=== PATIENT | male | born 1950 | race Caucasian/White ===

== ENCOUNTER 2020-11-09 07:31 | Day surgery (SDC) | payer OTHER ==
[2020-11-09] MEDS ORDERED: EPINEPHRINE/PF 1 MG/ML AMP ONE (07:57)
[2020-11-09] MEDS ORDERED: Ringers Lactate 1,000 ML IV ONE (08:05)
[2020-11-09] MEDS ORDERED: propofoL 200 MG/20 ML VIAL IV ONE (08:37)
[2020-11-09] MEDS ORDERED: LIDOCAINE 1% MPF 5 ML VIAL ONE (08:37)
--- NOTE | 2020-11-09 08:39 | ENDO RPT ---
[address], [address] EGD PROCEDURE REPORT EXAM DATE: 11/09/2020 PATIENT NAME: Brandon Chiang MR#: [id number] BIRTHDATE: 1950 ATTENDING: Saul Herman DR STATUS: outpatient ORACLE FOR[employer] DEVELOPER: Alida Bullard RN and Sascha Abarca [facility] INDICATIONS: The patient is a 70 yr old Male here for an EGD due to malignancy PROCEDURE PERFORMED: EGD with biopsy MEDICATIONS: Per Anesthesia. TOPICAL ANESTHETIC: none CONSENT: The patient understands the risks and benefits of the procedure and understands that these risks include, but are not limited to: sedation, allergic reaction, infection, perforation and/or bleeding. Alternative means of evaluation and treatment include, among others: physical exam, x-rays, and/or surgical intervention. The patient elects to proceed with this endoscopic procedure. DESCRIPTION OF PROCEDURE: During intra-op preparation period all mechanical medical equipment was checked for proper function. Hand hygiene and appropriate measures for infection prevention was taken. Procedure, possible complications, and alternatives including but not limited to the possibility of bleeding, perforation, tear, infection, sepsis, need for surgery, need for blood transfusion, and anesthesia related complications were explained to the patient. After the risks, benefits and alternatives of the procedure were thoroughly explained, Informed consent was verified, confirmed and timeout was successfully executed by the treatment team. The patient was placed in the left lateral position. The patient was anesthetized with topical anesthesia. Through the anesthetized oropharyngeal area, the scope was passed without any difficulty. The Pentax EG-[id number] ([id number]) endoscope was introduced through the mouth and advanced to the esophagus mid. Retroflexion was not performed. The gastroscope was then slowly withdrawn and removed. A circumferential mass was found in the mid esophagus. Located 32 cm from the point of entry. @ 32 cm from incisors With standard forceps, a biopsy was obtained and sent to pathology. ADVERSE EVENTS: There were no complications. IMPRESSIONS: A mass was found in the mid esophagus RECOMMENDATIONS: 1. await biopsy results 2. avoid NSAIDS 3. anti-reflux regimen 4. surgery 5. Boost or ensure diet in preparation for Jejunostomy feeding tube REPEAT EXAM: Saul Herman DR eSigned: Saul Herman DR 11/09/2020 8:39 AM cc: CPT CODES: ICD9 CODES: PATIENT NAME: Андрей Brandon G. MR#: [id number]
[2020-11-09 09:26] VITALS: TEMP 97.5
[2020-11-09 09:27] VITALS: BP 158/87; O2SAT 97
== END 2020-11-09 09:15 | disposition home or self-care (01) ==
LOC: OR 07:31
PROVIDERS: ATTEND Surgery
PROC: 0DB28ZX Excision of Middle Esophagus, Via Natural or Artificial Opening Endoscopic, Diagnostic (ICD-10-PCS; principal; 2020-11-09 08:30)
DX: C15.4 Malignant neoplasm of middle third of esophagus (principal); Z20.822 Contact with and (suspected) exposure to COVID-19
CPT/HCPCS: 43239; 88305; U0002; J2704; J7120; J0171

== ENCOUNTER 2020-11-12 07:35 | Day surgery (SDC) | payer OTHER ==
[2020-11-12] MEDS ORDERED: propofoL 200 MG/20 ML VIAL IV ONE ×2 (08:47→10:08)
[2020-11-12] MEDS: BUPIVACA 0.25%/EPI 0.0005% MDV 50 ML VIAL ONE ×2 (08:48→09:44)
[2020-11-12] MEDS ORDERED: FENTANYL CITR 100 MCG/2 ML ONE ×2 (08:48→10:07)
[2020-11-12] MEDS ORDERED: LIDOCAINE 1% MPF 5 ML VIAL ONE (08:48)
[2020-11-12] MEDS ORDERED: ROCURONIUM 50 MG/5 ML VIAL IV ONE (08:49)
[2020-11-12] MEDS ORDERED: CEFAZOLIN/SWI 2gm 2 GM/20 ML SYR ONE (09:21)
[2020-11-12] MEDS ORDERED: Ringers Lactate 1,000 ML IV ONE ×2 (09:21→11:31)
[2020-11-12] MEDS ORDERED: NEOSTIGMINE 1 MG/ML -5 ML ONE (11:12)
[2020-11-12] MEDS ORDERED: GLYCOPYRROLATE 0.2 MG/ML SYR ONE (11:12)
--- NOTE | 2020-11-12 11:16 | P.OP ---
Preoperative diagnosis: Malnutrition, Esophageal Cancer Postoperative diagnosis: Malnutrition, Esophageal Cancer Primary procedure: Laparoscopic Jejunostomy Feeding Tube Secondary procedure: Laparoscopic Adhesiolysis, Reduction of umbilical hernia Anesthesia: GETA + Local Estimated blood loss: <5cc Specimen: None Findings: Incarcerated umbilical hernia, intra-abdominal scar tissue Complications: None Implants: Jejunostomy Feeding tube - 14 Fr Transferred to: Recovery Room Condition: Good
[2020-11-12] MEDS: LABETALOL 20 MG/4ML SYRINGE IV ONE ×2 (11:42→11:52)
--- NOTE | 2020-11-12 12:28 | OP ---
Date of Procedure: 11/12/2020 Surgeon: Saul Herman MD, Preoperative Diagnosis: Malnutrition and esophageal cancer. Postoperative Diagnosis: Malnutrition and esophageal cancer. Procedures Performed: 1.A laparoscopic jejunostomy feeding tube. 2.Laparoscopic adhesiolysis. 3.Reduction of umbilical hernia. Anesthesia: General endotracheal plus local with 0.25% Marcaine without epinephrine. Estimated Blood Loss: Less than 5 mL. Specimen: None. Findings: 1.Incarcerated umbilical hernia. 2.Intraabdominal scar tissue. No peritoneal mets were noted or intraabdominal malignancy noted on b rief examination. Complications: None. Implants: A 14-Greenlandic jejunostomy feeding tube. Disposition: The patient was transferred to recovery room in good condition. Procedure In Detail: After informed consent was obtained, the patient was brought to the operating r oom, prepped and draped in the usual sterile fashion. After adequate anesthesia was achieved, three areas were demarcated in the midline, 2 supraumbilical, 1 infraumbilical. All these were anesthetize d. A 5 mm 0-degree optical trocar was introduced in the supraumbilical position. Insufflation was o btained at 15 mmHg at this time. There was no injury to vital structures upon entry into the abdomen . The 2 additional trocars were in place in the epigastrium and in the infraumbilical position. At this point, umbilical hernia was appreciated, which was obscuring the view. Therefore, a laparoscopi c adhesiolysis was performed using combination of blunt dissection and electrocautery. After this, u mbilical hernia was reduced. I then turned my attention to the bowel. The patient was positioned in a steep Trendelenburg position. The omentum was draped over the top of the liver and I grasped the small bowel, which was evident at this position and ran up back to the ligament of Treitz. At this p oint, I counted off approximately 30 cm from the ligament of Treitz and placed the abdomen and de-suf flation pressure down to 10 mmHg and brought the small bowel in the antimesenteric border to the ante rior abdominal wall to see if this was a good position in the left upper quadrant. There was no tens ion at this area. Therefore, I decided to place the tube at this point. Additional trocar was place d in the left upper quadrant. This was a 5 mm trocar placed under direct visualization. The ratCodenomicon ed grasper used to bring the jejunostomy 14-Greenlandic feeding tube with balloon inflations system in thr ough the left upper quadrant trocar and the trocar was removed just prior to placement. At this poin t, I made an electrocautery incision overlying this portion of the small bowel approximately 30 cm fr om the ligament of Treitz. I then used a [place] retractor to open and the lumen was appreciated at this point. I then, under direct visualization, passed the jejunostomy feeding tube down distally i ncluding the balloon through this enterotomy without incident. At this point, the balloon was inflat ed with approximately 7 cc of saline. Burst pressure was 10 on this balloon. At this point, I then placed a pursestring suture using a 0 Vicryl intracorporeally, sutured circumferentially in a pursest ring fashion with good apposition of the tissues at the entry site with the balloon just distal to th e insertion site. At this point, I then brought the V-Loc suture with Endo Stitch and performed a We tzel imbrication over the proximal aspect of the jejunostomy feeding tube and used the V-Loc suture t o secure this. At this point, I used an additional V-Loc suture to orient the bowel and prevent tors ion distally approximately 10 cm distal to the tube insertion site. This was pexed to the anterior a bdominal wall using the V-Loc suture. I then secured the insertion site to the anterior abdominal wa ll using a V-Loc suture in an interrupted fashion with good apposition. At this point, the balloon w as inspected and found to be good intact. I tested to ensure that water was injected through the jej unostomy feeding tube and noted to be flowing distally in the small bowel filling it properly. Enter ic contents were returned when suctioned and I then placed an additional small amount of water approx imately 5 cc distally at this point to flush out the tube. At this point, a suture was placed around the neck of the J-tube to secure its position and I then secured to the anterior abdominal wall. At this point, I then desufflated the abdomen under direct visualization and the tube continued to work well and fluid flowed easily into the tube and flowed distally at this point. I then closed the 12 mm supraumbilical trocar site using a Thanh-Mirna suture passer with a 0 Vicryl in an interrupted fashion with good approximation of tissues. The remaining trocars were then removed. The abdomen w as completely desufflated under direct visualization. I irrigated all skin incisions and closed them with 4-0 Monocryl in a running fashion. Dermabond was placed over top. I then secured the J-tube b utton to the skin using two 2-0 nylon sutures laterally and a sterile dressing placed over top. The patient tolerated the procedure well without evidence of complication and transferred to PACU in good condition. All counts were correct at the end of the case. ADOLPH/BESTL Voice ID: [id number] Report ID: [id number]
[2020-11-12 12:45] VITALS: TEMP 96.4
[2020-11-12 12:46] VITALS: BP 155/72; O2SAT 99
== END 2020-11-12 13:00 | disposition home or self-care (01) ==
LOC: OR 07:35
PROVIDERS: ATTEND Surgery
PROC: 0WQF4ZZ Repair Abdominal Wall, Percutaneous Endoscopic Approach (ICD-10-PCS; 2020-11-12)
PROC: 0DHA0UZ Insertion of Feeding Device into Jejunum, Open Approach (ICD-10-PCS; principal; 2020-11-12 08:30)
DX: E46 Unspecified protein-calorie malnutrition (principal); C15.9 Malignant neoplasm of esophagus, unspecified; R13.10 Dysphagia, unspecified; Z20.822 Contact with and (suspected) exposure to COVID-19
CPT/HCPCS: 49652; 44186; J2704 ×2; J3010 ×2; J2710; J0690; J7120 ×2

== ENCOUNTER 2020-11-23 14:08 | Inpatient (IN) | payer OTHER ==
[2020-11-23 14:38] LABS: Absolute Lymphocytes (CBC) 0.6 K/uL (0.7-4.9); Basophils % 0.2 % (0-1.3); Hematocrit 50.4 % (39.6-49.0); Lymphocytes % 3.6 % (15.3-44.8); MPV 11.7 fL (7.6-11.3); RBC Red Blood Cell Count 5.38 M/uL (4.33-5.43)
--- NOTE | 2020-11-23 14:51 | RAD REPORT ---
EXAM DESCRIPTION: RAD - Chest Single View - 11/23/2020 2:44 pm CLINICAL HISTORY: N/V Chest pain. COMPARISON: Thorax Wo Con dated 10/29/2020 FINDINGS: Portable technique limits examination quality. The lungs are grossly clear. The heart is normal in size. No displaced fractures.Tortuous thoracic ao rta. IMPRESSION: No acute intrathoracic process suspected.
--- NOTE | 2020-11-23 14:51 | RAD REPORT ---
EXAM DESCRIPTION: RAD - ENTEROSTOMY TUBE CHECK W/CONTR - 11/23/2020 2:44 pm CLINICAL HISTORY: unable to use peg tube Pain and swelling COMPARISON: Abdomen Pelvis Scan dated 01/28/2017 FINDINGS: Two plain radiographs were performed. No fluoroscopy obtained. Business Performance Analyst image shows enteric tube on the left abdomen. Contrast infused via the tube fills several small bowel loops in the lower abdomen. This indicates appropriate placement.
[2020-11-23] MEDS ORDERED: FAMOTIDINE 20 MG/2 ML VIAL IV ONE (14:52)
[2020-11-23] MEDS ORDERED: ONDANSETRON 4 MG/2 ML VIAL ONE (14:56)
[2020-11-23 15:01] LABS: Blood Morphology Comment NOT SEEN (NOT SEEN); Platelet Estimate ADEQ; White Blood Cell Scan OK (OK)
[2020-11-23 15:02] LABS: Albumin 4.2 g/dL (3.4-5.0); Bilirubin Direct 1.7 mg/dL (0-0.2); Bilirubin Total 2.6 mg/dL (0.2-1.0); Magnesium 3.4 mg/dL (1.8-2.4); Potassium 3.2 mmol/L (3.5-5.1); Protein, Total 8.9 g/dL (6.4-8.2)
[2020-11-23] MEDS ORDERED: Ringers Lactate 1,000 ML IV ONE (15:17)
[2020-11-23] MEDS ORDERED: PROMETHAZINE INJ 25 MG/ML AMP ONE (15:17)
--- NOTE | 2020-11-23 15:36 | EDPHYS ---
Physician Documentation [facility] Name: Brandon Chiang Age: 70 yrs Sex: Male : 1950 Arrival Date: 11/23/2020 Time: 14:16 Bed 16 Private MD: ED Physician Shimon Pulido HPI: 11/23 14:30 This 70 yrs old Male presents to ER via EMS with complaints of cp Nausea/Vomiting. 14:30 The patient presents to the emergency department with nausea, that is moderate, cp vomiting, that is continuous. 14:30 Onset: The symptoms/episode began/occurred September of 2020, became worse and cp persistent since having j-tube placed on 11-12-[address]. 14:30 Possible causes: Patient has history of esophageal cancer. Associated signs and cp symptoms: Pertinent positives: anorexia, Pertinent negatives: abdominal pain, constipation, diarrhea, dysuria, fever, GI bleeding. Severity of symptoms: in the emergency department the symptoms are unchanged despite home interventions. Historical: - Allergies: 14:19 No Known Allergies; vg1 - PSHx: 14:19 Jejunostomy; vg1 - Immunization history:: Adult Immunizations up to date. ROS: 14:35 Constitutional: Positive for poor PO intake, Negative for body aches, chills, fever. cp 14:35 Eyes: Negative for injury, pain, redness, and discharge. cp 14:35 ENT: Negative for ear pain, sore throat, difficulty swallowing, difficulty handling secretions. 14:35 Cardiovascular: Negative for chest pain, palpitations. 14:35 Respiratory: Negative for cough, shortness of breath, wheezing. 14:35 Abdomen/GI: Positive for nausea and vomiting, anorexia, Negative for abdominal pain, diarrhea, constipation, hematemesis, black/tarry stool, rectal bleeding. 14:35 Back: Negative for pain at rest, pain with movement. 14:35 : Negative for urinary symptoms. 14:35 Skin: Negative for cellulitis, rash. 14:35 Neuro: Negative for altered mental status, dizziness, syncope, weakness. 14:35 All other systems are negative. Exam: 14:40 Constitutional: The patient appears in no acute distress, alert, awake, cp non-diaphoretic, non-toxic, well developed, well nourished, uncomfortable. 14:40 Head/Face: Normocephalic, atraumatic. cp 14:40 Eyes: Periorbital structures: appear normal, Conjunctiva: normal, no exudate, no injection, Sclera: no appreciated abnormality, Lids and lashes: appear normal, bilaterally. 14:40 ENT: External ear(s): are unremarkable, Nose: is normal, Mouth: Lips: moist, Oral mucosa: pink and intact, moist, Posterior pharynx: Airway: no evidence of obstruction, patent. 14:40 Neck: ROM/movement: is normal, is supple, without pain, no range of motions limitations, no nuchal rigidity. 14:40 Chest/axilla: Inspection: normal, Palpation: is normal, no crepitus, no tenderness. 14:40 Cardiovascular: Rate: normal, Rhythm: regular, Edema: is not appreciated, JVD: is not appreciated. 14:40 Respiratory: the patient does not display signs of respiratory distress, Respirations: labored breathing, is not present, intercostal retractions, are absent. 14:40 Abdomen/GI: Inspection: distension, that is mild, Bowel sounds: active, all quadrants, Palpation: abdomen is soft and non-tender, in all quadrants, rebound tenderness, is not appreciated, voluntary guarding, is not appreciated, involuntary guarding, is not appreciated. 14:40 Back: pain, is absent, ROM is normal. 14:40 Skin: cellulitis, is not appreciated, no rash present. 14:40 Neuro: Orientation: to person, place \\T\\ time. Mentation: is normal, Motor: moves all fours, strength is normal. Vital Signs: 14:16 BP 144 / 93; Pulse 99; Resp 16; Pulse Ox 96% on R/A; Weight 88 kg; Height 6 ft. 1 in. vg1 (185.42 cm); Pain 0/10; 17:31 BP 150 / 93; Pulse 92; Resp 16; Pulse Ox 95% on R/A; ph 14:16 Body Mass Index 25.59 (88.00 kg, 185.42 cm) vg1 MDM: 14:19 Patient medically screened. cp 14:30 Differential diagnosis: gastritis, viral gastroenteritis, gastroenteritis, kidney cp failure, bowel obstruction, dehydration, electrolyte abnormality. 15:33 Data reviewed: vital signs, nurses notes, lab test result(s), radiologic studies, plain cp films, I have discussed the patient's presentation/case with the attending Emergency Department Physician; and as a result, I will admit patient. Physician consultation: Saul Herman MD was contacted at 15:00, regarding consult, patient's condition, would like admission per Dr. Jovanni Morales in the emergency department to see patient at 15:15. 11/23 14:19 Order name: Basic Metabolic Panel 11/23 14:19 Order name: CBC with Diff 11/23 14:57 Interpretation: Normal except: WBC 15.50; HCT 50.4; MPV 11.7; QUANG% 91.4; LYM% 3.6; NEUT cp A 14.1; LYMA 0.6. 11/23 14:19 Order name: Hepatic Function; Complete Time: 15:10 11/23 15:29 Interpretation: Normal except: AST 45; ALT 89; BILIT 2.6; BILID 1.7; TP 8.9; GLOB 4.7; cp A/G 0.9. 11/23 14:19 Order name: Lipase; Complete Time: 15:10 11/23 14:19 Order name: Magnesium; Complete Time: 15:10 11/23 14:19 Order name: Basic Metabolic Panel; Complete Time: 15:10 EDMS 11/23 14:19 Order name: XRAY Chest (1 view); Complete Time: 14:57 11/23 14:19 Order name: PEG Tube Check w/contrast; Complete Time: 14:57 11/23 15:01 Order name: CBC Smear Scan EDAL 11/23 15:21 Order name: CT Abd/Pelvis - Without Contrast 11/23 15:33 Order name: COVID-19 : Document "Date of Symptom Onset" if Symptomatic. 11/23 16:36 Order name: SARS-COV-2 RT PCR EDAL 11/23 14:19 Order name: IV Saline Lock; Complete Time: 14:33 11/23 14:19 Order name: Labs collected and sent; Complete Time: 14:33 11/23 15:54 Order name: NG Tube; Complete Time: 17:05 cp 11/23 16:21 Order name: CONS Physician Consult EDMS Administered Medications: 14:46 Drug: Pepcid 20 mg Route: IVP; Site: left antecubital; vg1 15:38 Follow up: Response: No adverse reaction vg1 14:46 Drug: Zofran (Ondansetron) 4 mg Route: IVP; Site: left antecubital; vg1 15:38 Follow up: Response: No adverse reaction; Nausea unchanged vg1 15:12 Drug: Phenergan 25 mg Route: IVP; Site: left antecubital; vg1 18:48 Follow up: Response: No adverse reaction ph 15:12 Drug: Lactated Ringers Solution 1000 ml Route: IV; Rate: 500 ml/hr; Site: left 1 antecubital; 17:30 Follow up: Response: No adverse reaction; IV Status: Completed infusion; IV Intake: ph 1000ml 17:30 Drug: metroNIDAZOLE 500 mg Volume: 100 ml; Route: IVPB; [facility]used Over: 30 mins; [facility]; 18:00 Follow up: Response: No adverse reaction; IV Status: Completed infusion; IV Intake: ph 100ml 17:30 Drug: Cipro 200 mg Volume: 100 ml; Route: IVPB; Infused Over: 60 mins; Site: [facility]; 18:30 Follow up: Response: No adverse reaction; IV Status: Completed infusion; IV Intake: ph 100ml Disposition: 11/23/20 15:35 Hospitalization ordered by Jovanni Moralse for Inpatient Admission. Preliminary diagnosis are Nausea and vomiting, Acute kidney failure, Dehydration, Other and unspecified intestinal obstruction. - Bed requested for Telemetry/MedSurg (Inpatient). - Status is Inpatient Admission. vg1 - Condition is Fair. - Problem is new. - Symptoms have improved. Addendum: 11/25/2020 14:34 Co-signature as Attending Physician, Shimon Pulido MD I agree with the assessment and k dr plan of care. Signatures: Dispatcher [employer] EDAL Shimon Pulido MD MD [facility] Helen Curiel RN RN jewel5 Nancy Skaggs, MARISSA RN ph Jeronimo Wilson PA PA cp Garcia, Victoria, RN RN vg1 Corrections: (The following items were deleted from the chart) 11/23 15:29 15:28 Normal except: AST 45; ALT 89; BILIT 2.6; BILID 1.7; TP 8.9; GLOB 4.7. cp cp 15:49 15:34 CORONAVIRUS ordered. EDMS EDMS 15:54 15:35 Hospitalization Ordered by Jovanni Morales for Inpatient Admission. Preliminary cp diagnosis is Nausea and vomiting; Acute kidney failure; Dehydration. Bed requested for Telemetry/MedSurg (Inpatient). Status is Inpatient Admission. Condition is Fair. Problem is new. Symptoms have improved. cp 18:50 15:54 11/23/2020 15:35 Hospitalization Ordered by Jovanni Morales for Inpatient aa5 Admission. Preliminary diagnosis is Nausea and vomiting; Acute kidney failure; Dehydration; Other and unspecified intestinal obstruction. Bed requested for Telemetry/MedSurg (Inpatient). Status is Inpatient Admission. Condition is Fair. Problem is new. Symptoms have improved. cp 20:00 18:50 11/23/2020 15:35 Hospitalization Ordered by Jovanni Morales for Inpatient vg1 Admission. Preliminary diagnosis is Nausea and vomiting; Acute kidney failure; Dehydration; Other and unspecified intestinal obstruction. Bed requested for Telemetry/MedSurg (Inpatient). Status is Inpatient Admission. Condition is Fair. Problem is new. Symptoms have improved. aa5
--- NOTE | 2020-11-23 15:36 | ER ---
Nurse's Notes [facility] Name: Barndon Chiang Age: 70 yrs Sex: Male : 1950 Arrival Date: 11/23/2020 Time: 14:16 Bed 16 Private MD: Diagnosis: Nausea and vomiting;Acute kidney failure;Dehydration;Other and unspecified intestinal obstruction Presentation: 11/23 14:16 Chief complaint: EMS states: Patient had a J tube placed about two weeks ago and has vg1 not been able to keep anything down since. Patient vomited upon arrival. EMS stated it was green in color. Coronavirus screen: Client denies travel out of the [place] in the last 14 days. Ebola Screen: Patient negative for fever greater than or equal to 101.5 degrees Fahrenheit, and additional compatible Ebola Virus Disease symptoms. Initial Sepsis Screen: Does the patient meet any 2 criteria? No. Patient's initial sepsis screen is negative. Does the patient have a suspected source of infection? No. Patient's initial sepsis screen is negative. Risk Assessment: Do you want to hurt yourself or someone else? Patient reports no desire to harm self or others. Onset of symptoms was November 09, 2020. 14:16 Method Of Arrival: EMS: [facility] vg1 14:16 Acuity: LEIDY 3 vg1 Historical: - Allergies: 14:19 No Known Allergies; vg1 - PSHx: 14:19 Jejunostomy; vg1 - Immunization history:: Adult Immunizations up to date. Screenin:38 Abuse screen: Denies threats or abuse. Nutritional screening: No deficits noted. vg1 Tuberculosis screening: No symptoms or risk factors identified. Fall Risk No fall in past 12 months (0 pts). No secondary diagnosis (0 pts). IV access (20 points). Ambulatory Aid- None/Bed Rest/Nurse Assist (0 pts). Gait- Normal/Bed Rest/Wheelchair (0 pts) Mental Status- Oriented to own ability (0 pts). Total Wheeler Fall Scale indicates No Risk (0-24 pts). Assessment: 14:00 General: Appears in no apparent distress. comfortable, Behavior is calm, cooperative. vg1 Pain: Denies pain. Neuro: Level of Consciousness is awake, alert, obeys commands, Oriented to person, place, time, situation. Cardiovascular: Patient's skin is warm and dry. Respiratory: Airway is patent Respiratory effort is even, unlabored, Respiratory pattern is regular, symmetrical. GI: Abdomen is round distended, PEG tube in place, Site clean. : No signs and/or symptoms were reported regarding the genitourinary system. EENT: No signs and/or symptoms were reported regarding the EENT system. Derm: Skin is intact, is healthy with good turgor. Musculoskeletal: Circulation, motion, and sensation intact. 14:36 Reassessment: xray at bedside. vg1 14:46 Reassessment: Received VO from Jeronimo Santiago administer Zofran 4 mg IVP x1. vg1 16:00 Reassessment: Patient appears in no apparent distress at this time. Patient and/or vg1 family updated on plan of care and expected duration. Pain level reassessed. Patient is alert, oriented x 3, equal unlabored respirations, skin warm/dry/pink. Patient denies pain at this time. Patient states feeling better. 18:00 Reassessment: No changes from previously documented assessment. Patient is alert, vg1 oriented x 3, equal unlabored respirations, skin warm/dry/pink. 19:39 Reassessment: Attempted to call report. vg1 Vital Signs: 14:16 BP 144 / 93; Pulse 99; Resp 16; Pulse Ox 96% on R/A; Weight 88 kg; Height 6 ft. 1 in. vg1 (185.42 cm); Pain 0/10; 17:31 BP 150 / 93; Pulse 92; Resp 16; Pulse Ox 95% on R/A; ph 14:16 Body Mass Index 25.59 (88.00 kg, 185.42 cm) vg1 ED Course: 14:16 Patient arrived in ED. vg1 14:17 Jeronimo Wilson PA is PHCP. cp 14:17 Shimon Pulido MD is Attending Physician. cp 14:18 Triage completed. vg1 14:30 Initial lab(s) drawn, by me, sent to lab. X-ray(s) taken. Inserted saline lock: 20 jp3 gauge in left antecubital area, using aseptic technique. Blood collected. Patient maintains SpO2 saturation greater than 95% on room air. 14:32 Natalie Mejia, RN is Primary Nurse. vg1 14:32 Placed in gown. Bed in low position. Call light in reach. Side rails up X2. Warm jp3 blanket given. Verbal reassurance given. Pulse ox on. NIBP on. 14:38 Arm band placed on. vg1 14:43 XRAY Chest (1 view) In Process Unspecified. EDMS 14:44 PEG Tube Check w/contrast In Process Unspecified. EDMS 15:35 Jovanni Morales is Hospitalizing Provider. cp 15:[address] via stretcher. vg1 15:50 CT Abd/Pelvis - Without Contrast In Process Unspecified. EDMS 19:37 NGT: inserted 10 Fr. via right nare. other Inserted by Dr Lynn. vg1 20:00 No provider procedures requiring assistance completed. Patient admitted, IV remains in vg1 place. Administered Medications: 14:46 Drug: Pepcid 20 mg Route: IVP; Site: left antecubital; vg1 15:38 Follow up: Response: No adverse reaction vg1 14:46 Drug: Zofran (Ondansetron) 4 mg Route: IVP; Site: left antecubital; vg1 15:38 Follow up: Response: No adverse reaction; Nausea unchanged vg1 15:12 Drug: Phenergan 25 mg Route: IVP; Site: left antecubital; vg1 18:48 Follow up: Response: No adverse reaction ph 15:12 Drug: Lactated Ringers Solution 1000 ml Route: IV; Rate: 500 ml/hr; Site: left [facility] antecubital; 17:30 Follow up: Response: No adverse reaction; IV Status: Completed infusion; IV Intake: ph 1000ml 17:30 Drug: metroNIDAZOLE 500 mg Volume: 100 ml; Route: IVPB; Infused Over: 30 mins; [facility]; 18[facility]00 Follow up: Response: No adverse reaction; IV Status: Completed infusion; IV Intake: ph 100ml 17:30 Drug: Cipro 200 mg Volume: 100 ml; Route: IVPB; Infused Over: 60 mins; Site: left antecubital; 18:30 Follow up: Response: No adverse reaction; IV Status: Completed infusion; IV Intake: ph 100ml Intake: 17:30 IV: 1000ml; Total: 1000ml. ph 18:00 IV: 100ml; Total: 1100ml. ph 18:30 IV: 100ml; Total: 1200ml. ph Outcome: 15:35 Decision to Hospitalize by Provider. cp 20:00 Admitted to Tele accompanied by tech, via stretcher, room 219, with chart, Report vg1 called to Yazmin ANN called report to receiving nurse. 20:00 Condition: stable 20:00 Instructed on the need for admit. 20:00 Patient left the ED. vg1 Signatures: Dispatcher [employer] Nancy Nava RN RN ph Jeronimo Wilson PA PA Zeferino Lucio 3 Natalie Mejia RN RN vg1 Corrections: (The following items were deleted from the chart) 14:46 14:45 Pepcid 20 mg IVP in right antecubital vg1 vg1
--- NOTE | 2020-11-23 16:06 | RAD REPORT ---
EXAM DESCRIPTION: CT - Abdomen Pelvis Wo Contrast - 11/23/2020 3:50 pm CLINICAL HISTORY: Abdominal pain. ABDOMINAL DISTENTION COMPARISON: No comparisons TECHNIQUE: CT imaging of the abdomen and pelvis was performed without contrast. Solid organ and vasc ular assessment is limited due to lack of IV contrast. All CT scans are performed using dose optimization technique as appropriate and may include automated exposure control or mA/KV adjustment according to patient size. FINDINGS: The inferior lung nichole are mildly emphysematous. There is marked fluid distention of the distal esophagus, stomach and duodenum to the level of left m id abdomen or a jejunostomy tube enters the abdomen. In this region the bowel wall appears thickened which may be etiology of the obstruction. Contrast is seen within the distal small bowel loops to thi s point which appear normal caliber. Tiny bubbles of air are seen throughout the abdominal fat. The liver, spleen, pancreas, adrenal glands and left kidney are within normal limits for a limited no n-contrast examination.Small calculi are present in the inferior right kidney without hydronephrosis. Small right renal cysts are present, benign in appearance. Moderate to large right inguinal hernia is present containing small bowel loops and air. Small fat co ntaining left inguinal hernia. Sigmoid diverticulosis coli is present without diverticulitis. Normal appendix. Moderate lumbar degenerative changes are present. IMPRESSION: A severe bowel obstruction is present involving the stomach and duodenum. Point of obstr uction appears to be related to left abdominal jejunostomy tube. Small amount of pneumoperitoneum is seen which is probably related to previous intervention and can b e monitored on subsequent CT studies. Right nephrolithiasis. Findings were discussed with Dr. Fernández on 11/23/20 at 4 pm by telephone. A limited non-contrast examination was performed as detailed.
[2020-11-23] MEDS ORDERED: CIPROFLOXACIN 400mg IV 400 MG/200 ML BAG IV ONE (17:34)
[2020-11-23] MEDS ORDERED: METRONIDAZOLE 500mg IVPB 500 MG/100 ML BAG IV ONE (17:35)
[2020-11-23] MEDS ORDERED: JEVITY 1.5 CAL LIQUID 1,000 ML BOT RTH SCH (18:00)
--- NOTE | 2020-11-23 18:40 | P.HP ---
Certification for Inpatient Patient admitted to: Inpatient With expected LOS: >2 Midnights Practitioner: I am a practitioner with admitting privileges, knowledge of patient current condition, hospital course, and medical plan of care. Services: Services provided to patient in accordance with Admission requirements found in Title 42 Section 412.3 of the Code of Federal Regulations Patient History Date of Service: 11/23/20 Reason for admission: Nausea and vomiting. History of Present Illness: 70-year-old gentleman with a history of esophageal cancer status post J-tube for feeding about 2 weeks ago presented to the emergency department with a complaint of nausea and vomiting. Patient vomited in the emergency department. There was a concern his J tube was not working. Patient was seen by general surgery Dr. Herman we examined his J tube, performed a contrast study and noted the J tube is still functional. Patient noted to have acute renal failure with creatinine up to 6.8 compared to a baseline of 2. NG-tube to suction was inserted by Dr. Herman. Patient is admitted for further management. Allergies No Known Allergies Allergy (Verified 11/09/20 08:01) Home Medications: Felodipine [Plendil] 10 mg PO DAILY 11/09/20 Omeprazole 20 mg PO BID 11/09/20 - Past Medical/Surgical History -: Esophageal cancer -: Chronic kidney disease -: Knee surgery -: Tonsillectomy and adenoidectomy. - Family History Father -: Other (see notes) (Pneumonia and from pulmonary embolism.) - Social History Alcohol use: No CD- Drugs: No Place of Residence: Home Review of Systems Other: Except as documented, all other systems reviewed and negative. Physical Examination - Physical Exam General: Alert, In no apparent distress, Oriented x3 HEENT: Normocephalic, PERRLA, Mucous membr. moist/pink, EOMI, Sclerae nonicteric Neck: Supple, JVD not distended Respiratory: Clear to auscultation bilaterally, Normal air movement Cardiovascular: No edema, Regular rate/rhythm, Normal S1 S2 Capillary refill: <2 Seconds Gastrointestinal: Normal bowel sounds, Soft and benign, Non-distended, Other (J tube in situ.) Musculoskeletal: No swelling, No tenderness Integumentary: No rashes, No erythema Neurological: Normal strength at 5/5 x4 extr, Cranial nerves 3-12 intact - Studies Laboratory Data (last 24 hrs) 11/23/20 14:29: WBC 15.50 H, Hgb 16.3, Hct 50.4 H, Plt Count 220 11/23/20 14:29: Sodium 132 L, Potassium 3.2 L, BUN 122 H, Creatinine 6.36 H*, Glucose 167 H, Magnesium 3.4 H, Total Bilirubin 2.6 H, AST 45 H, ALT 89 H, Alkaline Phosphatase 102, Lipase 555 H Assessment and Plan - Problems (Diagnosis) (1) Nausea and vomiting Current Visit: Yes Status: Acute (2) Acute renal failure superimposed on stage 3 chronic kidney disease Current Visit: Yes Status: Acute (3) Small bowel obstruction Current Visit: Yes Status: Acute (4) Hypokalemia Current Visit: Yes Status: Acute (5) Hyponatremia Current Visit: Yes Status: Acute - Plan Admit to the medical floor. Aggressively hydrate with IV NS. Consult to Dr. Batsheva reese. Consult to nephrology requested. Monitor renal function. Keep NPO NG tube to suction in place. Prophylactic IV antibiotics given leukocytosis. Monitor and replete electrolytes as needed. Liver enzymes and lipase are elevated. CT abdomen pelvis suggesting normal appearing liver and pancreas. Monitor LFT. - Advance Directives Does patient have a Living Will: No Does patient have a Durable POA for Healthcare: No
[2020-11-23] MEDS ORDERED: ONDANSETRON 4 MG/2 ML VIAL IV PRN (20:47)
[2020-11-23] MEDS ORDERED: SODIUM CHLORIDE 0.9% 10ML INJ IV PRN (20:47)
[2020-11-23] MEDS: NA CHLORIDE 0.9% 1,000 ML IV SCH (21:26)
[2020-11-23] MEDS: HEPARIN 5000 UNIT/ML 1 ML VIAL SQ SCH (21:26)
[2020-11-24] MEDS: METRONIDAZOLE 500mg IVPB 500 MG/100 ML BAG IV SCH ×3 (01:00→17:00)
[2020-11-24] MEDS: HEPARIN 5000 UNIT/ML 1 ML VIAL SQ SCH ×3 (01:00→17:00)
[2020-11-24] MEDS: NA CHLORIDE 0.9% 1,000 ML IV SCH ×3 (04:47→23:40)
[2020-11-24 05:00] LABS: Basophils % 0.3 % (0-1.3); Hematocrit 44.6 % (39.6-49.0); Lymphocytes % 8.1 % (15.3-44.8); MPV 11.5 fL (7.6-11.3); RBC Red Blood Cell Count 4.72 M/uL (4.33-5.43)
[2020-11-24 06:00] LABS: Albumin 3.5 g/dL (3.4-5.0); Bilirubin Total 2.4 mg/dL (0.2-1.0); Magnesium 3.1 mg/dL (1.8-2.4); Phosphorus 5.9 mg/dL (2.5-4.9); Protein, Total 7.7 g/dL (6.4-8.2); Thyroid Stimulating Hormone 0.491 uIU/mL (0.360-3.740)
[2020-11-24 06:23] LABS: Urine Appearance CLEAR; Urine Blood TRACE (NEG); Urine Color DK YELLOW; Urine Glucose NEGATIVE (NEG); Urine Protein 2+ (NEG); Urine Urobilinogen 0.2 mg/dL (0.2-1.0)
[2020-11-24 06:31] LABS: Urine Bilirubin 1+ (NEG); Urine Microscopic Reflex ORDER UMIC
[2020-11-24 07:01] LABS: Urine Bacteria <20 /HPF (NONE SEEN); Urine RBC <5 /HPF (NONE SEEN)
[2020-11-24] MEDS: CEFTRIAXONE/SWI 1gm 1 GM/10 ML SYR IV SCH (09:00)
[2020-11-24] MEDS ORDERED: CEFTRIAXONE 1 GM/NS 50 ML 1 GM/50 ML BAG IV SCH (09:00)
[2020-11-24] MEDS ORDERED: POTASSIUM 25 MEQ EFFERV TAB PO ONE (09:00)
[2020-11-24] MEDS: PANTOPRAZOLE 40 MG INJ IVP SCH (09:00)
[2020-11-24] MEDS: KCL 20 MEQ/100 mL IVPB 20 MEQ/100 ML BAG IV SCH ×2 (10:30→12:30)
[2020-11-24] MEDS ORDERED: GLUCAGON 1 MG/VIAL IM PRN (11:00)
[2020-11-24] MEDS ORDERED: D50W 25 GM/50 ML SYRINGE IV PRN (11:00)
--- NOTE | 2020-11-24 11:04 | P.PN ---
Subjective Date of Service: 11/24/20 Chief Complaint: Nausea and vomiting. Subjective: Improving (Patient has no nausea with NGT in place, no pain, no bloating, no complaints.) Physical Examination - Vital Signs Temperature: 96.8 F Blood Pressure: 156/93 Pulse: 88 Respirations: 18 Pulse Ox (%): 96 - Physical Exam General: Alert, In no apparent distress, Cooperative HEENT: Mucous membr. moist/pink Respiratory: Normal air movement Gastrointestinal: Soft and benign, Other (J- tube in place, no drainage, no infection) - Studies Laboratory Data (last 24 hrs) 11/23/20 14:29: WBC 15.50 H, Hgb 16.3, Hct 50.4 H, Plt Count 220 11/23/20 14:29: Sodium 132 L, Potassium 3.2 L, BUN 122 H, Creatinine 6.36 H*, Glucose 167 H, Magnesium 3.4 H, Total Bilirubin 2.6 H, AST 45 H, ALT 89 H, Alkaline Phosphatase 102, Lipase 555 H Assessment And Plan - Current Problems (Diagnosis) (1) Nausea and vomiting Current Visit: Yes Status: Acute Plan: 70 year old man who presents s/p laparoscopic jejunostomy tube placement with SBO @ j-tube site, - serial exams - Gen: no pain, normal mentation - CVS: RRR, continue telemetry - Pulm: incentive spirometry - GI : - will repeat CT scan on thursday evening to evaluate if obstruction was inflammatory or due to balloon of J-tube, J -tube balloon had 3 cc of saline and was completely deflated yesterday in ER which may have been causing obstruction, NG tube was on medium high intermittent suction, it was ordered for Low intermittent, I have corrected it. - FEN: continue IV hydration per Dr. Mckinney for dehydration and CLIVE which is likely pre-renal due to dehydration, and he had about 4-5 liters out of NG tube, so patient is likely quite dehydrated, nutrition: ok to start tube feeding from surgical standpoint today per dietary recommendations, however, please discuss with Neprologist to see if Nepro would be better formula given CLIVE, or can hold tube feeding @ this time, if so, will recommend consideration of TPN - Hold Tube feeding @ midnight tonight in preparation of CT scan tomorrow, and possible surgical intervention if obstruction not alleviated by tomorrow evening. Electrolyte correction per clinical orthoptist for hypokalemia, hyperphosphatemia, hypermagnesemia - NPO / nothing per J-tube @ midnight on Thursday - Prophylaxis: continue PPI for stress ulcer prophylaxis, will start accuchecks and low dose insulin sliding scale PRN - patient is ambulatory, but agree to give prophylactic anticoagulation given his cancer diagnosis, will hold on thursday night if surgery is indicated.
[2020-11-24] MEDS: INSULIN -REGULAR HUMAN 50 UNIT/0.5 ML ML SQ SCH ×3 (11:30→20:04)
--- NOTE | 2020-11-24 12:04 | P.PN ---
Subjective Date of Service: 11/24/20 Chief Complaint: Nausea and vomiting. Significant NG-tube output. Serum creatinine trending down slowly. Patient denies any abdominal pain. No BM. Physical Examination - Vital Signs Temperature: 96.8 F Blood Pressure: 156/93 Pulse: 88 Respirations: 18 Pulse Ox (%): 96 - Physical Exam General: Alert, In no apparent distress, Oriented x3 HEENT: Other (NG-tube to suction in place) Neck: JVD not distended Respiratory: Clear to auscultation bilaterally, Normal air movement Cardiovascular: No edema, Regular rate/rhythm, Normal S1 S2 Gastrointestinal: Hypoactive, Soft and benign, Non-distended, No tenderness Musculoskeletal: No swelling, No tenderness Integumentary: No rashes, No erythema Neurological: Normal strength at 5/5 x4 extr, Cranial nerves 3-12 intact - Studies Laboratory Data (last 24 hrs) 11/23/20 14:29: WBC 15.50 H, Hgb 16.3, Hct 50.4 H, Plt Count 220 11/23/20 14:29: Sodium 132 L, Potassium 3.2 L, BUN 122 H, Creatinine 6.36 H*, Glucose 167 H, Magnesium 3.4 H, Total Bilirubin 2.6 H, AST 45 H, ALT 89 H, Alkaline Phosphatase 102, Lipase 555 H Assessment And Plan - Current Problems (Diagnosis) (1) Nausea and vomiting Current Visit: Yes Status: Acute (2) Acute renal failure superimposed on stage 3 chronic kidney disease Current Visit: Yes Status: Acute (3) Small bowel obstruction Current Visit: Yes Status: Acute (4) Hypokalemia Current Visit: Yes Status: Acute (5) Hyponatremia Current Visit: Yes Status: Acute (6) Ileus Current Visit: Yes Status: Acute - Plan Continue IV normal saline. Dr. Herman input appreciated. Nephrology-Dr. Mckinney to see patient Continue to monitor renal function. Tube feeding per Dr. Herman. NG tube in place. Leukocytosis is trending down. Prophylactic IV antibiotics given leukocytosis. Monitor and replete electrolytes as needed. Liver enzymes and lipase are elevated. CT abdomen pelvis suggesting normal appearing liver and pancreas. Monitor LFT.
--- NOTE | 2020-11-24 12:52 | P.CNS ---
Date of Consult: 11/24/20 Reason for Consult: CLIVE Requesting Physician: yanci nguyen Chief Complaint: Nausea and vomiting. History of Present Illness: 70-year-old gentleman with a history of esophageal cancer status post J-tube for feeding about 2 weeks ago presented to the emergency department with a complaint of nausea and vomiting. Patient vomited in the emergency department. There was a concern his J tube was not working. Patient was seen by general surgery Dr. Herman we examined his J tube, performed a contrast study and noted the J tube is still functional. Patient noted to have acute renal failure with creatinine up to 6.8 compared to a baseline of 2. NG-tube to suction was inserted by Dr. Herman. Patient is admitted for further management. Allergies No Known Allergies Allergy (Verified 11/09/20 08:01) Home medications list reviewed: Yes Home Medications: Felodipine [Plendil] 10 mg PO DAILY 11/09/20 Omeprazole 20 mg PO BID 11/09/20 - Past Medical/Surgical History Diabetic: Yes -: Esophageal cancer -: Chronic kidney disease -: Knee surgery -: Tonsillectomy and adenoidectomy. - Family History Father Medical History: Other (see notes) (Pneumonia and from pulmonary embolism.) - Social History Alcohol use: No CD- Drugs: No Place of Residence: Home Review of Systems 10-point ROS is otherwise unremarkable General: Weakness, Malaise Neurological: Weakness Physical Examination Temp Pulse Resp BP Pulse Ox 96.8 F 88 18 156/93 H 96 11/24/20 12:04 11/24/20 12:04 11/24/20 12:04 11/24/20 12:04 11/24/20 12:04 General: In no apparent distress, Oriented x3, Cooperative HEENT: Atraumatic Neck: Supple Respiratory: Clear to auscultation bilaterally Cardiovascular: No edema, Regular rate/rhythm Gastrointestinal: Soft and benign, Non-distended Musculoskeletal: No clubbing, No contractures Integumentary: No rashes, No cyanosis Neurological: Normal speech Laboratory Data (last 24 hrs) 11/23/20 14:29: WBC 15.50 H, Hgb 16.3, Hct 50.4 H, Plt Count 220 11/23/20 14:29: Sodium 132 L, Potassium 3.2 L, BUN 122 H, Creatinine 6.36 H*, Glucose 167 H, Magnesium 3.4 H, Total Bilirubin 2.6 H, AST 45 H, ALT 89 H, Alkaline Phosphatase 102, Lipase 555 H Imagings Data: EXAM DESCRIPTION: CT - Abdomen Pelvis Wo Contrast - 11/23/2020 3:50 pm CLINICAL HISTORY: Abdominal pain. ABDOMINAL DISTENTION COMPARISON: No comparisons TECHNIQUE: CT imaging of the abdomen and pelvis was performed without contrast. Solid organ and vascular assessment is limited due to lack of IV contrast. All CT scans are performed using dose optimization technique as appropriate and may include automated exposure control or mA/KV adjustment according to patient size. FINDINGS: The inferior lung nichole are mildly emphysematous. There is marked fluid distention of the distal esophagus, stomach and duodenum to the level of left mid abdomen or a jejunostomy tube enters the abdomen. In this region the bowel wall appears thickened which may be etiology of the obstruction. Contrast is seen within the distal small bowel loops to this point which appear normal caliber. Tiny bubbles of air are seen throughout the abdominal fat. The liver, spleen, pancreas, adrenal glands and left kidney are within normal limits for a limited non-contrast examination.Small calculi are present in the inferior right kidney without hydronephrosis. Small right renal cysts are present, benign in appearance. Moderate to large right inguinal hernia is present containing small bowel loops and air. Small fat containing left inguinal hernia. Sigmoid diverticulosis coli is present without diverticulitis. Normal appendix. Moderate lumbar degenerative changes are present. IMPRESSION: A severe bowel obstruction is present involving the stomach and duodenum. Point of obstruction appears to be related to left abdominal jejunostomy tube. Small amount of pneumoperitoneum is seen which is probably related to previous intervention and can be monitored on subsequent CT studies. Right nephrolithiasis. EXAM DESCRIPTION: RAD - Chest Single View - 11/23/2020 2:44 pm CLINICAL HISTORY: N/V Chest pain. COMPARISON: Thorax Wo Con dated 10/29/2020 FINDINGS: Portable technique limits examination quality. The lungs are grossly clear. The heart is normal in size. No displaced fractures.Tortuous thoracic aorta. IMPRESSION: No acute intrathoracic process suspected. Conclusions/Impression: A/P: Continue the current POC and Medications other than the changes listed. AM Labs PRN. Recommend daily weight. Please see the orders for complete details. CLIVE likely due to hypovolemia -Continue aggressive NS -Give 1/2NS liter bolus Hypokalemia -Replete with IV and oral potassium Alkalosis -Replete potassium Hypocalcemia -Recheck in the AM HyperPO4 -Aggressive hydration Dysphagia sp J-tube -Start tube feeds -Follow up with surgery Thank you kindly for the consultation. Case reviewed with Dr. Herman
[2020-11-24] MEDS ORDERED: NACHLORIDE 0.45% 1,000 ML IV SCH (13:00)
--- NOTE | 2020-11-24 14:27 | RAD REPORT ---
EXAM DESCRIPTION: RAD - Chest Single View - 11/24/2020 2:07 pm CLINICAL HISTORY: confirm NGT placement Chest pain. COMPARISON: Chest Single View dated 11/23/2020 FINDINGS: Portable technique limits examination quality. Tip of the enteric tube is in the distal stomach region.
[2020-11-24] MEDS: AMLODIPINE 5 MG TAB PO SCH (18:09)
[2020-11-24] MEDS ORDERED: NEPRO 1,000 ML BOT FT SCH ×2 (19:00→20:14)
[2020-11-24 19:51] LABS: Albumin 3.5 g/dL (3.4-5.0); Prealbumin 21.5 mg/dL (20-40)
[2020-11-24] MEDS ORDERED: POTASSIUM 25 MEQ EFFERV TAB FT ONE (20:45)
[2020-11-24 22:57] LABS: Hematocrit 44.4 % (39.6-49.0)
[2020-11-25] MEDS: METRONIDAZOLE 500mg IVPB 500 MG/100 ML BAG IV SCH ×3 (00:23→17:00)
[2020-11-25] MEDS: HEPARIN 5000 UNIT/ML 1 ML VIAL SQ SCH ×3 (00:23→17:00)
[2020-11-25 06:31] LABS: Absolute Lymphocytes (CBC) 0.8 K/uL (0.7-4.9); Basophils % 0.1 % (0-1.3); Hematocrit 43.3 % (39.6-49.0); Lymphocytes % 8.2 % (15.3-44.8); MPV 11.2 fL (7.6-11.3); RBC Red Blood Cell Count 4.58 M/uL (4.33-5.43)
[2020-11-25 07:09] LABS: Albumin 3.3 g/dL (3.4-5.0); Bilirubin Total 2.5 mg/dL (0.2-1.0); Magnesium 2.9 mg/dL (1.8-2.4); Phosphorus 3.6 mg/dL (2.5-4.9); Prealbumin 16.8 mg/dL (20-40); Protein, Total 7.1 g/dL (6.4-8.2); Uric Acid 17.2 mg/dL (3.5-7.2)
[2020-11-25] MEDS: INSULIN -REGULAR HUMAN 50 UNIT/0.5 ML ML SQ SCH ×4 (07:30→21:00)
[2020-11-25] MEDS: NA CHLORIDE 0.9% 1,000 ML IV SCH (08:40)
[2020-11-25] MEDS: KCL 20 MEQ/100 mL IVPB 20 MEQ/100 ML BAG IV SCH ×2 (08:42→11:00)
[2020-11-25] MEDS: CEFTRIAXONE/SWI 1gm 1 GM/10 ML SYR IV SCH (08:43)
[2020-11-25] MEDS: PANTOPRAZOLE 40 MG INJ IVP SCH (08:43)
[2020-11-25] MEDS: AMLODIPINE 5 MG TAB PO SCH ×2 (09:00→21:23)
--- NOTE | 2020-11-25 11:39 | P.PN ---
Subjective Date of Service: 11/25/20 Chief Complaint: Nausea and vomiting. Patient reports 3 bowel movement last night. He denies any complain. He had significant NG tube output yesterday. No output this morning. Serum creatinine is trending down. Patient denies any abdominal pain. He is tolerating Nepro tube feeding. Physical Examination - Vital Signs Temperature: 96.7 F Blood Pressure: 167/85 Pulse: 78 Respirations: 18 Pulse Ox (%): 99 - Physical Exam General: Alert, In no apparent distress, Oriented x3 HEENT: Mucous membr. moist/pink Neck: JVD not distended Respiratory: Clear to auscultation bilaterally Cardiovascular: No edema, Regular rate/rhythm, Normal S1 S2 Gastrointestinal: Soft and benign, Non-distended, No tenderness Musculoskeletal: No swelling, No tenderness Integumentary: No rashes, No erythema Neurological: Other (No focal motor deficit) Assessment And Plan - Current Problems (Diagnosis) (1) Nausea and vomiting Current Visit: Yes Status: Acute (2) Acute renal failure superimposed on stage 3 chronic kidney disease Current Visit: Yes Status: Acute (3) Small bowel obstruction Current Visit: Yes Status: Acute (4) Hypokalemia Current Visit: Yes Status: Acute (5) Hyponatremia Current Visit: Yes Status: Acute (6) Ileus Current Visit: Yes Status: Acute - Plan Continue IV normal saline. Nephrology-Dr. Mckinney input appreciated. Continue to monitor renal function. Patient is tolerating tube feeding via the J-tube. NG tube also in place. Leukocytosis resolved. Contain IV antibiotics. Monitor and replete electrolytes as needed. Liver enzymes and lipase are elevated. CT abdomen pelvis suggesting normal alejandra earing liver and pancreas. Dr. Herman is following. Repeat CT abdomen ordered to be done tonight. Monitor LFT.
--- NOTE | 2020-11-25 11:54 | P.PN ---
Subjective Date of Service: 11/25/20 Chief Complaint: Nausea and vomiting. Subjective: Improving (Patient is pain free, had a large green BM last evening, has some muscle spasms, intermittently, and had an episode of SOB for a few seconds. was ambulatory, tolerated tube feeding in evening.) Review of Systems 10-point ROS is otherwise unremarkable Physical Examination - Vital Signs Temperature: 96.7 F Blood Pressure: 167/85 Pulse: 78 Respirations: 18 Pulse Ox (%): 99 - Physical Exam General: Alert, In no apparent distress, Cooperative HEENT: Mucous membr. moist/pink Respiratory: Normal air movement Gastrointestinal: Soft and benign, Non-distended, No ascites, No tenderness, No masses, No rebound, No guarding, Other (J- tube site is clean and dry, no pain, no tenderness, j-tube is functional.) Assessment And Plan - Current Problems (Diagnosis) (1) Nausea and vomiting Current Visit: Yes Status: Acute Plan: 70 year old man who presents s/p laparoscopic jejunostomy tube placement with SBO @ j-tube site, - serial exams - Gen: no pain, normal mentation - CVS: RRR, continue telemetry - Pulm: incentive spirometry - GI : - will repeat CT scan on Thursday evening to evaluate if obstruction was inflammatory or due to balloon of J-tube, J -tube balloon had 3 cc of saline and was completely deflated Thursday in ER which may have been causing obstruction, NG tube was now on low intermittent suction, I have noted the effluent is green consistent with NG positioned in duodenum. will get KUB, if tube is in duodenum this is acceptable for now. - FEN: continue IV hydration per Dr. Mckinney for dehydration and CLIVE which is likely pre-renal due to dehydration, and he had about 4-5 liters out of NG tube, so patient is likely quite dehydrated, nutrition: hold tube feeding now in anticipation of CT scan today - Hold Tube feeding @ midnight tonight in preparation of CT scan and possible surgical intervention if obstruction not alleviated. Electrolyte correction per insulator helper for electrolyte abnormalities - NPO / nothing per J-tube @ midnight on Thursday - Prophylaxis: continue PPI for stress ulcer prophylaxis, will start accuchecks and low dose insulin sliding scale PRN - patient is ambulatory, but agree to give prophylactic anticoagulation given his cancer diagnosis, will hold on Thursday night if surgery is indicated.
[2020-11-25] MEDS: POTASSIUM 25 MEQ EFFERV TAB FT SCH ×2 (12:00→16:00)
[2020-11-25] MEDS: NACHLORIDE 0.45% 1,000 ML IV SCH ×2 (12:00→22:11)
--- NOTE | 2020-11-25 14:13 | RAD REPORT ---
EXAM DESCRIPTION: RAD - Abdomen 1 View (KUB) - 11/25/2020 1:56 pm CLINICAL HISTORY: Abdomen pain. FINDINGS: Nasogastric tube is coiled within the stomach. The tip lies within the distal stomach. A percutaneous jejunostomy tube has its tip in the left abdomen. The stomach appears decompressed. Bowel gas pattern unremarkable. Contrast within the bowel is not noted. Right inguinal hernia contains bowel
--- NOTE | 2020-11-25 19:17 | RAD REPORT ---
EXAM DESCRIPTION: CT - Abdomen Pelvis Wo Contrast - 11/25/2020 6:52 pm CLINICAL HISTORY: Abdominal pain COMPARISON: November 23, 2020 TECHNIQUE: Computed axial tomography from the diaphragm to the iliac crest was obtained. Oral contra st was given through the NG tube. IV contrast was not requested. All CT scans are performed using dose optimization technique as appropriate and may include automated exposure control or mA/KV adjustment according to patient size. FINDINGS: The evaluation of solid organs and vessels is limited secondary to the lack of IV contrast administration. Tiny right middle lobe nodule. The liver, spleen, adrenals, pancreas and adrenals appear grossly normal. Small renal cysts. Several small right renal calculi without hydronephrosis. Small left inguinal hernia contains fat. A large right inguinal hernia contains nondilated ileum. Nasogastric tube has its tip in the first portion of the duodenum. The dilatation of the stomach and duodenum has resolved. Mild dilatation of the proximal jejunum. This probably is not significant. A p ercutaneous tube is present within the proximal jejunum. Remainder of the jejunum and ileum are kalin l caliber. No evidence of diverticulitis. Prostate gland is mildly enlarged. Wall of the distal esophagus appears thickened presumably the site of known mass. Appearance soft tis nick within the proximal stomach could represent a mass or incomplete distention. Spondylosis involves lumbar spine resulting in spinal stenosis IMPRESSION: Resolution of the jejunal obstruction
[2020-11-25] MEDS ORDERED: POTASSIUM 25 MEQ EFFERV TAB PO ONE (21:08)
[2020-11-25] MEDS: carvediloL 6.25 MG TAB PO SCH (21:23)
[2020-11-25] MEDS ORDERED: POTASSIUM 25 MEQ EFFERV TAB ONE (21:30)
[2020-11-25 22:30] VITALS: BMI 24.6
[2020-11-26] MEDS: NACHLORIDE 0.45% 1,000 ML IV SCH ×4 (00:28→14:40)
[2020-11-26] MEDS: METRONIDAZOLE 500mg IVPB 500 MG/100 ML BAG IV SCH ×2 (00:28→08:57)
[2020-11-26 04:36] LABS: Absolute Lymphocytes (CBC) 0.9 K/uL (0.7-4.9); Basophils % 0.4 % (0-1.3); Hematocrit 39.7 % (39.6-49.0); Lymphocytes % 10.9 % (15.3-44.8); RBC Red Blood Cell Count 4.23 M/uL (4.33-5.43)
[2020-11-26 04:56] LABS: Albumin 3.1 g/dL (3.4-5.0); Bilirubin Total 1.5 mg/dL (0.2-1.0); Potassium 3.3 mmol/L (3.5-5.1); Protein, Total 6.8 g/dL (6.4-8.2)
[2020-11-26] MEDS ORDERED: POTASSIUM 25 MEQ EFFERV TAB PO ONE (06:29)
[2020-11-26] MEDS: INSULIN -REGULAR HUMAN 50 UNIT/0.5 ML ML SQ SCH ×4 (07:30→21:00)
[2020-11-26] MEDS: CEFTRIAXONE/SWI 1gm 1 GM/10 ML SYR IV SCH (08:53)
[2020-11-26] MEDS: PANTOPRAZOLE 40 MG INJ IVP SCH (08:53)
[2020-11-26] MEDS: KCL 20 MEQ/100 mL IVPB 20 MEQ/100 ML BAG IV SCH ×2 (10:30→12:11)
[2020-11-26] MEDS: carvediloL 6.25 MG TAB PO SCH ×2 (10:36→21:39)
[2020-11-26] MEDS: AMLODIPINE 5 MG TAB PO SCH ×2 (10:37→21:39)
--- NOTE | 2020-11-26 13:51 | P.PN ---
Subjective Date of Service: 11/26/20 Chief Complaint: Nausea and vomiting. Patient is doing well today. Repeat CT abdomen and pelvis showed no obstruction He denies any complain. NG tube removed by general surgery. Serum creatinine continued to trend down. Patient denies any abdominal pain. Physical Examination - Vital Signs Temperature: 96.7 F Blood Pressure: 126/81 Pulse: 67 Respirations: 20 Pulse Ox (%): 97 - Physical Exam General: Alert, In no apparent distress, Oriented x3 HEENT: Mucous membr. moist/pink Neck: JVD not distended Respiratory: Clear to auscultation bilaterally Cardiovascular: No edema, Regular rate/rhythm, Normal S1 S2 Gastrointestinal: Normal bowel sounds, Soft and benign, Non-distended, No tenderness Musculoskeletal: No swelling Integumentary: No rashes Neurological: Normal strength at 5/5 x4 extr Assessment And Plan - Current Problems (Diagnosis) (1) Nausea and vomiting Current Visit: Yes Status: Acute (2) Acute renal failure superimposed on stage 3 chronic kidney disease Current Visit: Yes Status: Acute (3) Small bowel obstruction Current Visit: Yes Status: Acute (4) Hypokalemia Current Visit: Yes Status: Acute (5) Hyponatremia Current Visit: Yes Status: Acute (6) Ileus Current Visit: Yes Status: Acute - Plan Continue aggressive rehydration with IV normal saline. Nephrology-Dr. Mckinney is following. Continue to monitor renal function. Patient is tolerating Jevity feeding via the J-tube. NG tube removed Leukocytosis resolved. Discontinue antibiotics Monitor and replete electrolytes as needed. Liver enzymes and lipase are elevated. CT abdomen pelvis suggesting normal appearing liver and pancreas. General surgery-Dr. Herman signed off Continue IV hydration as inpatient until serum creatinine has significantly improved.
[2020-11-26] MEDS ORDERED: D50W 25 GM/50 ML VIAL IV PRN (15:00)
[2020-11-27] MEDS: NACHLORIDE 0.45% 1,000 ML IV SCH ×4 (04:00→17:53)
[2020-11-27 04:40] LABS: Absolute Lymphocytes (CBC) 1.1 K/uL (0.7-4.9); Basophils % 0.5 % (0-1.3); Hematocrit 38.4 % (39.6-49.0); Lymphocytes % 15.6 % (15.3-44.8); MPV 10.8 fL (7.6-11.3); RBC Red Blood Cell Count 4.04 M/uL (4.33-5.43)
[2020-11-27 05:00] LABS: Albumin 2.7 g/dL (3.4-5.0); Bilirubin Direct 0.6 mg/dL (0-0.2); Bilirubin Total 0.9 mg/dL (0.2-1.0); Potassium 4.3 mmol/L (3.5-5.1); Protein, Total 6.2 g/dL (6.4-8.2)
[2020-11-27] MEDS: JEVITY 1.5 CAL LIQUID 1,000 ML BOT RTH SCH (06:07)
[2020-11-27] MEDS: INSULIN -REGULAR HUMAN 50 UNIT/0.5 ML ML SQ SCH ×4 (07:30→21:00)
[2020-11-27] MEDS: PANTOPRAZOLE 40 MG INJ IVP SCH (09:00)
[2020-11-27] MEDS: carvediloL 6.25 MG TAB PO SCH ×2 (10:42→21:05)
[2020-11-27] MEDS: AMLODIPINE 5 MG TAB PO SCH ×2 (10:42→21:05)
--- NOTE | 2020-11-27 17:00 | P.PN ---
Subjective Date of Service: 11/27/20 Chief Complaint: Nausea and vomiting. Subjective: Improving (Feeling better, no nausea/vomiting since yesterday, tolerating Jevity, on IV fluids) Review of Systems 10-point ROS is otherwise unremarkable Physical Examination - Vital Signs Temperature: 96.9 F Blood Pressure: 142/79 Pulse: 74 Respirations: 18 Pulse Ox (%): 98 Assessment & Plan Physician Review Additional Text: Physical exam General: Alert, In no apparent distress, Oriented x3 HEENT: MMM, sclerae anicteric Pulm: Clear auscultation bilaterally CV: No edema, Regular rate/rhythm, Normal S1 S2 Abd: Soft, nontender, nondistended Ext: No swelling, no rashes, no tenderness Problem list Nausea and vomiting, SBO CLIVE on CKD 3 Hypokalemia Hypernatremia No longer with nausea/vomiting, CT yesterday showed resolution of obstruction General surgery consulted, stated patient to remain NPO, to receive everything via j-tube Renal function slowly improving, Cr remains > 3 Nephrology - Dr. Mckinney is following. Patient is tolerating Jevity feeding via the J-tube. Leukocytosis resolved. Discontinue antibiotics Continue IV hydration as inpatient until serum creatinine has significantly improved. Dispo: anticipate dc home in 24-48hrs, pending continued improvement Time Spent Managing Pts Care (In Minutes): 40
[2020-11-27] MEDS: HEPARIN 5000 UNIT/ML 1 ML VIAL SQ SCH (17:53)
[2020-11-28] MEDS: NACHLORIDE 0.45% 1,000 ML IV SCH ×3 (00:24→13:20)
[2020-11-28] MEDS: JEVITY 1.5 CAL LIQUID 1,000 ML BOT RTH SCH ×2 (00:25→19:50)
[2020-11-28] MEDS: HEPARIN 5000 UNIT/ML 1 ML VIAL SQ SCH ×3 (00:25→16:39)
[2020-11-28 04:39] LABS: Basophils % 0.3 % (0-1.3); MPV 10.7 fL (7.6-11.3); RBC Red Blood Cell Count 3.93 M/uL (4.33-5.43)
[2020-11-28 04:59] LABS: Magnesium 2.1 mg/dL (1.8-2.4); Potassium 3.7 mmol/L (3.5-5.1)
[2020-11-28] MEDS: INSULIN -REGULAR HUMAN 50 UNIT/0.5 ML ML SQ SCH ×4 (07:30→21:00)
[2020-11-28] MEDS: AMLODIPINE 5 MG TAB PO SCH ×2 (08:46→22:06)
[2020-11-28] MEDS: carvediloL 6.25 MG TAB PO SCH ×2 (08:46→22:06)
[2020-11-28] MEDS: PANTOPRAZOLE 40 MG INJ IVP SCH (08:48)
[2020-11-28] MEDS ORDERED: POTASSIUM 25 MEQ EFFERV TAB PO ONE (09:00)
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
[2020-11-28 21:29] VITALS: O2SAT 97
[2020-11-29] MEDS: HEPARIN 5000 UNIT/ML 1 ML VIAL SQ SCH ×3 (00:26→17:35)
[2020-11-29 04:54] LABS: Magnesium 2.1 mg/dL (1.8-2.4); Potassium 4.1 mmol/L (3.5-5.1)
[2020-11-29] MEDS: INSULIN -REGULAR HUMAN 50 UNIT/0.5 ML ML SQ SCH ×3 (07:30→15:53)
[2020-11-29] MEDS: PANTOPRAZOLE 40 MG INJ IVP SCH (09:00)
[2020-11-29] MEDS: carvediloL 6.25 MG TAB PO SCH (09:57)
[2020-11-29] MEDS: AMLODIPINE 5 MG TAB PO SCH (09:58)
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
--- NOTE | 2020-11-29 15:11 | RAD REPORT ---
EXAM DESCRIPTION: US - Extrem Venous W Compress Niko - 11/29/2020 2:55 pm CLINICAL HISTORY: eval for DVT Bilateral leg edema and swelling. COMPARISON: Extremity Nonvascular Complete dated 01/11/2016 TECHNIQUE: Real-time sonographic interrogation of the left and right lower extremity deep venous sys tems was performed. FINDINGS: Normal compressibility, flow augmentation, phasic flow and spontaneous flow is identified in both the left and right lower extremity deep venous systems. IMPRESSION: No sonographic evidence of left or right lower extremity deep venous thrombosis.
--- NOTE | 2020-11-29 17:13 | RAD REPORT ---
EXAM DESCRIPTION: NM - Vent Perfusion VQ Scan - 11/29/2020 4:51 pm CLINICAL HISTORY: SOB, elevated d-dimer Shortness of breath COMPARISON: Urinary Bladder dated 01/28/2017; Extrem Venous W Compress Niko dated 11/29/2020 TECHNIQUE: 17.1mCi Xe-133 gas inhaled and 6.4mCi Tc-MAA IV. Planar ventilation scan was performed in posterior projection after Xe-133 gas inhalation (wash-in, e quilibrium, and wash-out phases) followed by perfusion scan with Tc-MAA IV in multiple projections. Examination is correlated with recent chest radiograph. FINDINGS: Normal ventilation with appropriate wash-out and no significant air-trapping. Multiple small mismatch segmental defects are seen along the periphery both lungs. IMPRESSION: Intermediate to high probability of pulmonary embolism.
[2020-11-29] MEDS: JEVITY 1.5 CAL LIQUID 1,000 ML BOT RTH SCH (17:35)
[2020-11-29 17:57] VITALS: BP 165/92; TEMP 97.9
[2020-11-29] MEDS ORDERED: APIXABAN 5 MG TABLET PO SCH (18:00)
--- NOTE | 2020-11-29 20:13 | P.DS ---
Admission Date: 11/23/20 Discharge Date: 11/29/20 Disposition: DC HOME/HOME HEALTH CARE Discharge Condition: GOOD Reason for Admission: SBO, Acute renal failure Consultations: General Surgery - Dr. Herman Nephrology - Dr. Mckinney Procedures: CXR (11/23): No acute intrathoracic process suspected. Enterostomy tube check (11/23): shows enteric tube on the left abdomen. Contrast infused via the tube fills several small bowel loops in the lower abdomen. This indicates appropriate placement. CT Abd/Pelvis (11/23): A severe bowel obstruction is present involving the stomach and duodenum. Point of obstruction appears to be related to left abdominal jejunostomy tube. Small amount of pneumoperitoneum is seen which is probably related to previous intervention and can be monitored on subsequent CT studies. Right nephrolithiasis. CXR (11/24): Tip of the enteric tube is in the distal stomach region. KUB (11/25): Nasogastric tube is coiled within the stomach. The tip lies within the distal stomach. A percutaneous jejunostomy tube has its tip in the left abdomen. The stomach appears decompressed. Bowel gas pattern unremarkable. Contrast within the bowel is not noted. Right inguinal hernia contains bowel CT Abd/Pelvis (11/25): Resolution of the jejunal obstruction VQ scan (11/29): Normal ventilation with appropriate wash-out and no significant air-trapping. Multiple small mismatch segmental defects are seen along the periphery both lungs. IMPRESSION: Intermediate to high probability of pulmonary embolism. Venous U/S (11/29): No sonographic evidence of left or right lower extremity deep venous thrombosis. Problem list: Nausea and vomiting due to SBO (at site of J-tube)- resolved CLIVE on CKD 3 - resolved Multpiple small bilateral pulmonary emboli with intermittent dyspnea Hypokalemia Hypernatremia Brief History of Present Illness: 70yo M, PMH: Esophageal cancer s/p J-tube for feeding ~2weeks ago presented to ED due to nausea/vomiting, unable to hold anything down for a few days. There was a concern his J tube was not working. Patient was seen by general surgery Dr. Herman we examined his J tube, performed a contrast study and noted the J tube is still functional. Patient noted to have acute renal failure with creatinine up to 6.8 compared to a baseline of 2. NG-tube to suction was inserted by Dr. Herman. Patient is admitted for further management. Hospital Course: General Surgery and Nephrology were consulted for SBO and acute renal failure. Patient's renal function improved with IV hydration and SBO resolved with medical management. During his hospitalization patient reported feeling some occasional shortness of breath when ambulating, and at times even just talking for a prolonged time. D-dimer was elevated, bilateral lower extremity U/S was negative for DVT, however V/Q scan was highly concerning for multiple small bilateral PEs in the periphery. This was reviewed with the patient and he was started on Eliquis, to continue as outpatient. The coupon card was discussed. We were unable to get a hold of his pharmacy to confirm perales/copay, and patient was adamant on leaving today. He was discharged home and was told to call the nursing station the following day if there was any issue with the Eliquis. He will need to follow up with General Surgery - Dr. Herman in ~ 1 week, and to follow up with Neprhology in the next 1-2 weeks as well. Vital Signs/Physical Exam: Physical exam General: Alert, In no apparent distress, Oriented x3 HEENT: MMM, sclerae anicteric Pulm: Clear auscultation bilaterally, nonlabored on room air CV: No edema, Regular rate/rhythm, Normal S1 S2 Abd: Soft, nontender, nondistended, Jtube in place, no evidence of infection Ext: No swelling, no rashes, no tenderness Temp Pulse Resp BP Pulse Ox 97.9 F 80 17 165/92 H 97 11/29/20 16:00 11/29/20 16:00 11/29/20 16:00 11/29/20 16:00 11/29/20 16:00 Laboratory Data at Discharge: WBC 7.10 K/uL (4.3-10.9) 11/28/20 04:18 Hgb 12.2 g/dL (13.6-17.9) L 11/28/20 04:18 Hct 37.0 % (39.6-49.0) L 11/28/20 04:18 Plt Count 135 K/uL (152-406) L 11/28/20 04:18 Sodium 140 mmol/L (136-145) 11/29/20 04:16 Potassium 4.1 mmol/L (3.5-5.1) 11/29/20 04:16 BUN 38 mg/dL (7-18) H 11/29/20 04:16 Creatinine 2.39 mg/dL (0.55-1.3) H 11/29/20 04:16 Glucose 125 mg/dL (74-106) H 11/29/20 04:16 Uric Acid 17.2 mg/dL (3.5-7.2) H 11/25/20 06:10 Phosphorus 3.6 mg/dL (2.5-4.9) 11/25/20 06:10 Magnesium 2.1 mg/dL (1.8-2.4) 11/29/20 04:16 Total Bilirubin 0.9 mg/dL (0.2-1.0) 11/27/20 04:13 AST 27 U/L (15-37) 11/27/20 04:13 ALT 45 U/L (12-78) 11/27/20 04:13 Alkaline Phosphatase 81 U/L (45-117) 11/27/20 04:13 Triglycerides 99 mg/dL (<150) 11/24/20 04:34 Cholesterol 190 mg/dL (<200) 11/24/20 04:34 HDL Cholesterol 39 mg/dL (40-60) L 11/24/20 04:34 Cholesterol/HDL Ratio 4.87 11/24/20 04:34 Lipase 555 U/L (73-393) H 11/23/20 14:29 Diet: Jtube feed Activity: Ad hallie Followup: Som Mckinney DO [Family Provider] - Saul Herman MD [ACTIVE - CAN ADMIT] - Unknown,U [Primary Care Provider] - Time spent managing pt's care (in minutes): 45
== END 2020-11-29 19:09 | disposition home health service (06) | DRG 682 ==
LOC: ER 14:08 → ERHOLD 16:44 → 2ND 19:53
PROVIDERS: ADMIT Internal Medicine; ATTEND Hospitalist
DX: N17.9 Acute kidney failure, unspecified (principal); I26.99 Other pulmonary embolism without acute cor pulmonale; E87.1 Hypo-osmolality and hyponatremia; K56.699 Other intestinal obstruction unspecified as to partial versus complete obstruction; E87.3 Alkalosis; E87.0 Hyperosmolality and hypernatremia; E87.6 Hypokalemia; N18.30 Chronic kidney disease, stage 3 unspecified; E86.0 Dehydration; E83.39 Other disorders of phosphorus metabolism; M62.838 Other muscle spasm; E83.41 Hypermagnesemia; R13.10 Dysphagia, unspecified; Z79.01 Long term (current) use of anticoagulants; Z93.4 Other artificial openings of gastrointestinal tract status; Z79.899 Other long term (current) drug therapy; Z85.01 Personal history of malignant neoplasm of esophagus; Z20.822 Contact with and (suspected) exposure to COVID-19
CPT/HCPCS: 36415; 49465; 71045; 74018; 74176; 78582; 80048; 80053; 80061; 80076; 81003; 81015; 82040; 82947; 83690; 83735; 84100; 84132; 84134; 84443; 84550; 85014; 85018; 85025; 85379; 87086; 87088; 93970; 94010; 94760; 94762; 96361; 96365; 96368; 96375; 97161; 99285; A9540; A9558; C9113; J0696; J0744; J1644; J2405; J2550; J3480; J7030; J7120; U0003

== ENCOUNTER 2020-11-30 10:23 | Inpatient (IN) | payer OTHER ==
--- OUTSIDE RECORDS SUMMARY | 2020-11-30 10:27 | XMS REPORT | Continuity of Care Document ---
:1950 Author Organization [facility] t Address [address] [place] [address] Care Team Providers Name Role Phone Pepe Mckeon MD Primary Care Physician Amador PRATER, Y.H. Attending Clinician Provider Attending Clinician Payers Payer Name Policy Type Policy Effective Date Expiration Date Sour ce Number [facility]OT[id number] [facility] [id number] 1-PresentHMO Problems This patient has no known problems. Allergies, Adverse Reactions, Alerts This patient has no known allergies or adverse reactions. Social History Social Habit Start Date Stop Date Quantity Comments Source Sex Assigned At [facility] ethodist Exposure to Not sure [place] Metho dist SARS-CoV-2 (event) Tobacco use and 2020-11-22 2020-11-22 Never used [facility] FlyCastodi exposure 00:00:00 00:00:00 Cigarettes smoked 2020-11-22 2020-11-22 Dick Druze current (pack per 00:00:00 00:00:00 day) - Reported Cigarette 2020-11-22 2020-11-22 [place] Method ist pack-years 00:00:00 00:00:00 History of tobacco 2020-09-11 Current smoker Filemon khris Druze use 00:00:00 Smoking Status Start Date Stop Date Source Former smoker 2020-11-22 00:00:00 2020-11-22 00:00:00 Dick Flynnist Medications Ordered Filled Start Stop Current Ordering Indication Dosage Frequency Signature Comments Components Source Medication Medication Date Date Medication? Clinician (SIG) Name Name amLODIPine Yes 10mg QD Take 10 mg H oumoreno (NORVASC) 2-07 by mouth Method i 10 mg 00:00: daily. st tablet 00 metoclopram Yes 10mg QD Take 10 mg Jennings sai 2-05 by mouth Methodi (REGLAN) 10 00:00: daily. st MG tablet 00 famotidine Yes 20mg Q.5D Take 20 mg H oumoreno (PEPCID) 20 2-05 by mouth 2 Me thodi MG tablet 00:00: (two) st 00 times a day. ondansetron Yes TAKE ONE Ho kevin (ZOFRAN) 4 2-04 (1) Methodi MG tablet 00:00: TABLET(S) st 00 BY MOUTH EVERY SIX HOURS NEEDED FOR 7 DAYS. omeprazole Yes Dick (PriLOSEC) 1-22 Methodi 20 MG 00:00: st capsule 00 Vital Signs Vital Name Observation Time Observation Value Comments Source Systolic blood 2020-11-22 10:20:00 119 mm[Hg] Joseto n Druze pressure Diastolic blood 2020-11-22 10:20:00 80 mm[Hg] Hoda on Druze pressure Heart rate 2020-11-22 10:20:00 110 /min Dick Najera Body temperature 2020-11-22 10:20:00 36.61 Sherri Jose ton Druze Respiratory rate 2020-11-22 10:20:00 17 /min Jose ton Druze Body height 2020-11-22 10:20:00 182.9 cm Dick Najera Body weight 2020-11-22 10:20:00 87.998 kg iDck Najera BMI 2020-11-22 10:20:00 26.31 kg/m2 Dick Najera Oxygen saturation in 2020-11-22 10:20:00 98 /min Dick Najera Arterial blood by Pulse oximetry Procedures Procedure Date / Time Performed Performing Clinician [facility] e CT ABDOMEN PELVIS WO 2020-10-29 00:00:00 Provider, Historical Filemon Najera CONTRAST CT ABDOMEN WO CONTRAST 2020-10-29 00:00:00 Provider, Historical Dick Najera CT CHEST WO CONTRAST 2020-10-29 00:00:00 Provider, Historical Filemon Najera Plan of Care Planned Activity Planned Date Details Comments Source Future Scheduled 2020-05-12 INFLUENZA VACCINE [place] Druze Test 00:00:00 [code = INFLUENZA VACCINE] Future Scheduled 2014 65+ PNEUMOCOCCAL [place] Druze Test 00:00:00 VACCINE (1 of 1 - PPSV23) [code = 65+ PNEUMOCOCCAL VACCINE (1 of 1 - PPSV23)] Future Scheduled 1999 COLONOSCOPY SCREENING [facility] Druze Test 00:00:00 [code = COLONOSCOPY SCREENING] Future Scheduled 1999 SHINGLES VACCINES (#1) [facility] Druze Test 00:00:00 [code = SHINGLES VACCINES (#1)] Future Scheduled 1967 Hepatitis C screening [facility] Druze Test 00:00:00 (procedure) [code = 295461307] Future Scheduled 1965 COVID-19 VACCINE (1 of [facility] Druze Test 00:00:00 2) [code = COVID-19 VACCINE (1 of 2)] Encounters Start End Encounter Admission Attending Care Care Encounter Source Date/Time Date/Time Type Type Clinicians Facility Department ID 2020-11-22 2020-11-22 [facility] [id number] [address] [place] 00:00:00 00:00:00 [place] [address] Results This patient has no known results.
--- OUTSIDE RECORDS SUMMARY | 2020-11-30 10:27 | XMS REPORT | Clinical Summary ---
:1950 Author Organization [facility] Address [address] [place] [id number] Care Team Providers Name Role Phone Pepe Mckeon MD Primary Care Provider Allergies No Known Active Allergies Medications Medication Sig Dispensed Refills Start Date End Date Status amLODIPine (NORVASC) 10 Take 10 mg by 0 11/18/2020 Active mg tablet mouth daily. ondansetron (ZOFRAN) 4 TAKE ONE (1) 0 11/15/2020 Active MG tablet TABLET(S) BY MOUTH EVERY SIX HOURS NEEDED FOR 7 DAYS. metoclopramide (REGLAN) Take 10 mg by 0 11/16/2020 Active 10 MG tablet mouth daily. famotidine (PEPCID) 20 Take 20 mg by 0 11/16/2020 Active MG tablet mouth 2 (two) times a day. omeprazole (PriLOSEC) 20 0 11/02/2020 Active MG capsule Active Problems Not on file Encounters Date Type Specialty Care Team Description 11/22/2020 Office Visit Cardiothoracic Surgery Alistair English MD 11/22/2020 Travel 11/13/2020 Orders Only Cardiothoracic Surgery Provider, Mike wills MD after 11/30/2019 Surgical History Surgery Date Site/Laterality Comments KNEE SURGERY KIDNEY SURGERY KIDNEY STONE SURGERY Medical History Medical History Date Comments Cancer (HCC) Hypertension Kidney stone Stroke (HCC) Social History Tobacco Use Types Packs/Day Years Used Date Former Smoker Cigarettes 0.25 50 Quit: 09/11/20 20 Smokeless Tobacco: Never Used Tobacco Cessation: Counseling Given: Yes Sex Assigned at Date Recorded Not on file Job Start Date Occupation Industry Not on file Not on file Not on file COVID-19 Exposure Response Date Recorded In the last month, have you been in contact with No / Unsure 11/22/2020 9:46 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 Last Filed Vital Signs Vital Sign Reading Time Taken Comments Blood Pressure 119/80 11/22/2020 10:20 AM LEARNING TECHNOLOGIST Pulse 110 11/22/2020 10:20 AM LEARNING TECHNOLOGIST Temperature 36.6 C (97.9 F) 11/22/2020 10:20 AM LEARNING TECHNOLOGIST Respiratory Rate 17 11/22/2020 10:20 AM LEARNING TECHNOLOGIST Oxygen Saturation 98% 11/22/2020 10:20 AM LEARNING TECHNOLOGIST Inhaled Oxygen Concentration - - Weight 88 kg (194 lb) 11/22/2020 10:20 AM LEARNING TECHNOLOGIST Height 182.9 cm (6') 11/22/2020 10:20 AM LEARNING TECHNOLOGIST Body Mass Index 26.31 11/22/2020 10:20 AM LEARNING TECHNOLOGIST Plan of Treatment Health Maintenance Due Date Last Done Comments COVID-19 VACCINE (1 of 2) 1965 HEPATITIS C SCREENING 1967 COLONOSCOPY SCREENING 1999 SHINGLES VACCINES (#1) 1999 65+ PNEUMOCOCCAL VACCINE (1 of 1 - PPSV23) 2014 INFLUENZA VACCINE 05/12/2020 Procedures Procedure Name Priority Date/Time Associated Diagnosis Comme nts CT CHEST WO CONTRAST Routine 10/29/2020 CT ABDOMEN WO CONTRAST Routine 10/29/2020 CT ABDOMEN PELVIS WO CONTRAST Routine 10/29/2020 after 11/30/[address] Chest Wo Contrast (10/29/2020) Narrative Performed At This result has an attachment that is no t available. CT Abdomen Wo Contrast (10/29/2020) Narrative Performed At This result has an attachment that is no t available. CT Abdomen Pelvis Wo Contrast (10/29/2020)after 11/30/2019 Advance Directives For more information, please contact: [phone] Type Date Recorded Patient Client Service Executive Explanati on Advance Directives, Living Will and Medical Power of Clinical Support Nurse
[2020-11-30 11:05] LABS: Absolute Lymphocytes (CBC) 0.8 K/uL (0.7-4.9); Basophils % 0.6 % (0-1.3); Hematocrit 43.1 % (39.6-49.0); Lymphocytes % 9.9 % (15.3-44.8); MPV 10.9 fL (7.6-11.3); RBC Red Blood Cell Count 4.59 M/uL (4.33-5.43)
--- NOTE | 2020-11-30 11:15 | RAD REPORT ---
EXAM DESCRIPTION: RAD - Abdomen 1 View (KUB) - 11/30/2020 11:09 am CLINICAL HISTORY: ABD PAIN Pain COMPARISON: Abdomen 1 View (KUB) dated 11/25/2020 FINDINGS: The bowel gas pattern is non-obstructive. No evidence of free air or pneumatosis. Small ri ght renal calculus noted. No significant bony findings. Jejunostomy is present entering the left aspect of the abdomen. IMPRESSION: No acute abnormality is detected.
[2020-11-30 11:16] LABS: Albumin 3.3 g/dL (3.4-5.0); Bilirubin Direct 0.8 mg/dL (0-0.2); Bilirubin Total 1.2 mg/dL (0.2-1.0); Protein, Total 7.3 g/dL (6.4-8.2)
--- NOTE | 2020-11-30 12:24 | EDPHYS ---
Physician Documentation [facility] Name: Brandon Chiang Age: 70 yrs Sex: Male : 1950 Arrival Date: 11/30/2020 Time: 10:29 Bed 19 Private MD: ED Physician Shimon Pulido HPI: 11/30 13:33 This 70 yrs old Male presents to ER via EMS with complaints of Abdominal kdr Distention - G-tube problem. 13:33 The patient presents with abdominal pain in the epigastric area, in the upper abdomen. kdr Onset: The symptoms/episode began/occurred yesterday. The symptoms do not radiate. Associated signs and symptoms: Pertinent positives: nausea and vomiting, diarrhea, Pertinent negatives: vomiting blood. The symptoms are described as achy, crampy, waxing/waning. Modifying factors: The symptoms are alleviated by nothing, the symptoms are aggravated by movement, pressure, touching the area. Severity of pain: At its worst the pain was moderate in the emergency department the pain is unchanged. The patient has experienced similar episodes in the past, multiple times, today's symptoms are similar. The patient has been recently been admitted at [facility], was discharged yesterday. Historical: - Allergies: 10:54 No Known Allergies; iw - PMHx: 10:54 esophageal cancer; Hypertension; iw - Immunization history:: Adult Immunizations unknown. - Social history:: Smoking status: unknown. ROS: 13:33 Constitutional: Negative for fever, chills, and weight loss, Eyes: Negative for injury, kdr pain, redness, and discharge, ENT: Negative for injury, pain, and discharge, Neck: Negative for injury, pain, and swelling, Cardiovascular: Negative for chest pain, palpitations, and edema, Respiratory: Negative for shortness of breath, cough, wheezing, and pleuritic chest pain, Back: Negative for injury and pain, : Negative for injury, bleeding, discharge, and swelling, MS/Extremity: Negative for injury and deformity, Skin: Negative for injury, rash, and discoloration, Neuro: Negative for headache, weakness, numbness, tingling, and seizure activity. Psych: Negative for depression, anxiety, suicide ideation, homicidal ideation, and hallucinations, Allergy/Immunology: Negative for hives, rash, and allergies, Endocrine: Negative for neck swelling, polydipsia, polyuria, polyphagia, and marked weight changes, Hematologic/Lymphatic: Negative for swollen nodes, abnormal bleeding, and unusual bruising. 13:33 Abdomen/GI: Positive for abdominal pain, nausea, vomiting, and diarrhea, Negative for dysphagia, hematemesis, black/tarry stool, rectal pain, rectal bleeding, bowel incontinence. Exam: 13:33 Constitutional: This is a well developed, well nourished patient who is awake, alert, kdr and in no acute distress. Head/Face: Normocephalic, atraumatic. Eyes: Pupils equal round and reactive to light, extra-ocular motions intact. Lids and lashes normal. Conjunctiva and sclera are non-icteric and not injected. Cornea within normal limits. Periorbital areas with no swelling, redness, or edema. Neck: Trachea midline, no thyromegaly or masses palpated, and no cervical lymphadenopathy. Supple, full range of motion without nuchal rigidity, or vertebral point tenderness. No Meningismus. Chest/axilla: Normal chest wall appearance and motion. Nontender with no deformity. No lesions are appreciated. Cardiovascular: Regular rate and rhythm with a normal S1 and S2. No gallops, murmurs, or rubs. Normal PMI, no JVD. No pulse deficits. Respiratory: Lungs have equal breath sounds bilaterally, clear to auscultation and percussion. No rales, rhonchi or wheezes noted. No increased work of breathing, no retractions or nasal flaring. Back: No spinal tenderness. No costovertebral tenderness. Full range of motion. Skin: Warm, dry with normal turgor. Normal color with no rashes, no lesions, and no evidence of cellulitis. MS/ Extremity: Pulses equal, no cyanosis. Neurovascular intact. Full, normal range of motion. Neuro: Awake and alert, GCS 15, oriented to person, place, time, and situation. Cranial nerves II-XII grossly intact. Motor strength 5/5 in all extremities. Sensory grossly intact. Cerebellar exam normal. Normal gait. Psych: Awake, alert, with orientation to person, place and time. Behavior, mood, and affect are within normal limits. 13:33 Abdomen/GI: Inspection: obese Bowel sounds: diminished, in all quadrants, Palpation: soft, mild abdominal tenderness, in the right upper quadrant and left lower quadrant. Vital Signs: 10:50 BP 139 / 90; Pulse 101; Resp 16 S; Temp 98.2; Pulse Ox 97% on R/A; iw MDM: 12:24 Patient medically screened. [facility] 13:33 Data reviewed: vital signs, nurses notes, lab test result(s), radiologic studies. kdr Counseling: I had a detailed discussion with the patient and/or guardian regarding: the historical points, exam findings, and any diagnostic results supporting the discharge/admit diagnosis, lab results, radiology results, the need for further work-up and treatment in the hospital. Physician consultation: Saul Herman MD regarding admission, consult, patient's condition, need to come to ED to see patient, and will see patient in ED. 11/30 10:34 Order name: Basic Metabolic Panel [facility] 11/30 10:34 Order name: CBC with Diff [facility] 11/30 10:34 Order name: Hepatic Function [facility] 11/30 10:34 Order name: Lipase [facility] 11/30 15:45 Order name: CBC with Automated Diff [facility] 11/30 16:11 Order name: Protime (+INR) [facility] 11/30 10:34 Order name: IV Saline Lock; Complete Time: 11:41 [facility] 11/30 10:34 Order name: Labs collected and sent; Complete Time: 11:41 [facility] 11/30 10:36 Order name: Abdomen 1 View (KUB) XRAY [facility] 11/30 11:11 Order name: Abdomen [facility] 11/30 12:58 Order name: CONS Physician Consult [facility] 11/30 14:27 Order name: Echo w/ Doppler 11/30 16:11 Order name: PTT, Activated Partial Thromb [facility] Administered Medications: No medications were administered Disposition: 11/30/20 12:24 Hospitalization ordered by Pranay Kimble for Inpatient Admission. Preliminary diagnosis is Bowel obstruction. - Bed requested for Telemetry/MedSurg (Inpatient). - Status is Inpatient Admission. vg1 - Condition is Fair. - Problem is an acute exacerbation. - Symptoms have improved. Signatures: Dispatcher [employer] EDHI Shimon Pulido MD MD kdr Justa Briscoe RN RN iw Juanita Barakat Victoria RN RN vg1 Corrections: (The following items were deleted from the chart) 11:11 10:35 Abdomen Pelvis W Con+CT.RAD.BRZ ordered. EDMS EDMS 15:13 12:24 Hospitalization Ordered by Pranay Kimble MD for Inpatient Admission. Preliminary eb diagnosis is Bowel obstruction. Bed requested for Telemetry/MedSurg (Inpatient). Status is Inpatient Admission. Condition is Fair. Problem is an acute exacerbation. Symptoms have improved. kdr 16:17 15:13 11/30/2020 12:24 Hospitalization Ordered by Pranay Kimble MD for Inpatient vg1 Admission. Preliminary diagnosis is Bowel obstruction. Bed requested for Telemetry/MedSurg (Inpatient). Status is Inpatient Admission. Condition is Fair. Problem is an acute exacerbation. Symptoms have improved. eb
--- NOTE | 2020-11-30 12:24 | ER ---
Nurse's Notes [facility] Name: Brandon Chiang Age: 70 yrs Sex: Male : 1950 Arrival Date: 11/30/2020 Time: 10:29 Bed 19 Private MD: Diagnosis: Bowel obstruction Presentation: 11/30 10:50 Chief complaint: EMS states: had G-tube placed recently, in October, Dr. Herman, iw has hx of esophageal cancer, was d/c from hospital yesterday, this morning had abd distention and pain. Coronavirus screen: At this time, the client does not indicate any symptoms associated with coronavirus-19. Ebola Screen: Patient negative for fever greater than or equal to 101.5 degrees Fahrenheit, and additional compatible Ebola Virus Disease symptoms Patient denies exposure to infectious person. Patient denies travel to an Ebola-affected area in the 21 days before illness onset. No symptoms or risks identified at this time. Initial Sepsis Screen: Does the patient meet any 2 criteria? No. Patient's initial sepsis screen is negative. Does the patient have a suspected source of infection? No. Patient's initial sepsis screen is negative. Risk Assessment: Do you want to hurt yourself or someone else? Patient reports no desire to harm self or others. 10:50 Method Of Arrival: EMS: [facility] iw 10:50 Acuity: LEIDY 3 iw 10:52 Onset of symptoms was November 30, 2020. iw Historical: - Allergies: 10:54 No Known Allergies; iw - PMHx: 10:54 esophageal cancer; Hypertension; iw - Immunization history:: Adult Immunizations unknown. - Social history:: Smoking status: unknown. Screenin:40 Abuse screen: Denies threats or abuse. Denies injuries from another. Nutritional iw screening: No deficits noted. Nutritional screening: No deficits noted. On NPO diet, Difficulty chewing/swallowing? Yes. Tuberculosis screening: No symptoms or risk factors identified. 12:10 Fall Risk No fall in past 12 months (0 pts). No secondary diagnosis (0 pts). IV access vg1 (20 points). Ambulatory Aid- None/Bed Rest/Nurse Assist (0 pts). Gait- Normal/Bed Rest/Wheelchair (0 pts) Mental Status- Oriented to own ability (0 pts). Total Wheeler Fall Scale indicates No Risk (0-24 pts). Assessment: 10:50 General: Appears in no apparent distress. Behavior is calm, cooperative. Pain: iw Complains of pain in abdomen. Neuro: Level of Consciousness is awake, alert, obeys commands, Oriented to person, place, time, situation, Moves all extremities. GI: Abdomen is distended, Abdomen is tender to palpation in right upper quadrant and left upper quadrant. Derm: Skin is intact, is healthy with good turgor. Musculoskeletal: Range of motion: intact in all extremities. 11:24 Reassessment: Dr. Herman at bedside to place NG tube. iw 11:40 Reassessment: removed 4 Liter gastric contents. iw 11:58 Reassessment: contrast administered via NG tube, Ct notified, will wait 30 minutes. iw 13:02 Reassessment: Patient appears in no apparent distress at this time. No changes from vg1 previously documented assessment. Patient and/or family updated on plan of care and expected duration. Pain level reassessed. Patient is alert, oriented x 3, equal unlabored respirations, skin warm/dry/pink. 15:32 Reassessment: Attempted to call report. vg1 Vital Signs: 10:50 BP 139 / 90; Pulse 101; Resp 16 S; Temp 98.2; Pulse Ox 97% on R/A; iw ED Course: 10:29 Patient arrived in ED. iw 10:29 Shimon Pulido MD is Attending Physician. kdr 10:44 Justa Briscoe, RN is Primary Nurse. iw 10:52 Triage completed. iw 11:06 Abdomen 1 View (KUB) XRAY In Process Unspecified. EDMS 11:20 NGT: inserted 12 Fr. via right nare. verified placement of air over stomach, verified iw return of gastric contents, to continuous suction. Patient tolerated well. NG tube placed by Dr. Herman. 11:39 Arm band placed on. iw 11:39 Maintain EMS IV. Dressing intact. Good blood return noted. Site clean \T\ dry. Gauge \T\ iw site: 18 left wrist . 12:08 Primary Nurse role handed off by Justa Briscoe, RN vg1 12:08 Natalie Mejia, RN is Primary Nurse. vg1 12:10 Patient has correct armband on for positive identification. Bed in low position. Call vg1 light in reach. Side rails up X2. 12:23 Pranay Kimble MD is Hospitalizing Provider. kdr 12:29 Abdomen In Process Unspecified. EDMS 15:57 No provider procedures requiring assistance completed. Patient admitted, IV remains in vg1 place. Administered Medications: No medications were administered Outcome: 12:24 Decision to Hospitalize by Provider. kdr 16:06 Admitted to Tele accompanied by tech, room 213, with chart, Report called to josé manuel Traylor RN 16:06 Condition: stable 16:06 Instructed on the need for admit. 16:17 Patient left the ED. vg1 Signatures: Dispatcher [employer] EDMS Shimon Pulido MD MD kdr Justa Briscoe, RN RN iw Natalie Mejia, RN RN vg1
--- NOTE | 2020-11-30 12:46 | RAD REPORT ---
EXAM DESCRIPTION: CT - Abdomen Pelvis Wo Contrast - 11/30/2020 12:30 pm CLINICAL HISTORY: Abdominal pain COMPARISON: November 25, 2020 TECHNIQUE: Computed axial tomography of the abdomen and pelvis was obtained. IV was not requested. O ral contrast was given. Coronal reconstructions performed. All CT scans are performed using dose optimization technique as appropriate and may include automated exposure control or mA/KV adjustment according to patient size. FINDINGS: The evaluation of solid organs and vessels is limited secondary to the lack of contrast a dministration. Contrast is present within mildly dilated stomach. The duodenum is mildly to moderately dilated. Prox imal jejunum is dilated measuring 4.5 centimeters. The dilatation extends to the level of 8 J GB osto my tube. No contrast has entered this portion of the jejunum. The remainder of the jejunum and ileum are normal caliber. The liver, spleen, pancreas are grossly normal. Mild prominence of the adrenal glands unchanged. Small renal cysts. Nonobstructing right renal calculi. Prostate gland mildly enlarged. Large right inguinal hernia contains nondilated bowel. 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 Small umbilical hernia The appendix is normal. There is no evidence of diverticulitis. IMPRESSION: Dilatation of the stomach, duodenum and proximal jejunum likely secondary to an obstruct ion at the site of the jejunostomy tube within the jejunum.
--- NOTE | 2020-11-30 13:12 | P.HP ---
Certification for Inpatient Patient admitted to: Inpatient With expected LOS: >2 Midnights Practitioner: I am a practitioner with admitting privileges, knowledge of patient current condition, hospital course, and medical plan of care. Services: Services provided to patient in accordance with Admission requirements found in Title 42 Section 412.3 of the Code of Federal Regulations Patient History Date of Service: 11/30/20 Reason for admission: partial SBO, CLIVE History of Present Illness: 70yo male recently discharged from hospital yesterday for SBO/CLIVE (and found to have PE) returns today with nausea/vomiting, feeling ill since waking up this morning. He called his general surgeon's office and was instructed to present to ED. In the ED, patient was found to have partial SBO. >2.5L were removed after NGT was placed. Patient felt much relief after NGT was placed. He also reported SOB at home, which didn't allow him to sleep very comfortably. Otherwise denies fevers, chills, lower extremity swelling / pain, dysuria, diarrhea. General surgery was consulted in ED, evaluated patient, placed NGT, and recommended admission with surgical intervention planned in the next 1-2 days. Labwork otherwise notable for CLIVE on CKD. Allergies No Known Allergies Allergy (Verified 11/09/20 08:01) Home Medications: Omeprazole 20 mg PO BID 11/09/20 Amlodipine [Norvasc*] 5 mg PO BID 30 Days #60 tab 11/28/20 Ondansetron HCl [Zofran] 11/28/20 carvediloL [Coreg*] 6.25 mg PO BID 30 Days #60 tab 11/28/20 Apixaban [Eliquis] 5 mg PO BID 30 Days #1 tab.ds.pk 11/29/20 - Past Medical/Surgical History Diabetic: Yes -: Esophageal cancer -: Chronic kidney disease -: Knee surgery -: Tonsillectomy and adenoidectomy. - Family History Father -: Other (see notes) (Pneumonia and from pulmonary embolism.) - Social History Smoking Status: Unknown if ever smoked Alcohol use: No CD- Drugs: No Place of Residence: Home Review of Systems 10-point ROS is otherwise unremarkable Physical Examination - Studies Laboratory Data (last 24 hrs) 11/30/20 10:46: WBC 8.00, Hgb 14.2, Hct 43.1 D, Plt Count 147 L 02/19/21 10:46: Sodium 142, Potassium 4.0, BUN 37 H, Creatinine 2.74 H, Glucose 127 H, Total Bilirubin 1.2 H, AST 99 H, ALT 109 H, Alkaline Phosphatase 90, Lipase 566 H Assessment and Plan - Advance Directives Does patient have a Living Will: No Does patient have a Durable POA for Healthcare: No Physician Review Additional Text: Physical exam General: Alert, NAD, AAOx3, NG Tube placed, >3.5 L removed HEENT: MMM, sclerae anicteric Pulm: Clear auscultation bilaterally, nonlabored CV: No edema, Regular rate/rhythm, Normal S1 S2 Abd: Soft, nontender, nondistended Ext: No swelling, no rashes, no tenderness Problem list Nausea and vomiting, secondary to partial SBO CLIVE on CKD 3 HTN Esophageal Cancer Pulmonary Embolus General surgery consulted planning to take patient to OR this weekend Hold Eliquis, start Lovenox, will have to switch to heparin drip prior to surgery PE diagnosed via VQ scan on 11/29 Stat echocardiogram given recent PE. pulm consulted Nephrology - Dr. Mckinney consulted for CLIVE - likely due to dehydration surgery ok with continuing Jevity. continue IVF Dispo: will need surgery this week Time Spent Managing Pts Care (In Minutes): 60
[2020-11-30] MEDS ORDERED: JEVITY 1.2 CAL LIQUID 1,000 ML BOT FT SCH (13:33)
[2020-11-30] MEDS ORDERED: SODIUM CHLORIDE 0.9% 10ML INJ IV PRN (13:33)
[2020-11-30] MEDS ORDERED: HEPARIN/D5W 25,000 UNIT/500 ML BAG IV PRN (13:33)
[2020-11-30 14:13] VITALS: BMI 23.7
[2020-11-30] MEDS ORDERED: NACHLORIDE 0.45% 1,000 ML IV ONE (15:23)
[2020-11-30] MEDS: NACHLORIDE 0.45% 1,000 ML IV SCH ×2 (15:30→21:52)
[2020-11-30 15:42] LABS: Absolute Lymphocytes (CBC) 0.7 K/uL (0.7-4.9); Basophils % 0.7 % (0-1.3); Hematocrit 41.5 % (39.6-49.0); Lymphocytes % 9.5 % (15.3-44.8); RBC Red Blood Cell Count 4.37 M/uL (4.33-5.43)
[2020-11-30] MEDS ORDERED: HEPARIN/D5W 25,000 UNIT/500 ML BAG IV SCH (16:00)
[2020-11-30 16:05] LABS: Protime INR 1.19
[2020-11-30] MEDS: INSULIN -REGULAR HUMAN 50 UNIT/0.5 ML ML SQ SCH ×2 (16:30→21:00)
[2020-11-30] MEDS: ENOXAPARIN 80 MG/0.8 ML SQ SCH ×2 (17:28→21:00)
[2020-11-30] MEDS: carvediloL 6.25 MG TAB PO SCH (21:00)
[2020-11-30] MEDS: PANTOPRAZOLE 40 MG INJ IVP SCH (21:55)
[2020-12-01] MEDS ORDERED: D50W 25 GM/50 ML SYRINGE IV PRN (05:22)
[2020-12-01] MEDS: NACHLORIDE 0.45% 1,000 ML IV SCH ×3 (05:50→18:26)
[2020-12-01] MEDS: INSULIN -REGULAR HUMAN 50 UNIT/0.5 ML ML SQ SCH ×3 (06:00→18:00)
[2020-12-01 06:23] LABS: Absolute Lymphocytes (CBC) 1.1 K/uL (0.7-4.9); Hematocrit 40.1 % (39.6-49.0); Lymphocytes % 15.8 % (15.3-44.8); MPV 10.6 fL (7.6-11.3); RBC Red Blood Cell Count 4.24 M/uL (4.33-5.43)
[2020-12-01 06:52] LABS: Protime INR 1.15
[2020-12-01 07:04] LABS: Bilirubin Total 1.6 mg/dL (0.2-1.0); Magnesium 2.3 mg/dL (1.8-2.4); Phosphorus 3.4 mg/dL (2.5-4.9); Potassium 3.7 mmol/L (3.5-5.1); Protein, Total 6.7 g/dL (6.4-8.2)
[2020-12-01] MEDS ORDERED: KCL 20 MEQ/100 mL IVPB 20 MEQ/100 ML BAG IV SCH (08:00)
[2020-12-01] MEDS: PANTOPRAZOLE 40 MG INJ IVP SCH ×2 (09:26→20:28)
[2020-12-01] MEDS: AMLODIPINE 5 MG TAB PO SCH ×2 (09:26→20:28)
[2020-12-01] MEDS: ENOXAPARIN 80 MG/0.8 ML SQ SCH (09:26)
[2020-12-01] MEDS: carvediloL 6.25 MG TAB PO SCH ×2 (09:26→20:28)
--- NOTE | 2020-12-01 11:48 | P.PN ---
Subjective Date of Service: 12/01/20 Chief Complaint: partial SBO, CLIVE Subjective: Improving (Patient is once again asymptomatic, passing gas, no distention, no pain, no nausea, however NG in place. ambulatory.) Physical Examination - Vital Signs Temperature: 97.3 F Blood Pressure: 162/89 Pulse: 79 Respirations: 20 Pulse Ox (%): 99 - Physical Exam General: Alert, In no apparent distress, Cooperative HEENT: Mucous membr. moist/pink Respiratory: Clear to auscultation bilaterally, Normal air movement Cardiovascular: Regular rate/rhythm Gastrointestinal: Soft and benign, Non-distended, No ascites, No tenderness, No masses, No rebound, No guarding, Other (NG tube in place) Neurological: Normal gait, Normal speech Assessment And Plan - Current Problems (Diagnosis) (1) Small bowel obstruction Current Visit: No Status: Acute Plan: Patient is a 70 year old man with an small bowel obstruction @ the jejunostomy feeding tube insertion site - Gen / Neuro: no pain or psychiatric issues, no nausea - CVS: Echo pending, await delicatessen clerk interpretation for right heart eval due to Pulmonary emboli - Pulm: pulmonary emboli diagnosed via VQ scan, patient started on eliquis, however recommend hold until post op, started on therapeutic lovenox, recommend hold in anticipation of OR in AM, continue incentive spirometry - GI: ok to use jejunostomy tube for feeding @ goal of 65 cc/hr, hold tube feedings @ 9 PM in anticipation of surgery in AM, continue NG tube to LIWS - Renal: CLIVE remains stable @ this time, plan per Nephrology - FEN: continue IV hydration @ this time as patient likely is again in negative fluid balance due to obstruction, Strict I/O Q4, electrolyte replacement per Nephrology, Nutrition as above, ok to use Jevity 1.2 @ 65cc/hr, hold @ 9 pm - ID: no fever or infections noted - Prophylaxis: lovenox - therapeutic dose, hold pre-op, will likely start eliquis post op , continue Protonix, recommend low dose insulin sliding scale - ambulate with assist - I have reviewed surgical plan with patient and his Physician Review Additional Text: Physical exam General: Alert, NAD, AAOx3, NG Tube placed, >3.5 L removed HEENT: MMM, sclerae anicteric Pulm: Clear auscultation bilaterally, nonlabored CV: No edema, Regular rate/rhythm, Normal S1 S2 Abd: Soft, nontender, nondistended Ext: No swelling, no rashes, no tenderness Problem list Nausea and vomiting, secondary to partial SBO CLIVE on CKD 3 HTN Esophageal Cancer Pulmonary Embolus General surgery consulted planning to take patient to OR this weekend Hold Eliquis, start Lovenox, will have to switch to heparin drip prior to surgery PE diagnosed via VQ scan on 11/29 Stat echocardiogram given recent PE. pulm consulted Nephrology - Dr. Mckinney consulted for CLIVE - likely due to dehydration surgery ok with continuing Jevity. continue IVF Dispo: will need surgery this week
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
--- NOTE | 2020-12-01 13:24 | P.PN ---
Subjective Date of Service: 12/01/20 Chief Complaint: partial SBO, CLIVE Subjective: No new changes (Feeling well, NG tube still in place, no pain, no BM) Review of Systems 10-point ROS is otherwise unremarkable Physical Examination - Vital Signs Temperature: 97.3 F Blood Pressure: 162/89 Pulse: 79 Respirations: 20 Pulse Ox (%): 99 Assessment & Plan Physician Review Additional Text: Physical exam General: Alert, NAD, NGT in place HEENT: MMM, sclerae anicteric Pulm: Clear auscultation bilaterally, nonlabored CV: No edema, Regular rate/rhythm Abd: Soft, nontender, nondistended, J-tube in place, no erythema surrounding site Ext: No swelling, no rashes, no tenderness Problem list Nausea and vomiting, secondary to partial SBO CLIVE on CKD 3 HTN Esophageal Cancer Pulmonary Embolus General surgery consulted planning to take patient to OR tomorrow @ 9 am Eliquis held on admission. On lovenox - hold dose tonight PE diagnosed via VQ scan on 11/29 Stat echocardiogram done yesterday given recent PE. awaiting read. Pulm consulted Nephrology - Dr. Mckinney consulted for CLIVE - likely due to dehydration. increase IVF Surgery ok with continuing Jevity - hold @ 9pm tonight Dispo: anticipate dc home. scheduled for surgery tomorrow Time Spent Managing Pts Care (In Minutes): 35
--- NOTE | 2020-12-01 18:15 | RAD REPORT ---
EXAM DESCRIPTION: US - Abdomen Exam Complete - 12/01/2020 6:02 pm CLINICAL HISTORY: Abdominal pain COMPARISON: CT scan November 30, 2020 FINDINGS: The liver has a normal echotexture. A gallstone is not seen. The gallbladder wall is not thickened. The biliary tree is normal caliber. G allbladder is upper limits normal caliber. It contains a small to moderate amount of sludge The pancreas is normal in size and echotexture The right kidney measures 10 centimeters with a normal echotexture. Small right renal calculi. The left kidney measures 10 centimeters with a normal echotexture. Small bilateral renal cysts The spleen measures 9 centimeters. The abdominal aorta and inferior vena cava appear unremarkable IMPRESSION: Small to moderate amount of gallbladder sludge. Nonobstructing right renal calculi
--- NOTE | 2020-12-01 19:31 | CON ---
Date of Consultation: 12/01/2020 History Of Present Illness: The patient is a pleasant male, age [age] years old who has recently been d iagnosed with esophageal cancer, is awaiting followup with Oncology, has had a PEG tube placed. The patient was in the hospital, was discharged, and returns back with difficulty with abdominal discomfo rt, had some nausea. His LFTs were slightly elevated on last admission and have gone up slightly fur ther. His lipase is up to 588 as well. The patient currently looks well. He is not taking any p.o. intake. Has an NG tube and had significant amount of gastric liquids from this NG tube, revert back . He has had about 250 cc or so that were in the suction currently. The patient feels comfortable a t this point. He is able to talk in full sentences. Unable to answer questions. He is not complain ing of any significant pain at this point. He has been evaluated by Pulmonary Critical Care. He has been evaluated by Surgery and is awaiting a possibility of surgery tomorrow to evaluate for the PEG tube and question for SBO evaluation. The patient has had a CT scan done of abdomen and pelvis that was limited in its assessment due to no contrast. He has an ultrasound ordered to evaluate the liver and gallbladder. The patient is getting Jevity tube feeds right now at 20 cc an hour. He is also g etting half normal saline at 125 cc now which has just been up to 150 cc an hour. I have also increa sed his free water flushes to 20 cc every 6 hours. The patient will be n.p.o. after 9 p.m. tonight f or possibility of surgery tomorrow morning for evaluation of his SBO and a PEG tube location etc. We have been consulted for evaluation of his renal function. The patient sees Dr. Mckinney outpatient, has had a history of chronic kidney disease. Currently his kidney function seems to be slightly wors e likely secondary to his volume depletion. Allergies: NKDA. Medications: Home medications are on the chart and reviewed. The patient is currently on carvedilol . He is also on history of Eliquis. He is also getting amlodipine, also history of diabetes, esopha geal cancer recently diagnosed, chronic kidney disease. Family History: Noncontributory at this point. Social History: The patient has smoked in the past but does not currently smoke. Physical Examination: Vital Signs: On evaluation of his vitals and physical examination, the patient has an NG-tube in. H e is alert, awake, comfortable. His blood pressures fluctuated between 130 systolic to about 160 sys tolic, last blood pressure was 162/89, his respirations around 14-18, his pulses around 80, afebrile, O2 sats are 99% on room air. Lungs: Clear to auscultation. Abdomen: Soft. Extremities: Do not have any edema. Skin: His mouth and legs skin seems dry. Assessment And Plan: 1.Acute kidney injury/chronic kidney disease. The patient is currently on IV fluids. We will add f ree flushes of water per 20 cc every 6 hours. His sodium is adequate at 142, specially with increase half-normal saline to 150 cc an hour. That should stabilize further. At this point, continue 150 c c an hour of half normal saline. Continue with 20 cc of q.6 hours flushes. Continue with Jevity as tolerated. He is on 20 cc/hour right now, they will be increasing it slightly for a final goal of 60 cc an hour. But at this point, the patient will be n.p.o. at 9 p.m. for possibility of surgery hernan rrow. 2.Slight wheezing, history of smoking. The patient was seen by Dr. Boyer recently at this hospit alization. Nurse will check with Dr. Boyer if it is okay to start Combivent nebulizer treatments. The patient can possibly get 1 treatment now and another one in the evening to help him further wit h his breathing status. The patient does not seem to be in any distress currently with his breathing . 3.Question of pulmonary embolism, on Eliquis. 4.Hypertension, currently on Coreg, may use hydralazine IV carefully if blood pressures continue to stay above 160. 5.Escalated liver enzyme, lipase. A CT scan was limited in evaluation. Dr. Kimble is considering fu rther evaluation with ultrasound. Do not hesitate to call us for any further questions. Appreciate the consultation. /NA Voice ID: [id number] Report ID: [id number]
[2020-12-01] MEDS: ALBUTEROL 2.5 MG/3 ML NEB SOL NEB SCH (20:40)
[2020-12-02] MEDS: NACHLORIDE 0.45% 1,000 ML IV SCH ×4 (00:18→20:40)
[2020-12-02] MEDS ORDERED: NACHLORIDE 0.45% 500 ML IV ONE ×3 (00:31→01:16)
[2020-12-02] MEDS: ALBUTEROL 2.5 MG/3 ML NEB SOL NEB SCH ×4 (02:25→19:45)
[2020-12-02] MEDS: INSULIN -REGULAR HUMAN 50 UNIT/0.5 ML ML SQ SCH ×4 (06:00→18:00)
[2020-12-02 06:16] LABS: Absolute Lymphocytes (CBC) 1.1 K/uL (0.7-4.9); Basophils % 1.1 % (0-1.3); Hematocrit 37.4 % (39.6-49.0); Lymphocytes % 16.7 % (15.3-44.8); MPV 9.9 fL (7.6-11.3); RBC Red Blood Cell Count 3.98 M/uL (4.33-5.43)
[2020-12-02 06:38] LABS: Albumin 2.8 g/dL (3.4-5.0); Bilirubin Total 1.4 mg/dL (0.2-1.0); Magnesium 2.1 mg/dL (1.8-2.4); Potassium 3.6 mmol/L (3.5-5.1); Protein, Total 6.1 g/dL (6.4-8.2)
[2020-12-02] MEDS ORDERED: NA CHLORIDE 0.9% 1,000 ML ONE (08:36)
[2020-12-02] MEDS ORDERED: D50W 25 GM/50 ML VIAL IV PRN (08:44)
[2020-12-02] MEDS: AMLODIPINE 5 MG TAB PO SCH ×2 (09:00→20:08)
[2020-12-02] MEDS: PANTOPRAZOLE 40 MG INJ IVP SCH ×2 (09:00→20:34)
[2020-12-02] MEDS ORDERED: POTASSIUM CL SA 10 MEQ TAB PO ONE (09:00)
[2020-12-02] MEDS ORDERED: POTASSIUM 25 MEQ EFFERV TAB PO ONE (09:00)
[2020-12-02] MEDS: carvediloL 6.25 MG TAB PO SCH ×2 (09:00→20:07)
[2020-12-02] MEDS ORDERED: CEFAZOLIN SODIUM 1 GM/VIAL ONE (09:02)
[2020-12-02] MEDS ORDERED: propofoL 200 MG/20 ML VIAL IV ONE (09:16)
[2020-12-02] MEDS ORDERED: BUPIVACA 0.25%/EPI 0.0005% MDV 50 ML VIAL ONE (09:17)
[2020-12-02] MEDS ORDERED: SUCCINYLCHOLINE 20 MG/ML (10 ML) IV ONE (09:21)
--- NOTE | 2020-12-02 09:21 | P.CNS ---
Date of Consult: 11/30/20 Reason for Consult: Pulmonary emboli is a Chief Complaint: Shortness of breath bowel obstruction History of Present Illness: Patient is 70 years of age had a bowel obstruction patient had a jejunostomy placed he underwent revision was diagnosed with possible PE due to high probability V/Q scan was discharged came back again to the emergency room complaining of abdominal distension and nausea vomiting the NG tube was inserted copious amount of fluid was drained Allergies No Known Allergies Allergy (Verified 11/09/20 08:01) Home Medications: Omeprazole 20 mg PO BID 11/09/20 Amlodipine [Norvasc*] 5 mg PO BID 30 Days #60 tab 11/28/20 Ondansetron HCl [Zofran] 11/28/20 carvediloL [Coreg*] 6.25 mg PO BID 30 Days #60 tab 11/28/20 Apixaban [Eliquis] 5 mg PO BID 30 Days #1 tab.ds.pk 11/29/20 - Past Medical/Surgical History Diabetic: Yes -: Esophageal cancer -: Chronic kidney disease -: Knee surgery -: Tonsillectomy and adenoidectomy. -: Jtube insertion - Family History Father Medical History: Other (see notes) (Pneumonia and from pulmonary embolism.) - Social History Smoking Status: Unknown if ever smoked Alcohol use: No CD- Drugs: No Place of Residence: Home Review of Systems General: Weakness Respiratory: Shortness of Breath Gastrointestinal: Nausea, Vomiting Physical Examination Temp Pulse Resp BP Pulse Ox 98.6 F 72 16 167/81 H 97 12/02/20 04:00 12/02/20 04:00 12/02/20 04:00 12/02/20 04:00 12/02/20 04:00 General: Alert, Oriented x3 Respiratory: Clear to auscultation bilaterally Cardiovascular: No edema, Normal S1 S2 Gastrointestinal: Normal bowel sounds, Soft and benign - Problems (1) Pulmonary embolism Current Visit: Yes Status: Acute Plan: Patient had a high probability V/Q scan he return back to the emergency room with bowel obstruction he is to schedule for another revision of his jejunostomy over patient is hemodynamically stable not hypoxic blood pressure is also stable he does have chronic renal failure blood pressure is mildly elevated unable to do a CT pulmonary angiogram Yudi he will be stable to have revision done of for his surgery on December 02 start patient on Lovenox be held prior to surgery Qualifiers: Acute cor pulmonale presence: unspecified
[2020-12-02] MEDS ORDERED: FENTANYL CITR 100 MCG/2 ML IV ONE ×2 (09:34→10:08)
[2020-12-02] MEDS ORDERED: INFLUENZA VACCINE (for 3y+) 0.5 ML DOSE IMVAC ONE (10:00)
--- NOTE | 2020-12-02 10:31 | P.PN ---
Subjective Date of Service: 12/02/20 Chief Complaint: Shortness of breath bowel obstruction Subjective: Improving (feeling well, NGT in place, no nausea/vomiting. Denies abdominal pain) Review of Systems 10-point ROS is otherwise unremarkable Physical Examination - Vital Signs Temperature: 98.6 F Blood Pressure: 141/84 Pulse: 76 Respirations: 16 Pulse Ox (%): 97 Assessment & Plan Physician Review Additional Text: Physical exam General: Alert, NAD, NGT in place HEENT: MMM, sclerae anicteric Pulm: Clear auscultation bilaterally, nonlabored, no wheeze, dry cough CV: No edema, Regular rate/rhythm Abd: Soft, nontender, nondistended, J-tube in place, no erythema surrounding site Ext: No swelling, no rashes, no tenderness Problem list Nausea and vomiting, secondary to partial SBO CLIVE on CKD 3 HTN Esophageal Cancer Pulmonary Embolus General surgery consulted -planned for OR today Eliquis held on admission. On lovenox - held dose last night, will discuss with surgery when to restart PE diagnosed via VQ scan on 11/29, anticoagulation as noted above Echocardiogram done, awaiting read. Pulmonary consulted Nephrology consulted for CLIVE on CKD, appears to be due to prerenal/dehydration, increased IV fluids yesterday with mild improvement today Jevity held last night for surgery RUQ U/S ordered yesterday to r/o any gallbladder pathology prior to surgery, notable for only sludge Dispo: anticipate dc home in 2-3 days Time Spent Managing Pts Care (In Minutes): 40
--- NOTE | 2020-12-02 11:11 | P.OP ---
Preoperative diagnosis: Jejunostomy Tube Dysfunction / Small Bowel Obstruction Postoperative diagnosis: Jejunostomy Tube Dysfunction / Small Bowel Obstruction Primary procedure: Open Revision / Replacement of Jejunostomy Tube Secondary procedure: Small Bowel Resectoin Other procedure(s): Repair of incarcerated umbilical hernia - omentum Anesthesia: GETA Estimated blood loss: <20cc Specimen: Small Bowel Findings: ~1cm umbilica hernia, kink @ j-tube insertion site Complications: None Drain(s): Nasogastric Implants: 16 Croat[place] Jejunostomy Feeding tube Transferred to: Recovery Room Condition: Good
[2020-12-02] MEDS: HYDROMORPHONE HCL 1 MG/ML INJ ONE ×2 (11:52→11:57)
[2020-12-02] MEDS ORDERED: FENTANYL CITR 100 MCG/2 ML ONE (12:21)
[2020-12-02] MEDS: PIPER/TAZO/NS 2.25gm 2.25 GM/50 ML BAG IVPB SCH ×2 (12:35→17:54)
--- NOTE | 2020-12-02 13:26 | OP ---
Date of Procedure: 12/02/2020 Surgeon: Saul Herman MD, Brief History Of Present Illness: The patient is a 70-year-old male who had a jejunostomy tube placed laparoscopically approximately more than 2 weeks ago. Tube feeds were working well. However, the patient developed persistent nausea and vomiting and had evidence for a complete bowel obstruction at the level of the jejunostomy tube insertion site. It was originally suspected that the jejunostomy balloon, which was partially inflated was the cause of this obstruction as after it was taken down. The contrast study showed no obstruction and the patient had no nausea and no vomiting for 5 days and was having normal bowel function, tolerating tube feeds for 5 days. He returned after 1 day of being discharged to the hospital with recurrent symptoms of nausea, vomiting and NG tube was placed and evidence for obstruction was evident once again. Another repeat CT scan showed evidence of obstruction of the jejunostomy tube insertion site now with balloon definitively down. As such, I suspect there was an intermittent kink at this level requiring revision. Therefore, I explained the risks, benefits, and alternatives of open jejunostomy tube revision, possible repair of small bowel and small bowel resection and indicated procedures. Preoperative Diagnosis: Jejunostomy tube dysfunction/small bowel obstruction. Postoperative Diagnosis: Jejunostomy tube dysfunction/small bowel obstruction. Procedure Performed: 1. Open revision/replacement of jejunostomy tube. 2. Small bowel resection procedure. 3. Repair of incarcerated umbilical hernia containing omentum only, no bowel. Anesthesia: General endotracheal. Estimated Blood Loss: 20 cc. Specimen: Small bowel. Findings: There was somewhat of a kink at the level of the jejunostomy tube insertion site. However, manipulation was able to resolve this and contents were passing beyond the jejunostomy tube. However I suspect this is an intermittent obstruction due to position, I opted to revise this. Complications: None. Drains: Nasogastric tube was placed preoperatively. Implant: 16-Georgian jejunostomy feeding tube. Disposition: The patient was transferred to recovery room in good condition. Procedure In Detail: After informed consent was obtained as above, the patient brought to the operating room, prepped and draped in the usual sterile fashion after adequate anesthesia was achieved. An upper midline incision was incised with a 15 blade down to subcutaneous tissues. Meticulous hemostasis was achieved as the patient was previously anticoagulated and will require anticoagulation postoperatively. Meticulous hemostasis was used dissecting down the level of the fascia. The fascia was opened in the linea alba. I then grasped and elevated the peritoneum, entered sharply with Metzenbaum scissors and the upper midline incision was opened in entirety using electrocautery under direct visualization without evidence of complication. At this point, Karen clamps were placed on the patient's fascia and I visualized the jejunostomy site, which had a positional kink depending on how the abdominal wall was manipulated. I was easily able to manipulate the proximal small bowel to allow for drainage of enteric contents distally through this with simple manipulation and did not require anything other than gentle manipulation of the intestines. However, I suspect that because this is an intermittent jejunostomy kink, I opted to revise at this time rather than leave this intact at this point. All the securing sutures were in place. The jejunostomy tube was in place. There was no intraabdominal contamination at this point. I opted to resect to the small bowel off the anterior abdominal wall. This was done using Metzenbaum scissors circumferentially around and I removed the jejunostomy tube externally at this point and brought the small bowel out through the midline incision. At this point, I opted to resect this small section of bowel. This is approximately 35 cm beyond the ligament of Treitz. I created a small bowel resection window by first beginning with creating a proximal and distal mesenteric window. This was approximately 5 cm segment of small bowel. At this point, I opted to place a CHAN 55 blue load stapler across the proximal and distal aspect of the small bowel, fired them and then use the LigaSure device to take the mesentery down. At this point, there was minimal bleeding from the edge of the cut small bowel on the distal aspect. This was easily controlled with a simple [id number] 3-0 Vicryl suture. At this point, the small bowel was sent off for pathologic examination. I realigned the proximal and distal limbs of the small bowel in a pyvb-on-swon manner and secured the proximal distal ends of this using a 3-0 silk suture. At this point, a sterile field was created. I made an enterotomy in the proximal and distal antimesenteric border of the small bowel, placed a CHAN 55 blue load across the common channel on the antimesenteric border and fired the stapler. A good patent common channel was appreciated without any bleeding. At this point, I opted to close this common channel using a 3-0 PDS suture in a [place] type running suture. At this point, there was good apposition of the small bowel and the common opening was closed and the common channel remained patent. At this point, I closed a second layer using a single interrupted Lembert 3-0 silk sutures with good apposition of the bowel. I once again palpated the common channel after this was completed and it was found to be widely patent. At this point, I closed the mesenteric window using a 3-0 Vicryl suture in an interrupted fashion. At this point, the small bowel was palpated and enteric contents were easily manipulated through the common channel. I then sized a 16-Georgian jejunostomy tube, brought onto the field, and hydrated. At this point, a separate stab incision was created through the abdominal wall and I passed a tonsillar clamp from the intraperitoneal to the external and passed the tube into the abdominal compartment at this point. At this point, I palpated the small bowel and noted a good location approximately 5 cm distal to the anastomosis and made a small enterotomy in the antimesenteric border of the small bowel at approximately 45 cm from the ligament of Treitz, from the previous now approximately due to the resection approximately 35 cm from the ligament of Treitz. At this point, I placed a 3-0 Vicryl pursestring suture circumferentially around and passed the jejunostomy tube and fit it into the distal small bowel. It was passed quite easily and hydrated appropriately. It was visually placed into the common channel. At this point, the pursestring suture was secured after the J-tube was positioned in the appropriate position. At this point, I opted to bring the J- tube to the exit site. At this point, I parachuted in 4 interrupted 2-0 nylon sutures to the anterior abdominal wall in the left upper quadrant and secured it to the small bowel and tied these to have good apposition of the abdominal wall. I then tested the J-tube by flushing it once again. I palpated the bowel to ensure there was no kinks, no obstructions, and the omentum was then palpated and attempted to be brought around to wrap the small bowel resection and small bowel enterotomy site for the J-tube insertion. However, I could not remove the omentum as I discovered the patient's omentum was entrapped in a hernia at the umbilical position. I therefore circumferentially dissected this free and reduced the omentum back to the normal preperitoneal position and I closed the hernia defect with a 0 Ethibond suture in a [id number] type stitch with good apposition and closure of the hernia. At this point, the omentum was used to wrapped the anastomosis and the J-tube insertion site and the bowel was palpated and found to be in good anatomic position. At this point, the abdomen was inspected. There was no additional hemostatic measures required and I closed the abdomen upper midline incision using a running #1 looped PDS suture with good apposition of the abdominal wall. All skin incisions were then copiously irrigated. The previous J-tube site was closed in a single interrupted natalia and the abdominal skin was then closed using interrupted natalia and a sterile dressing placed over top. The patient tolerated the procedure well without evidence of complication and transferred to PACU in good condition. All counts were correct at the end of the case. ADOLPH/NA Voice ID: [id number] Report ID: [id number] ИВАН
[2020-12-02 13:41] LABS: Absolute Lymphocytes (CBC) 0.5 K/uL (0.7-4.9); Basophils % 0.2 % (0-1.3); Hematocrit 43.6 % (39.6-49.0); Lymphocytes % 3.8 % (15.3-44.8); MPV 10.5 fL (7.6-11.3); RBC Red Blood Cell Count 4.54 M/uL (4.33-5.43)
[2020-12-02] MEDS ORDERED: HYDRALAZINE HCL 20 MG/ML VIAL IV PRN ×2 (14:06→14:11)
[2020-12-02 14:26] LABS: Blood Morphology Comment NOT SEEN (NOT SEEN); Platelet Estimate DECR; White Blood Cell Scan OK (OK)
[2020-12-02] MEDS: MORPHINE 2 MG/ML SYR IV PRN ×2 (14:50→20:40)
--- NOTE | 2020-12-02 18:50 | PN ---
Subjective: The patient is overall looking well today. He has had surgery this morning for adjustme nt of his jejunostomy tube, seems to have tolerated well. He is coming out of his anesthesia. He is able to answer questions. He knows what is happening and what is going on. Explained to him that nish cook would not be able to use jejunostomy tube right away until it is cleared by the surgeon. At this p oint, we will monitor his blood pressure and treat it with IV medications as needed. He is on morphi ne ordered for pain control, that is being carefully and judiciously being used. The patient is tole rating all that well. He is on IV fluids as he is not taking any p.o. intake and we are not able to use a jejunostomy tube yet. He is getting D5 half-normal saline at 150 cc/hour. Objective: Vital Signs: Stable. Blood pressure has been slightly on the higher side at 170/85 last checked, currently 161/94, pulse is at about 90 and regular, temperature 97, O2 sats 96%, getting 2 L of nasal cannula. His pain level has been between 0-5, and that is being monitored and treated wit h close assessments. Lungs: Clear to auscultation. Abdomen: Post surgery, appropriate level of tenderness. Extremities: No edema. Heart: Sounds are regular. Skin: Seems to be dry. Mouth: Slightly dry as well. Medications: In the chart and reviewed. The patient has not been able to get his amlodipine or Core g currently. He is on hydralazine at q.6 hours p.r.n. for 5 mg. If blood pressure does go up, he ca n get also some dose of beta-piotr IV. Hopefully, he will be able to use jejunostomy tube tomorrow . Laboratory Data: Reviewed. Labs show creatinine of 2.62, reasonably stable compared to yesterday, p erhaps with slight improvement; BUN 45; sodium 138; potassium 3.6; chloride 101; bicarb is 32; calciu m 8.2; phosphorus 3; magnesium 2.1. AST and ALT at 140 and 190. Hematology shows WBC count 12.6, he moglobin 14, hematocrit 43.6, platelet count of 134. Assessment And Plan: The patient with acute on chronic kidney disease, currently seems to be stable. 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 Blood pressure slightly on the higher side, but the patient also recovering from surgery currently and anesthesia and having some pain. 1.Continue IV fluids D5 half-normal saline at 150 cc/hour. 2.Continue to monitor blood pressure. Hydralazine 5 mg IV q.6 hours for systolic blood pressure gre ater than 170. If blood pressure stays high and/or the patient needs other medications, can consider starting a beta piotr also IV, but at this point hopefully the patient can get his jejunostomy tub e to be in usable condition and we can start his Coreg and amlodipine by later tomorrow if cleared by Surgery. 3.Esophageal cancer. The patient to follow up with Oncology once acute issues resolve to come up wi th a treatment plan. 4.Chronic kidney disease. Once acute issues are resolved, we will need chronic follow up with Dr. Fidel mas, his primary scoop machine operator, to keep an eye on that. 5.Pain control. The patient is currently getting morphine at 2 mg for severe pain at levels 5-7, th at is being monitored closely by the nursing staff. I have discussed with the nursing staff to try t he morphine first when the patient is having pain and the blood pressure is elevated. If the blood p ressure still is elevated after the pain is reasonably controlled, then the hydralazine p.r.n. can be given. /NA Voice ID: [id number] Report ID: [id number]
[2020-12-03] MEDS: PIPER/TAZO/NS 2.25gm 2.25 GM/50 ML BAG IVPB SCH ×4 (00:23→17:06)
[2020-12-03] MEDS: ALBUTEROL 2.5 MG/3 ML NEB SOL NEB SCH ×4 (02:30→19:45)
[2020-12-03] MEDS: MORPHINE 2 MG/ML SYR IV PRN ×5 (02:53→21:37)
[2020-12-03 04:41] LABS: Absolute Lymphocytes (CBC) 0.6 K/uL (0.7-4.9); Basophils % 0.2 % (0-1.3); Hematocrit 36.9 % (39.6-49.0); Lymphocytes % 7.2 % (15.3-44.8); RBC Red Blood Cell Count 3.89 M/uL (4.33-5.43)
[2020-12-03 05:11] LABS: Albumin 2.5 g/dL (3.4-5.0); Bilirubin Total 1.7 mg/dL (0.2-1.0); Magnesium 2.1 mg/dL (1.8-2.4); Phosphorus 4.7 mg/dL (2.5-4.9); Potassium 4.2 mmol/L (3.5-5.1); Protein, Total 5.8 g/dL (6.4-8.2)
[2020-12-03] MEDS: NACHLORIDE 0.45% 1,000 ML IV SCH ×3 (05:45→16:19)
[2020-12-03] MEDS: INSULIN -REGULAR HUMAN 50 UNIT/0.5 ML ML SQ SCH ×4 (06:00→18:00)
[2020-12-03] MEDS: carvediloL 6.25 MG TAB PO SCH ×2 (08:58→21:38)
[2020-12-03] MEDS: AMLODIPINE 5 MG TAB PO SCH ×2 (08:59→21:39)
[2020-12-03] MEDS: PANTOPRAZOLE 40 MG INJ IVP SCH ×2 (09:03→21:38)
--- NOTE | 2020-12-03 09:06 | ECHO ---
HEIGHT: 6 ft 1 in WEIGHT: 180 lb 0 oz DATE OF STUDY: 11/30/[address]: Pranay Kimble MD 2-DIMENSIONAL: YES M.MODE: YES DOPPLER: YES COLOR FLOW: YES TDS: NO PORTABLE: NO DEFINITY: NO BUBBLE STUDY: NO DIAGNOSIS: PE, EVALUATE RIGHT HEART FUNCTION. CARDIAC HISTORY: CATHERIZATION: NO SURGERY: NO PROSTHETIC VALVE: NO PACEMAKER: NO MEASUREMENTS (cm) DIASTOLIC (NORMALS) SYSTOLIC (NORMALS) IVSd 1.1 (0.6-1.2) LA Diam 2.7 (1.9-4.0) LVEF 35-40% LVIDd 5.4 (3.5-5.7) LVIDs 4.6 (2.0-3.5) %FS 16% LVPWd 1.2 (0.6-1.2) Ao Diam 3.4 (2.0-3.7) 2 DIMENSIONAL ASSESSMENT: RIGHT ATRIUM: NORMAL LEFT ATRIUM: NORMAL RIGHT VENTRICLE: NORMAL LEFT VENTRICLE: DEPRESSED TRICUSPID VALVE: NORMAL MITRAL VALVE: NORMAL PULMONIC VALVE: NORMAL AORTIC VALVE: NORMAL PERICARDIAL EFFUSION: NONE AORTIC ROOT: NORMAL LEFT VENTRICULAR WALL MOTION: MODERATLEY DEPRESSED LEFT VENTRICULAR FUNCTION. DOPPLER/COLOR FLOW: NORMAL COMMENTS: MODERATELY DEPRESSED LEFT VENTRICULAR FUNCTION. LEFT VENTRICULAR EJECTION FRACTION 35-40%. MODERATE GLOBAL HYPOKINESIS. DIASTOLIC DYSFUNCTION. TECHNOLOGIST: Carlos FERNANDES
--- NOTE | 2020-12-03 10:03 | P.PN ---
Subjective Date of Service: 12/03/20 Chief Complaint: Shortness of breath bowel obstruction Subjective: Improving (Patient has some midline abdominal soreness only, no pain with resting, no SOB, or GI complaints.) Physical Examination - Vital Signs Temperature: 98.0 F Blood Pressure: 163/80 Pulse: 83 Respirations: 18 Pulse Ox (%): 96 - Physical Exam General: Alert, In no apparent distress, Cooperative Respiratory: Clear to auscultation bilaterally, Normal air movement Gastrointestinal: Other (soft, mild appropriate TTP, ND, J -tube in place, no leakage, binder in place.) Assessment And Plan - Current Problems (Diagnosis) (1) Small bowel obstruction Current Visit: No Status: Acute Plan: Patient is a 70 year old man with an small bowel obstruction @ the jejunostomy feeding tube insertion site - Gen / Neuro: no pain or psychiatric issues, no nausea - CVS: Echo pending, await rouge sifter and miller interpretation for right heart eval due to Pulmonary emboli - Pulm: pulmonary emboli diagnosed via VQ scan, patient started on eliquis, recommend hold for now, likely start on Thursday continue incentive spirometry - GI: DO NOT use jejunostomy tube @ this time, will likely restart feeding tomorrow, continue NG tube to LIWS - Renal: CLIVE remains stable @ this time, plan per Nephrology - FEN: continue IV hydration @ this time as patient likely is again in negative fluid balance due to obstruction, Strict I/O Q4, electrolyte replacement per Nephrology, Nutrition as above, when J tube feeding restarts plan to use Jevity 1.2 @ 65cc/hr, hold for now - ID: no fever or infections noted - Prophylaxis: will likely start eliquis tomorrow , continue Protonix, recommend low dose insulin sliding scale, SCDs - ambulate with assist - I have reviewed plan with patient and his Physician Review Additional Text: Physical exam General: Alert, NAD, NGT in place HEENT: MMM, sclerae anicteric Pulm: Clear auscultation bilaterally, nonlabored, no wheeze, dry cough CV: No edema, Regular rate/rhythm Abd: Soft, nontender, nondistended, J-tube in place, no erythema surrounding site Ext: No swelling, no rashes, no tenderness Problem list Nausea and vomiting, secondary to partial SBO CLIVE on CKD 3 HTN Esophageal Cancer Pulmonary Embolus General surgery consulted -planned for OR today Eliquis held on admission. On lovenox - held dose last night, will discuss with surgery when to restart PE diagnosed via VQ scan on 11/29, anticoagulation as noted above Echocardiogram done, awaiting read. Pulmonary consulted Nephrology consulted for CLIVE on CKD, appears to be due to prerenal/dehydration, increased IV fluids yesterday with mild improvement today Jevity held last night for surgery RUQ U/S ordered yesterday to r/o any gallbladder pathology prior to surgery, notable for only sludge Dispo: anticipate dc home in 2-3 days
--- NOTE | 2020-12-03 16:44 | P.PN ---
Subjective Date of Service: 12/03/20 Chief Complaint: Shortness of breath bowel obstruction Subjective: Improving (Feeling well today, no nausea/vomiting, no flatus/BM since procedure, mild abdominal soreness, urinating without issue) Review of Systems 10-point ROS is otherwise unremarkable Physical Examination - Vital Signs Temperature: 97.3 F Blood Pressure: 181/85 Pulse: 76 Respirations: 16 Pulse Ox (%): 96 Assessment & Plan Physician Review Additional Text: Physical exam General: Alert, NAD HEENT: MMM, sclerae anicteric Pulm: Clear to auscultation bilaterally, nonlabored CV: No edema, Regular rate/rhythm Abd: Soft, nondistended, J-tube in place, surgical dressing c/d/i, decreased bowel sounds Ext: No swelling, no rashes, no tenderness Problem list Nausea and vomiting, secondary to partial SBO CLIVE on CKD 3 HTN Esophageal Cancer Pulmonary Embolus General surgery consulted -s/p OR on 12/02 restart eliquis thursday, 12/04; give lovenox prophylactic dose today - discussed with general surgery Okay to use J-tube for medications; likely restart tube feeds tomorrow PE diagnosed via VQ scan on 11/29, anticoagulation as noted above Echocardiogram done, awaiting read. Pulmonary consulted Nephrology consulted for CLIVE on CKD, appears to be due to prerenal/dehydration, continue IV fluids 150ml/hr RUQ U/S ordered to r/o any gallbladder pathology prior to surgery, notable for only sludge Dispo: anticipate dc home in ~2 days Time Spent Managing Pts Care (In Minutes): 35
[2020-12-03] MEDS ORDERED: ENOXAPARIN 40 MG/0.4 ML SQ ONE (17:00)
--- NOTE | 2020-12-03 21:28 | P.PN ---
Date of Service: 12/03/20 Vital Signs Temp Pulse Resp BP Pulse Ox 97.3 F 76 16 181/85 H 96 12/03/20 16:44 12/03/20 16:44 12/03/20 16:44 12/03/20 16:44 12/03/20 16:44 Medications Albuterol Sulfate (Albuterol 2.5 Mg/3 Ml Neb Theresa) 2.5 mg NEB [id number] [facility] Last Admin: 12/03/20 13:44 Dose: 2.5 mg Documented by: Amlodipine Besylate (Amlodipine 5 Mg Tab) 5 mg PO BID [facility] Last Admin: 12/03/20 08:59 Dose: Not Given Documented by: Apixaban (Apixaban 5 Mg Tablet) 5 mg PO BID [facility] Carvedilol (Carvedilol 6.25 Mg Tab) 6.25 mg PO BID [facility] Last Admin: 12/03/20 08:58 Dose: Not Given Documented by: Dextrose (D50w 25 Gm/50 Ml Vial) 12.5 gm IV PRN PRN; Protocol PRN Reason: HYPOGLYCEMIA Hydralazine HCl (Hydralazine Hcl 20 Mg/Ml Vial) 5 mg IV Q6HP PRN PRN Reason: SBP>170mmhg Last Admin: 12/03/20 09:03 Dose: 5 mg Documented by: Sodium Chloride (Sodium Chloride 0.45%) 1,000 mls @ 150 mls/hr IV .Q6H40M [facility] Last Admin: 12/03/20 16:19 Dose: 1,000 mls Documented by: Piperacillin/Tazobactam/Sod Chloride (Zosyn 2.25 Gm/50 Ml Ivpb) 2.25 gm in 50 mls @ 100 mls/hr IVPB Q6HR [facility]; Protocol Last Admin: 12/03/20 17:06 Dose: 50 mls Documented by: Insulin Human Regular (Insulin -Regular Human 50 Unit/0.5 Ml Ml) 0 unit SQ Q6HR [facility]; Protocol Last Admin: 12/03/20 18:00 Dose: Not Given Documented by: Morphine Sulfate (Morphine 2 Mg/Ml Syr) 2 mg IV Q4H PRN PRN Reason: Pain scale 5-7 (Moderate) Last Admin: 12/03/20 16:22 Dose: 2 mg Documented by: Pantoprazole Sodium (Pantoprazole 40 Mg Inj) 40 mg IVP Q12HR [facility]; Protocol Last Admin: 12/03/20 09:03 Dose: 40 mg Documented by: Sodium Chloride (Flush Normal Saline 10 Ml) 10 ml IV BID [facility] Last Admin: 12/03/20 09:00 Dose: 10 ml Documented by: Sodium Chloride (Sodium Chloride 0.9% 10ml Inj) 10 ml IV UD PRN PRN Reason: Diluant Last Admin: 12/02/20 20:34 Dose: 10 ml Documented by: Assessment/ Plan: Nephrology No acute cardiac or pulmonary complaints. No CP or SOB. No acute events overnight. Vitals, medications, blood work and imaging reviewed in the chart. NAD. MMM. Neck supple. CTA. RRR. Soft Abd. No C/C/E. No rash. AAO. Normal Speech. A/P: Continue the current POC and Medications other than the changes listed. AM Labs PRN. Recommend daily weight. Please see the orders for complete details. CKD III -Continue NS Hypokalemia -Replete potassium prn Hypocalcemia -Recommend Vitamin D HTN with CKD Continue Coreg and Amlodipine Moderate malnutrition -Restart feeding as tolerated Anemia in chronic illness -Monitor H&H
[2020-12-03] MEDS: APIXABAN 5 MG TABLET PO SCH (21:38)
[2020-12-04] MEDS: PIPER/TAZO/NS 2.25gm 2.25 GM/50 ML BAG IVPB SCH ×4 (01:52→18:10)
[2020-12-04] MEDS: NACHLORIDE 0.45% 1,000 ML IV SCH ×3 (01:55→13:10)
[2020-12-04] MEDS: ALBUTEROL 2.5 MG/3 ML NEB SOL NEB SCH ×4 (02:10→19:50)
[2020-12-04] MEDS: MORPHINE 2 MG/ML SYR IV PRN ×2 (04:31→21:21)
[2020-12-04 05:48] LABS: Absolute Lymphocytes (CBC) 0.6 K/uL (0.7-4.9); Basophils % 0.5 % (0-1.3); Hematocrit 34.2 % (39.6-49.0); Lymphocytes % 9.7 % (15.3-44.8); MPV 10.5 fL (7.6-11.3); RBC Red Blood Cell Count 3.64 M/uL (4.33-5.43)
[2020-12-04 06:07] LABS: Albumin 2.3 g/dL (3.4-5.0); Bilirubin Total 1.8 mg/dL (0.2-1.0); Magnesium 1.9 mg/dL (1.8-2.4); Phosphorus 2.5 mg/dL (2.5-4.9); Potassium 3.8 mmol/L (3.5-5.1); Protein, Total 5.6 g/dL (6.4-8.2)
[2020-12-04] MEDS: carvediloL 6.25 MG TAB PO SCH ×2 (08:48→21:23)
[2020-12-04] MEDS: APIXABAN 5 MG TABLET PO SCH ×2 (08:49→21:23)
[2020-12-04] MEDS: AMLODIPINE 5 MG TAB PO SCH ×2 (08:50→21:22)
[2020-12-04] MEDS: PANTOPRAZOLE 40 MG INJ IVP SCH ×2 (08:51→21:23)
[2020-12-04] MEDS ORDERED: HOME MED 1 EA UNK (Apixaban [Eliquis] 5 MG Tab.Ds.Pk) PO SCH (09:00)
[2020-12-04] MEDS ORDERED: POTASSIUM PHOS IN 0.9 % NACL 15 MMOL/250 ML BAG IV ONE (09:00)
[2020-12-04] MEDS ORDERED: KCL 20 MEQ/100 mL IVPB 20 MEQ/100 ML BAG IV SCH (09:00)
[2020-12-04] MEDS: INSULIN -REGULAR HUMAN 50 UNIT/0.5 ML ML SQ SCH ×2 (12:00→18:00)
--- NOTE | 2020-12-04 13:11 | P.PN ---
Subjective Date of Service: 12/04/20 Chief Complaint: Shortness of breath bowel obstruction Subjective: Improving (Patient only has some soreness to upper midline incision. No other issues) Physical Examination - Vital Signs Temperature: 97.6 F Blood Pressure: 153/73 Pulse: 92 Respirations: 18 Pulse Ox (%): 94 - Physical Exam General: Alert, In no apparent distress, Cooperative Respiratory: Clear to auscultation bilaterally Gastrointestinal: Hypoactive, Other (soft, mild appropriate TTP, ND, incision clean, natalia in place, j-tube in place, NGT in place) Assessment And Plan - Current Problems (Diagnosis) (1) Small bowel obstruction Current Visit: No Status: Acute Plan: Patient is a 70 year old man with an small bowel obstruction @ the jejunostomy feeding tube insertion site - Gen / Neuro: no pain or psychiatric issues, no nausea - CVS: RRR - Pulm: pulmonary emboli diagnosed via VQ scan, patient started on eliquis, re- start on Today, continue incentive spirometry - GI: ok use jejunostomy tube @ this time, will likely restart feeding today, clamp NGT for today - Renal: CLIVE improving @ this time, plan per Nephrology - FEN: continue IV hydration @ this time as patient likely is again in negative fluid balance due to obstruction, Strict I/O Q4, electrolyte replacement per Nephrology, Nutrition as above, when J tube feeding restarts plan to use Jevity 1.2 @ 65cc/hr, - ID: no fever or infections noted - Prophylaxis: will start eliquis today , continue Protonix, recommend low dose insulin sliding scale, SCDs - ambulate with assist - I have reviewed plan with patient Physician Review Additional Text: Physical exam General: Alert, NAD HEENT: MMM, sclerae anicteric Pulm: Clear to auscultation bilaterally, nonlabored CV: No edema, Regular rate/rhythm Abd: Soft, nondistended, J-tube in place, surgical dressing c/d/i, decreased bowel sounds Ext: No swelling, no rashes, no tenderness Problem list Nausea and vomiting, secondary to partial SBO CLIVE on CKD 3 HTN Esophageal Cancer Pulmonary Embolus General surgery consulted -s/p OR on 12/02 restart eliquis thursday, 12/04; give lovenox prophylactic dose today - discussed with general surgery Okay to use J-tube for medications; likely restart tube feeds tomorrow PE diagnosed via VQ scan on 11/29, anticoagulation as noted above Echocardiogram done, awaiting read. Pulmonary consulted Nephrology consulted for CLIVE on CKD, appears to be due to prerenal/dehydration, continue IV fluids 150ml/hr RUQ U/S ordered to r/o any gallbladder pathology prior to surgery, notable for only sludge Dispo: anticipate dc home in ~2 days
--- NOTE | 2020-12-04 14:46 | P.PN ---
Subjective Date of Service: 12/04/20 Chief Complaint: Shortness of breath bowel obstruction No new complain. No issues overnight. Patient has significant NG tube output. Physical Examination - Vital Signs Temperature: 97.6 F Blood Pressure: 153/73 Pulse: 92 Respirations: 18 Pulse Ox (%): 94 - Physical Exam General: Alert, In no apparent distress, Oriented x3 Neck: Supple, JVD not distended Respiratory: Clear to auscultation bilaterally, Normal air movement Cardiovascular: No edema, Regular rate/rhythm, Normal S1 S2 Gastrointestinal: Soft and benign, Non-distended Musculoskeletal: No swelling Integumentary: No rashes Neurological: Other (No focal motor deficits) Assessment And Plan Physician Review Additional Text: Problem list Nausea and vomiting, secondary to partial SBO CLIVE on CKD 3 HTN Esophageal Cancer Pulmonary Embolus Chronic systolic heart failure. General surgery consulted -s/p OR on 12/02 Continue Eliquis. Okay to use J-tube for medications and restart tube feeds tomorrow per Dr. Herman. NG-tube to be clamped today. PE diagnosed via VQ scan on 11/29, anticoagulation as noted above Echocardiogram EF 35-40%. Chronic systolic heart failure Nephrology consulted for CLIVE on CKD, appears to be due to prerenal/dehydration. Renal function is improving slowly.
--- NOTE | 2020-12-04 20:32 | P.PN ---
Date of Service: 12/04/20 Vital Signs Temp Pulse Resp BP Pulse Ox 97.6 F 91 H 20 127/70 94 12/04/20 16:00 12/04/20 16:00 12/04/20 16:00 12/04/20 16:00 12/04/20 16:00 Medications Albuterol Sulfate (Albuterol 2.5 Mg/3 Ml Neb Theresa) 2.5 mg NEB [id number] [facility] Last Admin: 12/04/20 14:20 Dose: 2.5 mg Documented by: Amlodipine Besylate (Amlodipine 5 Mg Tab) 5 mg PO BID [facility] Last Admin: 12/04/20 08:50 Dose: 5 mg Documented by: Apixaban (Apixaban 5 Mg Tablet) 5 mg PO BID [facility] Last Admin: 12/04/20 08:49 Dose: 5 mg Documented by: Carvedilol (Carvedilol 6.25 Mg Tab) 6.25 mg PO BID [facility] Last Admin: 12/04/20 08:48 Dose: 6.25 mg Documented by: Dextrose (D50w 25 Gm/50 Ml Vial) 12.5 gm IV PRN PRN; Protocol PRN Reason: HYPOGLYCEMIA Last Admin: 12/04/20 11:46 Dose: 12.5 gm Documented by: Hydralazine HCl (Hydralazine Hcl 20 Mg/Ml Vial) 5 mg IV Q6HP PRN PRN Reason: SBP>170mmhg Last Admin: 12/03/20 09:03 Dose: 5 mg Documented by: Sodium Chloride (Sodium Chloride 0.45%) 1,000 mls @ 150 mls/hr IV .Q6H40M [facility] Last Admin: 12/04/20 13:10 Dose: 1,000 mls Documented by: Piperacillin/Tazobactam/Sod Chloride (Zosyn 2.25 Gm/50 Ml Ivpb) 2.25 gm in 50 mls @ 100 mls/hr IVPB Q6HR [facility]; Protocol Last Admin: 12/04/20 18:10 Dose: 50 mls Documented by: Insulin Human Regular (Insulin -Regular Human 50 Unit/0.5 Ml Ml) 0 unit SQ Q6HR [facility]; Protocol Last Admin: 12/04/20 18:00 Dose: Not Given Documented by: Morphine Sulfate (Morphine 2 Mg/Ml Syr) 2 mg IV Q4H PRN PRN Reason: Pain scale 5-7 (Moderate) Last Admin: 12/04/20 04:31 Dose: 2 mg Documented by: Pantoprazole Sodium (Pantoprazole 40 Mg Inj) 40 mg IVP Q12HR [facility]; Protocol Last Admin: 12/04/20 08:51 Dose: 40 mg Documented by: Sodium Chloride (Flush Normal Saline 10 Ml) 10 ml IV BID [facility] Last Admin: 12/04/20 08:49 Dose: 10 ml Documented by: Sodium Chloride (Sodium Chloride 0.9% 10ml Inj) 10 ml IV UD PRN PRN Reason: Diluant Last Admin: 12/02/20 20:34 Dose: 10 ml Documented by: Assessment/ Plan: Nephrology No acute cardiac or pulmonary complaints. No CP or SOB. No acute events overnight. Vitals, medications, blood work and imaging reviewed in the chart. NAD. MMM. Neck supple. CTA. RRR. Soft Abd. No C/C/E. No rash. AAO. Normal Speech. A/P: Continue the current POC and Medications other than the changes listed. AM Labs PRN. Recommend daily weight. Please see the orders for complete details. CKD III -Continue NS Hypokalemia -Replete potassium prn Hypocalcemia -Recommend Vitamin D HTN with CKD Continue Coreg and Amlodipine Moderate malnutrition -Advance tube feeding as tolerated Anemia in chronic illness -Monitor H&H
[2020-12-05] MEDS: NACHLORIDE 0.45% 1,000 ML IV SCH ×3 (00:38→12:50)
[2020-12-05] MEDS: ALBUTEROL 2.5 MG/3 ML NEB SOL NEB SCH ×4 (02:05→20:00)
[2020-12-05] MEDS: MORPHINE 2 MG/ML SYR IV PRN ×2 (05:35→21:05)
[2020-12-05] MEDS ORDERED: JEVITY 1.5 CAL LIQUID 1,000 ML BOT FT SCH (06:00)
[2020-12-05 06:01] LABS: Absolute Lymphocytes (CBC) 0.5 K/uL (0.7-4.9); Basophils % 0.6 % (0-1.3); Hematocrit 33.5 % (39.6-49.0); Lymphocytes % 9.7 % (15.3-44.8); MPV 9.9 fL (7.6-11.3); RBC Red Blood Cell Count 3.53 M/uL (4.33-5.43)
[2020-12-05 06:19] LABS: Albumin 2.2 g/dL (3.4-5.0); Bilirubin Total 1.1 mg/dL (0.2-1.0); Phosphorus 2.1 mg/dL (2.5-4.9); Potassium 3.8 mmol/L (3.5-5.1); Protein, Total 5.7 g/dL (6.4-8.2)
[2020-12-05] MEDS ORDERED: POTASSIUM PHOS IN 0.9 % NACL 15 MMOL/250 ML BAG IV ONE (07:08)
[2020-12-05] MEDS ORDERED: KCL 20 MEQ/100 mL IVPB 20 MEQ/100 ML BAG IV SCH (09:00)
[2020-12-05] MEDS ORDERED: POTASS/SODIUM PHOSPHATE 1 PKT POWD.PACK PO ONE (09:00)
--- NOTE | 2020-12-05 09:01 | P.PN ---
Subjective Date of Service: 12/05/20 Chief Complaint: Shortness of breath bowel obstruction Subjective: Improving (Patient has minimal epigastric soreness with coughing, no bowel function yet. J-tube in place, NGT clamped since yesterday afternoon. ambulatory, no shortness of breath by report.) Physical Examination - Vital Signs Temperature: 97.5 F Blood Pressure: 137/63 Pulse: 84 Respirations: 19 Pulse Ox (%): 94 - Physical Exam General: Alert, In no apparent distress, Cooperative Respiratory: Clear to auscultation bilaterally, Normal air movement Cardiovascular: No edema Gastrointestinal: Other (soft, minimal tenderness to lower abdomen, epigastrium, upper abdomen remains scaphoid, J-tube in place. NGT residual check was ~100cc. incisions are clean and dry, natalia in place) Assessment And Plan - Current Problems (Diagnosis) (1) Small bowel obstruction Current Visit: No Status: Acute Plan: Patient is a 70 year old man with an small bowel obstruction @ the jejunostomy feeding tube insertion site - Gen / Neuro: no pain or psychiatric issues, no nausea, will call in Rx for pain meds upon discharge - CVS: RRR - Pulm: pulmonary emboli diagnosed via VQ scan, patient started on eliquis,continue incentive spirometry - GI: tolerating j-tube feeds @ 30cc/hr will continue top advance, await bowel function, hold tube feeding for any intolerance, suspect ileus due to recent surgery, NGT residual was only 100cc, keep clamped for now - Renal: CLIVE improving @ this time, plan per Nephrology, will need free water recommendations for discharge - FEN: continue IV hydration @ this time, Strict I/O Q4, electrolyte replacement per Nephrology, Nutrition as above, when J tube feeding plan to use Jevity 1.2 @ 65cc/hr, - ID: no fever or infections noted - Prophylaxis: continue start eliquis today , continue Protonix, recommend low dose insulin sliding scale, SCDs - ambulate with assist - I have reviewed plan with patient - possible discharge within the next 48 hours - await bowel function. Physician Review Additional Text: Problem list Nausea and vomiting, secondary to partial SBO CLIVE on CKD 3 HTN Esophageal Cancer Pulmonary Embolus Chronic systolic heart failure. General surgery consulted -s/p OR on 12/02 Continue Eliquis. Okay to use J-tube for medications and restart tube feeds tomorrow per Dr. Herman. NG-tube to be clamped today. PE diagnosed via VQ scan on 11/29, anticoagulation as noted above Echocardiogram EF 35-40%. Chronic systolic heart failure Nephrology consulted for CLIVE on CKD, appears to be due to prerenal/dehydration. Renal function is improving slowly.
[2020-12-05] MEDS: APIXABAN 5 MG TABLET PO SCH ×2 (09:15→20:36)
[2020-12-05] MEDS: AMLODIPINE 5 MG TAB PO SCH ×2 (09:15→20:36)
[2020-12-05] MEDS: PANTOPRAZOLE 40 MG INJ IVP SCH ×2 (09:16→20:37)
[2020-12-05] MEDS: carvediloL 6.25 MG TAB PO SCH ×2 (09:16→20:37)
[2020-12-05] MEDS: INSULIN -REGULAR HUMAN 50 UNIT/0.5 ML ML SQ SCH ×2 (12:00→18:00)
[2020-12-05] MEDS: PIPER/TAZO/NS 2.25gm 2.25 GM/50 ML BAG IVPB SCH ×4 (12:00→18:47)
--- NOTE | 2020-12-05 13:04 | PN ---
Date of Progress Note: 12/05/2020 Subjective: The patient was seen and examined. He is feeling better. Physical Examination: Vital Signs: Have been reviewed and are stable. General: He appears in no acute distress and J-tube in place. Extremities: Showed no evidence of edema. Laboratory Data: Showing creatinine improving to 2.42, calcium of 7, phosphorus was 2.1. CBC showin g stable hemoglobin, hematocrit, and platelet count of 134. Current Medications: Have been reviewed in detail. Impression: 1.Acute renal failure secondary to dehydration from ongoing bowel obstruction. The patient's renal function is continuing to improve and he is tolerating tube feeds well. He remains on half NS at 150 mL an hour. We will go ahead and decrease that down to 75 cc an hour since he is tolerating the tub e feeds okay and we will follow up closely. 2.Free water recommendation. He is getting 100 mL of free water every 4 hours, which we will contin ue. Sodium is stable. 3.Hypophosphatemia has been replaced. 4.Nausea and vomiting secondary to partial small bowel obstruction. Tolerating J-tube okay. Plan: Overall, the patient is doing okay at this time. Continue all medications and plan of care. We will decrease the half NS to 75 cc an hour. Continue current free water and monitor renal function closely. VV/MODL Voice ID: [id number] Report ID: [id number]
--- NOTE | 2020-12-05 13:32 | P.PN ---
Subjective Date of Service: 12/05/20 Chief Complaint: Shortness of breath bowel obstruction Subjective: No new changes, Improving (Denies any abdominal pain No nausea vomiting or diarrhea Still has not had a bowel movement) Review of Systems 10-point ROS is otherwise unremarkable Physical Examination - Vital Signs Temperature: 97.5 F Blood Pressure: 149/72 Pulse: 70 Respirations: 18 Pulse Ox (%): 95 - Physical Exam General: Alert, In no apparent distress, Oriented x3 HEENT: Atraumatic, Normocephalic Neck: Supple, 2+ carotid pulse no bruit Respiratory: Clear to auscultation bilaterally, Normal air movement Cardiovascular: Normal pulses, Regular rate/rhythm, Normal S1 S2 Capillary refill: <2 Seconds Gastrointestinal: Hypoactive, Soft and benign, W/out hepatosplenomegaly Musculoskeletal: No clubbing, No swelling Integumentary: No rashes, No breakdown Neurological: Normal speech, Normal strength at 5/5 x4 extr Lymphatics: No axilla or inguinal lymphadenopathy Assessment & Plan - Problems (Diagnosis) (1) Small bowel obstruction Current Visit: No Status: Acute Physician Review Additional Text: Assessment and Plan Partial small bowel obstruction Nausea and vomiting, secondary to partial SBO CLIVE on CKD 3 HTN Esophageal Cancer Pulmonary Embolus Chronic systolic heart failure. Plan Monitor closely under tele Started on tube feeding Restarted Auraquis Appreciate help from surgery status post OR Clamping NG tube Awaiting return of bowel functions PE diagnosed via VQ scan on 11/29, anticoagulation as noted above Echocardiogram EF 35-40%. Chronic systolic heart failure Nephrology consulted for CLIVE on CKD, appears to be due to prerenal/dehydration. Renal function is improving slowly. Disposition : Discussed with surgery possible Dc once bowel functions return Time Spent Managing Pts Care (In Minutes): 40
[2020-12-05 15:47] LABS: Phosphorus 2.4 mg/dL (2.5-4.9)
[2020-12-06] MEDS: ALBUTEROL 2.5 MG/3 ML NEB SOL NEB SCH ×2 (01:25→08:00)
[2020-12-06] MEDS: MORPHINE 2 MG/ML SYR IV PRN (02:04)
[2020-12-06] MEDS: NACHLORIDE 0.45% 1,000 ML IV SCH (05:36)
[2020-12-06] MEDS: PIPER/TAZO/NS 2.25gm 2.25 GM/50 ML BAG IVPB SCH ×2 (05:36)
[2020-12-06] MEDS: INSULIN -REGULAR HUMAN 50 UNIT/0.5 ML ML SQ SCH ×3 (06:00→12:00)
[2020-12-06 10:09] VITALS: O2SAT 95
[2020-12-06] MEDS: PANTOPRAZOLE 40 MG INJ IVP SCH (10:41)
[2020-12-06] MEDS: carvediloL 6.25 MG TAB PO SCH (10:42)
[2020-12-06] MEDS: AMLODIPINE 5 MG TAB PO SCH (10:42)
[2020-12-06] MEDS: APIXABAN 5 MG TABLET PO SCH (10:42)
[2020-12-06] MEDS ORDERED: JEVITY 1.5 CAL LIQUID 1,000 ML BOT FT SCH (12:22)
--- NOTE | 2020-12-06 13:27 | P.DS ---
Admission Date: 11/30/20 Discharge Date: 12/06/20 Disposition: ROUTINE DISCHARGE Discharge Condition: FAIR Reason for Admission: Shortness of breath bowel obstruction Consultations: General Surgery: Dr. Herman. Procedures: jejunostomy reversal Brief History of Present Illness: 70-year-old woman with a history of esophageal cancer, recently hospitalized for small-bowel obstruction and acute renal failure and return to the emergency department with nausea and vomiting. He called Dr. Herman we instructed him to come to the ED. Imaging done in the emergency department showed partial small bowel obstruction. NG tube was inserted and about 2.5 L drained. His blood work suggested acute renal failure. Patient was admitted for further management. Hospital Course: Patient admitted to the medical floor and treated with supportive measures including NG-tube to suction, IV antibiotics and made NPO. He was seen and evaluated by Dr. Herman who took him to OR and performed jejunostomy tube revision. Patient was monitored postop. His clinical condition improved. NG tube output decreased and was clamped. Jejunostomy tube feeding was started wh ich he tolerated. He later had a bowel movement. NG-tube was removed. Patient was asymptomatic. He is deemed clinically stable for discharge per Dr. Herman. Vital Signs/Physical Exam: Temp Pulse Resp BP Pulse Ox 98.3 F 65 18 139/75 95 12/06/20 08:00 12/06/20 10:42 12/06/20 08:00 12/06/20 10:42 12/06/20 08:00 General: Alert, In no apparent distress, Oriented x3 Neck: Supple, JVD not distended Respiratory: Clear to auscultation bilaterally, Normal air movement Cardiovascular: No edema, Regular rate/rhythm, Normal S1 S2 Gastrointestinal: Normal bowel sounds, Soft and benign, Non-distended, Other (Jejunostomy tube) Musculoskeletal: No swelling, No tenderness Integumentary: No rashes, No erythema Neurological: Other (No focal motor deficit.) Laboratory Data at Discharge: WBC 5.60 K/uL (4.3-10.9) 12/05/20 05:43 Hgb 11.0 g/dL (13.6-17.9) L 12/05/20 05:43 Hct 33.5 % (39.6-49.0) L 12/05/20 05:43 Plt Count 134 K/uL (152-406) L 12/05/20 05:43 PT 13.2 SECONDS (9.5-12.5) H 12/01/20 05:29 INR 1.15 12/01/20 05:29 APTT 32.3 SECONDS (24.3-36.9) 12/01/20 05:29 Sodium 140 mmol/L (136-145) 12/05/20 05:43 Potassium 4.0 mmol/L (3.5-5.1) 12/05/20 15:05 BUN 31 mg/dL (7-18) H 12/05/20 05:43 Creatinine 2.42 mg/dL (0.55-1.3) H 12/05/20 05:43 Glucose 117 mg/dL (74-106) H 12/05/20 05:43 Phosphorus 2.4 mg/dL (2.5-4.9) L 12/05/20 15:05 Magnesium 2.0 mg/dL (1.8-2.4) 12/05/20 05:43 Total Bilirubin 1.1 mg/dL (0.2-1.0) H 12/05/20 05:43 AST 32 U/L (15-37) 12/05/20 05:43 ALT 73 U/L (12-78) 12/05/20 05:43 Alkaline Phosphatase 63 U/L (45-117) 12/05/20 05:43 Lipase 566 U/L (73-393) H 11/30/20 10:46 Home Medications: Amlodipine [Norvasc*] 5 mg PO BID #30 tab 12/06/20 Apixaban [Eliquis] 5 mg PO BID #60 tablet 12/06/20 Hydrocodone/Acetaminophen [Lortab 10 mg-300 mg/15 ml Elxr] 10 ml OSTOMY Q6H PRN #473 ml 12/06/20 Pantoprazole Granules [Protonix Packet (for suspension)] 40 mg GT DAILY #30 packet 12/06/20 carvediloL [Coreg*] 6.25 mg PO BID #60 tab 12/06/20 New Medications: carvediloL [Coreg*] 6.25 mg PO BID #60 tab Apixaban [Eliquis] 5 mg PO BID #60 tablet Hydrocodone/Acetaminophen [Lortab 10 mg-300 mg/15 ml Elxr] 10 ml OSTOMY Q6H PRN #473 ml PRN Reason: Pain Amlodipine [Norvasc*] 5 mg PO BID #30 tab Pantoprazole Granules [Protonix Packet (for suspension)] 40 mg GT DAILY #30 packet Physician Discharge Instructions: Jevity Tube feeding. Diet: Tube feed Activity: Ad hallie Followup: Unknown,U [Primary Care Provider] - Saul Herman MD [ACTIVE - CAN ADMIT] - 1 Week Time spent managing pt's care (in minutes): 36
[2020-12-06 13:40] VITALS: BP 128/76; TEMP 98.1
--- NOTE | 2020-12-06 18:34 | P.PN ---
Date of Service: 12/06/20 Vital Signs Temp Pulse Resp BP Pulse Ox 98.1 F 74 18 128/76 96 12/06/20 12:00 12/06/20 12:00 12/06/20 12:00 12/06/20 12:00 12/06/20 12:00 Assessment/ Plan: Nephrology No acute cardiac or pulmonary complaints. No CP or SOB. +BM No acute events overnight. Vitals, medications, blood work and imaging reviewed in the chart. NAD. MMM. Neck supple. CTA. RRR. Soft Abd. No C/C/E. No rash. AAO. Normal Speech. A/P: Continue the current POC and Medications other than the changes listed. AM Labs PRN. Recommend daily weight. Please see the orders for complete details. CKD III -Continue NS Hypokalemia -Replete potassium prn Hypocalcemia -Recommend Vitamin D HTN with CKD Continue Coreg and Amlodipine Moderate malnutrition -Advance tube feeding as tolerated Anemia in chronic illness -Monitor H&H
== END 2020-12-06 14:31 | disposition home or self-care (01) | DRG 344 ==
LOC: ER 10:23 → ERHOLD 12:57 → 2ND 16:07
PROVIDERS: ADMIT Hospitalist; ATTEND Internal Medicine
PROC: 0WQF0ZZ Repair Abdominal Wall, Open Approach (ICD-10-PCS; 2020-12-02)
PROC: 0DB83ZZ Excision of Small Intestine, Percutaneous Approach (ICD-10-PCS; 2020-12-02)
PROC: 0DWD0UZ Revision of Feeding Device in Lower Intestinal Tract, Open Approach (ICD-10-PCS; principal; 2020-12-02 09:00)
DX: K56.600 Partial intestinal obstruction, unspecified as to cause (principal); I26.99 Other pulmonary embolism without acute cor pulmonale; K94.13 Enterostomy malfunction; N17.9 Acute kidney failure, unspecified; E44.0 Moderate protein-calorie malnutrition; I50.22 Chronic systolic (congestive) heart failure; I13.0 Hypertensive heart and chronic kidney disease with heart failure and stage 1 through stage 4 chronic kidney disease, or unspecified chronic kidney disease; N18.30 Chronic kidney disease, stage 3 unspecified; E11.22 Type 2 diabetes mellitus with diabetic chronic kidney disease; E87.6 Hypokalemia; E83.51 Hypocalcemia; D63.8 Anemia in other chronic diseases classified elsewhere; E86.0 Dehydration; Z79.01 Long term (current) use of anticoagulants; Z79.899 Other long term (current) drug therapy; Z85.01 Personal history of malignant neoplasm of esophagus; Z68.23 Body mass index [BMI] 23.0-23.9, adult
CPT/HCPCS: 36415; 74018; 74176; 76700; 80048; 80053; 80076; 82947; 83690; 83735; 84100; 84132; 85025; 85610; 85730; 88305; 88307; 93306; 94010; 94640; 94760; 97161; 99285; C9113; J0330; J0360; J0690; J1100; J1170; J1650; J2270; J2405; J2704; J3010; J3480; J7030

== ENCOUNTER 2020-12-14 15:25 | Emergency (ER) | payer OTHER ==
--- OUTSIDE RECORDS SUMMARY | 2020-12-14 15:27 | XMS REPORT | Continuity of Care Document ---
:1950 Author Organization [facility] t Address [address] [place] [address] Care Team Providers Name Role Phone Pepe Mckeon MD Primary Care Physician Amador PRATER, Y.H. Attending Clinician Provider Attending Clinician Payers Payer Name Policy Type Policy Effective Date Expiration Date Sour ce Number [id number] [employer] [id number] 1-PresentHMO Problems This patient has no known problems. Allergies, Adverse Reactions, Alerts This patient has no known allergies or adverse reactions. Social History Social Habit Start Date Stop Date Quantity Comments Source Sex Assigned At [facility] ethodist Exposure to Not sure [place] [facility] SARS-CoV-2 (event) Tobacco use and 2020-11-22 2020-11-22 Never used [facility] [employer] exposure 00:00:00 00:00:00 Cigarettes smoked 2020-11-22 2020-11-22 Dick Gnosticist current (pack per 00:00:00 00:00:00 day) - Reported Cigarette 2020-11-22 2020-11-22 [place] [facility] ist pack-years 00:00:00 00:00:00 History of tobacco 2020-09-11 Current smoker Filemon khris [employer] use 00:00:00 Smoking Status Start Date Stop [...] blood 2020-11-22 10:20:00 119 mm[Hg] Joseto n [employer] pressure Diastolic blood 2020-11-22 10:20:00 80 mm[Hg] Hoda on Gn[employer]ist pressure Heart rate 2020-11-22 10:20:00 110 /min Dick Najera Body temperature 2020-11-22 10:20:00 36.61 Sherri Jose ton [employer] Respiratory rate 2020-11-22 10:20:00 17 /min Jose ton [employer] Body height 2020-11-22 10:20:00 182.9 cm Dick Najera Body weight 2020-11-22 10:20:00 87.998 kg Dick Najera BMI 2020-11-22 10:20:00 26.31 kg/m2 Dick Najera Oxygen saturation in 2020-11-22 10:20:00 98 /min Dick Najera Arterial blood by Pulse oximetry Procedures Procedure Date / Time Performed Performing Clinician [facility]ly [facility] e CT ABDOMEN PELVIS WO 2020-10-29 00:00:00 Provider, Historical Filemon Najera CONTRAST CT ABDOMEN WO CONTRAST 2020-10-29 00:00:00 Provider, Historical Dick Najera CT CHEST WO CONTRAST 2020-10-29 00:00:00 Provider, Historical Filemon Najera Plan of Care Planned Activity Planned Date Details Comments Source Future Scheduled 2020-05-12 INFLUENZA VACCINE [place] [facility] Test 00:00:00 [code = INFLUENZA VACCINE] Future Scheduled 2014 65+ PNEUMOCOCCAL [place] [employer] Test 00:00:00 VACCINE (1 of 1 - PPSV23) [code = 65+ PNEUMOCOCCAL VACCINE (1 of 1 - PPSV23)] Future Scheduled 1999 COLONOSCOPY SCREENING [facility] [employer] Test 00:00:00 [code = COLONOSCOPY SCREENING] Future Scheduled 1999 SHINGLES VACCINES (#1) [facility] Gn[employer]ist Test 00:00:00 [code = SHINGLES VACCINES (#1)] Future Scheduled 1967 Hepatitis C screening [facility] Test 00:00:00 (procedure) [code = 695881640] Future Scheduled 1965 COVID-19 VACCINE (1 of H [facility] Test 00:00:00 2) [code = COVID-19 VACCINE (1 of 2)] Encounters Start End Encounter Admission Attending Care Care Encounter Source Date/Time Date/Time Type Type Clinicians Facility Department ID 2020-11-22 2020-11-22 [id number] [place] 00:00:00 00:00:[address] [place] [address] Results This patient has no known results.
[2020-12-14] MEDS ORDERED: LIDOCAINE 1% MPF 5 ML VIAL ONE (17:44)
--- NOTE | 2020-12-14 17:52 | ER ---
Nurse's Notes [facility] Name: Brandon Chiang Age: 70 yrs Sex: Male : 1950 Arrival Date: 12/14/2020 Time: 15:26 Bed 13 Private MD: Diagnosis: Kinked J-tub: Resolved Presentation: 12/14 15:49 Chief complaint: Patient states: "last night I put my machine on and the machine had jd3 shut off early in the morning. when I got up to flush it later this morning it would not flush at all.". Coronavirus screen: At this time, the client does not indicate any symptoms associated with coronavirus-19. Ebola Screen: Patient negative for fever greater than or equal to 101.5 degrees Fahrenheit, and additional compatible Ebola Virus Disease symptoms. Initial Sepsis Screen: Does the patient meet any 2 criteria? No. Patient's initial sepsis screen is negative. Does the patient have a suspected source of infection? No. Patient's initial sepsis screen is negative. Risk Assessment: Do you want to hurt yourself or someone else? Patient reports no desire to harm self or others. Note J tube placed about a week ago. Onset of symptoms was December 14, 2020. 15:49 Method Of Arrival: Ambulatory jd3 15:49 Acuity: LEIDY 4 jd3 Historical: - Allergies: 15:52 No Known Allergies; jd3 - PMHx: 15:52 esophageal cancer; Hypertension; jd3 - PSHx: 15:52 left knee; Vasectomy; J tube; jd3 - Immunization history:: Adult Immunizations up to date. - Social history:: Smoking status: Patient/guardian denies using tobacco, Stopped _ months ago 3. Screenin:30 Abuse screen: Denies threats or abuse. Denies injuries from another. Nutritional jl7 screening: No deficits noted. Tuberculosis screening: No symptoms or risk factors identified. Fall Risk None identified. Assessment: 17:30 General: Appears in no apparent distress. uncomfortable, Behavior is calm, cooperative, jl7 appropriate for age. Pain: Denies pain. Neuro: Level of Consciousness is awake, alert, obeys commands, Oriented to person, place, time, situation. Cardiovascular: Patient's skin is warm and dry. Respiratory: Airway is patent Respiratory effort is even, unlabored, Respiratory pattern is regular, symmetrical. Derm: Skin is pink, warm \\T\\ dry. Vital Signs: 15:52 BP 119 / 88; Pulse 69; Resp 17 S; Temp 97.7(TE); Pulse Ox 98% on R/A; Weight 82.1 kg jd3 (R); Height 6 ft. 1 in. (185.42 cm) (R); Pain 0/10; 15:52 Body Mass Index 23.88 (82.10 kg, 185.42 cm) jd3 ED Course: 15:26 Patient arrived in ED. as 15:51 Triage completed. jd3 15:52 Arm band placed on. jd3 16:43 Shimon Pulido MD is Attending Physician. kdr 17:30 Patient has correct armband on for positive identification. Placed in gown. Bed in low jl7 position. Call light in reach. Side rails up X 1. 17:53 Saul Herman MD is Referral Physician. kdr 18:17 Yuri Uribe RN is Primary Nurse. jl7 18:18 No provider procedures requiring assistance completed. Patient did not have IV access jl7 during this emergency room visit. Administered Medications: No medications were administered Outcome: 17:51 Discharge ordered by . kdr 18:18 Discharged to home ambulatory. jl7 18:18 Condition: stable 18:18 Discharge instructions given to patient, Instructed on discharge instructions, follow up and referral plans. Demonstrated understanding of instructions, follow-up care. 18:19 Patient left the ED. jl7 Signatures: Shimon Pulido MD MD kdr Lacey Winn as Yuri Uribe RN RN jl7 Rajat Celeste RN RN jd3
--- NOTE | 2020-12-14 17:52 | EDPHYS ---
Physician Documentation [facility] Name: Brandon Chiang Age: 70 yrs Sex: Male : 1950 Arrival Date: 12/14/2020 Time: 15:26 Bed 13 Private MD: ED Physician Shimon Pulido HPI: 12/14 18:24 This 70 yrs old Male presents to ER via Ambulatory with complaints of j tube kdr clogged. 18:24 J tube is clogged. Onset: The symptoms/episode began/occurred this morning. Severity of kdr symptoms: At their worst the symptoms were mild in the emergency department the symptoms are unchanged. The patient has experienced similar episodes in the past, a few times. The patient has been recently seen by a physician: the patient's primary care provider. Has been unable to infuse through the tube today. Historical: - Allergies: 15:52 No Known Allergies; jd3 - PMHx: 15:52 esophageal cancer; Hypertension; jd3 - PSHx: 15:52 left knee; Vasectomy; J tube; jd3 - Immunization history:: Adult Immunizations up to date. - Social history:: Smoking status: Patient/guardian denies using tobacco, Stopped _ months ago 3. ROS: 18:24 Constitutional: Negative for fever, chills, and weight loss, Eyes: Negative for injury, kdr pain, redness, and discharge, ENT: Negative for injury, pain, and discharge, Neck: Negative for injury, pain, and swelling, Cardiovascular: Negative for chest pain, palpitations, and edema, Respiratory: Negative for shortness of breath, cough, wheezing, and pleuritic chest pain, Back: Negative for injury and pain, : Negative for injury, bleeding, discharge, and swelling, MS/Extremity: Negative for injury and deformity, Skin: Negative for injury, rash, and discoloration, Neuro: Negative for headache, weakness, numbness, tingling, and seizure activity. Psych: Negative for depression, anxiety, suicide ideation, homicidal ideation, and hallucinations, Allergy/Immunology: Negative for hives, rash, and allergies, Endocrine: Negative for neck swelling, polydipsia, polyuria, polyphagia, and marked weight changes, Hematologic/Lymphatic: Negative for swollen nodes, abnormal bleeding, and unusual bruising. 18:24 Abdomen/GI: Exam: 18:24 Constitutional: This is a well developed, well nourished patient who is awake, alert, kdr and in no acute distress. Head/Face: Normocephalic, atraumatic. Eyes: Pupils equal round and reactive to light, extra-ocular motions intact. Lids and lashes normal. Conjunctiva and sclera are non-icteric and not injected. Cornea within normal limits. Periorbital areas with no swelling, redness, or edema. Neck: Trachea midline, no thyromegaly or masses palpated, and no cervical lymphadenopathy. Supple, full range of motion without nuchal rigidity, or vertebral point tenderness. No Meningismus. Chest/axilla: Normal chest wall appearance and motion. Nontender with no deformity. No lesions are appreciated. Cardiovascular: Regular rate and rhythm with a normal S1 and S2. No gallops, murmurs, or rubs. Normal PMI, no JVD. No pulse deficits. Respiratory: Lungs have equal breath sounds bilaterally, clear to auscultation and percussion. No rales, rhonchi or wheezes noted. No increased work of breathing, no retractions or nasal flaring. Back: No spinal tenderness. No costovertebral tenderness. Full range of motion. Skin: Warm, dry with normal turgor. Normal color with no rashes, no lesions, and no evidence of cellulitis. MS/ Extremity: Pulses equal, no cyanosis. Neurovascular intact. Full, normal range of motion. Neuro: Awake and alert, GCS 15, oriented to person, place, time, and situation. Cranial nerves II-XII grossly intact. Motor strength 5/5 in all extremities. Sensory grossly intact. Cerebellar exam normal. Normal gait. Psych: Awake, alert, with orientation to person, place and time. Behavior, mood, and affect are within normal limits. 18:24 Abdomen/GI: Inspection: LLQ J tube in good condition anchored by one suture. No evidence of infection or outward malfunction, Bowel sounds: normal, Palpation: abdomen is soft and non-tender, soft. Vital Signs: 15:52 BP 119 / 88; Pulse 69; Resp 17 S; Temp 97.7(TE); Pulse Ox 98% on R/A; Weight 82.1 kg jd3 (R); Height 6 ft. 1 in. (185.42 cm) (R); Pain 0/10; 15:52 Body Mass Index 23.88 (82.10 kg, 185.42 cm) jd3 Procedures: 18:24 Performed J-tube manipulation. Initially unable to infuse any fluid through tube. Nor kdr was there any fluid return. The tube was freed from the anchor suture and withdrawn about 2 cm. Attempt to infuse saline with success. Re-secured tube with one suture after 2 cc lidocaine to the skin around the tube insertion site. Tube secured well. Infused an additional 250 cc NS post securing the tube without difficulty. The patient tolerated well and discharged in good condition. MDM: 17:51 Patient medically screened. kdr 18:24 Data reviewed: vital signs, nurses notes. Counseling: I had a detailed discussion with kdr the patient and/or guardian regarding: the historical points, exam findings, and any diagnostic results supporting the discharge/admit diagnosis, the need for outpatient follow up. Physician consultation: Saul Herman MD regarding consult, patient's condition, outpatient follow-up, and will see patient in office, next week. Administered Medications: No medications were administered Disposition: 12/14/20 17:51 Discharged to Home. Impression: Kinked J-tub: Resolved. - Condition is Stable. - Discharge Instructions: PEG Tube Home Guide, [id number]. - Medication Reconciliation Form, Thank You Letter form. - Follow up: Private Physician; When: 2 - 3 days; Reason: If symptoms return, Further diagnostic work-up, Recheck today's complaints, Continuance of care, Re-evaluation by your physician. Follow up: Saul Herman MD; When: 2 - 3 days; Reason: If symptoms return, Further diagnostic work-up, Recheck today's complaints, Continuance of care, Re-evaluation by your physician. - Problem is new. - Symptoms are resolved. Signatures: Shimon Pulido MD MD kdr Yuri Uribe RN RN jl7 Rajat Celeste RN RN jd3 Corrections: (The following items were deleted from the chart) 17:53 17:51 12/14/2020 17:51 Discharged to Home. Impression: Kinked J-tub: Resolved. kdr Condition is Stable. Forms are Medication Reconciliation Form, Thank You Letter, Antibiotic Education, Prescription Opioid Use. Follow up: Private Physician; When: 2 - 3 days; Reason: If symptoms return, Further diagnostic work-up, Recheck today's complaints, Continuance of care, Re-evaluation by your physician. Problem is new. Symptoms are resolved. kdr 18:19 17:53 12/14/2020 17:51 Discharged to Home. Impression: Kinked J-tub: Resolved. jl7 Condition is Stable. Discharge Instructions: PEG Tube Home Guide, [id number]. Forms are Medication Reconciliation Form, Thank You Letter. Follow up: Private Physician; When: 2 - 3 days; Reason: If symptoms return, Further diagnostic work-up, Recheck today's complaints, Continuance of care, Re-evaluation by your physician. Follow up: Saul Herman; When: 2 - 3 days; Reason: If symptoms return, Further diagnostic work-up, Recheck today's complaints, Continuance of care, Re-evaluation by your physician. Problem is new. Symptoms are resolved. kdr
[2020-12-14 23:09] VITALS: BP 119/88; TEMP 97.7; O2SAT 98
== END 2020-12-14 18:19 | disposition home or self-care (01) ==
LOC: ER 15:25
DX: K94.23 Gastrostomy malfunction (principal); I10 Essential (primary) hypertension; Z85.01 Personal history of malignant neoplasm of esophagus; Z87.891 Personal history of nicotine dependence
CPT/HCPCS: 99281

== ENCOUNTER 2020-12-16 13:25 | Emergency (ER) | payer OTHER ==
--- OUTSIDE RECORDS SUMMARY | 2020-12-16 13:29 | XMS REPORT | Continuity of Care Document ---
:1950 [address] [facility] t Address [address] [place] [address] Care Team Providers Name Role Phone SIXTO Attending Clinician Unavailable Problems This patient has no known problems. Allergies, Adverse Reactions, Alerts This patient has no known allergies or adverse reactions. Medications This patient has no known medications. Procedures This patient has no known procedures. Encounters Start End Encounter Admission Attending Care Care Encounter Source Date/Time Date/Time Type Type Clinicians Facility Department ID 2020-11-22 2020-11-22 Outpatient [facility] [id number] 00:00:00 00:00:00 [place] [address] Results This patient has no known results.
[2020-12-16] MEDS ORDERED: LIDOCAINE 1% MPF 5 ML VIAL ONE (17:43)
--- NOTE | 2020-12-16 17:52 | EDPHYS ---
Physician Documentation [facility] Name: Brandon Chiang Age: 70 yrs Sex: Male : 1950 Arrival Date: 12/16/2020 Time: 13:27 Bed 13 Private MD: ED Physician Jeronimo Kong HPI: 12/16 17:43 This 70 yrs old Male presents to ER via Ambulatory with complaints of Problem cristian With Feeding Tube. 17:43 The patient presents with abdominal pain in the upper abdomen. Onset: The cristian symptoms/episode began/occurred just prior to arrival. The symptoms do not radiate. Associated signs and symptoms: none. The symptoms are described as achy. Severity of pain: At its worst the pain was very mild in the emergency department the pain is unchanged. Historical: - Allergies: 13:46 No Known Allergies; ca1 - PMHx: 13:46 esophageal cancer; Hypertension; ca1 - PSHx: 13:46 left knee; Vasectomy; J tube; ca1 - Immunization history:: Pneumococcal vaccine is not up to date, Flu vaccine is not up to date. - Social history:: Smoking status: Patient/guardian denies using tobacco, Stopped _ months ago 3. - Family history:: not pertinent. ROS: 17:43 Constitutional: Negative for fever, chills, and weight loss, Eyes: Negative for injury, cristian pain, redness, and discharge, ENT: Negative for injury, pain, and discharge, Neck: Negative for injury, pain, and swelling, Cardiovascular: Negative for chest pain, palpitations, and edema, Respiratory: Negative for shortness of breath, cough, wheezing, and pleuritic chest pain, Back: Negative for injury and pain, : Negative for injury, bleeding, discharge, and swelling, MS/Extremity: Negative for injury and deformity, Skin: Negative for injury, rash, and discoloration, Neuro: Negative for headache, weakness, numbness, tingling, and seizure, Psych: Negative for depression, anxiety, suicide ideation, homicidal ideation, and hallucinations, Allergy/Immunology: Negative for hives, rash, and allergies, Endocrine: Negative for neck swelling, polydipsia, polyuria, polyphagia, and marked weight changes, Hematologic/Lymphatic: Negative for swollen nodes, abnormal bleeding, and unusual bruising. 17:43 Abdomen/GI: Positive for abdominal pain, prg/j tube replacement. Exam: 17:43 Constitutional: This is a well developed, well nourished patient who is awake, alert, cristian and in no acute distress. Head/Face: Normocephalic, atraumatic. Eyes: Pupils equal round and reactive to light, extra-ocular motions intact. Lids and lashes normal. Conjunctiva and sclera are non-icteric and not injected. Cornea within normal limits. Periorbital areas with no swelling, redness, or edema. ENT: Nares patent. No nasal discharge, no septal abnormalities noted. Tympanic membranes are normal and external auditory canals are clear. Oropharynx with no redness, swelling, or masses, exudates, or evidence of obstruction, uvula midline. Mucous membranes moist. Neck: Trachea midline, no thyromegaly or masses palpated, and no cervical lymphadenopathy. Supple, full range of motion without nuchal rigidity, or vertebral point tenderness. No Meningismus. Chest/axilla: Normal chest wall appearance and motion. Nontender with no deformity. No lesions are appreciated. Cardiovascular: Regular rate and rhythm with a normal S1 and S2. No gallops, murmurs, or rubs. Normal PMI, no JVD. No pulse deficits. Respiratory: Lungs have equal breath sounds bilaterally, clear to auscultation and percussion. No rales, rhonchi or wheezes noted. No increased work of breathing, no retractions or nasal flaring. Back: No spinal tenderness. No costovertebral tenderness. Full range of motion. Male : Normal genitalia with no discharge or lesions. Skin: Warm, dry with normal turgor. Normal color with no rashes, no lesions, and no evidence of cellulitis. MS/ Extremity: Pulses equal, no cyanosis. Neurovascular intact. Full, normal range of motion. Neuro: Awake and alert, GCS 15, oriented to person, place, time, and situation. Cranial nerves II-XII grossly intact. Motor strength 5/5 in all extremities. Sensory grossly intact. Cerebellar exam normal. Normal gait. Psych: Awake, alert, with orientation to person, place and time. Behavior, mood, and affect are within normal limits. 17:43 Abdomen/GI: Inspection: abdomen appears normal, Bowel sounds: normal, Palpation: abdomen is soft and non-tender, in all quadrants, Liver: no appreciated palpable abnormalities, Hernia: not appreciated. Vital Signs: 13:43 BP 128 / 89; Pulse 94; Resp 16 S; Temp 97.3(TE); Pulse Ox 97% on R/A; Weight 82.1 kg ca1 (R); Height 6 ft. 1 in. (185.42 cm) (R); Pain 0/10; 18:23 BP 121 / 74; Pulse 61; Resp 17 S; Pulse Ox 96% on R/A; jd3 13:43 Body Mass Index 23.88 (82.10 kg, 185.42 cm) ca1 MDM: 15:11 Patient medically screened. cristian 17:52 Differential diagnosis: non-specific abd pain, Peptic Ulcer Disease, Peritonitis. Data cristian reviewed: vital signs, nurses notes, radiologic studies. Data interpreted: clinical research monitor: rate is 94 beats/min, rhythm is regular, Pulse oximetry: on room air is 97 %. Test interpretation: by ED physician or midlevel provider: plain radiologic studies. Counseling: I had a detailed discussion with the patient and/or guardian regarding: the historical points, exam findings, and any diagnostic results supporting the discharge/admit diagnosis, radiology results, the need for outpatient follow up, for definitive care, a general surgeon. 03 17:43 Order name: Abdomen 1 View (KUB) XRAY: 30 cc gastrograffin to j tube [facility] Administered Medications: 17:27 Drug: Lidocaine (1 %) 5 mg Route: Infiltration; jd3 Disposition: 12/16/20 17:51 Discharged to Home. Impression: Gastrostomy status. - Condition is Stable. - Discharge Instructions: Gastrostomy Tube Home Guide, Adult, PEG Tube Home Guide, [id number], PEG Tube Home Guide. - Medication Reconciliation Form, Thank You Letter, Antibiotic Education, Prescription Opioid Use form. - Follow up: Saul Herman MD; When: 2 - 3 days; Reason: Recheck today's complaints, Continuance of care, Re-evaluation by your physician. - Problem is new. - Symptoms have improved. Signatures: Dispatcher [employer] EDME Jeronimo Kong MD MD cha Davies, Jonathon, RN RN jd3 Sandrine Clay RN RN ca1 Corrections: (The following items were deleted from the chart) 18:24 17:51 12/16/2020 17:51 Discharged to Home. Impression: Gastrostomy status. Condition is jd3 Stable. Forms are Medication Reconciliation Form, Thank You Letter, Antibiotic Education, Prescription Opioid Use. Follow up: Saul Herman; When: 2 - 3 days; Reason: Recheck today's complaints, Continuance of care, Re-evaluation by your physician. Problem is new. Symptoms have improved. cristian
--- NOTE | 2020-12-16 17:52 | ER ---
Nurse's Notes [facility] Name: Brandon Chiang Age: 70 yrs Sex: Male : 1950 Arrival Date: 12/16/2020 Time: 13:27 Bed 13 Private MD: Diagnosis: Gastrostomy status Presentation: 12/16 13:43 Chief complaint: Patient states: Clogged feeding tube. Was here Thursday for the same ca1 thing, and was fixed. I woke up this morning, it;s clogged again. Coronavirus screen: Client denies travel out of the [place] in the last 14 days. At this time, the client does not indicate any symptoms associated with coronavirus-19. Ebola Screen: Patient negative for fever greater than or equal to 101.5 degrees Fahrenheit, and additional compatible Ebola Virus Disease symptoms Patient denies exposure to infectious person. Patient denies travel to an Ebola-affected area in the 21 days before illness onset. No symptoms or risks identified at this time. Initial Sepsis Screen: Does the patient meet any 2 criteria? No. Patient's initial sepsis screen is negative. Does the patient have a suspected source of infection? No. Patient's initial sepsis screen is negative. Risk Assessment: Do you want to hurt yourself or someone else? Patient reports no desire to harm self or others. Onset of symptoms was December 16, 2020. 13:43 Method Of Arrival: Ambulatory ca1 13:43 Acuity: LEIDY 4 ca1 Historical: - Allergies: 13:46 No Known Allergies; ca1 - PMHx: 13:46 esophageal cancer; Hypertension; ca1 - PSHx: 13:46 left knee; Vasectomy; J tube; ca1 - Immunization history:: Pneumococcal vaccine is not up to date, Flu vaccine is not up to date. - Social history:: Smoking status: Patient/guardian denies using tobacco, Stopped _ months ago 3. - Family history:: not pertinent. Screenin:17 Abuse screen: Denies threats or abuse. Nutritional screening: No deficits noted. jd3 Tuberculosis screening: No symptoms or risk factors identified. Fall Risk Ambulatory Aid- None/Bed Rest/Nurse Assist (0 pts). Gait- Normal/Bed Rest/Wheelchair (0 pts) Mental Status- Oriented to own ability (0 pts). Total Wheeler Fall Scale indicates No Risk (0-24 pts). Assessment: 16:15 General: Appears in no apparent distress. uncomfortable, Behavior is calm, cooperative, jd3 appropriate for age. Pain: Denies pain. Neuro: Level of Consciousness is awake, alert, obeys commands, Oriented to person, place, time, situation. Cardiovascular: Denies chest pain, Capillary refill < 3 seconds Patient's skin is warm and dry. Respiratory: Airway is patent Respiratory effort is even, unlabored, Respiratory pattern is regular, symmetrical, Denies cough, shortness of breath. GI: Abdomen is flat, non-distended, displaced J tube noted. provider notified. site dressed with damp saline gauze per provider's order. pt reported standing up from waiting room for ER room placement and J tube falling out, provider notified. : No signs and/or symptoms were reported regarding the genitourinary system. EENT: No signs and/or symptoms were reported regarding the EENT system. Derm: Skin is intact, Skin is dry, Skin is normal, Skin temperature is warm. Musculoskeletal: Circulation, motion, and sensation intact. Range of motion: intact in all extremities. 17:15 Reassessment: Patient appears in no apparent distress at this time. No changes from jd3 previously documented assessment. Patient and/or family updated on plan of care and expected duration. Pain level reassessed. Patient is alert, oriented x 3, equal unlabored respirations, skin warm/dry/pink. Patient denies pain at this time. 17:27 Reassessment: provider at bedside replacing J tube. jd3 18:22 Reassessment: Patient appears in no apparent distress at this time. Patient and/or jd3 family updated on plan of care and expected duration. Pain level reassessed. Patient is alert, oriented x 3, equal unlabored respirations, skin warm/dry/pink. Patient denies pain at this time. Vital Signs: 13:43 BP 128 / 89; Pulse 94; Resp 16 S; Temp 97.3(TE); Pulse Ox 97% on R/A; Weight 82.1 kg ca1 (R); Height 6 ft. 1 in. (185.42 cm) (R); Pain 0/10; 18:23 BP 121 / 74; Pulse 61; Resp 17 S; Pulse Ox 96% on R/A; jd3 13:43 Body Mass Index 23.88 (82.10 kg, 185.42 cm) ca1 ED Course: 13:27 Patient arrived in ED. bg2 13:45 Triage completed. ca1 13:46 Arm band placed on right wrist. ca1 15:11 Jeronimo Kong MD is Attending Physician. [place] 16:02 Rajat Celeste, RN is Primary Nurse. jd3 16:17 Patient has correct armband on for positive identification. Bed in low position. Call jd3 light in reach. Side rails up X 1. Adult w/ patient. Pulse ox on. NIBP on. 17:46 Saul Herman MD is Referral Physician. cristian 18:24 No provider procedures requiring assistance completed. Patient did not have IV access jd3 during this emergency room visit. Administered Medications: 17:27 Drug: Lidocaine (1 %) 5 mg Route: Infiltration; jd3 Outcome: 17:51 Discharge ordered by . cristian 18:24 Patient left the ED. jd3 19:29 Discharged to home ambulatory, with family. jd3 19:29 Condition: stable 19:29 Discharge instructions given to patient, Instructed on discharge instructions, follow up and referral plans. Demonstrated understanding of instructions, follow-up care. Signatures: Jeronimo Kong MD MD cha Glass, Brittany 2 Rajat Celeste, MARISSA RN jSandrine Lara RN RN ca1
--- NOTE | 2020-12-16 18:29 | RAD REPORT ---
EXAM DESCRIPTION: RAD - Abdomen 1 View (KUB) - 12/16/2020 6:17 pm CLINICAL HISTORY: j tube placement;Abd pain Pain COMPARISON: Abdomen 1 View (KUB) dated 11/30/2020; Abdomen 1 View (KUB) dated 11/25/2020 FINDINGS: Two plain radiographs were obtained of the abdomen. J-tube was injected with contrast and is seen filling normal-sized small bowel loops. This indicates appropriate placement. No evidence of a bowel obstruction. Small right renal calculus.
[2020-12-16 20:03] VITALS: TEMP 97.3
[2020-12-16 20:05] VITALS: BP 121/74; O2SAT 96
== END 2020-12-16 18:24 | disposition home or self-care (01) ==
LOC: ER 13:25
PROC: 0DH60UZ Insertion of Feeding Device into Stomach, Open Approach (ICD-10-PCS; principal; 2020-12-16)
DX: Z93.1 Gastrostomy status (principal); I10 Essential (primary) hypertension; Z85.01 Personal history of malignant neoplasm of esophagus
CPT/HCPCS: 74018; 99283

== ENCOUNTER 2021-01-02 07:57 | Day surgery (SDC) | payer OTHER ==
[2021-01-02] MEDS ORDERED: CEFAZOLIN/SWI 1gm 1 GM/10 ML SYR ONE (08:29)
[2021-01-02] MEDS ORDERED: Ringers Lactate 1,000 ML IV ONE (08:29)
[2021-01-02] MEDS ORDERED: FENTANYL CITR 100 MCG/2 ML ONE (10:29)
[2021-01-02] MEDS ORDERED: MIDAZOLAM HCL 2 MG/2 ML INJ ONE (10:31)
[2021-01-02] MEDS ORDERED: propofoL 200 MG/20 ML VIAL IV ONE (10:35)
[2021-01-02] MEDS ORDERED: LIDOCAINE 1% MPF 5 ML VIAL ONE (10:36)
--- NOTE | 2021-01-02 11:07 | P.OP ---
Preoperative diagnosis: Need for Chemotherapy Access Postoperative diagnosis: Need for Chemotherapy Access Primary procedure: Placement of RIGHT internal Jugular Port a cath Secondary procedure: ultrasound, flouroscopy used with interpretation Other procedure(s): micro introducer used Anesthesia: MAC + local Estimated blood loss: <2cc Specimen: none Findings: non-pulsatile blood returned Complications: None Implants: Port a cath Transferred to: Recovery Room
--- NOTE | 2021-01-02 11:15 | RAD REPORT ---
EXAM DESCRIPTION: RAD - Fluoroscopy <1 Hour - 01/02/2021 11:10 am CLINICAL HISTORY: Device placement central venous catheter placement FINDINGS: A central venous catheter was placed into the superior vena cava. 9 fluoroscopic spot imag es are submitted. The examination was performed by Dr. Herman Fluoroscopy time 0.4 minutes
--- NOTE | 2021-01-02 11:41 | RAD REPORT ---
[facility] CLINICAL HISTORY: Device placement/central venous catheter placement IMPRESSION: Central venous catheter has been placed into the superior vena cava. No pneumothorax
[2021-01-02 12:00] VITALS: BP 134/76; TEMP 97.2; O2SAT 98
--- NOTE | 2021-01-02 12:15 | OP ---
Date of Procedure: 01/02/2021 Surgeon: Saul Herman MD, Preoperative Diagnosis: Need for chemotherapy access. Postoperative Diagnosis: Need for chemotherapy access. Procedures Performed: 1.Placement of right internal jugular Port-A-Cath. 2.Ultrasound with interpretation of fluoroscopy with interpretation used. Microintroducer set also u tilized. Anesthesia: MAC plus local. Estimated Blood Loss: Less than 2 mL. Specimen: None. Findings: Nonpulsatile dark red blood returned. Complications: None. Implants: Port-A-Cath. Disposition: The patient was transferred to recovery room in good condition. Procedure In Detail: After informed consent was obtained, the patient was brought to the operating r oom, prepped and draped in the usual sterile fashion after adequate anesthesia achieved. The patient was placed in steep Trendelenburg position. Using ultrasound guidance, the internal jugular vein on the right side was found to be an appropriate vessel. I anesthetized the skin between the sternal a nd clavicular head of the sternocleidomastoid. I then used a microintroducer needle to cannulate the right internal jugular vein on the first attempt. Microwire was advanced. Fluoroscopy was then bro ught in and used to verify position in the SVC confluence. At this point, a small isa incision was made. The microintroducer sheath was placed and the microwire was removed. At this point, the stand augie wire from the Port-A-Cath set was placed in and verified once again with fluoroscopy to be in the proper anatomic position of confluence of the superior vena cava. At this point, I then anesthetize d the tract inferior to the clavicle and the entire tract between the incision and the insertion site . I then used a tunneling device to bring the catheter through the insertion site and placed a lock collar on this aspect and clamped the port tubing at this point. I then used the introducer sheath o sima Seldinger technique to introduce the catheter, which was verified in the proper position at the S VC confluence using fluoroscopy. Once this was verified, the introducer sheath was completely remove d and the catheter was attached to the port after being sized appropriately and secured with the lock collar. At this point, I flushed it with heparinized saline quite easily and the x-ray verified the position of the confluence of the SVC. It was functioning well at this point. I then irrigated all skin incisions and secured the port to the chest wall using a 2-0 Prolene suture circumferentially a round the port. I then closed the neck incision at the insertion site with an interrupted 3-0 nylon suture and placed sterile dressing on this. I then irrigated the port site once again and closed the deep dermal layer using interrupted 3-0 Vicryl suture and the skin with a 4-0 Monocryl in a running fashion. Dermabond placed over top. I then through the skin packed the port with heparinized super flush and it flushed quite easily at this point. I then placed Dermabond over the top and a sterile dressing after this polymerized. The patient was then taken out of Trendelenburg position. The gloria ent tolerated the procedure well without evidence of complication and transferred to PACU in good con dition. All counts were correct at the end of the case. A stat chest x-ray will be performed. ADOLPH/NA Voice ID: [id number] Report ID: [id number]
[2021-01-02] MEDS ORDERED: NS 0.9% VIAL 40 ML ONE (12:30)
[2021-01-02] MEDS ORDERED: HEPARIN 5000 UNIT/ML 1 ML VIAL ONE (12:31)
== END 2021-01-02 12:35 | disposition home or self-care (01) ==
LOC: OR 07:57
PROVIDERS: ATTEND Surgery
PROC: B513ZZA Fluoroscopy of Right Jugular Veins, Guidance (ICD-10-PCS; 2021-01-02)
PROC: 05HM33Z Insertion of Infusion Device into Right Internal Jugular Vein, Percutaneous Approach (ICD-10-PCS; principal; 2021-01-02 08:45)
DX: K22.9 Disease of esophagus, unspecified (principal); F17.210 Nicotine dependence, cigarettes, uncomplicated; Z20.822 Contact with and (suspected) exposure to COVID-19
CPT/HCPCS: 71045; 36561; U0003; J2704; J1644 ×2; J2250; J3010; J0690; J7120; C1788; 76000

== ENCOUNTER 2021-03-02 10:58 | Inpatient (IN) | payer OTHER ==
--- OUTSIDE RECORDS SUMMARY | 2021-03-02 11:01 | XMS REPORT | Continuity of Care Document ---
:1950 Author Organization [facility] t Address [address] [place] [address] Care Team Providers Name Role Phone Pepe Mckeon MD Primary Care Physician Courtney GLASGOW Attending Clinician Unavailable Amador PRATER, Y.H. Attending Clinician Provider Attending Clinician Lindsey Banegas NP Attending Clinician Payers Payer Name Policy Type Policy Effective Date Expiration Date Sour ce Number DEVOTED [id number] 2020 [id number]PresentHMO Problems This patient has no known problems. Allergies, Adverse Reactions, Alerts This patient has no known allergies or adverse reactions. Social History Social Habit Start Date Stop Date Quantity Comments Source Exposure to Not sure [place] [facility] SARS-CoV-2 (event) Cigarettes smoked 2021-02-21 2021-02-21 Dick Najera current (pack per 00:00:00 00:00:00 day) - Reported Cigarette 2021-02-21 2021-02-21 Dick Flynn ist pack-years 00:00:00 00:00:00 Tobacco use and 2021-02-21 2021-02-21 Never used Dick Atwood ethodist exposure 00:00:00 00:00:00 History of tobacco 2020-09-11 Current smoker Filemon brown Anglican use 00:00:00 Sex [birth year] At [birth year] Dick Angelic ethodist 00:00:00 00:00:00 Smoking Status Start Date Stop Date Source Former smoker 2021-02-21 00:00:00 2021-02-21 00:00:00 Dick Najera Medications Ordered Filled Start Stop Current Ordering [...] times a day. ondansetron Yes TAKE ONE Filemon brown (ZOFRAN) 4 2-04 (1) [facility] MG tablet 00:00: TABLET(S) st 00 BY MOUTH EVERY SIX HOURS NEEDED FOR 7 DAYS. omeprazole Yes Dick (PriLOSEC) 1-22 [facility] 20 MG 00:00: st capsule 00 Vital Signs Vital Name Observation Time Observation Value Comments Source Systolic blood 2021-02-21 09:28:00 96 mm[Hg] Joseto n [facility] pressure Diastolic blood 2021-02-21 09:28:00 64 mm[Hg] Hoda on Anglican pressure Heart rate 2021-02-21 09:28:00 60 /min Dick Najera Body temperature 2021-02-21 09:28:00 36.61 Sherri Jose Najera Respiratory rate 2021-02-21 09:28:00 17 /min Jose ton [facility] Body height 2021-02-21 09:28:00 182.9 cm Dick Najera Body weight 2021-02-21 09:28:00 70.308 kg Dick Najera BMI 2021-02-21 09:28:00 21.02 kg/m2 Dick Najera Oxygen saturation in 2021-02-21 09:28:00 98 /min Dick Najera Arterial blood by Pulse oximetry Procedures Procedure Date / Time Performed Performing Clinician Sour e COMPREHENSIVE METABOLIC 2021-02-21 11:02:00 Alistair English PANEL PREALBUMIN LEVEL 2021-02-21 11:02:00 Alistair English M ethodist ESTIMATED GFR 2021-02-21 11:02:00 Alistair English Me thodist PET CT SKULL BASE TO MID 2020-12-20 00:00:[address] ABDOMEN PELVIS WO 2020-11-25 00:00:00 Provider, Historical Filemon brown [facility] CONTRAST CT ABDOMEN PELVIS WO 2020-10-29 00:00:00 Provider, Historical Filemon brown [facility] CONTRAST CT ABDOMEN WO CONTRAST 2020-10-29 00:00:00 Provider, Historical Dick Flynnist CT CHEST WO CONTRAST 2020-10-29 00:00:00 Provider, Historical Filemon brown [facility] Plan of Care Planned Activity Planned Date Details Comments Source Future Scheduled 2021-05-12 INFLUENZA VACCINE [place] [facility] Test 00:00:00 [code = INFLUENZA VACCINE] Future Scheduled 1999 COLONOSCOPY SCREENING [place] [facility] 00:00:00 [code = COLONOSCOPY SCREENING] Future Scheduled 1999 SHINGLES VACCINES (#1) [place] [facility] 00:00:00 [code = SHINGLES VACCINES (#1)] Future Scheduled 1967 Hepatitis C screening [place] [facility] 00:00:00 (procedure) [code = 986363862] Future Scheduled 1961 COVID-19 VACCINE (1) [place] [facility] Test 00:00:00 [code = COVID-19 VACCINE (1)] Future Scheduled 1955 65+ PNEUMOCOCCAL [place] [facility] Test 00:00:00 VACCINE (1 of 4 - PCV13) [code = 65+ PNEUMOCOCCAL VACCINE (1 of 4 - PCV13)] Encounters Start End Encounter Admission Attending Care Care Encounter Source Date/Time Date/Time Type Type Clinicians Facility Department ID 2021-02-21 2021-02-21 Outpatient [facility] [id number] [address] [place] 00:00:00 00:00:00 [facility] [address] 2021-02-21 2021-02-21 Outpatient [facility] [id number] [address] [place] 00:00:00 00:00:00 AL[facility]AIR [address] 2021-02-21 2021-02-21 Outpatient [facility] [id number] [address] [place] 00:00:00 00:00:[address] EDDALI [address] 2020-11-22 2020-11-22 Outpatient [facility] [id number] [address] [place] 00:00:00 00:00:00 AL[facility] [address] Results This patient has no known results.
[2021-03-02 11:26] LABS: Absolute Lymphocytes (CBC) 0.3 K/uL (0.7-4.9); Basophils % 0.7 % (0-1.3); Hematocrit 22.6 % (39.6-49.0); Lymphocytes % 5.6 % (15.3-44.8); MPV 8.9 fL (7.6-11.3); RBC Red Blood Cell Count 2.36 M/uL (4.33-5.43)
[2021-03-02 11:31] LABS: Protime INR 1.19
--- NOTE | 2021-03-02 11:38 | RAD REPORT ---
EXAM DESCRIPTION: CT - Head Brain Wo Cont - 03/02/2021 11:27 am CLINICAL HISTORY: TRAUMA Fall, trauma, head injury COMPARISON: No comparisons TECHNIQUE: All CT scans are performed using dose optimization technique as appropriate and may inclu de automated exposure control or mA/KV adjustment according to patient size. FINDINGS: No intracranial hemorrhage, hydrocephalus or extra-axial fluid collection.Mild generalized brain atrophy is present with mild periventricular and deep white matter chronic microvascular ische deep changes.No areas of brain edema or evidence of midline shift. Small mucous retention cyst left maxillary antrum. The paranasal sinuses and mastoids are otherwise c lear. The calvarium is intact. IMPRESSION: No acute intracranial abnormality.
[2021-03-02 11:44] LABS: Albumin 1.9 g/dL (3.4-5.0); Bilirubin Direct 0.1 mg/dL (0-0.2); Bilirubin Total 0.4 mg/dL (0.2-1.0); Magnesium 2.4 mg/dL (1.8-2.4); Potassium 4.2 mmol/L (3.5-5.1); Protein, Total 6.1 g/dL (6.4-8.2)
--- NOTE | 2021-03-02 12:08 | RAD REPORT ---
EXAM DESCRIPTION: RAD - Hip Left 2 View - 03/02/2021 12:02 pm CLINICAL HISTORY: PAIN COMPARISON: No comparisons FINDINGS: Intratrochanteric fracture is present proximal left femur. No dislocation seen.
--- NOTE | 2021-03-02 12:12 | RAD REPORT ---
EXAM DESCRIPTION: RAD - Chest Single View - 03/02/2021 12:02 pm CLINICAL HISTORY: DYSPNEA Chest pain. COMPARISON: Chest Single View dated 01/02/2021; Abdomen 1 View (KUB) dated 12/16/2020; Abdomen 1 View ( KUB) dated 11/30/2020; Abdomen 1 View (KUB) dated 11/25/2020 FINDINGS: Portable technique limits examination quality. The lungs are grossly clear. The heart is normal in size. No displaced fractures.Right-sided port cat heter tip in SVC. IMPRESSION: No acute intrathoracic process suspected.
--- NOTE | 2021-03-02 12:34 | ER ---
[facility] Name: Brandon Chiang Age: 70 yrs Sex: Male : 1950 Arrival Date: 03/02/2021 Time: 10:58 Bed 7 Private MD: Diagnosis: Intertrochanteric fracture of femur;Anemia in chronic diseases classified elsewhere Presentation: 03/02 10:48 Chief complaint: EMS states: s/p fall last night, c/o left inner hip pain. Pt reports sv that he got up from bed to go to the bathroom and was holding his kangaroo bag, he bent down to unplug it and then fell forward. Reports hitting his head and left elbow. Care prior to arrival: None. Mechanism of Injury: Fall from standing position. Trauma event details: Injury occurred in the [facility], Injury occurred: at home. Injury occurred: March 01, 2021. 10:48 Acuity: LEIDY 2 sv 10:48 Method Of Arrival: EMS: [facility] sv 11:02 Coronavirus screen: Client denies travel out of the [place] in the last 14 days. At this sv time, the client does not indicate any symptoms associated with coronavirus-19. Ebola Screen: No symptoms or risks identified at this time. Initial Sepsis Screen: Does the patient meet any 2 criteria? No. Patient's initial sepsis screen is negative. Does the patient have a suspected source of infection? No. Patient's initial sepsis screen is negative. Risk Assessment: Do you want to hurt yourself or someone else? Patient reports no desire to harm self or others. Onset of symptoms was March 01, 2021. Trauma Activation: Alert Physician: ED Physician; Name: Dr Pulido; Notified At: 11:01; Arrived At: 11:01 Physician: General Surgeon; Name: ; Notified At: 11:01; Arrived At: Physician: Radiology; Name: Liz; Notified At: 11:01; Arrived At: Physician: Respiratory; Name: ; Notified At: 11:01; Arrived At: Physician: Lab; Name: ; Notified At: 11:01; Arrived At: Historical: - Allergies: 11:03 No Known Allergies; sv - Home Meds: 11:03 Eliquis oral oral [Active]; sv - PMHx: 11:03 esophageal cancer; Hypertension; sv - PSHx: 11:03 left knee; Vasectomy; J tube; sv - Immunization history:: Client reports having NOT received the Covid vaccine. - Social history:: Smoking status: Patient/guardian denies using tobacco, but has a distant history of tobacco abuse. Screenin:03 Abuse screen: Denies threats or abuse. Denies injuries from another. Nutritional sv screening: No deficits noted. Tuberculosis screening: No symptoms or risk factors identified. Fall Risk No fall in past 12 months (0 pts). Secondary diagnosis (15 points) impaired mobility, IV access (20 points). Ambulatory Aid- None/Bed Rest/Nurse Assist (0 pts). Gait- Normal/Bed Rest/Wheelchair (0 pts) Mental Status- Oriented to own ability (0 pts). Total Wheeler Fall Scale indicates Low Risk Score (25-44 pts). Fall prevention measures have been instituted. Side Rails Up X 2 Placed close to Nursing Station Frequent Obs/Assesments occuring As available Patient and Family Educated on Fall Prevention Program and strategies. Primary Survey: 11:05 NO uncontrolled hemorrhage observed. A: The patient is alert. Airway: patent, No sv supplemental oxygen in use on arrival. Oral cavity: clear, Trachea midline. Breathing/Chest: Respiratory pattern: regular, Respiratory effort: spontaneous, unlabored, Chest inspection: symmetrical rise and fall of the chest. Circulation: Heart tones present. Pulses: palpable right radial artery, right dorsalis pedis artery, left radial artery and left dorsalis pedis artery. Skin color: pink, Skin temperature: warm, dry. Disability Alert. Exposure/Environment: All clothing and personal items were removed. Forensic evidence collection is not deemed to be indicated at this time. Items placed in patient belonging bag. There is no evidence of uncontrolled external bleeding. No obvious injuries are noted at this time. A warming method has been applied: A warm blanket has been provided to the patient. 12:39 Reassessment Breathing/Chest Respiratory pattern Regular Respiratory effort Spontaneous tr6 Unlabored. Secondary Survey: 11:05 HEENT: No deficits noted. Gastrointestinal: No deficits noted. : No signs and/or sv symptoms were reported regarding the genitourinary system. Musculoskeletal: No signs and/or symptoms reported regarding the musculoskeletal system. Assessment: 12:32 General: Appears slender, Behavior is calm, cooperative, appropriate for age, Reports tr6 fatigue for 1-2 days. Pain: Complains of pain in left hip and left leg. Neuro: No deficits noted. Cardiovascular: Rhythm is sinus rhythm. Respiratory: Respiratory effort is even, unlabored, relaxed, Respiratory pattern is regular, pt desats to 86% on RA. Denies cough, shortness of breath labored breathing, pain with respiration, pain with cough, pain with movement. GI: Abdomen is flat, non-distended, PEG tube to LUQ. : No deficits noted. EENT: No deficits noted. Derm: No deficits noted. Musculoskeletal: Capillary refill < 3 seconds, in left left hip. Vital Signs: 11:02 BP 133 / 76; Pulse 102; Resp 16; Temp 98.7; Pulse Ox 95% ; Weight 74.84 kg; Height 6 sv ft. 1 in. (185.42 cm); Pain 0/10; 12:00 BP 130 / 80; Pulse 100; Resp 18; Pulse Ox 95% on R/A; sv 14:16 BP 130 / 75; Pulse 107; Resp 18; Pulse Ox 100% on 1 lpm NC; tr6 11:02 Body Mass Index 21.77 (74.84 kg, 185.42 cm) sv Jacey Coma Score: 11:02 Eye Response: spontaneous(4). Verbal Response: oriented(5). Motor Response: obeys sv commands(6). Total: 15. Trauma Score (Adult): 11:02 Eye Response: spontaneous(1); Verbal Response: oriented(1); Motor Response: obeys sv commands(2); Systolic BP: > 89 mm Hg(4); Respiratory Rate: 10 to 29 per min(4); [place] Score: 15; Trauma Score: 12 12:00 Eye Response: spontaneous(1); Verbal Response: oriented(1); Motor Response: obeys sv commands(2); Systolic BP: > 89 mm Hg(4); Respiratory Rate: 10 to 29 per min(4); [place] Score: 15; Trauma Score: 12 ED Course: 10:58 Patient arrived in ED. sv 10:58 Humera Sutton, RN is Primary Nurse. sv 10:58 Kristopher Altamirano [facility]. jr8 10:58 Shimon Pulido MD is Attending Physician. jr8 11:01 Triage completed. sv 11:03 Arm band placed on. sv 11:03 Patient has correct armband on for positive identification. Bed in low position. Call sv light in reach. Side rails up X2. night monitor on. Pulse ox on. NIBP on. Door closed. Head of bed elevated. 11:04 Patient maintains SpO2 saturation greater than 95% on room air. sv 11:04 Thermoregulation: warm blanket given to patient. sv 11:27 CT Head Brain wo Cont In Process Unspecified. EDMS 12:00 EKG done, by ED staff, reviewed by Kristopher OG. dh3 12:02 XRAY Chest (1 view) In Process Unspecified. EDMS 12:02 XRAY Hip LEFT 2 view In Process Unspecified. EDMS 12:05 Report given to Jaelyn ANN. 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 guiac negative. tr6 12:31 Jovanni Morales is Hospitalizing Provider. jr8 14:10 Jaelyn Rider, MARISSA is Primary Nurse. tr6 15:50 Patient admitted, IV remains in place. tr6 Administered Medications: 12:30 Drug: NS 0.9% 1000 ml Route: IV; Rate: 1000 ml; Site: right wrist; tr6 12:31 Drug: fentaNYL (PF) 50 mcg Route: IVP; Site: right wrist; tr6 15:23 Follow up: Response: Pain is decreased tr6 12:31 Drug: Zofran (Ondansetron) 4 mg Route: IVP; Site: right wrist; tr6 15:23 Follow up: Response: No adverse reaction tr6 15:14 Drug: fentaNYL (PF) 50 mcg Route: IVP; Site: right wrist; em 15:23 Follow up: Response: No adverse reaction; Pain is decreased tr6 15:46 Drug: ProTONIX (pantoprazole) 40 mg Route: IVP; Site: right wrist; tr6 Intake: 11:02 PO: 0ml; Total: 0ml. sv 12:00 PO: 0ml; Total: 0ml. sv Output: 11:02 Urine: 0ml; Total: 0ml. sv 12:00 Urine: 0ml; Total: 0ml. sv Outcome: 12:34 Decision to Hospitalize by Provider. jrCristobal 15:49 Admitted to Med/surg accompanied by tech, via stretcher, room 202, with oxygen, with tr6 chart, Report called to gabriela 15:49 Condition: stable 15:49 Discharge instructions given to patient, Instructed on the need for admit, Demonstrated understanding of instructions, follow-up care. 15:50 Patient left the ED. tr6 Signatures: Dispatcher [employer] Humera Vaughn, RN Atilio Sandoval RN RN Kristopher Ortiz PA PA jr8 Kal, Kacy [facility] Jaelyn Rider RN RN tr6 Corrections: (The following items were deleted from the chart) 11:11 10:48 Chief complaint: EMS states: s/p fall last night, c/o left inner hip pain. Pt sv reports that he got up from bed to go to the bathroom and was holding his kangaroo bag. Next thing he knows he fell straight to the ground. Reports hitting his head and left elbow. sv
--- NOTE | 2021-03-02 12:34 | EDPHYS ---
Physician Documentation [facility] Name: Brandon Chiang Age: 70 yrs Sex: Male : 1950 Arrival Date: 03/02/2021 Time: 10:58 Bed 7 Private MD: ED Physician Shimon Pulido HPI: 03/02 11:16 This 70 yrs old Male presents to ER via EMS with complaints of Fall Injury. jr8 11:16 Details of fall: The patient fell from an upright position, while standing. Onset: The jr8 symptoms/episode began/occurred acutely, yesterday. Associated injuries: The patient sustained injury to the head, left leg. Severity of symptoms: At their worst the symptoms were moderate, in the emergency department the symptoms are unchanged. The patient has not experienced similar symptoms in the past. The patient has not recently seen a physician. Patient stated that he recently finished chemo and radiation for esophageal cancer. Stated that he has been very fatigued/weak since then. Yesterday while walking became unbalanced and fell hitting back of head and left hip. Has had pain to left hip since then. Denies any pain at rest. EMS stated that he was tachycardic on scene. Currently doing tube feeds due to the esophageal mass . Historical: - Allergies: 11:03 No Known Allergies; sv - Home Meds: 11:03 Eliquis oral oral [Active]; sv - PMHx: 11:03 esophageal cancer; Hypertension; sv - PSHx: 11:03 left knee; Vasectomy; J tube; sv - Immunization history:: Client reports having NOT received the Covid vaccine. - Social history:: Smoking status: Patient/guardian denies using tobacco, but has a distant history of tobacco abuse. ROS: 11:16 Eyes: Negative for injury, pain, redness, and discharge, ENT: Negative for injury, jr8 pain, and discharge, Neck: Negative for injury, pain, and swelling, Cardiovascular: Negative for chest pain, palpitations, and edema, Respiratory: Negative for shortness of breath, cough, wheezing, and pleuritic chest pain, Abdomen/GI: Negative for abdominal pain, nausea, vomiting, diarrhea, and constipation, Back: Negative for injury and pain, Skin: Negative for injury, rash, and discoloration, Neuro: Negative for headache, weakness, numbness, tingling, and seizure. 11:16 MS/extremity: Positive for decreased range of motion, pain, tenderness, of the left hip. Exam: 11:16 Constitutional: This is a well developed, well nourished patient who is awake, alert, jr8 and in no acute distress. Head/Face: Normocephalic, atraumatic. Eyes: Pupils equal round and reactive to light, extra-ocular motions intact. Lids and lashes normal. Conjunctiva and sclera are non-icteric and not injected. Cornea within normal limits. Periorbital areas with no swelling, redness, or edema. ENT: Nares patent. No nasal discharge, no septal abnormalities noted. Tympanic membranes are normal and external auditory canals are clear. Oropharynx with no redness, swelling, or masses, exudates, or evidence of obstruction, uvula midline. Mucous membranes moist. Neck: Trachea midline, no thyromegaly or masses palpated, and no cervical lymphadenopathy. Supple, full range of motion without nuchal rigidity, or vertebral point tenderness. No Meningismus. Chest/axilla: Normal chest wall appearance and motion. Nontender with no deformity. No lesions are appreciated. Cardiovascular: Regular rate and rhythm with a normal S1 and S2. No gallops, murmurs, or rubs. Normal PMI, no JVD. No pulse deficits. Respiratory: Lungs have equal breath sounds bilaterally, clear to auscultation and percussion. No rales, rhonchi or wheezes noted. No increased work of breathing, no retractions or nasal flaring. Abdomen/GI: Soft, non-tender, with normal bowel sounds. No distension or tympany. No guarding or rebound. No evidence of tenderness throughout. Back: No spinal tenderness. No costovertebral tenderness. Full range of motion. Skin: Warm, dry with normal turgor. Normal color with no rashes, no lesions, and no evidence of cellulitis. Neuro: Awake and alert, GCS 15, oriented to person, place, time, and situation Sensory grossly intact. 11:16 Musculoskeletal/extremity: Extremities: grossly normal except: noted in the left leg: decreased ROM, pain, tenderness, left inguinal region of hip without external trauma noted. No rotation or shortening noted , Circulation is intact in all extremities. Sensation intact. Vital Signs: 11:02 BP 133 / 76; Pulse 102; Resp 16; Temp 98.7; Pulse Ox 95% ; Weight 74.84 kg; Height 6 sv ft. 1 in. (185.42 cm); Pain 0/10; 12:00 BP 130 / 80; Pulse 100; Resp 18; Pulse Ox 95% on R/A; sv 14:16 BP 130 / 75; Pulse 107; Resp 18; Pulse Ox 100% on 1 lpm NC; tr6 11:02 Body Mass Index 21.77 (74.84 kg, 185.42 cm) sv Jacey Coma Score: 11:02 Eye Response: spontaneous(4). Verbal Response: oriented(5). Motor Response: obeys sv commands(6). Total: 15. Trauma Score (Adult): 11:02 Eye Response: spontaneous(1); Verbal Response: oriented(1); Motor Response: obeys sv commands(2); Systolic BP: > 89 mm Hg(4); Respiratory Rate: 10 to 29 per min(4); Jacey Score: 15; Trauma Score: 12 12:00 Eye Response: spontaneous(1); Verbal Response: oriented(1); Motor Response: obeys sv commands(2); Systolic BP: > 89 mm Hg(4); Respiratory Rate: 10 to 29 per min(4); Willis Score: 15; Trauma Score: 12 MDM: 10:59 Patient medically screened. [facility] 12:30 Data reviewed: vital signs, nurses notes, lab test result(s), EKG, radiologic studies, [facility] CT scan, plain films. Data interpreted: Pulse oximetry: on room air is 95 %. Interpretation: normal. Counseling: I had a detailed discussion with the patient and/or guardian regarding: the historical points, exam findings, and any diagnostic results supporting the discharge/admit diagnosis, lab results, radiology results, the need for further work-up and treatment in the hospital. 12:40 ED course: Dr. Stack consulted and will bring patient to surgery tomorrow. Dr. arnie Morales called and will admit patient . 03/02 10:59 Order name: Basic Metabolic Panel; Complete Time: 11:55 [facility] 03/02 10:59 Order name: CBC with Diff; Complete Time: 11:35 [facility] 03/02 10:59 Order name: LFT's; Complete Time: 11:55 03/02 10:59 Order name: Magnesium; Complete Time: 11:55 03/02 10:59 Order name: NT PRO-BNP; Complete Time: 11:03/02 10:59 Order name: PT-INR; Complete Time: 11:35 03/02 10:59 Order name: XRAY Chest (1 view); Complete Time: 12:26 03/02 10:59 Order name: CK; Complete Time: 11:55 03/02 10:59 Order name: CT Head Brain wo Cont; Complete Time: 11:55 03/02 10:59 Order name: XRAY Hip LEFT 2 view; Complete Time: 12:26 03/02 12:34 Order name: TS 03/02 13:41 Order name: ABO/RH no charge; Complete Time: 13:45 EDMS 03/02 14:14 Order name: SARS-COV-2 RT PCR; Complete Time: 14:20 EDMS 03/02 10:59 Order name: EKG; Complete Time: 11:00 03/02 10:59 Order name: Cardiac monitoring; Complete Time: 11:03/02 10:59 Order name: EKG - Nurse/Tech; Complete Time: 12:09 03/02 10:59 Order name: IV Saline Lock; Complete Time: 11:03/02 10:59 Order name: Labs collected and sent; Complete Time: 11:03/02 10:59 Order name: O2 Per Protocol; Complete Time: 11:03/02 10:59 Order name: O2 Sat Monitoring; Complete Time: 11:03/02 15:05 Order name: XRAY Hip LEFT 1 view Administered Medications: 12:30 Drug: NS 0.9% 1000 ml Route: IV; Rate: 1000 ml; Site: right wrist; tr6 12:31 Drug: fentaNYL (PF) 50 mcg Route: IVP; Site: right wrist; tr6 15:23 Follow up: Response: Pain is decreased tr6 12:31 Drug: Zofran (Ondansetron) 4 mg Route: IVP; Site: right wrist; tr6 15:23 Follow up: Response: No adverse reaction tr6 15:14 Drug: fentaNYL (PF) 50 mcg Route: IVP; Site: right wrist; em 15:23 Follow up: Response: No adverse reaction; Pain is decreased tr6 15:46 Drug: ProTONIX (pantoprazole) 40 mg Route: IVP; Site: right wrist; tr6 Disposition: 16:01 Co-signature as Attending Physician, Shimon Pulido MD I agree with the assessment and kdr plan of care. Disposition: 03/02/21 12:34 Hospitalization ordered by Jovanni Morales for Inpatient Admission. Preliminary diagnosis are Intertrochanteric fracture of femur, Anemia in chronic diseases classified elsewhere. - Bed requested for Telemetry/MedSurg (Inpatient). - Status is Inpatient Admission. tr6 - Condition is Stable. - Problem is new. - Symptoms are unchanged. Signatures: Dispatcher [employer] EDMS Humera Sutton, RN Shimon Dey MD MD kdr Munoz, Edgar, RN RN em Dajuan Winn em1 Kristopher Altamirano PA PA jr8 Ramnanan, Tiffany, RN RN tr6 Corrections: (The following items were deleted from the chart) 13:28 12:48 CORONAVIRUS+MR.LAB.BRZ ordered. EDMA EDMA 15:14 12:34 Hospitalization Ordered by Jovanni Morales for Inpatient Admission. Preliminary em1 diagnosis is Intertrochanteric fracture of femur; Anemia in chronic diseases classified elsewhere. Bed requested for Telemetry/MedSurg (Inpatient). Status is Inpatient Admission. Condition is Stable. Problem is new. Symptoms are unchanged. jr8 15:50 15:14 03/02/2021 12:34 Hospitalization Ordered by Jovanni Morales for Inpatient tr6 Admission. Preliminary diagnosis is Intertrochanteric fracture of femur; Anemia in chronic diseases classified elsewhere. Bed requested for Telemetry/MedSurg (Inpatient). Status is Inpatient Admission. Condition is Stable. Problem is new. Symptoms are unchanged. em1
[2021-03-02] MEDS ORDERED: FENTANYL CITR 100 MCG/2 ML ONE ×2 (12:42→15:31)
[2021-03-02] MEDS ORDERED: NA CHLORIDE 0.9% 1,000 ML ONE (12:43)
[2021-03-02] MEDS ORDERED: ONDANSETRON 4 MG/2 ML VIAL ONE (12:43)
--- NOTE | 2021-03-02 13:40 | P.HP ---
Certification for Inpatient Patient admitted to: Inpatient With expected LOS: >2 Midnights Practitioner: I am a practitioner with admitting privileges, knowledge of patient current condition, hospital course, and medical plan of care. Services: Services provided to patient in accordance with Admission requirements found in Title 42 Section 412.3 of the Code of Federal Regulations Patient History Date of Service: 03/02/21 Reason for admission: Fall with left hip fracture History of Present Illness: 70-year-old gentleman with a history of esophageal cancer, receiving radiation and chemotherapy was brought to the emergency department due to a fall at home. Patient stated he got up in the middle of the night to use the bathroom. He sat on his bed for a while for his blood pressure is stable. Regardless, patient fell from standing position. He stated he became dizzy prior to the fall. He denied any chest pain or shortness of breath or diaphoresis prior to the fall. No witnessed seizures. Imaging done in the emergency department demonstrates left femoral intertrochanteric fracture. He is on Eliquis but has not taken take any doses since last night. Orthopedic surgeon Dr. Stout was contacted who plans ORIF tomorrow. Patient was admitted to the hospitalist service for further management. Allergies No Known Allergies Allergy (Verified 12/31/20 14:12) Home Medications: Amlodipine [Norvasc*] 5 mg PO BID #30 tab 12/06/20 Apixaban [Eliquis] 5 mg PO BID #60 tablet 12/06/20 carvediloL [Coreg*] 6.25 mg PO BID #60 tab 12/06/20 Metoclopramide [Reglan*] 10 mg PO DAILY 12/31/20 - Past Medical/Surgical History Diabetic: Yes -: Esophageal cancer -: Chronic kidney disease -: Knee surgery -: Tonsillectomy and adenoidectomy. -: Jtube insertion - Family History Father -: Other (see notes) (Pneumonia and from pulmonary embolism.) - Social History Alcohol use: No CD- Drugs: No Review of Systems Other: Except as documented, all other systems reviewed and negative. Physical Examination - Physical Exam General: Alert, In no apparent distress, Oriented x3 HEENT: PERRLA, Mucous membr. moist/pink, Sclerae nonicteric Neck: Supple, JVD not distended, No Thyromegaly Respiratory: Clear to auscultation bilaterally, Normal air movement Cardiovascular: No edema, Regular rate/rhythm, Normal S1 S2 Gastrointestinal: Normal bowel sounds, Soft and benign, Non-distended, No tenderness, Other (PEG tube in place) Musculoskeletal: No clubbing, No swelling Integumentary: No rashes, No erythema Neurological: Normal speech, Normal strength at 5/5 x4 extr, Cranial nerves 3-12 intact Lymphatics: No axilla or inguinal lymphadenopathy - Studies Laboratory Data (last 24 hrs) 03/02/21 11:08: PT 13.7 H, INR 1.19 03/02/21 11:08: WBC 5.80, Hgb 7.5 L*, Hct 22.6 L, Plt Count 203 03/02/21 11:08: Sodium 139, Potassium 4.2, BUN 56 H, Creatinine 2.45 H, Glucose 105, Magnesium 2.4, Total Bilirubin 0.4, AST 18, ALT 20, Alkaline Phosphatase 73 Assessment and Plan - Problems (Diagnosis) (1) Fracture, intertrochanteric, left femur Current Visit: Yes Status: Acute (2) History of esophageal cancer Current Visit: Yes Status: Acute (3) Chronic kidney disease, stage 3 Current Visit: Yes Status: Acute (4) Orthostasis Current Visit: Yes Status: Acute (5) Chronic systolic heart failure Current Visit: Yes Status: Acute - Plan Admit patient to the medical floor. Hold Eliquis. Orthopedics consulted. Pain management-[place] and IV morphine. Check orthostatics vitals. Hydrate with normal saline. Keep NPO overnight for possible surgery tomorrow. Check troponin. Patient appeared compensated for systolic heart failure failure. - Advance Directives Does patient have a Living Will: No Does patient have a Durable POA for Healthcare: No
[2021-03-02] MEDS ORDERED: ACETAMINOPHEN 500 MG TAB PO PRN (15:42)
[2021-03-02] MEDS ORDERED: PANTOPRAZOLE 40 MG INJ ONE (15:51)
--- NOTE | 2021-03-02 15:56 | RAD REPORT ---
EXAM DESCRIPTION: RAD - Hip Left 1 View - 03/02/2021 3:32 pm CLINICAL HISTORY: DEFORMITY COMPARISON: Hip Left 2 View dated 03/02/2021 FINDINGS: Subcapital fracture is present of the proximal left femur with fracture extending into the intertrochanteric region. No dislocation.
[2021-03-02] MEDS: NA CHLORIDE 0.9% 1,000 ML IV SCH (16:42)
[2021-03-02] MEDS: MORPHINE 2 MG/ML SYR IV PRN (18:32)
[2021-03-02 19:01] LABS: Urine Appearance CLEAR (Clear); Urine Bilirubin NEGATIVE (Negative); Urine Blood NEGATIVE (Negative); Urine Color YELLOW (Yellow); Urine Glucose NEGATIVE (Negative); Urine Protein 1+ (Negative); Urine Specific Gravity 1.015 (1.005-1.030); Urine Urobilinogen 0.2 mg/dL (0.2-1.0); Urine pH 5.5 (5.0-7.0)
[2021-03-02 19:20] LABS: Urine Microscopic Reflex ORDER UMIC
[2021-03-02 19:23] LABS: Urine Bacteria <20 /HPF (NONE SEEN); Urine RBC NONE SEEN /HPF (NONE SEEN)
[2021-03-02] MEDS ORDERED: ACETAMINOPHEN 325 MG TABLET PO ONE (19:30)
[2021-03-02] MEDS ORDERED: DIPHENHYDRAMINE 50 MG/ML VIAL IV ONE (19:30)
[2021-03-02 19:31] VITALS: BMI 21.7
[2021-03-02] MEDS ORDERED: NA CHLORIDE 0.9% 100 ML ONE ×2 (20:29→23:08)
[2021-03-02] MEDS ORDERED: JEVITY 1.2 CAL LIQUID 1,000 ML BOT FT SCH (21:00)
[2021-03-02] MEDS ORDERED: TWOCAL HN 1,000 ML BOT FT SCH (21:00)
[2021-03-02] MEDS: JEVITY 1.2 CAL LIQUID 1,000 ML BOT FT SCH (21:00)
[2021-03-03] MEDS: MORPHINE 2 MG/ML SYR IV PRN ×5 (00:12→21:21)
--- NOTE | 2021-03-03 02:18 | CON ---
Date of Consultation: 03/02/2021 History Of Present Illness: This is my first time seeing this patient to my knowledge. He is a 70-y ear-old male, who unfortunately has esophageal cancer, has recently undergone radiation and chemother apy, but unfortunately also fell injuring his left lower extremity. He was seen and examined in the Emergency Department where he was ruled out for other injuries. However, x-rays were taken, which de monstrated what appeared to be an intertrochanteric fracture to Radiology. On my visualization of no te, I am not quite sure. Physical Examination: All his long bones and joints were palpated without pain or crepitation with the exception of a small abrasion of his left elbow as well as a very small abrasion of his driver as well as pain with any mov ement or manipulation of his left lower extremity. This pain being prominent in the region of the gr oin and the hip. At this point, we attempted more standard x-rays with the hip more in neutral position. This appears to reveal a femoral neck fracture, which is nondisplaced, perhaps very slightly valgus impacted. Assessment: This is a 70-year-old male with valgus impacted femoral neck fracture. We will plan for operative fixation tomorrow. However, if he has displacement overnight, we will proceed with bipola r hemiarthroplasty. All of his questions have been answered. MALISSA Voice ID: [id number] Report ID: [id number]
[2021-03-03 04:20] LABS: Protime INR 1.11
[2021-03-03 04:26] LABS: Absolute Lymphocytes (CBC) 0.3 K/uL (0.7-4.9); Basophils % 0.4 % (0-1.3); Hematocrit 30.8 % (39.6-49.0); Lymphocytes % 3.9 % (15.3-44.8); RBC Red Blood Cell Count 3.29 M/uL (4.33-5.43)
[2021-03-03 04:36] LABS: Magnesium 2.4 mg/dL (1.8-2.4); Phosphorus 4.4 mg/dL (2.5-4.9); Potassium 4.8 mmol/L (3.5-5.1)
[2021-03-03] MEDS: NA CHLORIDE 0.9% 1,000 ML IV SCH ×3 (05:02→18:22)
[2021-03-03] MEDS: Ringers Lactate 1,000 ML IV ONE (07:25)
[2021-03-03] MEDS ORDERED: TRANEXAMIC ACID 1,000 MG in NA CHLORIDE 0.9% 50 ML IV ONE (08:00)
[2021-03-03] MEDS ORDERED: SUCCINYLCHOLINE 20 MG/ML (10 ML) IV ONE (08:20)
[2021-03-03] MEDS ORDERED: BUPIVACAINE 0.75% (PF) 2 ML SP ONE (08:27)
[2021-03-03] MEDS: CEFAZOLIN/SWI 1gm 1 GM/10 ML SYR ONE ×2 (08:30→08:42)
[2021-03-03] MEDS ORDERED: propofoL 200 MG/20 ML VIAL IV ONE (08:37)
[2021-03-03] MEDS ORDERED: MIDAZOLAM HCL 2 MG/2 ML INJ ONE ×2 (08:37→09:17)
[2021-03-03] MEDS: JEVITY 1.2 CAL LIQUID 1,000 ML BOT FT SCH ×3 (09:00→21:22)
[2021-03-03] MEDS ORDERED: Phenylephrine HCl 10 MG/ML 1 ML VIAL ONE (09:12)
--- NOTE | 2021-03-03 09:40 | P.BOP ---
Preoperative diagnosis: left hip fracture Postoperative diagnosis: same Primary procedure: left hiup IM regina Estimated blood loss: 100ccs Anesthesia: General Complications: None Transferred to: Recovery Room Condition: Good
--- NOTE | 2021-03-03 10:40 | OP ---
Date of Procedure: 03/03/2021 Surgeon: Giancarlo Stack MD Preoperative Diagnosis: Left complex proximal femur fracture. Postoperative Diagnosis: Left complex proximal femur fracture. Procedure: Left hip closed reduction with intramedullary regina fixation. Estimated Blood Loss: 100 mL. Complications: There were no complications. Pathology Specimens: No pathology specimens sent. Indications For Operation: Mr. Chiang is a 70-year-old male, who unfortunately fell injuring his left lower extremity. He was seen and examined in the emergency department, was ruled out for other inju vinh. Initial x-rays were taken, which were read out as intertrochanteric; however, on my visualizat ion that it did not appear to be clear. Therefore, we repeated x-rays which demonstrated he does hav e a subcapital component as well as 2 other fracture lines which may or may not enter the intertrocha nteric area, but definitely near the base of the neck. The subcapital fracture does not appear to be significantly displaced, so decision was made to move forward with intramedullary regina fixation rathe r than total hip or hemiarthroplasty. Risks, benefits, and alternatives of this have been discussed with the patient. He states he understands things as presented and wished to proceed. Description Of Procedure: The patient was taken to the operating room and placed in supine position. Spinal anesthesia was obtained by Anesthesia staff. Following this, he was then placed on the [facility] ture table. He was then appropriately positioned on the fracture table and C-arm was brought in to e nsure that he had not had any displacement of the subcapital portion of the fracture, which he had no t. After this, the left hip was then prepped and draped in usual sterile fashion for rodding. An in cision was made above the greater trochanter. A starting awl was then used. The guide pin was then placed without difficulty and size 9 regina was placed after hand reaming. Decision was made to keep th e lag screw a little bit high because of the slight valgus impaction, and it was placed at appropriat e depth and locked. The anti-rotation screw was not used because of the placement of the screw in th e neck. This appeared to be the position that is the most perpendicular to the fracture of the neck. The inferior anti-rotation screw was then placed without difficulty. The repair was checked using biplanar C-arm radiography. The wounds were then irrigated and the fascia was closed in a watertight fashion using heavy Vicryl sutures, followed by closure of the skin with 2-0 Vicryl sutures followed by natalia. The patient was then placed in Aquacel dressing, awakened, and taken to recovery room i n good condition. There were no complications. /NA Voice ID: [id number] Report ID: [id number]
--- NOTE | 2021-03-03 12:24 | P.PN ---
Subjective Date of Service: 03/03/21 Chief Complaint: Fall with left hip fracture Status post ORIF today. Noted patient had a fever episode early this morning. Physical Examination - Vital Signs Temperature: 98.5 F Blood Pressure: 130/70 Pulse: 106 Respirations: 18 Pulse Ox (%): 95 - Physical Exam General: Alert, In no apparent distress HEENT: Mucous membr. moist/pink Neck: JVD not distended Respiratory: Clear to auscultation bilaterally, Normal air movement Cardiovascular: No edema, Regular rate/rhythm, Normal S1 S2 Gastrointestinal: Normal bowel sounds, Soft and benign, Non-distended Musculoskeletal: No swelling Integumentary: No rashes Neurological: Normal strength at 5/5 x4 extr Assessment And Plan - Current Problems (Diagnosis) (1) Fracture, intertrochanteric, left femur Current Visit: Yes Status: Acute (2) History of esophageal cancer Current Visit: Yes Status: Acute (3) Chronic kidney disease, stage 3 Current Visit: Yes Status: Acute (4) Orthostasis Current Visit: Yes Status: Acute (5) Chronic systolic heart failure Current Visit: Yes Status: Acute - Plan Resume Eliquis tomorrow. S/p ORIF Pain management-[place] and IV morphine. PT to evaluate Hydrate with normal saline. Resume PEG tube feeding. Patient appeared compensated for systolic heart failure failure. Elevated troponin likely secondary to demand ischemia. Unexplained fever. UA is negative, chest x-ray shows no infiltrate. No leukocytosis. Status post 2 units PRBC. Obtain blood culture. Monitor
--- NOTE | 2021-03-03 12:58 | RAD REPORT ---
EXAM DESCRIPTION: RAD - Hip In Or - 03/03/2021 12:39 pm CLINICAL HISTORY: Femoral fracture FINDINGS: Fluoroscopy time 1.2 minutes. Forty-nine fluoroscopic spot images obtained Surgery performed by Dr. Stack Compression screw and intramedullary regina affix a femoral fracture
[2021-03-03] MEDS: HYDROCODONE/APAP 5/325 MG TAB PO PRN ×3 (14:08→23:03)
[2021-03-04] MEDS: MORPHINE 2 MG/ML SYR IV PRN ×4 (01:30→17:23)
[2021-03-04] MEDS: HYDROCODONE/APAP 5/325 MG TAB PO PRN ×4 (04:57→21:02)
[2021-03-04] MEDS: NA CHLORIDE 0.9% 1,000 ML IV SCH (04:58)
[2021-03-04 05:59] LABS: Absolute Lymphocytes (CBC) 0.2 K/uL (0.7-4.9); Basophils % 0.5 % (0-1.3); Hematocrit 29.1 % (39.6-49.0); Lymphocytes % 2.4 % (15.3-44.8); MPV 8.9 fL (7.6-11.3); RBC Red Blood Cell Count 3.11 M/uL (4.33-5.43)
[2021-03-04 06:06] LABS: Potassium 4.5 mmol/L (3.5-5.1)
[2021-03-04] MEDS: JEVITY 1.2 CAL LIQUID 1,000 ML BOT FT SCH ×3 (07:52→21:01)
[2021-03-04 08:13] LABS: Platelet Estimate ADEQ
[2021-03-04 08:14] LABS: Blood Morphology Comment NOT SEEN (NOT SEEN)
--- NOTE | 2021-03-04 12:39 | P.PN ---
Subjective Date of Service: 03/04/21 Chief Complaint: Fall with left hip fracture Status post ORIF with intramedullary regina fixation. No fever since yesterday. Physical Examination - Vital Signs Temperature: 98.5 F Blood Pressure: 130/70 Pulse: 106 Respirations: 18 Pulse Ox (%): 95 - Physical Exam General: Alert, In no apparent distress, Oriented x3 Neck: JVD not distended Respiratory: Clear to auscultation bilaterally, Normal air movement Cardiovascular: No edema, Normal pulses, Normal S1 S2 Gastrointestinal: Normal bowel sounds, Soft and benign, Non-distended, No tenderness, Other (PEG Tube) Integumentary: No rashes Neurological: Normal strength at 5/5 x4 extr Assessment And Plan - Current Problems (Diagnosis) (1) Fracture, intertrochanteric, left femur Current Visit: Yes Status: Acute (2) History of esophageal cancer Current Visit: Yes Status: Acute (3) Chronic kidney disease, stage 3 Current Visit: Yes Status: Acute (4) Orthostasis Current Visit: Yes Status: Acute (5) Chronic systolic heart failure Current Visit: Yes Status: Acute - Plan Resume Eliquis. S/p ORIF Pain management-[place] and IV morphine. Continue PT. PEG tube feeding. Patient appeared compensated for systolic heart failure failure. Elevated troponin likely secondary to demand ischemia. Unexplained fever. UA is negative, chest x-ray shows no infiltrate. No leukocytosis. Status post 2 units PRBC. Posttransfusion hemoglobin is up to 9.8. Continue to monitor H&H postop.
[2021-03-04] MEDS: APIXABAN 5 MG TABLET PO SCH (20:59)
[2021-03-05] MEDS: HYDROCODONE/APAP 5/325 MG TAB PO PRN ×5 (01:06→17:25)
[2021-03-05 06:19] LABS: Hematocrit 26.7 % (39.6-49.0)
[2021-03-05 06:40] LABS: Potassium 4.4 mmol/L (3.5-5.1)
[2021-03-05] MEDS: JEVITY 1.2 CAL LIQUID 1,000 ML BOT FT SCH ×3 (09:23→21:50)
[2021-03-05] MEDS: APIXABAN 5 MG TABLET PO SCH ×2 (09:23→21:49)
[2021-03-05] MEDS: FAMOTIDINE 20 MG TAB FT SCH ×2 (12:27→21:49)
--- NOTE | 2021-03-05 15:12 | P.PN ---
Subjective Date of Service: 03/05/21 Chief Complaint: Fall with left hip fracture Subjective: Improving (pain improving, feeling like he has more energy/strength. denies any new complaints, no SOB, no chest pain, no n/v, +flatus, no BM, urinating without issue) Review of Systems 10-point ROS is otherwise unremarkable Physical Examination - Vital Signs Temperature: 98.5 F Blood Pressure: 97/64 Pulse: 119 Respirations: 20 Pulse Ox (%): 93 Assessment & Plan Physician Review Additional Text: Physical Exam General: Alert, In no apparent distress, Oriented x3 Neck: JVD not distended Respiratory: Clear to auscultation bilaterally, Normal air movement Cardiovascular: No edema, Normal pulses, Normal S1 S2 Gastrointestinal: Normal bowel sounds, Soft and benign, Non-distended, No tenderness, PEG Tube in place Integumentary: No rashes MSK: some slight discomfort with ROM of L hip Assessment And Plan Fracture, intertrochanteric, left femur s/p repair (03/03) History of esophageal cancer s/p PEG tube placement CKD, stage 3 Orthostasis Chronic Systolic heart failure Acute on chronic anemia -s/p ORIF, resumed Eliquis -continue PEG tube feeds, pain medication -PT consulted -afebrile -tolerating feeds -considering inpatient rehab, pt with minimal/no assistance at home, pending further work with PT -pt currently prefers home if he can safely manage -anemia- pt denies any bleeding, no melena/hematochezia, reports recent rounds of chemo/radiation which likely contributed -will check hemoccult -Status post 2 units PRBC Dispo: anticipate dc in 1-2 days, likely tomorrow if Hgb remains stable pending further eval with PT Time Spent Managing Pts Care (In Minutes): 35
[2021-03-06] MEDS: HYDROCODONE/APAP 5/325 MG TAB PO PRN ×2 (00:39→05:02)
[2021-03-06 06:18] LABS: Absolute Lymphocytes (CBC) 0.2 K/uL (0.7-4.9); Basophils % 0.4 % (0-1.3); Hematocrit 25.9 % (39.6-49.0); Lymphocytes % 5.2 % (15.3-44.8); MPV 8.9 fL (7.6-11.3)
[2021-03-06 06:58] LABS: Magnesium 2.3 mg/dL (1.8-2.4); Potassium 4.3 mmol/L (3.5-5.1)
[2021-03-06] MEDS: FAMOTIDINE 20 MG TAB FT SCH (08:11)
[2021-03-06] MEDS: JEVITY 1.2 CAL LIQUID 1,000 ML BOT FT SCH ×2 (08:11→13:57)
[2021-03-06] MEDS: APIXABAN 5 MG TABLET PO SCH (08:11)
[2021-03-06] MEDS ORDERED: SOD FERRIC GLUC COMPLX/SUCROSE 250 MG in NA CHLORIDE 0.9% 250 ML IV SCH (09:00)
[2021-03-06] MEDS ORDERED: DOCUSATE NA 100 MG CAP PO SCH (09:00)
[2021-03-06 09:24] VITALS: O2SAT 91
--- NOTE | 2021-03-06 11:24 | PN ---
Date of Progress Note: 03/05/2021 The patient is seen today. His dressing is clean, dry, and intact. He says he has been getting up a nd working with Physical Therapy. His hemoglobin today is 8.8. He is otherwise apparently doing wel l. At this point, usually we keep him anticoagulated for 3 weeks, continue touchdown weightbearing f or 6 weeks with the use of aspirin after 3 weeks. Kite removed in 2 weeks. Follow up with me at any time. Normal times for followup would be in 2 weeks for staple removal or 6 weeks for final x-ra ys and initiation of full weightbearing. He appears to be doing well. /NA Voice ID: [id number] Report ID: [id number]
--- NOTE | 2021-03-06 13:35 | RAD REPORT ---
EXAM DESCRIPTION: RAD - ENTEROSTOMY TUBE CHECK W/CONTR - 03/06/2021 12:13 pm CLINICAL HISTORY: confirm jtube placement Abdominal pain COMPARISON: Abdomen Exam Complete dated 12/01/2020 FINDINGS: Two plain radiographs of the abdomen were performed. No fluoroscopy performed. Cap Coverer image shows a jejunostomy tube projecting over the left abdomen. Contrast was infused via the tube and efrain ls the left sided abdominal small bowel. This would indicate appropriate placement.
--- NOTE | 2021-03-06 13:50 | P.DS ---
Admission Date: 03/02/21 Discharge Date: 03/06/21 Disposition: TRANSFER TO INPATIENT REHAB Discharge Condition: GOOD Reason for Admission: Fall with left hip fracture Procedures: CXR (03/02): The lungs are grossly clear. The heart is normal in size. No displaced fractures.Right-sided port catheter tip in SVC. IMPRESSION: No acute intrathoracic process suspected. CT Head (03/02): FINDINGS: No intracranial hemorrhage, hydrocephalus or extra- axial fluid collection.Mild generalized brain atrophy is present with mild periventricular and deep white matter chronic microvascular ischemic changes.No areas of brain edema or evidence of midline shift. Small mucous retention cyst left maxillary antrum. The paranasal sinuses and mastoids are otherwise clear. The calvarium is intact. IMPRESSION: No acute intracranial abnormality. Hip X-ray (03/02): : Intratrochanteric fracture is present proximal left femur. No dislocation seen. Hip X-ray (03/02): Subcapital fracture is present of the proximal left femur with fracture extending into the intertrochanteric region. No dislocation. Hip X-ray (03/03): Compression screw and intramedullary regina affix a femoral fracture Jtubogram (03/06): Two plain radiographs of the abdomen were performed. No fluoroscopy performed. Band Cutter image shows a jejunostomy tube projecting over the left abdomen. Contrast was infused via the tube and fills the left sided abdominal small bowel. This would indicate appropriate placement. Problem List Fracture, intertrochanteric, left femur s/p repair (03/03) History of esophageal cancer s/p J tube placement, on tube feeds undergoing chemotherapy CKD, stage 3 Orthostasis Chronic Systolic heart failure Acute on chronic anemia (iron deficiency, chronic disease) Brief History of Present Illness: 70-year-old gentleman with a history of esophageal cancer, receiving radiation and chemotherapy was brought to the emergency department due to a fall at home. Patient stated he got up in the middle of the night to use the bathroom. He sat on his bed for a while for his blood pressure is stable. Regardless, patient fell from standing position. He stated he became dizzy prior to the fall. He denied any chest pain or shortness of breath or diaphoresis prior to the fall. No witnessed seizures. Imaging done in the emergency department demonstrates left femoral intertrochanteric fracture. He is on Eliquis but has not taken take any doses since last night. Orthopedic surgeon Dr. Stack was contacted who plans ORIF tomorrow. Patient was admitted to the hospitalist service for further management. Hospital Course: Patient was found to be anemic, Hgb: 7.5. Denied any bleeding, and without any obvious bleeding on exam. He was transfused 2u PRBCs with improvement. He subsequently underwent surgical repair of his left hip fracture without complications. His postoperative hemoglobin dropped to 8.5 and remained stable. His anemia is likely multifactorial, with his chronic renal disease, recent chemotherapy earlier this month, and iron deficiency. He was given 250 mg of IV iron on 03/06, and to be continued for another 4 days at inpatient rehab. His Eliquis was temporarily held for surgery and restarted postoperatively. Patient was passing flatus but had some constipation and unable to provide stool sample prior to transfer to inpatient rehab. He denied any recent dark stools. He was given Colace BID, and should continue to be monitored. He was noted to have sinus tachycardia throughout hospitalization 90s-110s, likely secondary to anemia and pain. On day of discharge, patient was working with PT and J tube was pulled out ~[address] Herman was contacted and a tubogram was performed - confirming proper placement. Patient was advised to wear abdominal binder when ambulating. Vital Signs/Physical Exam: Physical Exam General: Alert, In no apparent distress, Oriented x3 Respiratory: Clear to auscultation bilaterally, Normal air movement Cardiovascular: No edema, Normal pulses, Normal S1 S2 Gastrointestinal: Normal bowel sounds, Soft and benign, Non-distended, No tenderness, J Tube in place Integumentary: No rashes MSK: some slight discomfort with ROM of L hip Temp Pulse Resp BP Pulse Ox 98.2 F 107 H 19 122/74 95 03/06/21 12:00 03/06/21 12:00 03/06/21 12:00 03/06/21 12:00 03/06/21 12:00 Laboratory Data at Discharge: WBC 4.60 K/uL (4.3-10.9) D 03/06/21 06:03 Hgb 8.7 g/dL (13.6-17.9) L 03/06/21 06:03 Hct 25.9 % (39.6-49.0) L 03/06/21 06:03 Plt Count 180 K/uL (152-406) 03/06/21 06:03 PT 12.8 SECONDS (9.5-12.5) H 03/03/21 03:00 INR 1.11 03/03/21 03:00 APTT 25.6 SECONDS (24.3-36.9) 03/03/21 03:00 Sodium 135 mmol/L (136-145) L 03/06/21 06:03 Potassium 4.3 mmol/L (3.5-5.1) 03/06/21 06:03 BUN 49 mg/dL (7-18) H 03/06/21 06:03 Creatinine 2.33 mg/dL (0.55-1.3) H 03/06/21 06:03 Glucose 93 mg/dL (74-106) 03/06/21 06:03 Phosphorus 4.0 mg/dL (2.5-4.9) 03/06/21 06:03 Magnesium 2.3 mg/dL (1.8-2.4) 03/06/21 06:03 Total Bilirubin 0.4 mg/dL (0.2-1.0) 03/02/21 11:08 AST 18 U/L (15-37) 03/02/21 11:08 ALT 20 U/L (12-78) 03/02/21 11:08 Alkaline Phosphatase 73 U/L (45-117) 03/02/21 11:08 Troponin I 0.25 ng/mL (0.0-0.045) H 03/02/21 17:03 Home Medications: Apixaban [Eliquis] 5 mg PO BID #60 tablet 12/06/20 Docusate [Colace Cap*] 100 mg PO BID cap 03/06/21 Famotidine [Pepcid*] 20 mg FT BID tab 03/06/21 Hydrocodone 5/APAP 325 [Aguilar 5/325*] 1 tab PO Q8H PRN tab 03/06/21 Jevity 1.2 Haroldo Liquid 0 ml FT TID bot 03/06/21 Diet: tube feeds Activity: Touch-down (for 6 weeks) Followup: Giancarlo Stack MD [ACTIVE - CAN ADMIT] - Hari Guerrier MD [Primary Care Provider] - Time spent managing pt's care (in minutes): 35
[2021-03-06] MEDS ORDERED: BISACODYL 10 MG RECTAL SUPP PR ONE (13:55)
[2021-03-06 17:23] VITALS: BP 119/74; TEMP 98.4
== END 2021-03-06 17:47 | DRG 481 ==
LOC: ER 10:58 → ERHOLD 13:21 → 2ND 15:35
PROVIDERS: ADMIT Internal Medicine; ATTEND Hospitalist
PROC: 30233N1 Transfusion of Nonautologous Red Blood Cells into Peripheral Vein, Percutaneous Approach (ICD-10-PCS; 2021-03-02)
PROC: 0QS736Z Reposition Left Upper Femur with Intramedullary Internal Fixation Device, Percutaneous Approach (ICD-10-PCS; principal; 2021-03-03 08:00)
DX: S72.142A Displaced intertrochanteric fracture of left femur, initial encounter for closed fracture (principal); D62 Acute posthemorrhagic anemia; C15.9 Malignant neoplasm of esophagus, unspecified; I50.22 Chronic systolic (congestive) heart failure; I13.0 Hypertensive heart and chronic kidney disease with heart failure and stage 1 through stage 4 chronic kidney disease, or unspecified chronic kidney disease; N18.30 Chronic kidney disease, stage 3 unspecified; D63.1 Anemia in chronic kidney disease; D50.9 Iron deficiency anemia, unspecified; I95.1 Orthostatic hypotension; R77.8 Other specified abnormalities of plasma proteins; R00.0 Tachycardia, unspecified; W18.30XA Fall on same level, unspecified, initial encounter; Z79.01 Long term (current) use of anticoagulants; Z79.891 Long term (current) use of opiate analgesic; Z79.899 Other long term (current) drug therapy; Z20.822 Contact with and (suspected) exposure to COVID-19
CPT/HCPCS: 36415; 36430; 49465; 70450; 71045; 73530; 80048; 80076; 81003; 81015; 82550; 82607; 82728; 82747; 83540; 83735; 83880; 84100; 84466; 84484; 85014; 85018; 85025; 85044; 85610; 85730; 86850; 86900; 86901; 93005; 94760; 96374; 96375; 97110; 97112; 97116; 97161; 97530; 99285; C9113; G0390; J0330; J0690; J1200; J2250; J2270; J2370; J2405; J2704; J2916; J3010; J7030; J7050; J7120; P9016; U0003

== ENCOUNTER 2021-03-06 12:31 | Inpatient (IN) | payer OTHER ==
--- NOTE | 2021-03-06 14:14 | R.PREADM ---
PRE-ADMISSION SCREENING FORM SCREENING DATE AND TIME 03/06/2021 10:45 (CDT) ANTICIPATED REHAB ADMISSION DATE 03/08/2021 REFERRING FACILITY [facility] REFERRAL DATE AND TIME 03/04/2021 13:09 (CDT) REFERRAL ROOM# 202 ACUTE ADMIT DATE 03/02/2021 Previous Rehabilitation(s): No. ACUTE PROJECT INSPECTOR/DC PUTTY WORKER Ana ATTENDING PHYSICIAN Dr Kibmle REFERRING PHYSICIAN Dr Morales REHAB FACILITY [facility] CLINICAL LIAISON Larry Ervin PHYSICIAN REVIEWER Dr. Beau Barriga M.D. MR# [id number] NAME NAKUL CHIANG [place] AD[address]ESS [address] [facility] [address] DATE OF 1950 AGE 70 SSN# [id number] GENDER male MARITAL STATUS RACE white PREF. LANGUAGE (IF NON-YAKUT) Chadian ADMIT FROM 02 - [facility] PRE-HOSPITAL LIVING SETTING 01 - Home (private home/apt. board/care, assisted living, retirement, transitional living) HOME TYPE AND DETAILS Type of home: single family house # of levels in the residence: 1 # of steps to enter the residence: 1 # of steps within the residence: 0 Pt lives with spouse in a [facility] with one step and reports functioning IND, ambulatory without AD and wa s driving. Pt has 2WW, Rollator and cane at home. PRE-HOSPITAL LIVING WITH Family/Relatives FAMILY SUPPORT Yes PRIMARY FAMILY CONTACT NAME Jose Chiang PRIMARY FAMILY CONTACT PHONE PRIMARY FAMILY CONTACT RELATIONSHIP IS PRIMARY FAMILY CONTACT AUTH. REP.? no 1ST EMERGENCY CONTACT Jose Chiang 1ST CONTACT PHONE 1ST CONTACT RELATIONSHIP IS 1ST CONTACT AUTH. REP.? no PHONE 2ND CONTACT ON ADM.? no PATIENT EMPLOYMENT STATUS Retired (for age) PATIENT EMPLOYER No Employer PAYOR INFORMATION: 1ST PAYOR NAME [facility] [employer] 1ST PAYOR POLICY ID [id number] INJURY/ILLNESS DUE TO ACCIDENT? Yes ANOTHER LIBERTARIAN RESPONSIBLE? No PRIMARY REHAB/ACUTE DIAGNOSIS: Subcapitalfracture is present of the proximal left femur with fracture extending into theintertrochan teric region. No dislocation ONSET DATE 03/02/2021 REHAB IMPAIRMENT CATEGORY (CHINMAY): 07 Fracture of LE (FracLE) MEETS 60% rule AFFECTED EXTREMITIES: LLE PRIMARY DIAGNOSIS-RELATED SURGERIES: Emergency Left hip closed reduction with intramedullary regina fixation. - performed by DR VAUGHN on 03/03/2021 COMORBID REHAB/ACUTE DIAGNOSES: - Tier 3 Chronic diastolic (congestive) heart failure (I50.32) SUMMARY OF ACUTE HOSPITALIZATION: Pt. is a 70 yo Right-handed white male. On 03/02/2021 he was admitted to [facility] and underwent emergency surgery for Subcapitalfractur e is present of the proximal left femur with fracture extending into theintertrochanteric region. No dislocation (Left hip closed reduction with intramedullary regina fixation.) by DR VAUGHN. Pre-morbidly, Pt. was independent/mod-I in Transfers Control, Locomotion, Self-Care, Social Cognition , Sphincter Control, and Communication; and he had good Balance and Safety Awareness. Currently, he has deficits of Transfers Control, Balance, Locomotion, Safety Awareness, and Self-Care . Pt. is now referred to [facility] for acute in-patient rehabilitation in order to maximize patient's functional independence in activities of daily living, strength, ROM, and mobi lity. Patient has realistic goal of being discharged at assistance level 6-Beryl to reside at Home with Fam tarah/Relatives. PAST MEDICAL HISTORY Chronic diastolic (congestive) heart failure (I50.32) Stage III ESRD Hypokalemia HYPONATREMIA PE HX of esophageal CA orthostasis PAST SURGICAL HISTORY: L KNEE SX Tonsillectomy adoinectomy Jtube insertion MEDICATION ALLERGIES: No Known Drug Allergies (NKDA) ENVIRONMENTAL ALLERGIES: None Known - Substance Allergies None Known - Other Allergies None Known CODE STATUS: Do not resuscitate(DNR) WEIGHT/HEIGHT/BMI: WEIGHT 165 lbs HEIGHT 6' 1" BMI 21.8 DIET: - Diet Type Regular - Diet - Solid Texture Regular - Diet - Liquid Texture Regular - Tube Feed N/A SKIN DIAGRAM: Incision on Left hip; extent - small; stage - NS(Not Stageable). Treatment - Per Physician's Orders. REVIEW OF SYSTEMS: - Gen Alert and awake Lying in bed No apparent distress Oriented to: person, time, and place - Vital Signs Vital signs stable, afebrile - CVS RRR VITAL SIGNS Temperature: 98.3 F SBP/DBP: 123/71 Pulse: 105 Resp: 18 Vital signs stable, afebrile MEDICATIONS/TREATMENT: Other- See attached MAR (Medication Administration Record). CURRENT SPHINCTER CONTROL: Pre-hospital bladder status: continent Pre-hospital bowel status: continent Last Bowel Movement Date: 03/06/2021 CURRENT LOCOMOTION STATUS: distance walked 2 feet DETAILED CURRENT FUNCTIONAL STATUS: - Wheelchair score based on distance traveled: 1(<=50ft) QI SCORES: - Self-Care A. Eating 04-Supervision or touching assistance B. Oral hygiene 04-Supervision or touching assistance C. Toileting hygiene 02-Substantial/maximal assistance E. Shower/bathe self 10-Not attempted due to environmental limitations F. Upper body dressing 03-Partial/moderate assistance G. Lower body dressing 88-Not attempted due to medical condition or safety concerns H. Putting on/taking off footwear 10-Not attempted due to environmental limitations - Mobility A. Roll left and right 04-Supervision or touching assistance B. Sit to lying 04-Supervision or touching assistance C. Lying to sitting on side of bed 04-Supervision or touching assistance D. Sit to stand 04-Supervision or touching assistance E. Chair/yrs-of-lcnno transfer 88-Not attempted due to medical condition or safety concerns F. Toilet transfer 88-Not attempted due to medical condition or safety concerns G. Car transfer 10-Not attempted due to environmental limitations I. Walk 10 feet 88-Not attempted due to medical condition or safety concerns J. Walk 50 feet with two turns 88-Not attempted due to medical condition or safety concerns K. Walk 150 feet 88-Not attempted due to medical condition or safety concerns L. Walking 10 feet on uneven surfaces 88-Not attempted due to medical condition or safety concerns M. 1 step (curb) 88-Not attempted due to medical condition or safety concerns N. 4 steps 88-Not attempted due to medical condition or safety concerns O. 12 steps 88-Not attempted due to medical condition or safety concerns P. Picking up object 88-Not attempted due to medical condition or safety concerns - Bladder and Bowel Bladder continence 0-Always continent Bowel continence 0-Always continent - Endurance Poor - Balance Poor - Safety Awareness Poor CURRENT FUNC. DEFICITS: Self-Care, Mobility, Endurance, Balance, and Safety Awareness CURRENT / PREVIOUS ASSISTIVE DEVICES: Quad Cane Rolling Walker Standard Walker HISTORY OF FALLS. HAS THE PATIENT HAD TWO OR MORE FALLS IN THE PAST YEAR OR ANY FALL WITH INJURY IN T HE PAST YEAR?: Yes PRIOR SURGERY. DID THE PATIENT HAVE MAJOR SURGERY DURING THE 100 DAYS PRIOR TO ADMISSION?: Yes THERAPY NOTES FROM ACUTE CARE: Attached. SPECIAL NEEDS: - Safety Concerns Skin breakdown precautions needed due to skin breakdown risk PRECAUTIONS: - Weight Bearing Precaution TTWB left LE PATIENT NEEDS ACTIVE AND ONGOING THERAPEUTIC INTERVENTION OF MULTIPLE THERAPY DISCIPLINES, INCLUDING: - Dietary and Nutrition Adequate Nutrition. Nutritional Education. Nutritional Supplements. PATIENT NEEDS CLOSE MEDICAL SUPERVISION BY A REHABILITATION PHYSICIAN FOR: Coordination of Treatment Team Medical and Co-Morbidity Management Post-Op Complications Wound Care PATIENT REQUIRES 24X7 REHAB NURSING FOR MEDICAL AND FUNCTIONAL MGT. OF THE FOLLOWING DEFICITS: Disease Management Medication Management Patient/Family Education Providing Safe Environment Skin Integrity PATIENT REQUIRES INTENSIVE, COORDINATED INTERDISCIPLINARY APPROACH TO REHAB: Arranging Home Equipment/Services Discharge Planning Family Intervention/Training Lens Matcher/Case Management PATIENT REHAB POTENTIAL: Ileana CHIANG is able and expected to receive 3 hours of individualized therapy daily on at least 5 of laurie ry 7 days Ileana CHIANG's prognosis for significant practical improvement within a reasonable period of time appears Good Expected level of measurable improvement will be of a practical value to Ileana CHIANG's functional capaci ty or adaptations to impairments Has a viable Discharge Plan Medically appropriate; condition is sufficiently stable to participate in intensive rehab program DISCHARGE PLAN: - Estimated Length of Stay (days) 14. - Consensus on plan Discharge plan has been discussed with primary caregiver. Patient/Family is in agreement with the omar n. Primary caregiver is in agreement with the plan. - Patient/Family Goals Return home with assistance. - Planned Living Setting Upon Discharge Home, to live with Family/Relatives. RECOMMENDED CARE LEVEL: IRF RECOMMENDATION DETAILS: Recommended Admission to Comprehensive Rehabilitation Program to Increase Functional Flasher SCREENER'S COMPLETENESS CONFIRMATION: - Screening Confirmation The patient data collection on this preadmission screening form is finished PHYSICIANS REVIEW AND ADMISSION DETERMINATION Admit - Based on my review of the Pre-Admission Screening results, in my medical judgment and experie nce, I concur with the findings and recommend admission to [facility], as this patient requires an IRF level of care. SIGNATURE PANEL: Line Analyst - [electronically] signed by Jenise Pantoja Meeting Coordinator on 03/06/2021 at 11:11 (CD T) Line Analyst - [electronically] signed by Danis Ervin PT on 03/06/2021 at 12:10 (CDT) Physician Reviewer - [electronically] signed by Dr. Beau Barriga M.D. on 03/06/2021 at 14:13 (CDT )
--- OUTSIDE RECORDS SUMMARY | 2021-03-06 17:56 | XMS REPORT | Continuity of Care Document ---
:1950 Author Organization [facility] t Address [address] [place] [address] Care Team Providers Name Role Phone Pepe Mckeon MD Primary Care Physician Courtney GLASGOW Attending Clinician Unavailable Amador PRATER, Y.H. Attending Clinician Provider Attending Clinician Lindsey Banegas NP Attending Clinician Payers Payer Name Policy Type Policy Effective Date Expiration Date Sour ce Number DEVOTED [id number] [id number]PresentHMO Problems This patient has no known problems. Allergies, Adverse Reactions, Alerts This patient has no known allergies or adverse reactions. Social History Social Habit Start Date Stop Date Quantity Comments Source Exposure to Not sure [place] [facility] SARS-CoV-2 (event) Cigarettes smoked 2021-02-21 2021-02-21 Dick Najera current (pack per 00:00:00 00:00:00 day) - Reported Cigarette 2021-02-21 2021-02-21 Dick Flynn ist pack-years 00:00:00 00:00:00 Tobacco use and 2021-02-21 2021-02-21 Never used Dick Atwood ethodist exposure 00:00:00 00:00:00 History of tobacco 2020-09-11 Current smoker Filemon brown Confucianist use 00:00:00 Sex Ass[birth year] At [birth year] [...] blood 2021-02-21 09:28:00 96 mm[Hg] Joseto n Confucianist pressure Diastolic blood 2021-02-21 09:28:00 64 mm[Hg] Hoda on Confucianist pressure Heart rate 2021-02-21 09:28:00 60 /min Dick Najera Body temperature 2021-02-21 09:28:00 36.61 Sherri Jose Najera Respiratory rate 2021-02-21 09:28:00 17 /min Jose ton Confucianist Body height 2021-02-21 09:28:00 182.9 cm Dick [...] WO 2020-11-25 00:00:00 Provider, Historical Filemon brown Confucianist CONTRAST CT ABDOMEN PELVIS WO 2020-10-29 00:00:00 Provider, Historical Filemon brown Confucianist CONTRAST CT ABDOMEN WO CONTRAST 2020-10-29 00:00:00 Provider, Historical Dick Flynnist CT CHEST WO CONTRAST 2020-10-29 00:00:00 Provider, Historical Filemon brown Confucianist Plan of Care Planned Activity Planned Date Details Comments Source Future Scheduled 2021-05-12 INFLUENZA VACCINE [place] [facility] Test 00:00:00 [code = INFLUENZA VACCINE] Future Scheduled 1999 COLONOSCOPY SCREENING [place] [facility] 00:00:00 [code = COLONOSCOPY SCREENING] Future Scheduled 1999 SHINGLES VACCINES (#1) [place] [facility] 00:00:00 [code = SHINGLES VACCINES (#1)] Future Scheduled 1967 Hepatitis C screening [place] [facility] 00:00:00 (procedure) [code = 000092153] Future Scheduled 1961 COVID-19 VACCINE (1) [place] [facility] 00:00:00 [code = COVID-19 VACCINE (1)] Future Scheduled 1955 65+ PNEUMOCOCCAL [place] [facility] Test 00:00:00 VACCINE (1 of 4 - PCV13) [code = 65+ PNEUMOCOCCAL VACCINE (1 of 4 - PCV13)] Encounters Start End Encounter Admission Attending Care Care Encounter Source Date/Time Date/Time Type Type Clinicians Facility Department ID 2021-02-21 2021-02-21 Outpatient [facility] [id number] [place] 00:00:00 00:00:00 [facility] [address] 2021-02-21 2021-02-21 [facility] [id number] [place] 00:00:00 00:00:00 [facility] [address] 2021-02-21 2021-02-21 Outpatient [facility] [id number] [place] 00:00:00 00:00:00 EDDAL[address] 2020-11-22 2020-11-22 Outpatient [facility] [id number] [place] 00:00:00 00:00:00 [facility] [address] Results This patient has no known results.
[2021-03-06] MEDS ORDERED: HYDROCODONE/APAP 5/325 MG TAB PO PRN (18:22)
[2021-03-06] MEDS ORDERED: DOCUSATE NA 100 MG CAP PO SCH (20:00)
[2021-03-06] MEDS: JEVITY 1.2 CAL LIQUID 1,000 ML BOT FT SCH (21:00)
[2021-03-06] MEDS: FAMOTIDINE 20 MG TAB PO SCH (21:06)
[2021-03-06] MEDS: APIXABAN 5 MG TABLET PO SCH (21:07)
[2021-03-06 22:20] LABS: Urine Appearance CLEAR (Clear); Urine Bilirubin NEGATIVE (Negative); Urine Blood TRACE (Negative); Urine Color YELLOW (Yellow); Urine Glucose NEGATIVE (Negative); Urine Protein 1+ (Negative); Urine Urobilinogen 0.2 mg/dL (0.2-1.0); Urine pH 5.5 (5.0-7.0)
[2021-03-06 23:49] LABS: Urine Bacteria 20-50 /HPF (NONE SEEN); Urine RBC <5 /HPF (NONE SEEN); Urine Urothelial Cells <5 /HPF (NONE SEEN)
--- NOTE | 2021-03-07 05:21 | R.HP ---
HISTORY AND PHYSICAL FACILITY: [facility] ENCOUNTER DATE AND TIME: 03/07/2021 05:18 (CDT) MR#: [id number] NAME NAKUL MILAN ADDRESS: [address] [place] [address] CITY: [place]IP [id number] PHONE: DATE OF : 1950 AGE: 70 SSN# [id number] GENDER: Male DEXTERITY Right-handed MARITAL STATUS RACE White PRE-HOSPITAL LIVING SETTING 01 - Home (private home/apt. board/care, assisted living, assisted, transitional living) PRE-HOSPITAL LIVING WITH Family/Relatives ENCOUNTER PHYSICIAN: Dr. Lance Perdue REFERRING DOCTOR: Dr Morales DATE OF ADMISSION: 03/07/2021 05:19 (CDT) REFERRING FACILITY [facility] HOME TYPE AND DETAILS: Type of home: single family house # of levels in the residence: 1 # of steps to enter the residence: 1 # of steps within the residence: 0 Pt lives with spouse in a [facility] with one step and reports functioning IND, ambulatory without AD and wa s driving. Pt has 2WW, Rollator and cane at home. ADMISSION DIAGNOSIS: Subcapitalfracture is present of the proximal left femur with fracture extending into theintertrochan teric region. No dislocation ONSET DATE: 03/02/2021 PRIMARY DIAGNOSIS-RELATED SURGERIES: Emergency Left hip closed reduction with intramedullary regina fixation. - performed by DR VAUGHN on 03/03/2021 SECONDARY/COMORBID DIAGNOSES (TIERED): - Tier 3 Chronic diastolic (congestive) heart failure (I50.32) HISTORY OF PRESENT ILLNESS (HPI): Pt. is a 70 yo Right-handed white male. On 03/02/2021 he was admitted to [facility] and underwent emergency surgery for Subcapitalfractur e is present of the proximal left femur with fracture extending into theintertrochanteric region. No dislocation (Left hip closed reduction with intramedullary regina fixation.) by DR VAUGHN. Pre-morbidly, Pt. was independent/mod-I in Transfers Control, Locomotion, Self-Care, Social Cognition , Sphincter Control, and Communication; and he had good Balance and Safety Awareness. Currently, he has deficits of Transfers Control, Balance, Locomotion, Safety Awareness, and Self-Care . Pt. is now referred to [facility] for acute in-patient rehabilitation in order to maximize patient's functional independence in activities of daily living, strength, ROM, and mobi lity. Patient has realistic goal of being discharged at assistance level 6-Beryl to reside at Home with Fam tarah/Relatives. MEDICATION ALLERGIES: No Known Drug Allergies (NKDA) ENVIRONMENTAL ALLERGIES: None Known - Substance Allergies None Known - Other Allergies None Known PAST MEDICAL HISTORY: Chronic diastolic (congestive) heart failure (I50.32) Stage III ESRD Hypokalemia HYPONATREMIA PE HX of esophageal CA orthostasis PAST SURGICAL HISTORY: L KNEE SX Tonsillectomy adoinectomy Jtube insertion SOCIAL HISTORY: - Home Living Family/Relatives REVIEW OF SYSTEMS: - Gen No Chills No Fatigue No Fever - Eyes No Double Vision No itchiness - ENMT No Difficulty Swallowing - CVS No Chest Discomfort No Chest Pain No Fatigue No Weight Gain - Resp No Cough No Shortness of Breath - GI Continent No Abdominal Pain No Constipation No Diarrhea - Continent No Kidney Pain No Painful Urination No Urinary Urgency - MSK No Joint Pain No Muscle Cramps No Stiffness - Skin No Itching No Rash No Suspicious Lesions - Neuro No Coordination Difficulty No Difficulty with Concentration No Memory Loss No Seizures No Weakness - Psych No Anxiety No Depression No HIV Exposure No Persistent Infections No Seasonal Allergies - Endo No Cold/Heat Intolerance No Excessive Hunger No Excessive Thirst No Excessive Urination PHYSICAL EXAM - Gen Alert and awake Lying in bed No apparent distress Oriented to: person, time, and place - Vital Signs Vital signs stable, afebrile - CVS RRR VITAL SIGNS Temperature: 98.3 F SBP/DBP: 123/71 Pulse: 105 Resp: 18 Vital signs stable, afebrile NURSING: - Shower allowing shower - Skin care per protocol PRECAUTIONS: - Weight Bearing Precaution TTWB left LE ACTIVITIES OOB only with supervision QI SCORES: - Self-Care A. Eating 04-Supervision or touching assistance B. Oral hygiene 04-Supervision or touching assistance C. Toileting hygiene 02-Substantial/maximal assistance E. Shower/bathe self 10-Not attempted due to environmental limitations F. Upper body dressing 03-Partial/moderate assistance G. Lower body dressing 88-Not attempted due to medical condition or safety concerns H. Putting on/taking off footwear 10-Not attempted due to environmental limitations - Mobility A. Roll left and right 04-Supervision or touching assistance B. Sit to lying 04-Supervision or touching assistance C. Lying to sitting on side of bed 04-Supervision or touching assistance D. Sit to stand 04-Supervision or touching assistance E. Chair/[id number] transfer 88-Not attempted due to medical condition or safety concerns F. Toilet transfer 88-Not attempted due to medical condition or safety concerns G. Car transfer 10-Not attempted due to environmental limitations I. Walk 10 feet 88-Not attempted due to medical condition or safety concerns J. Walk 50 feet with two turns 88-Not attempted due to medical condition or safety concerns K. Walk 150 feet 88-Not attempted due to medical condition or safety concerns L. Walking 10 feet on uneven surfaces 88-Not attempted due to medical condition or safety concerns M. 1 step (curb) 88-Not attempted due to medical condition or safety concerns N. 4 steps 88-Not attempted due to medical condition or safety concerns O. 12 steps 88-Not attempted due to medical condition or safety concerns P. Picking up object 88-Not attempted due to medical condition or safety concerns - Bladder and Bowel Bladder continence 0-Always continent Bowel continence 0-Always continent - Endurance Poor - Balance Poor - Safety Awareness Poor CURRENT FUNC. DEFICITS: Self-Care, Mobility, Endurance, Balance, and Safety Awareness MEDICATIONS: - Other See attached MAR (Medication Administration Record) ASSESSMENT: Pt. is a 70 yo Right-handed white male.On 03/02/2021 he was admitted to [facility] and underwent emergency surgery for Subcapitalfracture is present of the proximal left femur with fracture extendin g into theintertrochanteric region. No dislocation (Left hip closed reduction with intramedullary regina fixation.) by DR VAUGHN.Pre-morbidly, Pt. was indepen dent/mod-I in Transfers Control, Locomotion, Self-Care, Social Cognition, Sphincter Control, and Comm unication; and he had good Balance and Safety Awareness.Currently, he has deficits of Transfers Contr ol, Balance, Locomotion, Safety Awareness, and Self-Care.Pt. is now referred to [facility] for acute in-patient rehabilitation in order to maximize patient's functional independen ce in activities of daily living, strength, ROM, and mobility.- Rehab Goal Patient has realistic goal of being discharged at assistance level 6-Beryl to reside at Home with Fam tarah/Relatives. REHAB PLAN: - Physical Therapy Decreased range of motion - to improve, our physical therapists will perform initial evaluation of pt 's status upon admission and devise an individualized program for increasing patient's Range of Motio n. Gait dysfunction - to improve, our physical therapists will perform initial evaluation of pt's status upon admission and devise an individualized program for Gait Training, and Wheel Chair mobility Inability to transfer - to improve, our physical therapists will perform initial evaluation of pt's s tatus upon admission and devise an individualized program for Bed mobility Need for home safety evaluation - to improve, our physical therapists will perform initial evaluation of pt's status upon admission and devise an individualized program for Home Evaluation Need in caregiver upon discharge - to improve, our physical therapists will perform initial evaluatio n of pt's status upon admission and devise an individualized program for Caregiver Training New precaution - to improve, our physical therapists will perform initial evaluation of pt's status u sigifredo admission and devise an individualized program for Patient precaution education Poor balance - to improve, our physical therapists will perform initial evaluation of pt's status upo n admission and devise an individualized program for Balance Training Weakness - to improve, our physical therapists will perform initial evaluation of pt's status upon ad mission and devise an individualized program for Aquatic Therapy, Neuromuscular Reeducation, and Stre ngthening Achieving independence - to improve, our physical therapists will perform initial evaluation of pt's status upon admission and devise an individualized program for Community Reintegration Activities - Occupational Therapy ADL deficits - to improve, our occupation therapists will perform initial evaluation of pt's status u sigifredo admission and devise an individualized program for Bathing, Bed mobility, Community Reintegration , Cooking, Dressing, Eating, Fine Motor Skills, Grooming, Homemaking, Kitchen Mobility, Laundry, Coretta ent Education, Safety Awareness, Splinting - Positioning, Transfers(Toilet, Tub, Shower), and Wheel C hair Management Need for health care specialist - to improve, our occupation therapists will perform initial evaluation of pt's s tatus upon admission and devise an individualized program for Caregiver Training Weakness - to improve, our occupation therapists will perform initial evaluation of pt's status upon admission and devise an individualized program for Aquatic Therapy, Balance, Endurance, UE ROM, and U E strengthening MEDICAL PLAN: - Anterior Hip Precaution No abduction No active extension No adduction across midline No external rotation No hip flexion >90 degrees No internal rotation - Diet - Liquid Texture Start Regular - Tube Feed Start N/A - Diet Type Start Regular - Posterior Hip Precaution No adduction across midline No external rotation No hip flexion >90 degrees No internal rotation No wheel chair propulsion - Weight Bearing Precaution TTWB left LE - Skin care per protocol - Other See attached MAR (Medication Administration Record) - Diet - Solid Texture Regular - Shower shower DISCHARGE PLAN: - Estimated Length of Stay (days) 14. - Consensus on plan Discharge plan has been discussed with primary caregiver. Patient/Family is in agreement with the omar n. Primary caregiver is in agreement with the plan. - Patient/Family Goals Return home with assistance. - Planned Living Setting Upon Discharge Home, to live with Family/Relatives. SIGNATURE PANEL: (CDT)
[2021-03-07 06:53] LABS: Absolute Lymphocytes (CBC) 0.3 K/uL (0.7-4.9); Basophils % 0.3 % (0-1.3); Hematocrit 27.6 % (39.6-49.0); Lymphocytes % 5.4 % (15.3-44.8); MPV 9.6 fL (7.6-11.3); RBC Red Blood Cell Count 2.96 M/uL (4.33-5.43)
[2021-03-07 06:59] LABS: Albumin 1.8 g/dL (3.4-5.0); Magnesium 2.4 mg/dL (1.8-2.4); Potassium 4.4 mmol/L (3.5-5.1); Prealbumin 7.6 mg/dL (20-40)
[2021-03-07] MEDS: FAMOTIDINE 20 MG TAB PO SCH ×2 (08:00→19:36)
[2021-03-07] MEDS: JEVITY 1.2 CAL LIQUID 1,000 ML BOT FT SCH ×2 (08:00→14:25)
[2021-03-07] MEDS: APIXABAN 5 MG TABLET PO SCH ×2 (08:09→20:50)
[2021-03-07] MEDS ORDERED: SENOSIDES 8.6 MG TAB PO PRN (11:34)
[2021-03-07] MEDS ORDERED: HYDROCODONE/APAP 5/325 MG TAB PO PRN (12:09)
[2021-03-07] MEDS: SOD FERRIC GLUC COMPLX/SUCROSE 250 MG in NA CHLORIDE 0.9% 250 ML IV SCH (15:36)
[2021-03-07] MEDS ORDERED: NA CHLORIDE 0.9% 250 ML ONE (16:00)
--- NOTE | 2021-03-07 17:41 | PAPE ---
POST ADMISSION PHYSICIAN EVALUATION PATIENT: [facility] MR# [id number] REFERRING DOCTOR Dr Morales EVALUATION DATE AND TIME 03/07/2021 17:38 (CDT) NAME NAKUL MILAN DATE OF 1950 AGE 70 PHONE SSN# [id number] GENDER male EVALUATING PHYSICIAN Dr. Beau Barriga M.D. ADMISSION DIAGNOSIS: Subcapitalfracture is present of the proximal left femur with fracture extending into theintertrochan teric region. No dislocation ONSET DATE 03/02/2021 SECONDARY/COMORBID DIAGNOSES TIERED: - Tier 3 Chronic diastolic (congestive) heart failure (I50.32) POST-ADMISSION FUNCTIONAL/MEDICAL STATUS: - Wheelchair Same score based on distance traveled: 1(<=50ft) STATUS CHANGE EVALUATION: No change in Functional or Medical Status is identified compared with Pre-Admission screening. PATIENT NEEDS CLOSE MEDICAL SUPERVISION BY A REHABILITATION PHYSICIAN FOR: Coordination of Treatment Team Medical and Co-Morbidity Management Post-Op Complications Wound Care PATIENT REQUIRES 24X7 REHAB NURSING FOR MEDICAL AND FUNCTIONAL MGT. OF THE FOLLOWING DEFICITS: Disease Management Medication Management Patient/Family Education Providing Safe Environment Skin Integrity PATIENT REQUIRES INTENSIVE, COORDINATED INTERDISCIPLINARY APPROACH TO REHAB: Arranging Home Equipment/Services Discharge Planning Family Intervention/Training Cardiology Clinical Consultant/Case Management LIST OF IDENTIFIED AND POTENTIAL PROBLEMS: Alteration in leisure activities Infection, Actual or Potential Mobility Impaired Pain, Alteration in Comfort Self Care Deficit Skin Integrity, Actual or Potential Urinary Tract Infection (UTI), Actual or Potential PATIENT COULD BE AT RISK FOR COMPLICATIONS FROM ADVERSE MEDICAL CONDITIONS DUE TO HIS/HER COMORBIDITI ES AND THE RIGORS OF THE INTENSIVE REHABILLITATION PROGRAM. METHODS OR INTERVENTIONS TO AVOID COMPLIC ATIONS INCLUDE: - Bleeding Assess lab values and manage abnormalities. Nursing to teach precautions for anti-coagulation therapy . Wound to be assessed every shift. - Infection Clinical staff to assess and manage the signs and symptoms of infection including fever, redness, war mth, etc. - Urinary Tract Infection - Falls Patient will be evaluated for Fall Precautions and will be placed on Fall Precautions as indicated pe r protocol. - Skin Breakdown Nursing will assess skin daily using assessment tool and will place on Skin Breakdown Precautions as indicated per protocol. - Pain Clinical staff may employ non-medication methods such as massage, distraction, decrease stimulus, etc . as needed. Clinical staff will assess patient's pain level every shift per protocol to assess and e nsure pain management effectiveness. Medications will be given and the pain level re-assessed. PRELIMINARY PLAN OF CARE: - Physical Therapy Patient needs Physical Therapy for a daily minimum of 1.5 hours at least 5 out of 7 days, to improve: Mobility, Strengthening, Transfers, Stretching, ROM, Endurance, Ability to manage stairs, Gait, and Balance. - Speech Therapy Patient needs Speech Therapy for a daily minimum of 0.5 hours at least 5 out of 7 days, to improve: S wallowing, Cognition, Language Skills, and Compensatory Strategies. - Rehabilitation Nursing Patient requires 24x7 Rehabilitation Nursing for: Pain Issues, Identifying and preventing risk factor s, Monitoring and reporting current medical conditions, Assisting with ambulation and transfer, Jani ting with all ADL-s, Teaching patients about disease process and medications, Family teaching, Provid ing safe environment, Bowel and Bladder Issues, Skin Integrity, and Medication Management. Patient needs Cardiology Clinical Consultant and/or Case Management for: Discharge Planning, Arranging Home Equipmen t or Services, and Family Interventions. - Dietary and Nutrition Services Patient needs Dietary and Nutrition Services for: Adequate Nutrition, Nutritional Supplements, and Nu tritional Education. - Occupational Therapy Patient needs Occupational Therapy for a daily minimum of 1.5 hours at least 5 out of 7 days, to impr ove Activities of Daily Living, including: Eating, Grooming, Bathing, Dressing, Toileting, Toilet Tra nsfers, Community Reintegration, Higher functional activities, Adaptive Equipment, Splinting, Househo ld Tasks, and Other activities as determined. QI SCORES: - Self-Care A. Eating 04-Supervision or touching assistance B. Oral hygiene 04-Supervision or touching assistance C. Toileting hygiene 02-Substantial/maximal assistance E. Shower/bathe self 10-Not attempted due to environmental limitations F. Upper body dressing 03-Partial/moderate assistance G. Lower body dressing 88-Not attempted due to medical condition or safety concerns H. Putting on/taking off footwear 10-Not attempted due to environmental limitations - Mobility A. Roll left and right 04-Supervision or touching assistance B. Sit to lying 04-Supervision or touching assistance C. Lying to sitting on side of bed 04-Supervision or touching assistance D. Sit to stand 04-Supervision or touching assistance E. Chair/ptc-gu-twbkq transfer 88-Not attempted due to medical condition or safety concerns F. Toilet transfer 88-Not attempted due to medical condition or safety concerns G. Car transfer 10-Not attempted due to environmental limitations I. Walk 10 feet 88-Not attempted due to medical condition or safety concerns J. Walk 50 feet with two turns 88-Not attempted due to medical condition or safety concerns K. Walk 150 feet 88-Not attempted due to medical condition or safety concerns L. Walking 10 feet on uneven surfaces 88-Not attempted due to medical condition or safety concerns M. 1 step (curb) 88-Not attempted due to medical condition or safety concerns N. 4 steps 88-Not attempted due to medical condition or safety concerns O. 12 steps 88-Not attempted due to medical condition or safety concerns P. Picking up object 88-Not attempted due to medical condition or safety concerns - Bladder and Bowel Bladder continence 0-Always continent Bowel continence 0-Always continent - Endurance Poor - Balance Poor - Safety Awareness Poor POTENTIAL FUNCTIONAL GOALS FOR PATIENT TO ACHIEVE BY DISCHARGE: - Safety Precaution Patient will remain free from falls or injury at time of discharge. - Bed Mobility Patient will perform bed mobility at 4-Petra level of assistance. - Transfers Patient will complete transfers from bed to chair at 4-Petra level of assistance. - Mobility Patient will ambulate 150 ft with 4-Petra level of assistance with RW. PATIENT REHAB POTENTIAL Ileana MILAN is able and expected to receive 3 hours of individualized therapy daily on at least 5 of laurie ry 7 days Ileana MILAN's prognosis for significant practical improvement within a reasonable period of time appears Good Expected level of measurable improvement will be of a practical value to Ileana MILAN's functional capaci ty or adaptations to impairments Has a viable Discharge Plan Medically appropriate; condition is sufficiently stable to participate in intensive rehab program DISCHARGE PLAN: - Estimated Length of Stay (days) 14. - Consensus on plan Discharge plan has been discussed with primary caregiver. Patient/Family is in agreement with the omar n. Primary caregiver is in agreement with the plan. - Patient/Family Goals Return home with assistance. - Planned Living Setting Upon Discharge Home, to live with Family/Relatives. CONCLUSION ON REHABILITATION NECESSITY: I have evaluated patient's pre-admission functional status and, comparing it to the patient's post-ad mission functional status now, I conclude that the pre-admission assessment was accurate. Patient's c ondition on admission supports the medical necessity of admission to IR[facility]. It is safe to proceed with patient's therapy program. SIGNATURE PANEL: (CDT)
[2021-03-07] MEDS: HYDROCODONE/APAP 5/325 MG TAB PO PRN (19:35)
[2021-03-07] MEDS: JEVITY 1.5 CAL LIQUID 1,000 ML BOT FT SCH (20:51)
[2021-03-08] MEDS: HYDROCODONE/APAP 5/325 MG TAB PO PRN ×3 (07:49→15:50)
[2021-03-08] MEDS: JEVITY 1.5 CAL LIQUID 1,000 ML BOT FT SCH ×4 (07:50→21:39)
[2021-03-08] MEDS: APIXABAN 5 MG TABLET PO SCH ×2 (07:50→21:37)
[2021-03-08] MEDS: SOD FERRIC GLUC COMPLX/SUCROSE 250 MG in NA CHLORIDE 0.9% 250 ML IV SCH ×2 (08:00→15:40)
[2021-03-08] MEDS: FAMOTIDINE 20 MG TAB PO SCH ×2 (08:00→21:37)
--- NOTE | 2021-03-08 10:02 | P.RH.PN ---
Estimated Length of Stay: 12 Expected Discharge Date: 03/17/21 Discharge Disposition Plan: Home Family Support: Yes Prison Goal: Mobility, Transfers, Self Care Vital Signs: Last Vital Signs Temp 99.3 F 03/08/21 08:31 Pulse 105 H 03/08/21 08:31 Resp 18 03/08/21 08:49 BP 126/74 03/08/21 08:31 Pulse Ox 94 03/08/21 08:49 Laboratory: Laboratory Last Values WBC 5.60 K/uL (4.3-10.9) D 03/07/21 06:18 RBC 2.96 M/uL (4.33-5.43) L 03/07/21 06:18 Hgb 9.1 g/dL (13.6-17.9) L 03/07/21 06:18 Hct 27.6 % (39.6-49.0) L 03/07/21 06:18 MCV 93.3 fL (80-100) 03/07/21 06:18 MCH 30.7 pg (27.0-35.0) 03/07/21 06:18 MCHC 32.9 g/dL (32.0-36.0) 03/07/21 06:18 RDW 17.8 % (12.1-15.2) H 03/07/21 06:18 Plt Count 212 K/uL (152-406) 03/07/21 06:18 MPV 9.6 fL (7.6-11.3) 03/07/21 06:18 Neutrophils % 80.2 % (41.7-73.7) H 03/07/21 06:18 Lymphocytes % 5.4 % (15.3-44.8) L 03/07/21 06:18 Monocytes % 6.6 % (3.3-12.3) 03/07/21 06:18 Eosinophils % 7.5 % (0-4.4) H 03/07/21 06:18 Basophils % 0.3 % (0-1.3) 03/07/21 06:18 Absolute Neutrophils 4.5 K/uL (1.8-8.0) 03/07/21 06:18 Absolute Lymphocytes 0.3 K/uL (0.7-4.9) L 03/07/21 06:18 Absolute Monocytes 0.4 K/uL (0.1-1.3) 03/07/21 06:18 Absolute Eosinophils 0.4 K/uL (0-0.5) 03/07/21 06:18 Absolute Basophils 0.0 K/uL (0-0.5) 03/07/21 06:18 Sodium 138 mmol/L (136-145) 03/07/21 06:18 Potassium 4.4 mmol/L (3.5-5.1) 03/07/21 06:18 Chloride 106 mmol/L (98-107) 03/07/21 06:18 Carbon Dioxide 25 mmol/L (21-32) 03/07/21 06:18 BUN 51 mg/dL (7-18) H 03/07/21 06:18 Creatinine 2.52 mg/dL (0.55-1.3) H 03/07/21 06:18 Estimated GFR 25 mL/min (=/>90) L 03/07/21 06:18 Glucose 93 mg/dL (74-106) 03/07/21 06:18 Calcium 8.3 mg/dL (8.5-10.1) L 03/07/21 06:18 Magnesium 2.4 mg/dL (1.8-2.4) 03/07/21 06:18 Albumin 1.8 g/dL (3.4-5.0) L 03/07/21 06:18 Prealbumin 7.6 mg/dL (20-40) L 03/07/21 06:18 Urine Color Yellow (Yellow) 03/06/21 21:30 Urine Appearance Clear (Clear) 03/06/21 21:30 Urine pH 5.5 (5.0-7.0) 03/06/21 21:30 Ur Specific [place] 1.020 (1.005-1.030) 03/06/21 21:30 Glucose (UA)(Auto) Negative (Negative) 03/06/21 21:30 Urine Ketones Negative (Negative) 03/06/21 21:30 Urine Blood Trace (Negative) H 03/06/21 21:30 Urine Nitrite Negative (Negative) 03/06/21 21:30 Urine Bilirubin Negative (Negative) 03/06/21 21:30 Urine Urobilinogen 0.2 mg/dL (0.2-1.0) 03/06/21 21:30 Ur Leukocyte Esterase Negative (Negative) 03/06/21 21:30 Urine RBC <5 /HPF (NONE SEEN) 03/06/21 21:30 Urine WBC <5 /HPF (<5) 03/06/21 21:30 Ur Squamous Epith Cells BUNG DROPPER 03/06/21 21:30 Ur Urothelial Cells <5 /HPF (NONE SEEN) 03/06/21 21:30 Urine Bacteria 20-50 /HPF (NONE SEEN) H 03/06/21 21:30 Fine Granular Casts 0-5 /LPF (NONE SEEN) 03/06/21 21:30 Coarse Granular Casts 5-10 /LPF (NONE SEEN) 03/06/21 21:30 Urine Culture Reflexed Not needed 03/06/21 21:30 Urine Total Protein 1+ (Negative) H 03/06/21 21:30 Weight: 165 lb Wound Present: No Closed Surgical Incision Present: Yes Negative Pressure Wound Therapy Present: No Physician Update: He has some difficulty with touch down weight bearing. His moderate assistance with ADLs. He is contact guard with tranfers and ambulation. His labs were reviewed. Summary: Patient's care plan and custodial goals have been reviewed and revised as necessary. Please see the Rehabilitation Signature page for all necessary signatures.
[2021-03-08] MEDS: LOPERAMIDE HCL 2 MG CAPSULE PO PRN (18:27)
[2021-03-08] MEDS: LOPERAMIDE HCL 2 MG CAPSULE PO SCH (21:37)
[2021-03-08] MEDS: TRAMADOL HCL 50 MG TAB PO PRN (21:38)
[2021-03-08] MEDS: MELATONIN 3 MG TABLET PO PRN (21:38)
[2021-03-09] MEDS: LOPERAMIDE HCL 2 MG CAPSULE PO SCH (08:35)
[2021-03-09] MEDS: FAMOTIDINE 20 MG TAB PO SCH ×2 (08:35→19:45)
[2021-03-09] MEDS: APIXABAN 5 MG TABLET PO SCH ×2 (08:35→19:45)
[2021-03-09] MEDS: HYDROCODONE/APAP 5/325 MG TAB PO PRN ×3 (08:36→19:45)
[2021-03-09] MEDS: JEVITY 1.5 CAL LIQUID 1,000 ML BOT FT SCH ×4 (10:39→19:45)
[2021-03-09] MEDS: SOD FERRIC GLUC COMPLX/SUCROSE 250 MG in NA CHLORIDE 0.9% 250 ML IV SCH (15:26)
[2021-03-09] MEDS: LOPERAMIDE HCL 2 MG CAPSULE PO PRN (19:45)
[2021-03-09] MEDS: MELATONIN 3 MG TABLET PO PRN (19:45)
[2021-03-10 06:25] LABS: Absolute Lymphocytes (CBC) 0.3 K/uL (0.7-4.9); Basophils % 0.5 % (0-1.3); Hematocrit 26.9 % (39.6-49.0); Lymphocytes % 5.6 % (15.3-44.8); MPV 8.8 fL (7.6-11.3); RBC Red Blood Cell Count 2.88 M/uL (4.33-5.43)
[2021-03-10 06:34] LABS: Potassium 4.5 mmol/L (3.5-5.1)
[2021-03-10] MEDS: FAMOTIDINE 20 MG TAB PO SCH ×2 (08:00→19:08)
[2021-03-10] MEDS: APIXABAN 5 MG TABLET PO SCH ×2 (08:00→19:08)
[2021-03-10] MEDS: HYDROCODONE/APAP 5/325 MG TAB PO PRN ×3 (08:32→19:08)
[2021-03-10] MEDS: JEVITY 1.5 CAL LIQUID 1,000 ML BOT FT SCH ×4 (09:00→20:48)
[2021-03-10] MEDS: LOPERAMIDE HCL 2 MG CAPSULE PO PRN (19:08)
[2021-03-11] MEDS: FAMOTIDINE 20 MG TAB PO SCH ×2 (08:00→20:17)
[2021-03-11] MEDS: HYDROCODONE/APAP 5/325 MG TAB PO PRN ×2 (08:45→12:30)
[2021-03-11] MEDS: APIXABAN 5 MG TABLET PO SCH ×2 (08:45→20:16)
[2021-03-11] MEDS: LOPERAMIDE HCL 2 MG CAPSULE PO PRN (08:45)
[2021-03-11] MEDS: JEVITY 1.5 CAL LIQUID 1,000 ML BOT FT SCH ×4 (08:46→20:17)
[2021-03-11] MEDS: MELATONIN 3 MG TABLET PO PRN (20:17)
[2021-03-12] MEDS: HYDROCODONE/APAP 5/325 MG TAB PO PRN ×4 (00:37→19:50)
[2021-03-12] MEDS: FAMOTIDINE 20 MG TAB PO SCH ×2 (07:37→19:51)
[2021-03-12] MEDS: APIXABAN 5 MG TABLET PO SCH ×2 (07:38→19:51)
[2021-03-12] MEDS: JEVITY 1.5 CAL LIQUID 1,000 ML BOT FT SCH ×4 (07:39→20:23)
[2021-03-12 15:59] LABS: Hematocrit 27.5 % (39.6-49.0)
--- NOTE | 2021-03-12 20:03 | R.PN ---
PROGRESS NOTES ENCOUNTER DATE AND TIME: 03/12/2021 19:52 (CDT) NAME NAKUL MILAN DATE OF : 1950 DATE OF ADMISSION: 03/07/2021 05:19 (CDT) Subcapitalfracture is present of the proximal left femur with fracture extending into theintertrochan teric region. No dislocation CHIEF COMPLAINT: Left Femur fracture SUBJECTIVE: Pt denied any Shortness of Breath. Pt denied any depression. Hgb 9.0. He is on iron infusions. WBC 4.8, prealbumin is very low at 7.6, Panman 2.68. He is fed by J-t ube. will add Ross twice daily. Ambulated 230' with standby assistance using a rolling walker. VITAL SIGNS Temperature: 97.9 F SBP/DBP: 155/91 Pulse: 95 Resp: 16 MEDICATION ALLERGIES: No Known Drug Allergies (NKDA) ENVIRONMENTAL ALLERGIES: None Known - Substance Allergies None Known - Other Allergies None Known NURSING: - Shower allowing shower - Skin care per protocol PRECAUTIONS: - Weight Bearing Precaution TTWB left LE ACTIVITIES OOB only with supervision THERAPIES: - Dietary and Nutrition Adequate Nutrition. Nutritional Education. Nutritional Supplements. PHYSICAL EXAM - Gen Alert and awake Lying in bed No apparent distress Oriented to: person, time, and place - Skin No breakdown Normacephalic - Eyes No abnormalities - ENMT No abnormalities - Neck No abnormalities - CVS RRR - Chest Clear - Resp CTA bilaterally - Abd + bowel sounds - GI Soft Deferred - No abnormalities - Ext Mild left lower extremity edema. - MSK 4+/5 weakness in left lower extremity - Neuro 4/5 strength left lower extremity. - Psych No abnormalities ASSESSMENT: Pt. is a 70 yo Right-handed white male.On 03/02/2021 he was admitted to [facility] and underwent emergency surgery for Subcapitalfracture is present of the proximal left femur with fracture extendin g into theintertrochanteric region. No dislocation (Left hip closed reduction with intramedullary regina fixation.) by DR VAUGHN.Pre-morbidly, Pt. was indepen dent/mod-I in Transfers Control, Locomotion, Self-Care, Social Cognition, Sphincter Control, and Comm unication; and he had good Balance and Safety Awareness.Currently, he has deficits of Transfers Contr ol, Balance, Locomotion, Safety Awareness, and Self-Care.Pt. is now referred to [facility] for acute in-patient rehabilitation in order to maximize patient's functional independen ce in activities of daily living, strength, ROM, and mobility.- Rehab Goal Patient has realistic goal of being discharged at assistance level 6-Beryl to reside at Home with Fam tarah/Relatives. MDM/PLAN: - Physical Therapy Decreased range of motion - to improve, our physical therapists will perform initial evaluation of p t's status upon admission and devise an individualized program for increasing patient's Range of Anton on. Gait dysfunction - to improve, our physical therapists will perform initial evaluation of pt's statu s upon admission and devise an individualized program for Gait Training, and Wheel Chair mobility Inability to transfer - to improve, our physical therapists will perform initial evaluation of pt's status upon admission and devise an individualized program for Bed mobility Need for home safety evaluation - to improve, our physical therapists will perform initial evaluatio n of pt's status upon admission and devise an individualized program for Home Evaluation Need in caregiver upon discharge - to improve, our physical therapists will perform initial evaluati on of pt's status upon admission and devise an individualized program for Caregiver Training New precaution - to improve, our physical therapists will perform initial evaluation of pt's status upon admission and devise an individualized program for Patient precaution education Poor balance - to improve, our physical therapists will perform initial evaluation of pt's status up on admission and devise an individualized program for Balance Training Weakness - to improve, our physical therapists will perform initial evaluation of pt's status upon a dmission and devise an individualized program for Aquatic Therapy, Neuromuscular Reeducation, and Str engthening Achieving independence - to improve, our physical therapists will perform initial evaluation of pt's status upon admission and devise an individualized program for Community Reintegration Activities - Occupational Therapy ADL deficits - to improve, our occupation therapists will perform initial evaluation of pt's status upon admission and devise an individualized program for Bathing, Bed mobility, Community Reintegratio n, Cooking, Dressing, Eating, Fine Motor Skills, Grooming, Homemaking, Kitchen Mobility, Laundry, Pat ient Education, Safety Awareness, Splinting - Positioning, Transfers(Toilet, Tub, Shower), and Wheel Chair Management Need for career guidance counselor - to improve, our occupation therapists will perform initial evaluation of pt's status upon admission and devise an individualized program for Caregiver Training Weakness - to improve, our occupation therapists will perform initial evaluation of pt's status upon admission and devise an individualized program for Aquatic Therapy, Balance, Endurance, UE ROM, and UE strengthening - Other See attached MAR (Medication Administration Record) - Anterior Hip Precaution No abduction No active extension No adduction across midline No external rotation No hip flexion >90 degrees No internal rotation - Diet - Liquid Texture Continue Regular - Tube Feed Continue N/A - Diet Type Continue Regular - Posterior Hip Precaution No adduction across midline No external rotation No hip flexion >90 degrees No internal rotation No wheel chair propulsion - Weight Bearing Precaution TTWB left LE - Skin care per protocol - Diet - Solid Texture Continue Regular - Shower allowing shower FUNCTIONAL STATUS: UPDATED AT WEEKLY TEAM CONFERENCE - Wheelchair Same score based on distance traveled: 1(<=50ft) FUNCTIONAL STATUS: - Self-Care A. Eating Beryl B. Grooming Beryl C. Bathing sup D. Dressing - Upper Petra E. Dressing - Lower modA F. Toileting sup - Sphincter Control G. Bladder control Beryl H. Bowel control Beryl - Transfers Control I. Bed/Chair/Wheelchair Petra J. Toilet Petra K. Tub/Shower modA - Locomotion L. Walk/Wheelchair (B) sup M. Stairs maxA - Communication N. Comprehension (B) Beryl O. Expression (B) Beryl - Social Cognition P. Social Interaction Beryl Q. Problem Solving Beryl R. Memory Beryl - Endurance Good - Balance Good - Safety Awareness Good QI SCORES: - Self-Care A. Eating 04-Supervision or touching assistance B. Oral hygiene 04-Supervision or touching assistance C. Toileting hygiene 02-Substantial/maximal assistance E. Shower/bathe self 10-Not attempted due to environmental limitations F. Upper body dressing 03-Partial/moderate assistance G. Lower body dressing 88-Not attempted due to medical condition or safety concerns H. Putting on/taking off footwear 10-Not attempted due to environmental limitations - Mobility A. Roll left and right 04-Supervision or touching assistance B. Sit to lying 04-Supervision or touching assistance C. Lying to sitting on side of bed 04-Supervision or touching assistance D. Sit to stand 04-Supervision or touching assistance E. Chair/kyr-qf-[id number] transfer 88-Not attempted due to medical condition or safety concerns F. Toilet transfer 88-Not attempted due to medical condition or safety concerns G. Car transfer 10-Not attempted due to environmental limitations I. Walk 10 feet 88-Not attempted due to medical condition or safety concerns J. Walk 50 feet with two turns 88-Not attempted due to medical condition or safety concerns K. Walk 150 feet 88-Not attempted due to medical condition or safety concerns L. Walking 10 feet on uneven surfaces 88-Not attempted due to medical condition or safety concerns M. 1 step (curb) 88-Not attempted due to medical condition or safety concerns N. 4 steps 88-Not attempted due to medical condition or safety concerns O. 12 steps 88-Not attempted due to medical condition or safety concerns P. Picking up object 88-Not attempted due to medical condition or safety concerns - Bladder and Bowel Bladder continence 0-Always continent Bowel continence 0-Always continent - Endurance Poor - Balance Poor - Safety Awareness Poor CURRENT FUNC. DEFICITS: Self-Care, Mobility, Endurance, Balance, and Safety Awareness SIGNATURE PANEL: (CDT)
[2021-03-13] MEDS: HYDROCODONE/APAP 5/325 MG TAB PO PRN ×2 (00:06→04:04)
[2021-03-13] MEDS ORDERED: cloNIDine HCL 0.1 MG TAB PO PRN (07:33)
[2021-03-13] MEDS: HYDROCODONE/APAP 7.5/325 MG TAB PO PRN ×4 (07:41→21:03)
[2021-03-13] MEDS: FAMOTIDINE 20 MG TAB PO SCH ×2 (08:00→20:00)
[2021-03-13] MEDS: JUVEN PACKET FT SCH ×2 (08:19→20:00)
[2021-03-13] MEDS: GABAPENTIN 100 MG CAP PO SCH ×2 (08:19→20:36)
[2021-03-13] MEDS: JEVITY 1.5 CAL LIQUID 1,000 ML BOT FT SCH (08:19)
[2021-03-13] MEDS: APIXABAN 5 MG TABLET PO SCH ×2 (08:19→20:35)
[2021-03-13] MEDS ORDERED: JEVITY 1.2 CAL LIQUID 1,000 ML BOT FT SCH ×2 (13:00)
[2021-03-13] MEDS: LIDOCAINE 4% PATCH TOP SCH (14:06)
[2021-03-13] MEDS: JEVITY 1.2 CAL LIQUID 1,000 ML BOT FT SCH ×2 (17:00→20:36)
--- NOTE | 2021-03-13 17:48 | R.PN ---
PROGRESS NOTES ENCOUNTER DATE AND TIME: 03/13/2021 17:44 (CDT) NAME NAKUL MILAN DATE OF : 1950 DATE OF ADMISSION: 03/07/2021 05:19 (CDT) Subcapitalfracture is present of the proximal left femur with fracture extending into theintertrochan teric region. No dislocation CHIEF COMPLAINT: Left Femur fracture SUBJECTIVE: Pt denied any Shortness of Breath. Pt denied any depression. Hgb 9.0. He is on iron infusions. WBC 4.8, prealbumin is very low at 7.6, Occupational Work Experience Teacher 2.68. He is fed by J-t ube. will add Ross twice daily. Ambulated 600' with standby assistance and touch down weight bearing using a rolling walker. Mobilize d wheelchair 500' with supervision. VITAL SIGNS Temperature: 97.2 F SBP/DBP: 159/87 Pulse: 85 Resp: 16 MEDICATION ALLERGIES: No Known Drug Allergies (NKDA) ENVIRONMENTAL ALLERGIES: None Known - Substance Allergies None Known - Other Allergies None Known NURSING: - Shower allowing shower - Skin care per protocol PRECAUTIONS: - Weight Bearing Precaution TTWB left LE ACTIVITIES OOB only with supervision THERAPIES: - Dietary and Nutrition Adequate Nutrition. Nutritional Education. Nutritional Supplements. PHYSICAL EXAM - Gen Alert and awake Lying in bed No apparent distress Oriented to: person, time, and place - Skin No breakdown Normacephalic - Eyes No abnormalities - ENMT No abnormalities - Neck No abnormalities - CVS RRR - Chest Clear - Resp CTA bilaterally - Abd + bowel sounds - GI Soft Deferred - No abnormalities - Ext Mild left lower extremity edema. - MSK 4+/5 weakness in left lower extremity - Neuro 4/5 strength left lower extremity. - Psych No abnormalities ASSESSMENT: Pt. is a 70 yo Right-handed white male.On 03/02/2021 he was admitted to [facility] and underwent emergency surgery for Subcapitalfracture is present of the proximal left femur with fracture extendin g into theintertrochanteric region. No dislocation (Left hip closed reduction with intramedullary regina fixation.) by DR VAUGHN.Pre-morbidly, Pt. was indepen dent/mod-I in Transfers Control, Locomotion, Self-Care, Social Cognition, Sphincter Control, and Comm unication; and he had good Balance and Safety Awareness.Currently, he has deficits of Transfers Contr ol, Balance, Locomotion, Safety Awareness, and Self-Care.Pt. is now referred to [facility] for acute in-patient rehabilitation in order to maximize patient's functional independen ce in activities of daily living, strength, ROM, and mobility.- Rehab Goal Patient has realistic goal of being discharged at assistance level 6-Beryl to reside at Home with Fam tarah/Relatives. MDM/PLAN: - Physical Therapy Decreased range of motion - to improve, our physical therapists will perform initial evaluation of p t's status upon admission and devise an individualized program for increasing patient's Range of Anton on. Gait dysfunction - to improve, our physical therapists will perform initial evaluation of pt's statu s upon admission and devise an individualized program for Gait Training, and Wheel Chair mobility Inability to transfer - to improve, our physical therapists will perform initial evaluation of pt's status upon admission and devise an individualized program for Bed mobility Need for home safety evaluation - to improve, our physical therapists will perform initial evaluatio n of pt's status upon admission and devise an individualized program for Home Evaluation Need in caregiver upon discharge - to improve, our physical therapists will perform initial evaluati on of pt's status upon admission and devise an individualized program for Caregiver Training New precaution - to improve, our physical therapists will perform initial evaluation of pt's status upon admission and devise an individualized program for Patient precaution education Poor balance - to improve, our physical therapists will perform initial evaluation of pt's status up on admission and devise an individualized program for Balance Training Weakness - to improve, our physical therapists will perform initial evaluation of pt's status upon a dmission and devise an individualized program for Aquatic Therapy, Neuromuscular Reeducation, and Str engthening Achieving independence - to improve, our physical therapists will perform initial evaluation of pt's status upon admission and devise an individualized program for Community Reintegration Activities - Occupational Therapy ADL deficits - to improve, our occupation therapists will perform initial evaluation of pt's status upon admission and devise an individualized program for Bathing, Bed mobility, Community Reintegratio n, Cooking, Dressing, Eating, Fine Motor Skills, Grooming, Homemaking, Kitchen Mobility, Laundry, Pat ient Education, Safety Awareness, Splinting - Positioning, Transfers(Toilet, Tub, Shower), and Wheel Chair Management Need for college and career counselor - to improve, our occupation therapists will perform initial evaluation of pt's status upon admission and devise an individualized program for Caregiver Training Weakness - to improve, our occupation therapists will perform initial evaluation of pt's status upon admission and devise an individualized program for Aquatic Therapy, Balance, Endurance, UE ROM, and UE strengthening - Other See attached MAR (Medication Administration Record) - Anterior Hip Precaution No abduction No active extension No adduction across midline No external rotation No hip flexion >90 degrees No internal rotation - Diet - Liquid Texture Continue Regular - Tube Feed Continue N/A - Diet Type Continue Regular - Posterior Hip Precaution No adduction across midline No external rotation No hip flexion >90 degrees No internal rotation No wheel chair propulsion - Weight Bearing Precaution TTWB left LE - Skin care per protocol - Diet - Solid Texture Continue Regular - Shower allowing shower FUNCTIONAL STATUS: UPDATED AT WEEKLY TEAM CONFERENCE - Wheelchair Same score based on distance traveled: 1(<=50ft) FUNCTIONAL STATUS: - Self-Care A. Eating Beryl B. Grooming Beryl C. Bathing sup D. Dressing - Upper Petra E. Dressing - Lower modA F. Toileting sup - Sphincter Control G. Bladder control Beryl H. Bowel control Beryl - Transfers Control I. Bed/Chair/Wheelchair Petra J. Toilet Petra K. Tub/Shower modA - Locomotion L. Walk/Wheelchair (B) sup M. Stairs maxA - Communication N. Comprehension (B) Beryl O. Expression (B) Beryl - Social Cognition P. Social Interaction Beryl Q. Problem Solving Beryl R. Memory Beryl - Endurance Good - Balance Good - Safety Awareness Good QI SCORES: - Self-Care A. Eating 04-Supervision or touching assistance B. Oral hygiene 04-Supervision or touching assistance C. Toileting hygiene 02-Substantial/maximal assistance E. Shower/bathe self 10-Not attempted due to environmental limitations F. Upper body dressing 03-Partial/moderate assistance G. Lower body dressing 88-Not attempted due to medical condition or safety concerns H. Putting on/taking off footwear 10-Not attempted due to environmental limitations - Mobility A. Roll left and right 04-Supervision or touching assistance B. Sit to lying 04-Supervision or touching assistance C. Lying to sitting on side of bed 04-Supervision or touching assistance D. Sit to stand 04-Supervision or touching assistance E. Chair/kpi-mo-ysyzb transfer 88-Not attempted due to medical condition or safety concerns F. Toilet transfer 88-Not attempted due to medical condition or safety concerns G. Car transfer 10-Not attempted due to environmental limitations I. Walk 10 feet 88-Not attempted due to medical condition or safety concerns J. Walk 50 feet with two turns 88-Not attempted due to medical condition or safety concerns K. Walk 150 feet 88-Not attempted due to medical condition or safety concerns L. Walking 10 feet on uneven surfaces 88-Not attempted due to medical condition or safety concerns M. 1 step (curb) 88-Not attempted due to medical condition or safety concerns N. 4 steps 88-Not attempted due to medical condition or safety concerns O. 12 steps 88-Not attempted due to medical condition or safety concerns P. Picking up object 88-Not attempted due to medical condition or safety concerns - Bladder and Bowel Bladder continence 0-Always continent Bowel continence 0-Always continent - Endurance Poor - Balance Poor - Safety Awareness Poor CURRENT FUNC. DEFICITS: Self-Care, Mobility, Endurance, Balance, and Safety Awareness SIGNATURE PANEL: (CDT)
[2021-03-14 06:14] LABS: Absolute Lymphocytes (CBC) 0.5 K/uL (0.7-4.9); Basophils % 0.4 % (0-1.3); Hematocrit 31.5 % (39.6-49.0); RBC Red Blood Cell Count 3.35 M/uL (4.33-5.43)
[2021-03-14 06:42] LABS: Albumin 1.9 g/dL (3.4-5.0); Magnesium 2.5 mg/dL (1.8-2.4); Potassium 5.4 mmol/L (3.5-5.1); Prealbumin 12.9 mg/dL (20-40)
[2021-03-14] MEDS: LIDOCAINE 4% PATCH TOP SCH (07:47)
[2021-03-14] MEDS: HYDROCODONE/APAP 7.5/325 MG TAB PO PRN ×3 (07:48→19:17)
[2021-03-14] MEDS: JUVEN PACKET FT SCH ×2 (07:50→19:18)
[2021-03-14] MEDS: APIXABAN 5 MG TABLET PO SCH ×2 (07:51→19:17)
[2021-03-14] MEDS: FAMOTIDINE 20 MG TAB PO SCH ×2 (07:51→19:18)
[2021-03-14] MEDS: JEVITY 1.2 CAL LIQUID 1,000 ML BOT FT SCH ×6 (07:51→19:18)
[2021-03-14] MEDS: GABAPENTIN 100 MG CAP PO SCH ×2 (07:51→19:18)
--- NOTE | 2021-03-14 16:03 | CON ---
Date of Consultation: 03/13/2021 Reason For Consultation: J-tube evaluation. Brief History Of Present Illness: The patient is a 70-year-old male, known to me from previous admis sions with a prior diagnosis of esophageal cancer treated with chemotherapy and in preparation and an ticipation for surgery. I placed a jejunostomy feeding tube in him, which is currently in place and has been functioning well. There was some concern as I placed a suture in the patient's skin in the subcutaneous position to hold the J-tube in place. It has been broken on several different occasions and attempt at revision in addition to additional suturing has been unsuccessful as there continues to be erosion of the skin and as such, the area gets excoriated, as such there was concern about slip page of the tube and I was consulted for the above stated issue. He was also recently suffered a fal l with a left femur fracture with intertrochanteric extension. He had a repair done and is now on e rehabilitation floor at this point. Past Medical History: Significant for CHF, ESRD, stage III CKD, hypokalemia, hyponatremia, history o f esophageal cancer, pulmonary embolus, orthostasis. Past Surgical History: Includes left knee surgery, tonsillectomy and adenoidectomy, J-tube surgery w ith revision, and left IM nail repair of femur fracture. Review of Systems: Ten-point review of systems other than HPI, denies. Physical Examination: General: At the time of my examination; he is awake, alert, and oriented. Psychiatric: He is appropriate, conversive. HEENT: Normocephalic. His sclerae are anicteric. Mucous membranes are moist. Oropharynx clear. Neck: Supple without JVD. Chest: Normal expansion and excursion. Cardiovascular: Regular rate and rhythm. Pulmonary: Clear to auscultation bilaterally. Abdomen: Soft. J-tube is in place. It is being held in place with tape at this point and appears t o be in good position. There is no leakage around the J-tube site. There is no suture holding in pl [place] and the patient states he has been using this well without any issue. Assessment And Plan: This is a 70-year-old male status post fall, esophageal cancer, and J-tube in p lace. 1.Continue management per Dr. Boyer. 2.I have recommended ordering a J-tube belt to help hold the jejunostomy tube in place as repeated a ttempts at suture positioning have been unsuccessful as it continues to erode after several days to s ometimes a week or less. At this point, a tract is likely formed, but I recommend keeping the J-tube in place with a J-tube belt. You can resume J-tube feedings from a surgical standpoint. I have exp lained the risks, benefits, and alternatives of the above stated plan. The patient agrees to proceed as indicated. I will sign off at this time. Please call back with any other concerns or issues. ADOLPH/AN Voice ID: [id number] Report ID: [id number]
--- NOTE | 2021-03-14 17:15 | R.PN ---
PROGRESS NOTES ENCOUNTER DATE AND TIME: 03/14/2021 17:00 (CDT) NAME NAKUL MILAN DATE OF : 1950 DATE OF ADMISSION: 03/07/2021 05:19 (CDT) Subcapitalfracture is present of the proximal left femur with fracture extending into theintertrochan teric region. No dislocation CHIEF COMPLAINT: Left Femur fracture SUBJECTIVE: Pt denied any Shortness of Breath. Pt denied any depression. Hgb 10.4. He is on iron infusions. 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 He is fed by [employer] [facility]. Ross twice daily. Ambulated 600' with standby assistance and touch down weight bearing using a rolling walker. Mobilize d wheelchair 500' with supervision. VITAL SIGNS Temperature: 97.6 F SBP/DBP: 147/91 Pulse: 87 Resp: 16 MEDICATION ALLERGIES: No Known Drug Allergies (NKDA) ENVIRONMENTAL ALLERGIES: None Known - Substance Allergies None Known - Other Allergies None Known NURSING: - Shower allowing shower - Skin care per protocol PRECAUTIONS: - Weight Bearing Precaution TTWB left LE ACTIVITIES OOB only with supervision THERAPIES: - Dietary and Nutrition Adequate Nutrition. Nutritional Education. Nutritional Supplements. PHYSICAL EXAM - Gen Alert and awake Lying in bed No apparent distress Oriented to: person, time, and place - Skin No breakdown Normacephalic - Eyes No abnormalities - ENMT No abnormalities - Neck No abnormalities - CVS RRR - Chest Clear - Resp CTA bilaterally - Abd + bowel sounds - GI Soft Deferred - No abnormalities - Ext Mild left lower extremity edema. - MSK 4+/5 weakness in left lower extremity - Neuro 4/5 strength left lower extremity. - Psych No abnormalities ASSESSMENT: Pt. is a 70 yo Right-handed white male.On 03/02/2021 he was admitted to [facility] and underwent emergency surgery for Subcapitalfracture is present of the proximal left femur with fracture extendin g into theintertrochanteric region. No dislocation (Left hip closed reduction with intramedullary regina fixation.) by DR VAUGHN.Pre-morbidly, Pt. was indepen dent/mod-I in Transfers Control, Locomotion, Self-Care, Social Cognition, Sphincter Control, and Comm unication; and he had good Balance and Safety Awareness.Currently, he has deficits of Transfers Contr ol, Balance, Locomotion, Safety Awareness, and Self-Care.Pt. is now referred to [facility] for acute in-patient rehabilitation in order to maximize patient's functional independen ce in activities of daily living, strength, ROM, and mobility.- Rehab Goal Patient has realistic goal of being discharged at assistance level 6-Beryl to reside at Home with Fam tarah/Relatives. MDM/PLAN: - Physical Therapy Decreased range of motion - to improve, our physical therapists will perform initial evaluation of p t's status upon admission and devise an individualized program for increasing patient's Range of Anton on. Gait dysfunction - to improve, our physical therapists will perform initial evaluation of pt's statu s upon admission and devise an individualized program for Gait Training, and Wheel Chair mobility Inability to transfer - to improve, our physical therapists will perform initial evaluation of pt's status upon admission and devise an individualized program for Bed mobility Need for home safety evaluation - to improve, our physical therapists will perform initial evaluatio n of pt's status upon admission and devise an individualized program for Home Evaluation Need in caregiver upon discharge - to improve, our physical therapists will perform initial evaluati on of pt's status upon admission and devise an individualized program for Caregiver Training New precaution - to improve, our physical therapists will perform initial evaluation of pt's status upon admission and devise an individualized program for Patient precaution education Poor balance - to improve, our physical therapists will perform initial evaluation of pt's status up on admission and devise an individualized program for Balance Training Weakness - to improve, our physical therapists will perform initial evaluation of pt's status upon a dmission and devise an individualized program for Aquatic Therapy, Neuromuscular Reeducation, and Str engthening Achieving independence - to improve, our physical therapists will perform initial evaluation of pt's status upon admission and devise an individualized program for Community Reintegration Activities - Occupational Therapy ADL deficits - to improve, our occupation therapists will perform initial evaluation of pt's status upon admission and devise an individualized program for Bathing, Bed mobility, Community Reintegratio n, Cooking, Dressing, Eating, Fine Motor Skills, Grooming, Homemaking, Kitchen Mobility, Laundry, Pat ient Education, Safety Awareness, Splinting - Positioning, Transfers(Toilet, Tub, Shower), and Wheel Chair Management 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 - to improve, our occupation therapists will perform initial evaluation of pt's status upon admission and devise an individualized program for Caregiver Training Weakness - to improve, our occupation therapists will perform initial evaluation of pt's status upon admission and devise an individualized program for Aquatic Therapy, Balance, Endurance, UE ROM, and UE strengthening - Other See attached MAR (Medication Administration Record) - Anterior Hip Precaution No abduction No active extension No adduction across midline No external rotation No hip flexion >90 degrees No internal rotation - Diet - Liquid Texture Continue Regular - Tube Feed Continue N/A - Diet Type Continue Regular - Posterior Hip Precaution No adduction across midline No external rotation No hip flexion >90 degrees No internal rotation No wheel chair propulsion - Weight Bearing Precaution TTWB left LE - Skin care per protocol - Diet - Solid Texture Continue Regular - Shower allowing shower FUNCTIONAL STATUS: UPDATED AT WEEKLY TEAM CONFERENCE - Wheelchair Same score based on distance traveled: 1(<=50ft) FUNCTIONAL STATUS: - Self-Care A. Eating Beryl B. Grooming Beryl C. Bathing sup D. Dressing - Upper Petra E. Dressing - Lower modA F. Toileting sup - Sphincter Control G. Bladder control Beryl H. Bowel control Beryl - Transfers Control I. Bed/Chair/Wheelchair Petra J. Toilet Petra K. Tub/Shower modA - Locomotion L. Walk/Wheelchair (B) sup M. Stairs maxA - Communication N. Comprehension (B) Beryl O. Expression (B) Beryl - Social Cognition P. Social Interaction Beryl Q. Problem Solving Beryl R. Memory Beryl - Endurance Good - Balance Good - Safety Awareness Good QI SCORES: - Self-Care A. Eating 04-Supervision or touching assistance B. Oral hygiene 04-Supervision or touching assistance C. Toileting hygiene 02-Substantial/maximal assistance E. Shower/bathe self 10-Not attempted due to environmental limitations F. Upper body dressing 03-Partial/moderate assistance G. Lower body dressing 88-Not attempted due to medical condition or safety concerns H. Putting on/taking off footwear 10-Not attempted due to environmental limitations - Mobility A. Roll left and right 04-Supervision or touching assistance B. Sit to lying 04-Supervision or touching assistance C. Lying to sitting on side of bed 04-Supervision or touching assistance D. Sit to stand 04-Supervision or touching assistance E. Chair/igv-pd-[id number] transfer 88-Not attempted due to medical condition or safety concerns F. Toilet transfer 88-Not attempted due to medical condition or safety concerns G. Car transfer 10-Not attempted due to environmental limitations I. Walk 10 feet 88-Not attempted due to medical condition or safety concerns J. Walk 50 feet with two turns 88-Not attempted due to medical condition or safety concerns K. Walk 150 feet 88-Not attempted due to medical condition or safety concerns L. Walking 10 feet on uneven surfaces 88-Not attempted due to medical condition or safety concerns M. 1 step (curb) 88-Not attempted due to medical condition or safety concerns N. 4 steps 88-Not attempted due to medical condition or safety concerns O. 12 steps 88-Not attempted due to medical condition or safety concerns P. Picking up object 88-Not attempted due to medical condition or safety concerns - Bladder and Bowel Bladder continence 0-Always continent Bowel continence 0-Always continent - Endurance Poor - Balance Poor - Safety Awareness Poor CURRENT FUNC. DEFICITS: Self-Care, Mobility, Endurance, Balance, and Safety Awareness SIGNATURE PANEL: (CDT)
[2021-03-15] MEDS: LIDOCAINE 4% PATCH TOP SCH (07:55)
[2021-03-15] MEDS: APIXABAN 5 MG TABLET PO SCH ×2 (07:56→20:38)
[2021-03-15] MEDS: GABAPENTIN 100 MG CAP PO SCH ×2 (07:56→20:00)
[2021-03-15] MEDS: JEVITY 1.2 CAL LIQUID 1,000 ML BOT FT SCH ×5 (07:58→20:38)
[2021-03-15] MEDS: FAMOTIDINE 20 MG TAB PO SCH ×2 (07:59→20:00)
[2021-03-15] MEDS: JUVEN PACKET FT SCH ×2 (07:59→20:00)
[2021-03-15] MEDS: HYDROCODONE/APAP 7.5/325 MG TAB PO PRN ×2 (08:01→21:38)
--- NOTE | 2021-03-15 09:50 | P.RH.PN ---
Estimated Length of Stay: 12 Expected Discharge Date: 03/27/21 Discharge Disposition Plan: Home Family Support: Yes Intermediate Goal: Mobility, Transfers, Self Care Vital Signs: Last Vital Signs Temp 99.6 F 03/15/21 06:38 Pulse 103 H 03/15/21 06:38 Resp 18 03/15/21 08:01 BP 134/77 03/15/21 06:38 Pulse Ox 97 03/15/21 08:01 Laboratory: Laboratory Last Values WBC 8.70 K/uL (4.3-10.9) D 03/14/21 06:00 RBC 3.35 M/uL (4.33-5.43) L 03/14/21 06:00 Hgb 10.4 g/dL (13.6-17.9) L 03/14/21 06:00 Hct 31.5 % (39.6-49.0) L 03/14/21 06:00 MCV 94.1 fL (80-100) 03/14/21 06:00 MCH 31.0 pg (27.0-35.0) 03/14/21 06:00 MCHC 33.0 g/dL (32.0-36.0) 03/14/21 06:00 RDW 19.2 % (12.1-15.2) H 03/14/21 06:00 Plt Count 285 K/uL (152-406) D 03/14/21 06:00 MPV 9.0 fL (7.6-11.3) 03/14/21 06:00 Neutrophils % 84.9 % (41.7-73.7) H 03/14/21 06:00 Lymphocytes % 6.0 % (15.3-44.8) L 03/14/21 06:00 Monocytes % 5.0 % (3.3-12.3) 03/14/21 06:00 Eosinophils % 3.7 % (0-4.4) 03/14/21 06:00 Basophils % 0.4 % (0-1.3) 03/14/21 06:00 Absolute Neutrophils 7.4 K/uL (1.8-8.0) 03/14/21 06:00 Absolute Lymphocytes 0.5 K/uL (0.7-4.9) L 03/14/21 06:00 Absolute Monocytes 0.4 K/uL (0.1-1.3) 03/14/21 06:00 Absolute Eosinophils 0.3 K/uL (0-0.5) 03/14/21 06:00 Absolute Basophils 0.0 K/uL (0-0.5) 03/14/21 06:00 Sodium 138 mmol/L (136-145) 03/14/21 06:00 Potassium 5.4 mmol/L (3.5-5.1) H 03/14/21 06:00 Chloride 104 mmol/L (98-107) 03/14/21 06:00 Carbon Dioxide 28 mmol/L (21-32) 03/14/21 06:00 BUN 57 mg/dL (7-18) H 03/14/21 06:00 Creatinine 2.47 mg/dL (0.55-1.3) H 03/14/21 06:00 Estimated GFR 26 mL/min (=/>90) L 03/14/21 06:00 Glucose 87 mg/dL (74-106) 03/14/21 06:00 Calcium 8.6 mg/dL (8.5-10.1) 03/14/21 06:00 Magnesium 2.5 mg/dL (1.8-2.4) H 03/14/21 06:00 Albumin 1.9 g/dL (3.4-5.0) L 03/14/21 06:00 Prealbumin 12.9 mg/dL (20-40) L 03/14/21 06:00 Urine Color Yellow (Yellow) 03/06/21: Urine Appearance Clear (Clear) 03/06/21: Urine pH 5.5 (5.0-7.0) 03/06/21 21: Ur Specific Patterson 1.020 (1.005-1.030) 03/06/21 21:30 Glucose (UA)(Auto) Negative (Negative) 03/06/21: Urine Ketones Negative (Negative) 03/06/21: Urine Blood Trace (Negative) H 03/06/21 21:30 Urine Nitrite Negative (Negative) 03/06/21: Urine Bilirubin Negative (Negative) 03/06/21: Urine Urobilinogen 0.2 mg/dL (0.2-1.0) 05/26/21 21:30 Ur Leukocyte Esterase Negative (Negative) 03/06/21 21:30 Urine RBC <5 /HPF (NONE SEEN) 03/06/21 21:30 Urine WBC <5 /HPF (<5) 03/06/21 21:30 Ur Squamous Epith Cells FISHER TRAP 03/06/21 21:30 Ur Urothelial Cells <5 /HPF (NONE SEEN) 03/06/21 21:30 Urine Bacteria 20-50 /HPF (NONE SEEN) H 03/06/21 21:30 Fine Granular Casts 0-5 /LPF (NONE SEEN) 03/06/21 21:30 Coarse Granular Casts 5-10 /LPF (NONE SEEN) 03/06/21 21:30 Urine Culture Reflexed Not needed 03/06/21 21:30 Urine Total Protein 1+ (Negative) H 03/06/21 21:30 SARS-CoV-2 RNA (RT-PCR) Negative (NEGATIVE) 03/09/21 05:10 Weight: 158 lb 11.2 oz Wound Present: No Closed Surgical Incision Present: Yes Negative Pressure Wound Therapy Present: No Physician Update: Labs reviewed and are stable. He is making good overall progress with physical and occupational therapy. He requires a gastric belt to go home. He is followed by general surgery. Walking 200' with standby assistance. Up and down 6 stairs with minimum assistance. He is independent with ADLs. Functional Improvement: Patient has met all short-term and long-term goals, w/ the exception of Independently travelling 150 ft. x 1, and performing a car transfer. Patient will be Independent in gait tx. within a day or so, provided he continues at current trend. Patient shows good overall safety awareness. Summary: Patient's care plan and long line teamster goals have been reviewed and revised as necessary. Please see the Rehabilitation Signature page for all necessary signatures.
[2021-03-15] MEDS: TRAMADOL HCL 50 MG TAB PO PRN (12:15)
[2021-03-15 18:51] LABS: Potassium 4.7 mmol/L (3.5-5.1)
[2021-03-16 05:38] VITALS: BMI 21.4
[2021-03-16] MEDS: GABAPENTIN 100 MG CAP PO SCH (06:53)
[2021-03-16] MEDS: TRAMADOL HCL 50 MG TAB PO PRN ×3 (06:57→21:29)
[2021-03-16] MEDS: JEVITY 1.2 CAL LIQUID 1,000 ML BOT FT SCH ×5 (06:57→21:00)
[2021-03-16] MEDS: JUVEN PACKET FT SCH ×2 (06:58→21:00)
[2021-03-16] MEDS: LIDOCAINE 4% PATCH TOP SCH (06:58)
[2021-03-16] MEDS: APIXABAN 5 MG TABLET PO SCH ×2 (06:58→20:59)
[2021-03-16] MEDS: FAMOTIDINE 20 MG TAB PO SCH ×2 (06:59→20:00)
[2021-03-16] MEDS: SENOSIDES 8.6 MG TAB PO SCH (11:26)
--- NOTE | 2021-03-16 19:41 | R.PN ---
PROGRESS NOTES ENCOUNTER DATE AND TIME: 03/16/2021 19:38 (CDT) NAME NAKUL MILAN DATE OF : 1950 DATE OF ADMISSION: 03/07/2021 05:19 (CDT) Subcapitalfracture is present of the proximal left femur with fracture extending into theintertrochan teric region. No dislocation CHIEF COMPLAINT: Left Femur fracture SUBJECTIVE: Pt denied any Shortness of Breath. Pt denied any depression. Hgb 10.4. He is on iron infusions. 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 He is fed by [employer] twice daily. Ambulated 600' with standby assistance and touch down weight bearing using a rolling walker. Mobilize d wheelchair 500' with supervision. Up and down 6" platform step multiple times using a rolling walker. VITAL SIGNS Temperature: 98.4 F SBP/DBP: 112/67 Pulse: 92 Resp: 16 MEDICATION ALLERGIES: No Known Drug Allergies (NKDA) ENVIRONMENTAL ALLERGIES: None Known - Substance Allergies None Known - Other Allergies None Known NURSING: - Shower allowing shower - Skin care per protocol PRECAUTIONS: - Weight Bearing Precaution TTWB left LE ACTIVITIES OOB only with supervision THERAPIES: - Dietary and Nutrition Adequate Nutrition. Nutritional Education. Nutritional Supplements. PHYSICAL EXAM - Gen Alert and awake Lying in bed No apparent distress Oriented to: person, time, and place - Skin No breakdown Normacephalic - Eyes No abnormalities - ENMT No abnormalities - Neck No abnormalities - CVS RRR - Chest Clear - Resp CTA bilaterally - Abd + bowel sounds - GI Soft Deferred - No abnormalities - Ext Mild left lower extremity edema. - MSK 4+/5 weakness in left lower extremity - Neuro 4/5 strength left lower extremity. - Psych No abnormalities ASSESSMENT: Pt. is a 70 yo Right-handed white male.On 03/02/2021 he was admitted to [facility] and underwent emergency surgery for Subcapitalfracture is present of the proximal left femur with fracture extendin g into theintertrochanteric region. No dislocation (Left hip closed reduction with intramedullary regina fixation.) by DR VAUGHN.Pre-morbidly, Pt. was indepen dent/mod-I in Transfers Control, Locomotion, Self-Care, Social Cognition, Sphincter Control, and Comm unication; and he had good Balance and Safety Awareness.Currently, he has deficits of Transfers Contr ol, Balance, Locomotion, Safety Awareness, and Self-Care.Pt. is now referred to [facility] for acute in-patient rehabilitation in order to maximize patient's functional independen ce in activities of daily living, strength, ROM, and mobility.- Rehab Goal Patient has realistic goal of being discharged at assistance level 6-Beryl to reside at Home with Fam tarah/Relatives. MDM/PLAN: - Physical Therapy Decreased range of motion - to improve, our physical therapists will perform initial evaluation of p t's status upon admission and devise an individualized program for increasing patient's Range of Anton on. Gait dysfunction - to improve, our physical therapists will perform initial evaluation of pt's statu s upon admission and devise an individualized program for Gait Training, and Wheel Chair mobility Inability to transfer - to improve, our physical therapists will perform initial evaluation of pt's status upon admission and devise an individualized program for Bed mobility Need for home safety evaluation - to improve, our physical therapists will perform initial evaluatio n of pt's status upon admission and devise an individualized program for Home Evaluation Need in caregiver upon discharge - to improve, our physical therapists will perform initial evaluati on of pt's status upon admission and devise an individualized program for Caregiver Training New precaution - to improve, our physical therapists will perform initial evaluation of pt's status upon admission and devise an individualized program for Patient precaution education Poor balance - to improve, our physical therapists will perform initial evaluation of pt's status up on admission and devise an individualized program for Balance Training Weakness - to improve, our physical therapists will perform initial evaluation of pt's status upon a dmission and devise an individualized program for Aquatic Therapy, Neuromuscular Reeducation, and Str engthening Achieving independence - to improve, our physical therapists will perform initial evaluation of pt's status upon admission and devise an individualized program for Community Reintegration Activities - Occupational Therapy ADL deficits - to improve, our occupation therapists will perform initial evaluation of pt's status upon admission and devise an individualized program for Bathing, Bed mobility, Community Reintegratio n, Cooking, Dressing, Eating, Fine Motor Skills, Grooming, Homemaking, Kitchen Mobility, Laundry, Pat ient Education, Safety Awareness, Splinting - Positioning, Transfers(Toilet, Tub, Shower), and Wheel Chair Management Need for child care director - to improve, our occupation therapists will perform initial evaluation of pt's status upon admission and devise an individualized program for Caregiver Training Weakness - to improve, our occupation therapists will perform initial evaluation of pt's status upon admission and devise an individualized program for Aquatic Therapy, Balance, Endurance, UE ROM, and UE strengthening - Other See attached MAR (Medication Administration Record) - Anterior Hip Precaution No abduction No active extension No adduction across midline No external rotation No hip flexion >90 degrees No internal rotation - Diet - Liquid Texture Continue Regular - Tube Feed Continue N/A - Diet Type Continue Regular - Posterior Hip Precaution No adduction across midline No external rotation No hip flexion >90 degrees No internal rotation No wheel chair propulsion - Weight Bearing Precaution TTWB left LE - Skin care per protocol - Diet - Solid Texture Continue Regular - Shower allowing shower FUNCTIONAL STATUS: UPDATED AT WEEKLY TEAM CONFERENCE - Wheelchair Same score based on distance traveled: 1(<=50ft) FUNCTIONAL STATUS: - Self-Care A. Eating Beryl B. Grooming Beryl C. Bathing sup D. Dressing - Upper Petra E. Dressing - Lower modA F. Toileting sup - Sphincter Control G. Bladder control Beryl H. Bowel control Beryl - Transfers Control I. Bed/Chair/Wheelchair Petra J. Toilet Petra K. Tub/Shower modA - Locomotion L. Walk/Wheelchair (B) sup M. Stairs maxA - Communication N. Comprehension (B) Beryl O. Expression (B) Beryl - Social Cognition P. Social Interaction Beryl Q. Problem Solving Beryl R. Memory Beryl - Endurance Good - Balance Good - Safety Awareness Good QI SCORES: - Self-Care A. Eating 04-Supervision or touching assistance B. Oral hygiene 04-Supervision or touching assistance C. Toileting hygiene 02-Substantial/maximal assistance E. Shower/bathe self 10-Not attempted due to environmental limitations F. Upper body dressing 03-Partial/moderate assistance G. Lower body dressing 88-Not attempted due to medical condition or safety concerns H. Putting on/taking off footwear 10-Not attempted due to environmental limitations - Mobility A. Roll left and right 04-Supervision or touching assistance B. Sit to lying 04-Supervision or touching assistance C. Lying to sitting on side of bed 04-Supervision or touching assistance D. Sit to stand 04-Supervision or touching assistance E. Chair/[id number] transfer 88-Not attempted due to medical condition or safety concerns F. Toilet transfer 88-Not attempted due to medical condition or safety concerns G. Car transfer 10-Not attempted due to environmental limitations I. Walk 10 feet 88-Not attempted due to medical condition or safety concerns J. Walk 50 feet with two turns 88-Not attempted due to medical condition or safety concerns K. Walk 150 feet 88-Not attempted due to medical condition or safety concerns L. Walking 10 feet on uneven surfaces 88-Not attempted due to medical condition or safety concerns M. 1 step (curb) 88-Not attempted due to medical condition or safety concerns N. 4 steps 88-Not attempted due to medical condition or safety concerns O. 12 steps 88-Not attempted due to medical condition or safety concerns P. Picking up object 88-Not attempted due to medical condition or safety concerns - Bladder and Bowel Bladder continence 0-Always continent Bowel continence 0-Always continent - Endurance Poor - Balance Poor - Safety Awareness Poor CURRENT FUNC. DEFICITS: Self-Care, Mobility, Endurance, Balance, and Safety Awareness SIGNATURE PANEL: (CDT)
[2021-03-16 20:09] VITALS: BP 122/67; TEMP 97.8
[2021-03-17 06:07] LABS: Potassium 4.7 mmol/L (3.5-5.1)
[2021-03-17] MEDS: SENOSIDES 8.6 MG TAB PO SCH (08:00)
[2021-03-17] MEDS: FAMOTIDINE 20 MG TAB PO SCH (08:00)
[2021-03-17] MEDS: LIDOCAINE 4% PATCH TOP SCH (08:44)
[2021-03-17] MEDS: APIXABAN 5 MG TABLET PO SCH (08:44)
[2021-03-17] MEDS: TRAMADOL HCL 50 MG TAB PO PRN (08:44)
[2021-03-17] MEDS: JEVITY 1.2 CAL LIQUID 1,000 ML BOT FT SCH (08:45)
[2021-03-17] MEDS: JUVEN PACKET FT SCH (08:46)
== END 2021-03-17 10:20 | disposition home health service (06) | DRG 560 ==
LOC: 5TH 17:53
PROVIDERS: ADMIT Psychiatry & Neurology Neurology with Special Qualifications in Child Neurology; ATTEND Psychiatry & Neurology Neurology with Special Qualifications in Child Neurology
DX: S72.012D Unspecified intracapsular fracture of left femur, subsequent encounter for closed fracture with routine healing (principal); I50.32 Chronic diastolic (congestive) heart failure; Z86.711 Personal history of pulmonary embolism; Z85.01 Personal history of malignant neoplasm of esophagus; Z93.1 Gastrostomy status; Z20.822 Contact with and (suspected) exposure to COVID-19
CPT/HCPCS: 36415; 80048; 81001; 82040; 83735; 84134; 85014; 85018; 85025; 87086; 87088; 87177; 87209; 97110; 97116; 97161; 97530; 97542; J2916; J7050; U0003

== ENCOUNTER 2021-05-08 19:16 | Emergency (ER) | payer OTHER ==
--- OUTSIDE RECORDS SUMMARY | 2021-05-08 19:19 | XMS REPORT | Continuity of Care Document ---
:1950 Author Organization [facility] t Address [address] [place] [address] Care Team Providers Name Role Phone Pepe Mckeon MD Primary Care Physician Lindsey Banegas NP Attending Clinician Milton GLASGOW Attending Clinician Unavailable Courtney GLASGOW Attending Clinician Unavailable Amador PRATER, Y.H. Attending Clinician Provider Attending Clinician Payers Payer Name Policy Type Policy Effective Date Expiration Date Sour ce Number DEVOTED [id number] 2020 [facility] [id number]/ 1-PresentHMO Problems This patient has no known problems. Allergies, Adverse Reactions, Alerts This patient has no known allergies or adverse reactions. Social History Social Habit Start Date Stop Date Quantity Comments Source Cigarettes smoked 2021-02-21 2021-02-21 Dick Flynnist current (pack per 00:00:00 00:00:00 day) - Reported Cigarette 2021-02-21 2021-02-21 [facility] pack-years 00:00:00 00:00:00 Tobacco use and 2021-02-21 2021-02-21 Never used Dick Atwood ethodist exposure 00:00:00 00:00:00 History of tobacco 2020-09-11 Current smoker Filemon Flynnist use 00:00:00 Sex Ass[birth year] At [birth year] Dick Atwood ethodist 00:00:00 00:00:00 Smoking Status Start Date Stop Date Source Former smoker 2021-02-21 00:00:00 2021-02-21 00:00:00 Dick Najera Medications Ordered Filled Start Stop Current Ordering Indication Dosage Frequency Signature Comments Components Source Medication Medication Date Date Medication? Clinician (SIG) Name Name amLODIPine Yes 10mg QD Take 10 mg [place] (NORVASC) 2-07 by mouth Method i 10 [...] blood 2021-02-21 09:28:00 96 mm[Hg] Joseto n Yazdanism pressure Diastolic blood 2021-02-21 09:28:00 64 mm[Hg] Hoda on Yazdanism pressure Heart rate 2021-02-21 09:28:00 60 /min Dick Najera Body temperature 2021-02-21 09:28:00 36.61 Sherri Jose ton Yazdanism Respiratory rate 2021-02-21 09:28:00 17 /min Jose Najera Body height 2021-02-21 09:28:00 182.9 cm Dick Najera Body weight 2021-02-21 09:28:00 70.308 kg Dick Najera BMI 2021-02-21 09:28:00 21.02 kg/m2 Dick Najera Oxygen saturation in 2021-02-21 09:28:00 98 /min Dick Najera Arterial blood by Pulse oximetry Procedures Procedure Date / Time Performed Performing Clinician Tiago e COMPREHENSIVE METABOLIC 2021-02-21 11:02:00 Alistair English PANEL PREALBUMIN LEVEL 2021-02-21 11:02:00 Alistair English M ethodist ESTIMATED GFR 2021-02-21 11:02:00 Alistair English Me thodist PET CT SKULL BASE TO MID 2020-12-20 00:00:[address] ABDOMEN PELVIS WO 2020-11-25 00:00:00 Provider, Historical Filemon brown Yazdanism CONTRAST CT ABDOMEN PELVIS WO 2020-10-29 00:00:00 Provider, Historical Filemon brown Yazdanism CONTRAST CT ABDOMEN WO CONTRAST 2020-10-29 00:00:00 Provider, Historical Dick Najera CT CHEST WO CONTRAST 2020-10-29 00:00:00 Provider, Historical Filemon brown Yazdanism Plan of Care Planned Activity Planned Date Details Comments Source Future Scheduled 2021-06-12 INFLUENZA VACCINE [place] [facility] Test 00:00:00 [code = INFLUENZA VACCINE] Future Scheduled 1999 COLONOSCOPY SCREENING [place] [facility] Test 00:00:00 [code = COLONOSCOPY SCREENING] Future Scheduled 1999 SHINGLES VACCINES (#1) [place] [facility] Test 00:00:00 [code = SHINGLES VACCINES (#1)] Future Scheduled 1967 Hepatitis C screening [place] [facility] Test 00:00:00 (procedure) [code = 110555403] Future Scheduled 1961 COVID-19 VACCINE (1) [place] [facility] Test 00:00:00 [code = COVID-19 VACCINE (1)] Future Scheduled 1955 65+ PNEUMOCOCCAL [place] [facility] Test 00:00:00 VACCINE (1 of 4 - PCV13) [code = 65+ PNEUMOCOCCAL VACCINE (1 of 4 - PCV13)] Encounters Start End Encounter Admission Attending Care Care Encounter Source Date/Time Date/Time Type Type Clinicians Facility Department ID 2021-02-21 2021-02-21 Outpatient [facility] [id number] [place] 00:00:00 00:00:00 ALISTAIR [address] 2021-02-21 2021-02-21 Outpatient [facility] [id number] [address] [place] 00:00:00 00:00:00 ALISTAIR [address] 2021-02-21 2021-02-21 Outpatient [facility] [id number] [address] [place] 00:00:00 00:00:00 EDWARD [address] 2020-11-22 2020-11-22 Outpatient ENGLISH, [facility] [id number] [address] [place] 00:00:00 00:00:[address] EDDALI [address] Results This patient has no known results.
--- NOTE | 2021-05-08 22:07 | RAD REPORT ---
EXAM DESCRIPTION: RAD - ENTEROSTOMY TUBE CHECK W/CONTR - 05/08/2021 9:40 pm CLINICAL HISTORY: gastric tube placement with gastroview COMPARISON: ENTEROSTOMY TUBE CHECK W/CONTR dated 04/24/2021 FINDINGS: Contrast administered into the enterostomy tube confirms the tip located within the small bowel. The bowel gas pattern is nonobstructive. IMPRESSION: Enteric contrast administration confirms the tip of the jejunostomy tube is within the l umen of the small bowel.
--- NOTE | 2021-05-08 22:16 | EDPHYS ---
Physician Documentation [facility] Name: Brandon Chiang Age: 70 yrs Sex: Male : 1950 Arrival Date: 05/08/2021 Time: 19:21 Bed 15 Private MD: ED Physician Lance Cunningham HPI: 05/08 22:06 This 70 yrs old Male presents to ER via Ambulatory with complaints of Feeding ma2 tube came out. 22:06 Onset: The symptoms/episode began/occurred suddenly, 1 hour(s) ago. Associated signs ma2 and symptoms: Pertinent negatives: chest pain, diarrhea, headache, shortness of breath, testicular pain. Severity of pain: At its worst the pain was mild in the emergency department the pain has resolved. The patient has experienced similar episodes in the past. Patient placed g tube himself in the waiting room, balloon was inflated, abdominal area is dry, no induration, in good order.. Historical: - Allergies: 20:19 No Known Allergies; kg - Home Meds: 20:19 ferrous sulfate 220 mg (44 mg iron)/5 mL Oral elix daily [Active]; kg - PMHx: 20:19 esophageal cancer; Hypertension; Stroke; kg - PSHx: 20:19 Tonsillectomy; Adenoid excision; Right hip replacement; kg - Immunization history:: Adult Immunizations Client reports having NOT received the Covid vaccine. - Social history:: Smoking status: Patient/guardian denies using tobacco, Stopped _ months ago 6. - Family history:: not pertinent. ROS: 22:06 Constitutional: Negative for fever, chills, and weight loss. ma2 22:06 All other systems are negative. Exam: 22:06 Constitutional: This is a well developed, well nourished patient who is awake, alert, ma2 and in no acute distress. Head/Face: Normocephalic, atraumatic. Eyes: Pupils equal round and reactive to light, extra-ocular motions intact. Lids and lashes normal. Conjunctiva and sclera are non-icteric and not injected. Cornea within normal limits. Periorbital areas with no swelling, redness, or edema. ENT: Nares patent. No nasal discharge, no septal abnormalities noted. Tympanic membranes are normal and external auditory canals are clear. Oropharynx with no redness, swelling, or masses, exudates, or evidence of obstruction, uvula midline. Mucous membranes moist. Neck: Trachea midline, no thyromegaly or masses palpated, and no cervical lymphadenopathy. Supple, full range of motion without nuchal rigidity, or vertebral point tenderness. No Meningismus. Chest/axilla: Normal chest wall appearance and motion. Nontender with no deformity. No lesions are appreciated. Cardiovascular: Regular rate and rhythm with a normal S1 and S2. No gallops, murmurs, or rubs. Normal PMI, no JVD. No pulse deficits. Respiratory: Lungs have equal breath sounds bilaterally, clear to auscultation and percussion. No rales, rhonchi or wheezes noted. No increased work of breathing, no retractions or nasal flaring. Abdomen/GI: G-tube in left upper abdomen, area is dry, balloon inflated, patient placed the G-tube himself. Otherwise soft, non-tender, with normal bowel sounds. No distension or tympany. No guarding or rebound. No evidence of tenderness throughout. Back: No spinal tenderness. No costovertebral tenderness. Full range of motion. MS/ Extremity: Pulses equal, no cyanosis. Neurovascular intact. Full, normal range of motion. Neuro: Awake and alert, GCS 15, oriented to person, place, time, and situation. Cranial nerves II-XII grossly intact. Motor strength 5/5 in all extremities. Sensory grossly intact. Cerebellar exam normal. Normal gait. Vital Signs: 20:15 BP 162 / 94; Pulse 108; Resp 18; Temp 98.4(TE); Pulse Ox 100% on R/A; Weight 74.84 kg kg (R); Height 60 in. (152.40 cm); Pain 0/10; 20:15 Body Mass Index 32.22 (74.84 kg, 152.40 cm) kg MDM: 21:14 Patient medically screened. ma2 22:06 Differential diagnosis: gastritis, gastroesophageal reflux disease, Irritable bowel ma2 syndrome, non-specific abd pain. Data reviewed: vital signs, nurses notes. Counseling: I had a detailed discussion with the patient and/or guardian regarding: the historical points, exam findings, and any diagnostic results supporting the discharge/admit diagnosis, the presence of at least one elevated blood pressure reading (>120/80) during this emergency department visit, the need for outpatient follow up. Response to treatment: the patient's symptoms have markedly improved after treatment. 05/08 21:26 Order name: ENTEROSTOMY TUBE CHECK W/CONTR EDMS Administered Medications: No medications were administered Disposition Summary: 05/08/21 22:15 Discharge Ordered Location: Home ma2 Condition: Stable ma2 Diagnosis - Gastrostomy complications - re-placement ma2 Followup: ma2 - With: Private Physician - When: Tomorrow - Reason: Continuance of care Discharge Instructions: - Discharge Summary Sheet ma2 - Gastrostomy Tube Replacement, Care After ma2 Forms: - Medication Reconciliation Form ma2 - Thank You Letter ma2 - Antibiotic Education ma2 - Prescription Opioid Use ma2 Signatures: Dispatcher [employer] EDMS Lance Cunningham MD MD ma2 Cintia Rouse RN RN kg Corrections: (The following items were deleted from the chart) 21:26 21:15 Abdomen 1 View (KUB)+RAD.RAD.BRZ ordered. EDMS EDMS
--- NOTE | 2021-05-08 22:16 | ER ---
Nurse's Notes [facility] Name: Brandon Chiang Age: 70 yrs Sex: Male : 1950 Arrival Date: 05/08/2021 Time: 19:21 Bed 15 Private MD: Diagnosis: Gastrostomy [id number] Presentation: 05/08 20:15 Chief complaint: Patient states: Feeding tube came out 1800 and replaced by patient. kg Coronavirus screen: Client denies travel out of the [place] in the last 14 days. At this time, unable to obtain information related to travel outside the [place] At this time, the client does not indicate any symptoms associated with coronavirus-19. Ebola Screen: Patient negative for fever greater than or equal to 101.5 degrees Fahrenheit, and additional compatible Ebola Virus Disease symptoms Patient denies exposure to infectious person. Patient denies travel to an Ebola-affected area in the 21 days before illness onset. Initial Sepsis Screen: Does the patient meet any 2 criteria? No. Patient's initial sepsis screen is negative. Does the patient have a suspected source of infection? No. Patient's initial sepsis screen is negative. Risk Assessment: Do you want to hurt yourself or someone else? Patient reports no desire to harm self or others. Onset of symptoms was May 08, 2021 at 20:00. 20:15 Method Of Arrival: Ambulatory kg 20:15 Acuity: LEIDY 4 kg 20:15 Onset of symptoms was May 08, 2021 at 18:00. kg Triage Assessment: 20:19 General: Appears in no apparent distress. Behavior is calm, cooperative, appropriate kg for age, quiet. Pain: Denies pain. Historical: - Allergies: 20:19 No Known Allergies; kg - Home Meds: 20:19 ferrous sulfate 220 mg (44 mg iron)/5 mL Oral elix daily [Active]; kg - PMHx: 20:19 esophageal cancer; Hypertension; Stroke; kg - PSHx: 20:19 Tonsillectomy; Adenoid excision; Right hip replacement; kg - Immunization history:: Adult Immunizations Client reports having NOT received the Covid vaccine. - Social history:: Smoking status: Patient/guardian denies using tobacco, Stopped _ months ago 6. - Family history:: not pertinent. Screenin:23 Abuse screen: Denies threats or abuse. Denies injuries from another. Abuse screen: kg Denies threats or abuse. Nutritional screening: No deficits noted. Tuberculosis screening: No symptoms or risk factors identified. Fall Risk None identified. No fall in past 12 months (0 pts). Secondary diagnosis (15 points) CVA, No IV (0 pts). Ambulatory Aid- Crutches/Cane/Walker (15 pts). Gait- Normal/Bed Rest/Wheelchair (0 pts) Mental Status- Oriented to own ability (0 pts). Total Wheeler Fall Scale indicates No Risk (0-24 pts). Vital Signs: 20:15 BP 162 / 94; Pulse 108; Resp 18; Temp 98.4(TE); Pulse Ox 100% on R/A; Weight 74.84 kg kg (R); Height 60 in. (152.40 cm); Pain 0/10; 20:15 Body Mass Index 32.22 (74.84 kg, 152.40 cm) kg ED Course: 19:21 Patient arrived in ED. 19:36 Lance Cunningham MD is Attending Physician. [facility] 20:19 Triage completed. kg 20:19 Arm band placed on right wrist. kg 20:23 Patient has correct armband on for positive identification. kg 21:40 ENTEROSTOMY TUBE CHECK W/CONTR In Process Unspecified. EDMS Administered Medications: No medications were administered Outcome: 22:15 Discharge ordered by . ma 22:21 Patient left the ED. em Signatures: Dispatcher [employer] EDMS Janette Wallis Atilio Anderson RN RN Lance Cunningham MD MD ohCintia Narayanan RN RN kg Corrections: (The following items were deleted from the chart) 20:19 20:15 Chief complaint: Patient states: Feeding tube came out 1999 and replaced by kg patient. kg
[2021-05-09 16:55] VITALS: BP 162/94; TEMP 98.4; O2SAT 100
== END 2021-05-08 22:21 | disposition home or self-care (01) ==
LOC: ER 19:16
DX: K94.29 Other complications of gastrostomy (principal)
CPT/HCPCS: 49465; 99282

== ENCOUNTER → 2021-08-30 | Day surgery (SDC) | payer OTHER ==
--- NOTE | 2021-08-30 11:04 | RAD REPORT ---
EXAM DESCRIPTION: US - Guided FNA Non Breast - 08/30/2021 10:32 am CLINICAL HISTORY: R22.1, R93.89, C15.4 COMPARISON: Fluoroscopy <1 Hour dated 01/02/2021 FINDINGS: Preoperative diagnosis: Right neck mass. Post operative diagnosis: Same. Conscious Sedation: None Fluoroscopy time: None Contrast used: None Estimated blood loss: Minimal Specimens:2 18 gauge core sample The right neck was prepped and draped in the usual sterile fashion. 1% lidocaine was infiltrated into the subcutaneous tissues for local anesthesia. Real time ultrasound scanning of the right posterior neck demonstrated the perispinal mass. Under ultrasound guidance, using a 18-gauge, 6 cm long, 2 cm t hrTopCoder core biopsy gun, 2 specimens were obtained of this lesion and sent to pathology for evaluation. There were no complications. IMPRESSION: Technically successful ultrasound-guided core biopsy of a suspicious mass in the right p araspinal musculature of the neck.
== END ==
LOC: FNA 10:00
PROVIDERS: ATTEND Otolaryngology
PROC: 0WJ63ZZ Inspection of Neck, Percutaneous Approach (ICD-10-PCS; principal; 2021-08-30)
DX: C79.89 Secondary malignant neoplasm of other specified sites (principal); C15.4 Malignant neoplasm of middle third of esophagus
CPT/HCPCS: 88305

== ENCOUNTER 2022-10-09 12:13 | Inpatient (IN) | payer OTHER ==
--- OUTSIDE RECORDS SUMMARY | 2022-10-09 12:17 | XMS REPORT | Continuity of Care Document ---
:1950 Author Organization [facility] t Address [address] [place] [address] Care Team Providers Name Role Phone Pepe Mckeon MD, Nolan Primary Care Physician Tum[place]_A Attending Clinician Unavailable Radha Contreras Attending Clinician [email or web address] Attending Clinician Unavailable SANTIAGO HENSON Attending Clinician Unavailable Lizeth-Mbayo_A_AH Attending Clinician Unavailable Tumelson_A Admitting Clinician Unavailable [email or web address] Admitting Clinician Unavailable Lizeth-Mbayo_A_AH Admitting Clinician Unavailable Payers Payer Name Policy Type Policy Number Effective Date Expiration Date S [facility] [id number] 2020 (MEDICARE 00:00:00 REPLACEMENT HMO) [employer] [place] - [id number] [facility] (MEDICARE 00:00:00 REPLACEMENT/[employer] GE - HMO) Problems This patient has no known problems. Allergies, Adverse Reactions, Alerts This patient has no known allergies or adverse reactions. Social History Social Habit Start Date Stop Date Quantity Comments Source Cigarettes smoked 2020-11-22 2020-11-[address] current (pack per 00:00:00 00:00:00 Hospita l day) - Reported Cigarette 2020-11-22 2020-11-22 [facility] pack-years 00:00:00 00:00:00 Hospital Tobacco use and 2020-11-22 2020-11-22 Smokeless tobacco [facility] exposure 00:00:00 00:00:00 non-user Hospital History of tobacco 2020-09-11 Current smoker [facility] use 00:00:00 Hospital Sex Assigned At [birth year] [facility] 00:00:00 00:00:00 Hospital Smoking Status Start Date Stop Date Source Ex-smoker 2020-11-22 00:00:00 2020-11-22 00:00:00 [facility] Medications Ordered Filled Start Stop Current Ordering Indication Dosage Frequency Signature Comments Components Source Medication Medication Date Date Medication? Clinician (SIG) Name Name amLODIPine Yes 10mg QD Take 10 mg M [facility] (NORVASC) 2-[address] 10 mg 00:00: daily. Hospita tablet 00 l metoclopram Yes 10mg QD Take 10 mg [facility] sai 2-[address] (REGLAN) 10 00:00: daily. Hosp aidee MG tablet 00 l famotidine Yes 20mg Q.5D Take 20 mg M ethodi (PEPCID) 20 2-[address] MG tablet 00:00: (two) Hospita 00 times a l day. ondansetron Yes TAKE ONE Me thodi (ZOFRAN) 4 2-04 (1) st MG tablet 00:00: TABLET(S) Hos nate 00 BY MOUTH l EVERY SIX HOURS NEEDED FOR 7 DAYS. omeprazole Yes [facility] (PriLOSEC) 1-22 st 20 MG 00:00: Hospita capsule 00 l Procedures This patient has no known procedures. Plan of Care Planned Activity Planned Date Details Comments Source Future Scheduled 2022-10-09 COVID-19 VACCINE (#1) [facility] Test 12:16:32 [code = COVID-19 VACCINE (#1)] Future Scheduled 2022-10-09 65+ PNEUMOCOCCAL [facility] Test 12:16:32 VACCINE (1 - PCV) [code = 65+ PNEUMOCOCCAL VACCINE (1 - PCV)] Future Scheduled 2022-10-09 Hepatitis C screening [facility] Test 12:16:32 (procedure) [code = 885096710] Future Scheduled 2022-10-09 SHINGLES VACCINES (1 [facility] Test 12:16:32 of 2) [code = SHINGLES VACCINES (1 of 2)] Future Scheduled 2022-10-09 COLONOSCOPY SCREENING [facility] Test 12:16:32 [code = COLONOSCOPY SCREENING] Future Scheduled 2022-10-09 [facility]ACCINE [facility] 12:16:32 [code = INFLUENZA VACCINE] Encounters Start End Encounter Admission Attending Care Care Encounter Source Date/Time Date/Time Type Type Clinicians Facility Department ID 2022-04-25 2022-04-25 Outpatient Tumelson_A [id number] 03:37:00 03:37:00 0715 [facility] 2022-04-07 2022-04-07 CAV Radha [id number] CLAC [id number] [facility] 21:00:00 22:00:00 [place] [id number] [facility] [id number] 2022-04-02 2022-04-02 Outpatient Tumelson_A DMG [id number] [facility] 03:10:00 03:10:00 0622 Medica l Group 2021-09-12 2021-09-12 Outpatient [id number] [facility] [id number] [facility] 11:02:00 11:02:00 1202 Medica l Group 2021-02-21 2021-02-21 Outpatient [facility] [id number] [address] [place] 00:00:00 00:00:00 EDWARD 730 [address] [facility] 2021-02-21 2021-02-21 Outpatient HENSON, [facility] [id number] 0[address] [place] 00:00:00 00:00:00 EDWARD 387 [address] i 2021-02-21 2021-02-21 Outpatient [facility] [id number] [address] [place] 00:00:00 00:00:00 EDWARD 192 [address] i 2020-11-22 2020-11-22 Outpatient [facility] [id number] [address] [place] 00:00:00 00:00:00 EDWARD 066 Method i 2019-11-30 2019-11-30 Outpatient Russ VFP VFP [phone] [facility] 07:16:00 07:16:00 _A_ [id number] Family Practic e Results This patient has no known results.
[2022-10-09] MEDS ORDERED: NA CHLORIDE 0.9% 500 ML ONE (14:23)
[2022-10-09 14:42] LABS: Absolute Lymphocytes (CBC) 0.6 K/uL (0.7-4.9); Hematocrit 37.9 % (39.6-49.0); Lymphocytes % 7.7 % (15.3-44.8); RBC Red Blood Cell Count 3.65 M/uL (4.33-5.43)
[2022-10-09 14:52] LABS: Albumin 3.2 g/dL (3.4-5.0); Bilirubin Total 0.3 mg/dL (0.2-1.0); Magnesium 2.2 mg/dL (1.6-2.4); Potassium 4.6 mmol/L (3.5-5.1); Protein, Total 7.1 g/dL (6.4-8.2)
[2022-10-09 14:57] LABS: Troponin High Sensitivity 268.9 pg/mL (<58.9)
--- NOTE | 2022-10-09 15:08 | RAD REPORT ---
EXAM DESCRIPTION: CTAbdomen Pelvis Wo Contrast - 10/09/2022 2:43 pm CLINICAL HISTORY: upper abdominal pain, vomiting, diarrhea, kidney failure COMPARISON: CT RAD RX FIELD SPINE dated 08/14/2021; Abdomen Pelvis Wo Contrast dated 11/30/2020; Abd omen Pelvis Wo Contrast dated 11/25/2020; Abdomen Pelvis Wo Contrast dated 11/23/2020; Abdomen Wo C ontrast dated 09/22/2022 TECHNIQUE: CT of the abdomen and pelvis was performed. All CT scans are performed using dose optimization technique as appropriate and may include automated exposure control or mA/KV adjustment according to patient size. FINDINGS: Lower chest: No acute abnormality. Mild circumferential thickening of the distal esophagus . Liver: No acute abnormality or suspicious lesions. Biliary: No biliary ductal dilatation. Stomach: No significant focal abnormality. Duodenum: No significant focal abnormality. Pancreas: Atrophic pancreas Spleen: No significant abnormality. Adrenal: Unchanged right adrenal nodule. Kidney/ureter: Similar right-sided perinephric stranding. There is hyperdensity at the renal sinus th at is nonspecific. Renal cysts. Atrophic left kidney. Right-sided nephrolithiasis. No definite hydron ephrosis. Retroperitoneum: No retroperitoneal adenopathy. Vascular: No aneurysm. Aortic ectasia. Atherosclerosis. Bowel: Partial bowel resection. Patulous small bowel in the left hemiabdomen.. Peritoneum: No ascites or free air. Bladder: Grossly unremarkable. Reproductive: No adnexal masses. Bones: No acute fracture. Intramedullary regina in the left femur. Other: n/a IMPRESSION: Re- demonstrated abnormal appearance of the right kidney which is not well assessed with out IV contrast. Hyperdensity at the right renal sinus could represent hemorrhage or mass. No hydrone phrosis is seen, however. The left kidney is atrophic.
[2022-10-09 15:35] LABS: SARS-COV-2 RT PCR NEGATIVE (NEGATIVE)
--- NOTE | 2022-10-09 16:37 | ER ---
Nurse's Notes [facility] Name: Brandon Chiang Age: 72 yrs Sex: Male : 1950 Arrival Date: 10/09/2022 Time: 12:14 Bed 17 Private MD: Nolan Cantu E Diagnosis: Fluid overload, unspecified;Acute renal failure;Elevated troponin Presentation: 10/09 13:16 Chief complaint: Patient states: SHORTNESS OF BREATH AND TOLD BY DR GANDHI KIDNEYS ARE bp FAILING. Coronavirus screen: At this time, the client does not indicate any symptoms associated with coronavirus-19. Ebola Screen: No symptoms or risks identified at this time. Initial Sepsis Screen: Does the patient meet any 2 criteria? No. Patient's initial sepsis screen is negative. Does the patient have a suspected source of infection? No. Patient's initial sepsis screen is negative. Risk Assessment: Do you want to hurt yourself or someone else? Patient reports no desire to harm self or others. Onset of symptoms is unknown. 13:16 Method Of Arrival: Wheelchair bp 13:16 Acuity: LEIDY 3 bp 13:16 Note LABS DRAWN THIS AM. bp Historical: - Allergies: 13:13 No Known Allergies; bp - Home Meds: 13:13 ferrous sulfate 220 mg (44 mg iron)/5 mL Oral elix daily [Active]; bp Hydrocodone-Acetaminophen Oral [Active]; Eliquis Oral [Active]; - PMHx: 13:13 esophageal cancer; Hypertension; stroke; Kidney stone; bp - PSHx: 13:13 Tonsillectomy; Right hip replacement; Adenoid excision; Lithotripsy; bp - Immunization history:: Adult Immunizations up to date. - Social history:: Smoking status: Patient denies any tobacco usage or history of. Screenin:23 [facility] ED Fall Risk Assessment (Adult) History of falling in the last 3 months, ld1 including since admission No falls in past 3 months (0 pts). Abuse screen: Denies threats or abuse. Denies injuries from another. Nutritional screening: No deficits noted. Tuberculosis screening: No symptoms or risk factors identified. Assessment: 15:23 General: Appears in no apparent distress. comfortable, Behavior is calm, cooperative, ld1 appropriate for age. Pain: Denies pain. Neuro: Level of Consciousness is awake, alert, obeys commands, Oriented to person, place, time, situation. Cardiovascular: Capillary refill < 3 seconds Patient's skin is warm and dry. Rhythm is sinus rhythm. Respiratory: Airway is patent Respiratory effort is even, unlabored. GI: Abdomen is flat, non-distended. : No signs and/or symptoms were reported regarding the genitourinary system. EENT: No signs and/or symptoms were reported regarding the EENT system. Derm: No signs and/or symptoms reported regarding the dermatologic system. Musculoskeletal: No signs and/or symptoms reported regarding the musculoskeletal system. Vital Signs: 13:16 BP 100 / 70; Pulse 95; Resp 16; Temp 97.2; Pulse Ox 100% ; Weight 58.97 kg; Height 6 bp ft. (182.88 cm); 15:23 BP 139 / 89; Pulse 61; Resp 18; Pulse Ox 100% on R/A; ld1 13:16 Body Mass Index 17.63 (58.97 kg, 182.88 cm) bp ED Course: 12:14 Patient arrived in ED. am2 12:15 Nolan Cantu MD is Private Physician. am2 12:17 Humera Denise MD is Attending Physician. sd2 13:16 Arm band placed on. bp 13:17 Triage completed. bp 13:48 Bernie Rascon, RN is Primary Nurse. ld1 14:19 COVID-19/FLU A+B Sent. ld1 14:23 Magnesium Sent. rs5 14:23 CMP Sent. rs5 14:23 CBC with Diff Sent. rs5 14:23 Troponin High Sensitivity Sent. rs5 14:23 BNP Sent. rs5 14:24 Missed attempt(s): 22 gauge in right forearm. rs5 14:24 Inserted saline lock: 22 gauge in left antecubital area, using aseptic technique. Blood rs5 collected. 14:45 CT Abd/Pelvis - Without Contrast In Process Unspecified. EDMS 14:51 COVID-19/FLU A+B Sent. rs5 14:51 BNP Sent. rs5 14:51 Troponin High Sensitivity Sent. rs5 14:51 Magnesium Sent. rs5 14:51 CMP Sent. rs5 15:23 Patient has correct armband on for positive identification. Placed in gown. Bed in low ld1 position. Call light in reach. Side rails up X2. security monitor on. Pulse ox on. NIBP on. Door closed. Noise minimized. Warm blanket given. 15:23 No provider procedures requiring assistance completed. ld1 16:36 Jovanni Morales is Hospitalizing Provider. sd2 19:48 IV discontinued, intact, bleeding controlled, No redness/swelling at site. Pressure ll3 dressing applied. 19:48 Inserted saline lock: 22 gauge in right antecubital area, using aseptic technique. ll3 Administered Medications: 14:27 Drug: NS 0.9% 500 ml Route: IV; Rate: bolus; Site: left antecubital; ld1 Medication: 15:23 VIS not applicable for this client. ld1 Outcome: 16:36 Decision to Hospitalize by Provider. sd2 20:17 Patient left the ED. jb4 Signatures: Dispatcher [employer] EDMS Andrew Manley RN RN jb4 Tammy Roldan amSaman Godoy RN RN bp Bernie Rascon RN RN ld1 Jasmine Bell RN RN ll3 Humera Denise MD MD sd2 Kody Woo rs5 Corrections: (The following items were deleted from the chart) 14:24 14:23 Inserted Missed attempt(s): 22 gauge in right forearm. rs5 rs5
--- NOTE | 2022-10-09 16:37 | EDPHYS ---
Physician Documentation [facility] Name: Brandon Chiang Age: 72 yrs Sex: Male : 1950 Arrival Date: 10/09/2022 Time: 12:14 Bed 17 Private MD: Nolan Cantu E ED Physician Humera Denise HPI: 10/09 15:06 This 72 yrs old Male presents to ER via Wheelchair with complaints of Abnormal Lab sd2 Results, Shortness Of Breath. 15:06 72 yo M presents with CC of SOB for the past week and a half progressively worsening sd2 with exertion. Denies fever, cough, congestion. Reports vomiting for the past week and a half as well felt to be due to his ulcer that he has and diarrhea starting today. Seen by his GI physician today who had labs and CXR performed which showed kidney failure. Pt reports a history of CKD at 15% functioning. . Historical: - Allergies: 13:13 No Known Allergies; bp - Home Meds: 13:13 ferrous sulfate 220 mg (44 mg iron)/5 mL Oral elix daily [Active]; bp Hydrocodone-Acetaminophen Oral [Active]; Eliquis Oral [Active]; - PMHx: 13:13 esophageal cancer; Hypertension; stroke; Kidney stone; bp - PSHx: 13:13 Tonsillectomy; Right hip replacement; Adenoid excision; Lithotripsy; bp - Immunization history:: Adult Immunizations up to date. - Social history:: Smoking status: Patient denies any tobacco usage or history of. ROS: 15:06 Constitutional: Negative for fever, chills, and weight loss, Eyes: Negative for injury, sd2 pain, redness, and discharge, Cardiovascular: Negative for chest pain, palpitations, and edema. 15:06 MS/Extremity: Negative for injury and deformity, Skin: Negative for injury, rash, and discoloration, Neuro: Negative for headache, numbness and tingling. 15:06 Respiratory: Positive for dyspnea on exertion, shortness of breath, Negative for cough, wheezing. 15:06 Abdomen/GI: Positive for nausea, vomiting, diarrhea, Negative for abdominal pain. Exam: 15:06 Constitutional: This is a cachectic, chronically ill appearing patient who is awake, sd2 alert, and in no acute distress. Head/Face: Normocephalic, atraumatic. Eyes: EOMI, normal conjunctiva bilaterally Chest/axilla: Normal chest wall appearance and motion. Nontender with no deformity. Cardiovascular: Regular rate and rhythm with a normal S1 and S2. No gallops, murmurs, or rubs. 2+ distal pulses. Respiratory: Lungs have equal breath sounds bilaterally, clear to auscultation and percussion. No rales, rhonchi or wheezes noted. No increased work of breathing, no retractions or nasal flaring. Abdomen/GI: Soft, non-tender, with normal bowel sounds. No guarding or rebound. No evidence of tenderness throughout. Skin: Warm, dry with normal turgor. Normal color with no rashes, no lesions, and no evidence of cellulitis. MS/ Extremity: Pulses equal, no cyanosis. Neurovascular intact. Full, normal range of motion. Psych: Awake, alert, with orientation to person, place and time. Behavior, mood, and affect are within normal limits. 15:06 ECG was reviewed by the Attending Physician. NSR, rate 85, no STEMI criteria, non sd2 specific TWIs in inferior and lateral leads Vital Signs: 13:16 BP 100 / 70; Pulse 95; Resp 16; Temp 97.2; Pulse Ox 100% ; Weight 58.97 kg; Height 6 bp ft. (182.88 cm); 15:23 BP 139 / 89; Pulse 61; Resp 18; Pulse Ox 100% on R/A; ld1 13:16 Body Mass Index 17.63 (58.97 kg, 182.88 cm) bp MDM: 14:04 Patient medically screened. sd2 15:06 Differential diagnosis: Differential diagnosis includes but is not limited to: ACS, sd2 DVT/PE, pneumothorax, dissection, musculoskeletal, anxiety, anemia, electrolyte abnormality, pneumonia, CHF, COPD among others. Data reviewed: vital signs, nurses notes. 16:33 Data reviewed: lab test result(s), EKG, radiologic studies. Counseling: I had a sd2 detailed discussion with the patient and/or guardian regarding: the historical points, exam findings, and any diagnostic results supporting the discharge/admit diagnosis, lab results, radiology results, the need for further work-up and treatment in the hospital. ED course: Labs and imaging reviewed with acute renal failure and elevated BNP and troponin likely 2/2 demand ischemia. Pt to be admitted for further management at this time. . 10/09 13:32 Order name: CBC with Diff; Complete Time: 15:04 sd2 10/09 13:32 Order name: CMP; Complete Time: 15:04 sd2 10/09 13:32 Order name: Magnesium; Complete Time: 15:04 sd2 10/09 13:32 Order name: Troponin High Sensitivity; Complete Time: 15:04 sd2 10/09 13:32 Order name: BNP; Complete Time: 15:04 sd2 10/09 13:32 Order name: COVID-19/FLU A+B; Complete Time: 15:37 sd2 10/09 13:32 Order name: EKG - Nurse/Tech; Complete Time: 14:58 sd2 10/09 14:27 Order name: CT Abd/Pelvis - Without Contrast; Complete Time: 15:10 sd2 Administered Medications: 14:27 Drug: NS 0.9% 500 ml Route: IV; Rate: bolus; Site: left antecubital; ld1 Disposition: 16:33 Critical Care:. sd2 Disposition Summary: 10/09/22 16:36 Hospitalization Ordered Hospitalization Status: Inpatient Admission sd2 Provider: Jovanni Morales sd2 Location: Telemetry/MedSurg (Inpatient) sd2 Condition: Stable sd2 Problem: new sd2 Symptoms: are unchanged sd2 Bed/Room Type: [facility] Room Assignment: 205(10/09/22 19:16) dw Diagnosis - Fluid overload, unspecified sd2 - Acute renal failure sd2 - Elevated troponin sd2 Forms: - Medication Reconciliation Form sd2 - SBAR form sd2 Critical care time excluding procedures: 16:33 Critical care time: Bedside Care: 35 minutes, Consultation: 5 minutes. Total time: 40 sd2 minutes Signatures: Dispatcher [employer] EDMiguelina Hernandez RN RN Saman Schultz RN RN bp Dibbern, Lauren, RN RN [email or web address] Humera Denise MD MD sd2 Corrections: (The following items were deleted from the chart) 13:39 13:32 Chest Single View+RAD.RAD.BRZ ordered. EDNY EDNY 19:16 16:36 sd2 dw
--- NOTE | 2022-10-09 17:47 | P.HP ---
Certification for Inpatient Patient admitted to: Inpatient With expected LOS: >2 Midnights Practitioner: I am a practitioner with admitting privileges, knowledge of patient current condition, hospital course, and medical plan of care. Services: Services provided to patient in accordance with Admission requirements found in Title 42 Section 412.3 of the Code of Federal Regulations Patient History Date of Service: 10/09/22 Reason for admission: Abnormal labs History of Present Illness: 72-year-old gentleman with a history of esophageal cancer, on chemotherapy, last chemo was about 2 weeks ago, recently diagnosed gastric ulcer and erosions by endoscopy done by Dr. Greenwood presented to Dr. Greenwood's with a complaint of nausea and vomiting, abdominal discomfort, loss of appetite. He denies any dysphagia and stated he swallows just fine. Blood work was ordered which showed acute renal failure. Patient has a history of chronic kidney disease stage III. He was referred to the emergency department for further management. Patient reports watery diarrhea of onset last night, he endorsed poor oral intake, denied any fever. Blood work in the ED shows creatinine level up to 5.69 compared to a baseline of 3.3. BNP is elevated. Troponin is also elevated. Patient has a history of chronic systolic heart failure, most recent echocardiogram shows EF of 30 to 35%. He is admitted for further management. Allergies No Known Allergies Allergy (Verified 07/15/22 14:50) Home Medications: Apixaban [Eliquis *] 2.5 mg PO DAILY 07/15/22 Felodipine [Plendil] 10 mg PO DAILY 07/15/22 Hydrocodone Bit/Acetaminophen [Hydrocodon-Acetaminophen 5-325] 1 each PO BID 07/15/22 Melatonin [Melatonin*] 3 mg PO BEDTIME 07/15/22 Ondansetron [Zofran] 4 mg PO Q6H PRN 07/15/22 Pantoprazole [Protonix Tab] 40 mg PO DAILY 07/15/22 Sertraline HCl 50 mg PO DAILY 07/15/22 dexAMETHasone [Decadron] 8 mg PO SEECOM 07/15/22 - Past Medical/Surgical History Diabetic: No -: Esophageal cancer -: Chronic kidney disease -: Knee surgery -: Tonsillectomy and adenoidectomy. -: Jtube insertion - Family History Father -: Other (see notes) Notes: Blood clot - Social History Alcohol use: Yes CD- Drugs: No Caffeine use: No Review of Systems Other: Except as documented, all other systems reviewed and negative. Physical Examination - Physical Exam General: Alert, In no apparent distress, Cachectic HEENT: PERRLA, Mucous membr. moist/pink, Sclerae nonicteric Neck: Supple, JVD not distended Respiratory: Clear to auscultation bilaterally, Normal air movement Cardiovascular: No edema, Regular rate/rhythm, Normal S1 S2, No murmurs Gastrointestinal: Normal bowel sounds, Soft and benign, Non-distended, Other (Scaphoid abdomen), Tenderness (Epigastrium) Musculoskeletal: No swelling, No tenderness Integumentary: No rashes, No cyanosis Neurological: Normal speech, Normal strength at 5/5 x4 extr, Cranial nerves 3-12 intact Lymphatics: No axilla or inguinal lymphadenopathy - Studies Laboratory Data (last 24 hrs) 10/09/22 14:19: Sodium 137, Potassium 4.6, BUN 80 H, Creatinine 5.69 H*, Glucose 93, Magnesium 2.2, Total Bilirubin 0.3, AST 13 L, ALT 17, Alkaline Phosphatase 78 10/09/22 14:19: WBC 7.40, Hgb 12.6 L, Hct 37.9 L, Plt Count 151 L Assessment and Plan - Problems (Diagnosis) (1) Elevated troponin Current Visit: Yes Status: Acute (2) Acute renal failure superimposed on stage 3 chronic kidney disease Current Visit: No Status: Acute (3) Chronic systolic heart failure Current Visit: No Status: Acute (4) History of esophageal cancer Current Visit: No Status: Acute (5) Nausea and vomiting Current Visit: No Status: Acute - Plan Admit patient to the medical floor. We will treat CLIVE with IV normal saline at a cautious rate to avoid fluid overload given history of systolic heart failure. Monitor renal function. Consult nephrology-Dr. Mckinney. Elevated troponin likely secondary to decreased renal clearance and demand ischemia given history of LV dysfunction Trend troponin. Obtain echocardiogram. Monitor and optimize electrolytes. Diet as tolerated. Start IV Protonix for history of gastric ulcer. - Advance Directives Does patient have a Living Will: No Does patient have a Durable POA for Healthcare: No
[2022-10-09] MEDS ORDERED: SODIUM CHLORIDE 0.9% 10ML INJ IV PRN (19:42)
[2022-10-09] MEDS ORDERED: ACETAMINOPHEN 500 MG TAB PO PRN (19:42)
[2022-10-09] MEDS: NA CHLORIDE 0.9% 1,000 ML IV SCH (20:33)
[2022-10-09] MEDS: MELATONIN 3 MG TABLET PO SCH (20:43)
[2022-10-09] MEDS: HYDROCODONE/APAP 7.5/325 MG TAB PO PRN (20:43)
[2022-10-09] MEDS ORDERED: PANTOPRAZOLE 40 MG INJ IVP SCH (21:00)
[2022-10-09] MEDS ORDERED: PANTOPRAZOLE 40MG TABLET PO SCH (21:00)
[2022-10-10] MEDS: HEPARIN 5000 UNIT/ML 1 ML VIAL SQ SCH ×2 (00:27→09:01)
[2022-10-10] MEDS: HYDROCODONE/APAP 7.5/325 MG TAB PO PRN ×3 (02:32→22:00)
[2022-10-10] MEDS: NA CHLORIDE 0.9% 1,000 ML IV SCH (06:16)
[2022-10-10 06:18] LABS: Absolute Lymphocytes (CBC) 0.6 K/uL (0.7-4.9); Hematocrit 35.5 % (39.6-49.0); Lymphocytes % 9.3 % (15.3-44.8); MCV 103.4 fL (80-100); RBC Red Blood Cell Count 3.44 M/uL (4.33-5.43)
[2022-10-10 06:37] LABS: Magnesium 2.1 mg/dL (1.6-2.4); Phosphorus 5.9 mg/dL (2.5-4.9); Potassium 4.1 mmol/L (3.5-5.1)
[2022-10-10] MEDS: SERTRALINE HCL 50 MG TAB PO SCH (09:01)
[2022-10-10] MEDS: PANTOPRAZOLE 40MG TABLET PO SCH ×2 (09:01→20:16)
--- NOTE | 2022-10-10 09:18 | P.CNS ---
Date of Consult: 10/10/22 Reason for Consult: Renal failure Requesting Physician: yanci nguyen Chief Complaint: Abnormal labs History of Present Illness: 72-year-old male with a history of esophageal cancer on infusional chemotherapy with last cycle before with reports of stable disease per pt, recent N/V/anorexia over the past few weeks with scope performed by GI and recently diagnosed gastric ulcer and erosions by endoscopy. Pt reports weight loss of about 20 lbs over the past several weeks, he reports loss of appetite. He has a hx of advanced CKD under the care of Dr. Mckinney and last saw him this fall. He acknowledges reduced UOP over the past week and has not voided since admission despite IVF hydration. He does not reports any shortness of breath or swelling although has a hx of cardiomyopathy and LVEF dysfunction. Allergies No Known Allergies Allergy (Verified 07/15/22 14:50) Home Medications: Melatonin [Melatonin*] 3 mg PO BEDTIME 07/15/22 Ondansetron [Zofran] 4 mg PO Q6H PRN 07/15/22 Pantoprazole [Protonix Tab] 40 mg PO BID 07/15/22 Sertraline HCl 50 mg PO DAILY 07/15/22 dexAMETHasone [Decadron] 8 mg PO SEECOM 07/15/22 Hydrocodone Bit/Acetaminophen [[place] 7.5-325 Tablet] 1 each PO Q6HP PRN 10/09/22 - Past Medical/Surgical History Diabetic: No -: Esophageal cancer -: Chronic kidney disease -: Knee surgery -: Tonsillectomy and adenoidectomy. -: Jtube insertion- removal -: hernia surgery -: vasectomy - Family History Father Medical History: Other (see notes) Notes: Blood clot - Social History Smoking Status: Former smoker Alcohol use: Yes CD- Drugs: No Caffeine use: No Review of Systems General: Weakness, Other (Loss of weight) Eyes: Unremarkable ENT: Unremarkable Respiratory: As per HPI Cardiovascular: As per HPI Gastrointestinal: Nausea, Vomiting, Other (Anorexia, esophageal Ca hx, PUD) Genitourinary: Other (Oligoanuria), As per HPI Musculoskeletal: Unremarkable Integumentary: Unremarkable Neurological: Weakness Lymphatics: Unremarkable Physical Examination Temp Pulse Resp BP Pulse Ox 97.4 F 88 16 142/82 H 100 10/10/22 08:00 10/10/22 08:00 10/10/22 08:00 10/10/22 08:00 10/10/22 08:00 General: Alert, In no apparent distress, Oriented x3, Cooperative, Cachectic HEENT: Atraumatic, Normocephalic, PERRLA Neck: Supple Respiratory: Normal air movement, Other (No rhonchi) Cardiovascular: No edema, Regular rate/rhythm, Normal S1 S2 Gastrointestinal: Other (Scaphoid, NT, some epigastric TTP) Musculoskeletal: No swelling, No contractures, Other (Muscle mass loss) Integumentary: No rashes, No breakdown, No significant lesion Neurological: Normal speech, Normal tone Laboratory Data (last 24 hrs) 10/09/22 14:19: Sodium 137, Potassium 4.6, BUN 80 H, Creatinine 5.69 H*, Glucose 93, Magnesium 2.2, Total Bilirubin 0.3, AST 13 L, ALT 17, Alkaline Phosphatase 78 10/09/22 14:19: WBC 7.40, Hgb 12.6 L, Hct 37.9 L, Plt Count 151 L Conclusions/Impression: A/P) 1. Abnormal results of kidney function studies 2. Small kidney unilateral, primarily solitary kidney state 3. Progressive CKD, now CKD V/ESRD potentially 4. Azotemia with likely early uremia 5. Oligoanuria 6. Esophageal cancer 7. Hyperphosphatemia 8. Calculus and cysts of kidney 9. Cardiomyopathy unspecified, chronic systolic CHF. -eGFR has been low for some time, prior and latest renal imaging is consistent with a more atrophic left kidney, Rt kidney with some cysts and non obstructive nephrolithiasis but without hydro and no bladder distention reported on imaging yesterday. -Can not rule out some sub-acute CLIVE on advanced CKD and unclear what chemo regimen he is on but I presume he is not getting cisplatin agents with his renal impairment. -No response to IVF hydration overnight. Given constellation of above and symptoms, pt is agreeable to proceeding with HD and anticipate longer-term HD so requesting TDC (will consult Dr. Garces and make NPO, hold heparin ppx and check coags) and will consult CM for OP HD placement. -Initial HD today if line gets placed today -Will lower IVF rate and cont while NPO -Appears to be compensated from his cardiomyopathy standpoint -If N/V persist post initiation of HD, will request GI to investigate further and manage Prashant Melendez MD, BUSTER
[2022-10-10] MEDS: SUCRALFATE 1GM/10ML UCUP PO SCH ×3 (11:30→20:15)
[2022-10-10] MEDS: Ringers Lactate 1,000 ML IV SCH (12:21)
[2022-10-10 13:35] LABS: Protime INR 0.93
--- NOTE | 2022-10-10 13:36 | P.PN ---
Subjective Date of Service: 10/10/22 Chief Complaint: Abnormal labs Patient stated he vomited last night. He stated he vomited up a care after his dinner meal. He denies any diarrhea today. No recorded fever. Physical Examination - Vital Signs Temperature: 97.5 F Blood Pressure: 120/80 Pulse: 89 Respirations: 16 Pulse Ox (%): 97 - Physical Exam General: Alert, In no apparent distress, Cachectic HEENT: Mucous membr. moist/pink Neck: Supple, JVD not distended Respiratory: Clear to auscultation bilaterally, Normal air movement Cardiovascular: Regular rate/rhythm, Normal S1 S2 Gastrointestinal: Normal bowel sounds, Soft and benign, Non-distended, No tenderness Musculoskeletal: No swelling Integumentary: No rashes Neurological: Normal strength at 5/5 x4 extr - Studies Laboratory Data (last 24 hrs) 10/09/22 14:19: Sodium 137, Potassium 4.6, BUN 80 H, Creatinine 5.69 H*, Glucose 93, Magnesium 2.2, Total Bilirubin 0.3, AST 13 L, ALT 17, Alkaline Phosphatase 78 10/09/22 14:19: WBC 7.40, Hgb 12.6 L, Hct 37.9 L, Plt Count 151 L Assessment And Plan - Current Problems (Diagnosis) (1) Elevated troponin Current Visit: Yes Status: Acute (2) Acute renal failure superimposed on stage 3 chronic kidney disease Current Visit: No Status: Acute (3) Chronic systolic heart failure Current Visit: No Status: Acute (4) History of esophageal cancer Current Visit: No Status: Acute (5) Nausea and vomiting Current Visit: No Status: Acute (6) Severe protein-calorie malnutrition Current Visit: Yes Status: Acute - Plan Patient seen by nephrology. Serum creatinine did not improve. IV fluid per nephrology Nephrology is considering hemodialysis Elevated troponin likely secondary to decreased renal clearance and demand ischemia given history of LV dysfunction. Troponin trended flat Echocardiogram is pending. Monitor and optimize electrolytes. Diet as tolerated. Continue IV Protonix for history of gastric ulcer. Added Carafate due to persistent vomiting.
[2022-10-10 15:32] LABS: Hepatitis B Core Ab, Total Nonreactive (Nonreactive); Hepatitis B Core IgM Nonreactive (Nonreactive); Hepatitis B surface AG Interp. Nonreactive (Nonreactive); Hepatitis C Virus Ab Nonreactive (Nonreactive)
[2022-10-10 15:33] LABS: Hepatitis B Surface Ab - Quant < 3.10 mIU/mL (<8.0)
[2022-10-10 16:15] LABS: Specific Gravity 1.018 (1.005-1.030); Urine Bacteria None Seen /HPF (<20); Urine Bilirubin NEGATIVE (Negative); Urine Blood Negative (Negative); Urine Clarity Clear (Clear); Urine Color Yellow (Yellow); Urine Crystals Unidentified Few /HPF (None Seen); Urine Glucose NEGATIVE (Negative); Urine Protein 2+ (Negative); Urine RBC <5 /HPF (None Seen); Urine Urobilinogen Normal (Normal); Urine WBC Clump Rare /HPF (None Seen); Urine pH 5.5 (5.0-7.0)
[2022-10-10] MEDS: MELATONIN 3 MG TABLET PO SCH (20:16)
[2022-10-10] MEDS: ENSURE CLEAR 200 ML CAN PO SCH (20:18)
--- NOTE | 2022-10-10 22:54 | CON ---
Date of Consultation: 10/10/2022 Diagnosis: Renal failure. History Of Present Illness: This is the case of a male with a history of esophageal cancer and chemo therapy, Port-A-Cath on the right side, admitted to the hospital with medical reasons, found to have also acute kidney failure and a surgical consult for tunneled hemodialysis catheter was requested. Past Medical History: As above including heart disease, esophageal cancer on chemotherapy, and kidne y disease. Past Surgical History: Previous Port-A-Cath placement. Allergies: NONE. Social History: He does not smoke. He does not drink alcohol. Family History: Noncontributory. Review of Systems: No shortness of breath. No chest pain at this moment. The patient is eating. He does not have a PE G tube anymore, although obviously diet is limited. Physical Examination: General: The patient is awake, alert. HEENT: Pupils equal and reactive. Anicteric. Neck: Supple. Chest: Bilateral breath sounds. Abdomen: Soft and depressible. Extremities: Good capillary refill. On the chest, patient has a Port-A-Cath on the right side. Laboratory Data: Blood work shows WBC count of 5.9, hemoglobin of 11.8. INR is 0.93. Creatinine is 5.9, BUN is 79, and potassium is 4.1. Assessment: This is a 72-year-old patient in need of a tunnel hemodialysis catheter. The benefits, alternatives, and risks of placement of tunneled hemodialysis catheter fully explained, which include , but not limited to infection, bleeding, damage to adjacent structures, anesthesia complication, pne umothorax, hemothorax, pericardiac tamponade, arrhythmias, vascular injury, hematomas, perforation, M I, and even . He also understands this may not relieve symptoms. He might need more than one s urgical intervention. He understood and signed a consent. Then we wrote orders for n.p.o. after mid night and we will proceed with the placement. DESMOND/NA Voice ID: [id number] Report ID: [id number]
[2022-10-11] MEDS: Ringers Lactate 1,000 ML IV SCH (05:47)
[2022-10-11 05:52] LABS: Potassium 4.2 mmol/L (3.5-5.1)
[2022-10-11] MEDS: ONDANSETRON 4 MG/2 ML VIAL IV PRN ×2 (06:08→17:02)
[2022-10-11] MEDS: SUCRALFATE 1GM/10ML UCUP PO SCH ×4 (07:30→20:21)
[2022-10-11] MEDS ORDERED: FENTANYL CITR 100 MCG/2 ML IV ONE (08:21)
[2022-10-11] MEDS: SERTRALINE HCL 50 MG TAB PO SCH (09:00)
[2022-10-11] MEDS: PANTOPRAZOLE 40MG TABLET PO SCH ×2 (09:00→20:21)
[2022-10-11] MEDS: ENSURE CLEAR 200 ML CAN PO SCH ×3 (09:00→20:21)
--- NOTE | 2022-10-11 12:05 | P.PN ---
Subjective Date of Service: 10/11/22 Chief Complaint: Abnormal labs Patient states he feels much better today. He denies any vomit. He stated he is eating more. He denies any diarrhea. No recorded fever. Physical Examination - Vital Signs Temperature: 97.8 F Blood Pressure: 138/85 Pulse: 79 Respirations: 14 Pulse Ox (%): 100 - Physical Exam General: Alert, In no apparent distress, Oriented x3 HEENT: Mucous membr. moist/pink Neck: JVD not distended Respiratory: Clear to auscultation bilaterally, Normal air movement Cardiovascular: Regular rate/rhythm, Normal S1 S2 Gastrointestinal: Soft and benign, Non-distended Musculoskeletal: No swelling Integumentary: No rashes Neurological: Normal strength at 5/5 x4 extr Assessment And Plan - Current Problems (Diagnosis) (1) Elevated troponin Current Visit: Yes Status: Acute (2) Acute renal failure superimposed on stage 3 chronic kidney disease Current Visit: No Status: Acute (3) Chronic systolic heart failure Current Visit: No Status: Acute (4) History of esophageal cancer Current Visit: No Status: Acute (5) Nausea and vomiting Current Visit: No Status: Acute (6) Severe protein-calorie malnutrition Current Visit: Yes Status: Acute - Plan Nephrology is following Serum creatinine continue to trend up Continue IV fluid per nephrology General surgery consulted for dialysis access. Patient has a Port-A-Cath on the right. Dialysis initiation per nephrology. Patient may also need arrangements for outpatient hemodialysis Elevated troponin likely secondary to decreased renal clearance and demand ischemia given history of LV dysfunction. Troponin trended flat Echocardiogram is pending. Continue IV Protonix and Carafate for history of gastric ulcer.
--- NOTE | 2022-10-11 12:17 | P.PN ---
(S) Pt NPO for TDC placement, no nausea this AM, but reports chronic epigastric discomfort. No dyspnea at rest. Remains oliguric. General: Alert, In no apparent distress, Oriented x3, Cooperative, Cachectic HEENT: Atraumatic, Normocephalic, PERRLA Neck: Supple Respiratory: Normal air movement, Other (No rhonchi) Cardiovascular: No edema, Regular rate/rhythm, Normal S1 S2 Gastrointestinal: Other (Scaphoid, NT, some epigastric TTP) Musculoskeletal: No swelling, No contractures, Other (Muscle mass loss) Integumentary: No rashes, No breakdown, No significant lesion Neurological: Normal speech, Normal tone Laboratory Data (last 24 hrs) Reviewed Conclusions/Impression: A/P) 1. Abnormal results of kidney function studies 2. Small kidney unilateral, primarily solitary kidney state 3. Progressive CKD, now CKD V/ESRD potentially 4. Azotemia with likely early uremia 5. Oligoanuria 6. Esophageal cancer 7. Hyperphosphatemia 8. Calculus and cysts of kidney 9. Cardiomyopathy unspecified, chronic systolic CHF. 10. Metab acidosis -eGFR has been low for some time, prior and latest renal imaging is consistent with a more atrophic left kidney, Rt kidney with some cysts and non obstructive nephrolithiasis but without hydro and no bladder distention reported on imaging yesterday. -Can not rule out some sub-acute CLIVE on advanced CKD and unclear what chemo regimen he is on but I presume he is not getting cisplatin agents with his renal impairment. -No response to gentle IVF hydration thus far and Cr level cont to rise. Given constellation of above and symptoms, pt is agreeable to proceeding with HD and anticipate longer-term HD so requesting TDC and did consult CM for OP HD placement. -Initial HD today if line gets placed today, see orders for details. -Appears to be compensated from his cardiomyopathy standpoint -If N/V persist post initiation of HD, will request GI to investigate further and manage Prashant Melendez MD, BUSTER
[2022-10-11] MEDS ORDERED: NA CHLORIDE 0.9% 500 ML ONE (12:18)
[2022-10-11] MEDS ORDERED: HEPARIN 5000 UNIT/ML 1 ML VIAL ONE (12:22)
[2022-10-11] MEDS ORDERED: NS 0.9% VIAL 10 ML ONE (12:22)
[2022-10-11] MEDS ORDERED: NA CHLORIDE 0.9% 100 ML IV ONE (12:23)
[2022-10-11] MEDS ORDERED: CEFAZOLIN SODIUM 1 GM/VIAL ONE (12:58)
--- NOTE | 2022-10-11 13:42 | P.BOP ---
Preoperative diagnosis: ESRD, esophageal cancer on chemotherapy Postoperative diagnosis: same Primary procedure: 1. Placement of tunneled HD catheter left IJV Secondary procedure: 2. interpretation of fluoroscopy Other procedure(s): 3. LEft neck ultrasound. Estimated blood loss: <5cc Specimen: none Findings: as above Anesthesia: General Complications: None Transferred to: Recovery Room Condition: Good
--- NOTE | 2022-10-11 14:07 | RAD REPORT ---
EXAM DESCRIPTION: RAD - Chest Single View - 10/11/2022 2:00 pm CLINICAL HISTORY: s/p HD catheter COMPARISON: Chest Pa And Lat (2 Views) dated 10/09/2022; Chest Pa And Lat (2 Views) dated 07/15/2022; Chest Single View dated 03/02/2021; Chest Single View dated 01/02/2021 FINDINGS: Lines: Right IJ approach Port-A-Cath with tip overlying the SVC. Left IJ approach dialysis catheter. The tip overlies the proximal SVC. It may be angled into the azygos vein. Lungs: No evidence of edema or pneumonia. Pleural: No significant pleural effusions or pneumothorax. Cardiac: The heart size is within normal limits. Mediastinum: Within normal limits. Bones: No acute fractures. Other: None IMPRESSION: No acute cardiopulmonary disease. Left IJ approach dialysis catheter. No pneumothorax. S ee discussion about tip location above.
[2022-10-11] MEDS: HYDROCODONE/APAP 7.5/325 MG TAB PO PRN ×2 (14:49→23:24)
--- NOTE | 2022-10-11 18:56 | RAD REPORT ---
EXAM DESCRIPTION: RAD - Fluoroscopy <1 Hour - 10/11/2022 5:23 pm CLINICAL HISTORY: HEMODIALYSIS CATHETER PLACEMENT COMPARISON: Guided FNA Non Breast dated 08/30/2021; Chest Pa And Lat (2 Views) dated 10/09/2022 FINDINGS/IMPRESSION: Ten intraoperative fluoroscopic images were submitted showing placement of a le ft IJ approach dialysis catheter. A right IJ approach port is also present. Fluoro time: 0.5 minutes Cumulative dose: 5.1 mGy
[2022-10-11] MEDS ORDERED: PROMETHAZINE INJ 25 MG/ML AMP IV ONE (20:03)
[2022-10-11] MEDS: MELATONIN 3 MG TABLET PO SCH (20:21)
--- NOTE | 2022-10-12 01:09 | OP ---
Date of Procedure: 10/11/2022 Surgeon: Gian Winn MD Diagnosis: End-stage renal disease; esophageal cancer, on chemotherapy. Postoperative Diagnosis: End-stage renal disease; esophageal cancer, on chemotherapy. Procedures: 1.Placement of a tunneled hemodialysis catheter and the left internal jugular vein. 2.Interpretation of fluoroscopy. 3.Left neck ultrasound. Anesthesia: Local plus sedation. Complications: None. Specimen: None. Estimated Blood Loss: Less than 5 cc. Indications: This is the case of a male, who comes to us with renal failure. He has some other medi shavonne issues. He has severe cancer, on chemotherapy currently, but his kidneys are not functioning pro perly. He understands the risks of placement of hemodialysis catheter, which include, but not limite d to infection, bleeding, damage to adjacent structures, anesthesia complications, hemothorax, pneumo thorax, pericarditis, pericardiac tamponade, DVTs, PE, [place], and even . He has also history of he art disease. He understands that but without dialysis he is not going to improve, so the Renal Servi ce is still requesting dialysis catheter, so we booked him urgently to the OR. Description Of Procedure: The patient placed in supine position. Anesthesia was given without compl ication. The left neck and chest were prepped and draped in usual sterile fashion. We have to use t he left side since the right side, the patient has a Port-A-Cath that he needs for his chemotherapy. Once the area was prepped and draped in the usual sterile fashion and time-out was called, we used u ltrasound to localize the internal jugular vein, found to be viable and compressible. An 18-gauge ne edle was placed in that vein with the help of ultrasound and the guidewire was passed through. This was done on the first attempt. A HemoSplit hemodialysis catheter was then inserted in the area near the chest and then tracked underneath the skin to meet that incision in the left upper neck. Serial dilators were placed through the guidewire with the help of fluoroscopy until we placed an introducer sheath. The guidewire was removed and a HemoSplit was placed through the introducer sheath and then subsequently was peeled off. Excellent backflow and inflow, looks like in good position. The line was flushed with heparinized solution and the 3-0 chromic was used for a subcuticular closure and nyl on for the suture of the catheter. Patient tolerated the procedure well. Patient was brought back f rom Trendelenburg position to normal position, sent to recovery room in stable condition and a chest x-ray was ordered stat. DESMOND/NA Voice ID: [id number] Report ID: [id number]
[2022-10-12] MEDS: ONDANSETRON 4 MG/2 ML VIAL IV PRN ×2 (03:48→19:45)
[2022-10-12] MEDS: HYDROCODONE/APAP 7.5/325 MG TAB PO PRN (05:50)
[2022-10-12 06:29] LABS: Potassium 3.7 mmol/L (3.5-5.1)
[2022-10-12] MEDS: SUCRALFATE 1GM/10ML UCUP PO SCH ×4 (07:30→21:00)
[2022-10-12] MEDS: SERTRALINE HCL 50 MG TAB PO SCH (07:54)
[2022-10-12] MEDS: PANTOPRAZOLE 40MG TABLET PO SCH ×2 (07:54→21:00)
[2022-10-12] MEDS: ENSURE CLEAR 200 ML CAN PO SCH ×3 (07:56→20:59)
[2022-10-12] MEDS ORDERED: PROMETHAZINE INJ 25 MG/ML AMP IV ONE (11:31)
[2022-10-12] MEDS ORDERED: NA CHLORIDE 0.9% 1,000 ML IV ONE (12:35)
--- NOTE | 2022-10-12 14:07 | P.PN ---
Subjective Date of Service: 10/12/22 Chief Complaint: Abnormal labs Patient vomited multiple times this morning and filled a bag with vomitus. Vomitus is bile stained. He denies any diarrhea. No recorded fever. UA suggest UTI. Physical Examination - Vital Signs Temperature: 98.2 F Blood Pressure: 89/71 Pulse: 95 Respirations: 14 Pulse Ox (%): 94 - Physical Exam General: Alert, In no apparent distress, Cachectic HEENT: Mucous membr. moist/pink Respiratory: Clear to auscultation bilaterally, Normal air movement Cardiovascular: Regular rate/rhythm, Normal S1 S2 Gastrointestinal: Normal bowel sounds, Soft and benign, No tenderness Musculoskeletal: No swelling Integumentary: No rashes Neurological: Normal strength at 5/5 x4 extr Assessment And Plan - Current Problems (Diagnosis) (1) Elevated troponin Current Visit: Yes Status: Acute (2) Acute renal failure superimposed on stage 3 chronic kidney disease Current Visit: No Status: Acute (3) Chronic systolic heart failure Current Visit: No Status: Acute (4) History of esophageal cancer Current Visit: No Status: Acute (5) Nausea and vomiting Current Visit: No Status: Acute (6) Severe protein-calorie malnutrition Current Visit: Yes Status: Acute - Plan Nephrology is following Serum creatinine trended down. Patient had hemodialysis yesterday. Nephrology to follow Elevated troponin likely secondary to decreased renal clearance and demand ischemia given history of LV dysfunction. Troponin trended flat Echocardiogram is pending. Continue IV Protonix and Carafate for history of gastric ulcer. Obtain KUB due to vomiting. Empiric antibiotic-IV Zosyn. Antiemetics as needed.
--- NOTE | 2022-10-12 14:20 | RAD REPORT ---
EXAM DESCRIPTION: RAD - Abdomen 1 View (KUB) - 10/12/2022 2:06 pm CLINICAL HISTORY: possble obstruction COMPARISON: Abdomen 1 View (KUB) dated 12/16/2020; Abdomen Pelvis Wo Contrast dated 10/09/2022; Abdo men Wo Contrast dated 09/22/2022 FINDINGS: Dilated air-filled viscus present in the left mid abdomen. This is a air-filled patulous s mall bowel headache prior situs anastomosis. This bowel wall is fluid-filled and dilated on the most recent CT study. No other area of dilated bowel. Colon is decompressed with a small amount of stool p resent. No free air or pneumatosis identifiable. IMPRESSION: No free air, pneumatosis or surgically emergent finding. Dilated air-filled viscus in the left mid abdomen is a known chronically dilated patulous loop of sma ll bowel.
--- NOTE | 2022-10-12 14:34 | P.PN ---
(S) S/p Lt IJ TDC and HD yesterday, reports nausea episode on HD yesterday but completed session. Has had further N/V since, KUB done earlier. General: Alert, In no apparent distress, Oriented x3, Cooperative, Cachectic HEENT: Atraumatic, Normocephalic, PERRLA Neck: Supple, Lt IJ TDC, Rt chest port Respiratory: Normal air movement, Other (No rhonchi) Cardiovascular: No edema, Regular rate/rhythm, Normal S1 S2 Gastrointestinal: Other (Scaphoid, NT, some epigastric TTP) Musculoskeletal: No swelling, No contractures, Other (Muscle mass loss) Integumentary: No rashes, No breakdown, No significant lesion Neurological: Normal speech, Normal tone Laboratory Data (last 24 hrs) Reviewed Conclusions/Impression: A/P) 1. Abnormal results of kidney function studies 2. Small kidney unilateral, primarily solitary kidney state 3. Progressive CKD, now CKD V/ESRD potentially 4. Azotemia with likely early uremia 5. Oligoanuria 6. Esophageal cancer 7. Hyperphosphatemia 8. Calculus and cysts of kidney 9. Cardiomyopathy unspecified, chronic systolic CHF. 10. Metab acidosis -eGFR has been low for some time, prior and latest renal imaging is consistent with a more atrophic left kidney, Rt kidney with some cysts and non obstructive nephrolithiasis but without hydro and no bladder distention reported on imaging yesterday. -Can not rule out some sub-acute CLIVE on advanced CKD and unclear what chemo regimen he is on but I presume he is not getting cisplatin agents with his renal impairment. -No response to gentle IVF hydration thus far and Cr level continued to rise. Given constellation of above and symptoms, pt was agreeable to proceeding with HD and anticipate longer-term HD so underwent TDC placement and did consult CM for OP HD placement. -Initial HD performed yesterday, no HD today given holiday and labs are stable -Appears to be compensated from his cardiomyopathy standpoint -If N/V persist post completion of initiation of HD, will request GI to investigate further and manage. Will f/u on KUB to assess for ileus, other Prashant Melendez MD, BUSTER
[2022-10-12] MEDS: PIPER TAZO 2.25 GM in NA CHLORIDE 0.9% 50 ML IV SCH (17:00)
--- NOTE | 2022-10-12 18:49 | PN ---
Subjective: Mr. Brandon Chiang is status post hemodialysis catheter placement. Doing well. No compl aints. He received dialysis yesterday. Objective: Chest: Clear. Catheter site is intact with no hematoma. Abdomen: Soft and depressible. Plan: Continue treatment per [facility] Medical [facility]. We will sign out of the case until the cath eter is ready to be removed and we will be glad to help. He was advised once again this is temporary catheter. If he continues with dialysis, he should look for vascular surgeons in [place] to complet e a peripheral access on him. DESMOND/NA Voice ID: [id number] Report ID: [id number]
[2022-10-12] MEDS ORDERED: FENTANYL CITR 100 MCG/2 ML IV ONE (20:37)
[2022-10-12] MEDS ORDERED: ALBUMIN HUMAN 25% 100 ML IV ONE (20:37)
[2022-10-12] MEDS ORDERED: MIDODRINE HCL 5 MG TABLET PO ONE (20:38)
[2022-10-12] MEDS: MELATONIN 3 MG TABLET PO SCH (20:59)
[2022-10-12] MEDS ORDERED: D50W 25 GM/50 ML SYRINGE IV ONE (21:35)
[2022-10-12] MEDS ORDERED: NA CHLORIDE 0.9% 1,000 ML ONE (21:35)
[2022-10-12] MEDS ORDERED: NA CHLORIDE 0.9% 500 ML IV ONE ×2 (21:35→22:40)
--- NOTE | 2022-10-12 21:45 | P.PN ---
Date of Service: 10/12/22 rapid response was called at 0930PM then shortly after code blue was called. Pulse was not lost (not a true code blue). He was less responsive, faint pulses, and hypotensive. he was given IV fluid bolus and 1/2 amp d50 and became more responsive. apparently afib RVR was noted on the monitor shortly before. Repeat labs without any significant changes. EKG showed new 2:1 aflutter. BP has not responded to IV fluids or albumin. Will transfer patient to ICU and start on vasopressors. Could not get ahold of family to discuss code status.
[2022-10-12 21:57] LABS: Absolute Lymphocytes (CBC) 2.1 K/uL (0.7-4.9); Hematocrit 41.8 % (39.6-49.0); Lymphocytes % 17.5 % (15.3-44.8); MCV 103.1 fL (80-100); MPV 9.3 fL (7.6-11.3); RBC Red Blood Cell Count 4.05 M/uL (4.33-5.43)
--- NOTE | 2022-10-12 21:59 | RAD REPORT ---
EXAM DESCRIPTION: RAD - Chest Single View - 10/12/2022 9:51 pm CLINICAL HISTORY: SOB/ Rapid response COMPARISON: Portable 10/11/2022 TECHNIQUE: AP portable chest image was obtained 10/12/2022 9:51 pm in supine positioning. FINDINGS: Left jugular double-lumen dialysis catheter in place. Right-sided Port-A-Cath in place. Shai th are in good position. No acute lung parenchymal process seen. Multiple skin fold artifacts are see n overlying the chest. Pneumothorax is not seen. No acute lung parenchymal process. Resuscitation paddles overlie the chest. Heart and vasculature are normal. No measurable pleural flui d collection. No acute bony abnormality seen. No acute aortic findings suspected. IMPRESSION: No acute cardiopulmonary process.
[2022-10-12] MEDS ORDERED: ALBUMIN HUMAN 25% 50 ML IV ONE (22:04)
[2022-10-12 22:18] LABS: Albumin 3.4 g/dL (3.4-5.0); Bilirubin Total 0.6 mg/dL (0.2-1.0); CKMB Creatine Kinase MB 2.1 ng/mL (1.0-3.6); Magnesium 2.4 mg/dL (1.6-2.4); Potassium 3.5 mmol/L (3.5-5.1); Protein, Total 7.4 g/dL (6.4-8.2)
[2022-10-12] MEDS ORDERED: DIGOXIN 0.25 MG/ML AMP IV ONE (22:46)
[2022-10-13] MEDS: ONDANSETRON 4 MG/2 ML VIAL IV PRN (01:27)
[2022-10-13] MEDS: PIPER TAZO 2.25 GM in NA CHLORIDE 0.9% 50 ML IV SCH (01:28)
[2022-10-13] MEDS ORDERED: NA CHLORIDE 0.9% 1,000 ML IV ONE (01:32)
[2022-10-13] MEDS ORDERED: SODIUM CHLORIDE 0.9% 10ML INJ IV PRN (01:36)
[2022-10-13] MEDS ORDERED: Phenylephrine HCl 10 MG/ML 1 ML VIAL ONE (01:45)
[2022-10-13] MEDS ORDERED: NA CHLORIDE 0.9% 250 ML ONE (01:46)
[2022-10-13] MEDS: PANTOPRAZOLE 40 MG INJ IVP SCH ×3 (02:00→20:14)
[2022-10-13] MEDS ORDERED: PROMETHAZINE INJ 25 MG/ML AMP IV ONE (03:56)
[2022-10-13] MEDS ORDERED: HYDROMORPHONE HCL 1 MG/ML INJ IV ONE (03:56)
[2022-10-13 04:53] LABS: Absolute Lymphocytes (CBC) 0.3 K/uL (0.7-4.9); Hematocrit 43.5 % (39.6-49.0); Lymphocytes % 4.1 % (15.3-44.8); MCV 101.3 fL (80-100); MPV 9.3 fL (7.6-11.3); RBC Red Blood Cell Count 4.29 M/uL (4.33-5.43)
[2022-10-13 05:02] VITALS: BMI 16.0
[2022-10-13 05:38] LABS: Magnesium 2.4 mg/dL (1.6-2.4); Phosphorus 8.2 mg/dL (2.5-4.9); Potassium 3.5 mmol/L (3.5-5.1)
[2022-10-13 05:40] LABS: Thyroid Stimulating Hormone 8.63 uIU/mL (0.358-3.740)
[2022-10-13] MEDS: SERTRALINE HCL 50 MG TAB PO SCH (09:00)
[2022-10-13] MEDS: SUCRALFATE 1GM/10ML UCUP PO SCH ×6 (09:00→20:13)
[2022-10-13] MEDS: ENSURE CLEAR 200 ML CAN PO SCH ×3 (09:00→20:13)
[2022-10-13] MEDS: PIPER TAZO 3.375 GM in NA CHLORIDE 0.9% 100 ML IV SCH ×2 (09:01→20:14)
[2022-10-13] MEDS: D5 0.9 NS 1,000 ML IV SCH ×2 (09:22→20:10)
--- NOTE | 2022-10-13 11:08 | P.PN ---
Date of Service: 10/13/22 Vital Signs Temp Pulse Resp BP Pulse Ox 97.8 F 112 H 25 H 97/56 L 100 10/13/22 04:00 10/13/22 08:00 10/13/22 08:00 10/13/22 08:00 10/13/22 08:00 Medications Acetaminophen (Acetaminophen 500 Mg Tab) 500 mg PO Q4HP PRN PRN Reason: TEMP > 100' F Hydrocodone Bitart/Acetaminophen (Hydrocodone/Apap 7.5/325 Mg Tab) 1 tab PO Q6HP PRN PRN Reason: Pain scale 5-7 (Moderate) Last Admin: 10/12/22 05:50 Dose: 1 tab Enteral Nutritional Formula (Ensure Clear 200 Ml Can) 237 ml PO TID [facility] Last Admin: 10/13/22 09:00 Dose: Not Given Heparin Sodium (Porcine) (Heparin 1,000 Unit/Ml Vial) 4,000 unit IV EVERY HD PRN PRN Reason: DIALYSIS CATHETER CARE Last Admin: 10/11/22 18:46 Dose: 4,000 unit Phenylephrine HCl 50 mg/ (Dextrose) 255 mls @ 8.023 mls/hr IV TITR [facility]; Protocol Piperacillin Sod/Tazobactam (Sod 3.375 gm/ Sodium Chloride) 100 mls @ 25 mls/hr IV Q12HR [facility]; Protocol Last Admin: 10/13/22 09:01 Dose: 100 mls Dextrose/Sodium Chloride (D5w Ns 1-Liter Bag) 1,000 mls @ 100 mls/hr IV .Q10H [facility] Last Admin: 10/13/22 09:22 Dose: 1,000 mls Melatonin (Melatonin 3 Mg Tablet) 3 mg PO BEDTIME [facility] Last Admin: 10/12/22 20:59 Dose: 3 mg Ondansetron HCl (Ondansetron 4 Mg/2 Ml Vial) 4 mg IV Q6HP PRN PRN Reason: NAUSEA / VOMITING Last Admin: 10/13/22 01:27 Dose: 4 mg Pantoprazole Sodium (Pantoprazole 40 Mg Inj) 40 mg IVP Q12HR [facility]; Protocol Last Admin: 10/13/22 08:59 Dose: 40 mg Sertraline HCl (Sertraline Hcl 50 Mg Tab) 50 mg PO DAILY [facility] Last Admin: 10/13/22 09:00 Dose: 50 mg Sodium Chloride (Flush Normal Saline 10 Ml) 10 ml IV BID [facility] Last Admin: 10/13/22 09:00 Dose: 10 ml Sodium Chloride (Sodium Chloride 0.9% 10ml Inj) 10 ml IV UD PRN PRN Reason: Diluant Sodium Chloride (Sodium Chloride 0.9% 10ml Inj) 10 ml IV UD PRN PRN Reason: Diluant Sucralfate (Sucralfate 1gm/10ml Ucup) 1 gm PO ACHS [facility] Last Admin: 10/13/22 09:00 Dose: 1 gm Assessment/ Plan: Nephrology No dyspnea No chest pain Cold No acute events overnight Vitals, medications, blood work and imaging reviewed in the chart. NAD. Cachectic. NCAT. MMM. Neck supple. Normal respiratory effort. RRR. Abd ND. No C/C/E. No rash. AAO. Normal speech. CLIVE suspicious for ESRD CKD IV/V with proteinuria -Acute HD tomorrow Hypotension -Continue Midodrine -Check Cortisol level Systolic CHF, chronic -No UF at this time due to hypotension Moderate protein calorie malnutrition Cachexia -Consider TPN CKD MBD HyperPO4 -Consider PO4 binders once N/V/Anorexia improves Case reviewed with Dr. Morales. The patient is considering hospice given the CT findings and the overall poor prognosis. EXAM DESCRIPTION: CT - Abdomen Pelvis Wo Contrast - 10/13/2022 11:28 am CLINICAL HISTORY: r o obstruction COMPARISON: Abdomen Pelvis Wo Contrast dated 10/09/2022; Abdomen 1 View (KUB) dated 10/12/2022; CT RAD RX FIELD SPINE dated 08/14/2021; Abdomen Pelvis Wo Contrast dated 11/30/2020 TECHNIQUE: Axial [address] imaging of the abdomen and pelvis was performed without IV contrast. No IV contrast was given because of allergy, abnormal renal function, patient refusal or physician request. Oral contrast was administered. All CT scans are performed using dose optimization technique as appropriate and may include automated exposure control or mA/KV adjustment according to patient size. FINDINGS: Trace amounts of stranding are present in the posteromedial lung bases. These could reflect minimal infiltrates. No cardiomegaly or pericardial effusion. The lung The liver, spleen and pancreas show no suspicious findings on non-contrast imaging. Gallbladder and biliary tree are also without suspicious finding. Left kidney is smaller than the right. Bilateral renal cysts are present. There are 2 5 millimeter sized nonobstructing calculi at the lower pole of the right kidney. The right kidney is edematous. There is heterogeneity of the renal parenchyma. Stranding is seen in the perinephric fat. Finding is similar to the October 09, 2022 study. Mass lesion cannot be excluded on a noncontrast imaging. Pyelonephritis would be a consideration and needs clinical correlation. No significant adrenal finding. Isodense masses are not excluded. The urinary bladder is without significant finding. Stomach is dilated and contains air, fluid and a small amount fluid. No gastric wall thickening gastric wall mass identifiable. An outlet obstruction is not seen at the pylorus or bulb. The duodenal C-loop is significantly dilated. Distal duodenum is compressed as it passes between the aorta and superior mesenteric vasculature. Distal duodenum is dilated out to the ligament of Treitz region. The patient has a proximal small bowel anastomosis where there is patulous dilated bowel. This has been seen on multiple studies. More distally the small bowel is not dilated. No colon dilatation or acute colon finding. No free air, free fluid or inflammatory stranding. No hernia, mass or bulky lymphadenopathy. No suspicious bony findings. IMPRESSION: Stomach is dilated with air, food and fluid. Obstructive process at the pylorus or duodenal bulb is not seen. The duodenum is dilated along its entire course except where the duodenum passes between the aorta and superior mesenteric vasculature. The dilation continues into the proximal most jejunum where there is an anastomosis and patulous, dilated small bowel. The proximal small bowel tapers back to a normal diameter without a focal obstructing mass identifiable. The patulous small-bowel at the anastomosis has been seen on multiple prior studies. The dilated duodenum and dilated stomach are new findings. 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 Edematous right kidney with perinephric stranding and heterogeneous ill-defined renal parenchyma. Right-sided pyelonephritis is a consideration and needs correlation with clinical and UA findings. Renal mass is lesser consideration. No obstructing calculus identified.
--- NOTE | 2022-10-13 12:01 | RAD REPORT ---
EXAM DESCRIPTION: CT - Abdomen Pelvis Wo Contrast - 10/13/2022 11:28 am CLINICAL HISTORY: r o obstruction COMPARISON: Abdomen Pelvis Wo Contrast dated 10/09/2022; Abdomen 1 View (KUB) dated 10/12/2022; CT R AD RX FIELD SPINE dated 08/14/2021; Abdomen Pelvis Wo Contrast dated 11/30/2020 TECHNIQUE: Axial [address] imaging of the abdomen and pelvis was performed without IV contrast. No IV contrast was given because of allergy, abnormal renal function, patient refusal or physician re quest. Oral contrast was administered. All CT scans are performed using dose optimization technique as appropriate and may include automated exposure control or mA/KV adjustment according to patient size. FINDINGS: Trace amounts of stranding are present in the posteromedial lung bases. These could reflec t minimal infiltrates. No cardiomegaly or pericardial effusion. The lung The liver, spleen and pancreas show no suspicious findings on non-contrast imaging. Gallbladder and b iliary tree are also without suspicious finding. Left kidney is smaller than the right. Bilateral renal cysts are present. There are 2 5 millimeter si zed nonobstructing calculi at the lower pole of the right kidney. The right kidney is edematous. Ther e is heterogeneity of the renal parenchyma. Stranding is seen in the perinephric fat. Finding is aster lar to the October 09, 2022 study. Mass lesion cannot be excluded on a noncontrast imaging. Pyelonep hritis would be a consideration and needs clinical correlation. No significant adrenal finding. Isode nse masses are not excluded. The urinary bladder is without significant finding. Stomach is dilated and contains air, fluid and a small amount fluid. No gastric wall thickening gastr ic wall mass identifiable. An outlet obstruction is not seen at the pylorus or bulb. The duodenal C-l oop is significantly dilated. Distal duodenum is compressed as it passes between the aorta and superi or mesenteric vasculature. Distal duodenum is dilated out to the ligament of Treitz region. The patie nt has a proximal small bowel anastomosis where there is patulous dilated bowel. This has been seen o n multiple studies. More distally the small bowel is not dilated. No colon dilatation or acute colon finding. No free air, free fluid or inflammatory stranding. No hernia, mass or bulky lymphadenopathy. No suspicious bony findings. IMPRESSION: Stomach is dilated with air, food and fluid. Obstructive process at the pylorus or duode nal bulb is not seen. The duodenum is dilated along its entire course except where the duodenum passes between the aorta an d superior mesenteric vasculature. The dilation continues into the proximal most jejunum where there is an anastomosis and patulous, dilated small bowel. The proximal small bowel tapers back to a normal diameter without a focal obstructing mass identifiable. The patulous small-bowel at the anastomosis has been seen on multiple prior studies. The dilated duod enum and dilated stomach are new findings. 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 Edematous right kidney with perinephric stranding and heterogeneous ill-defined renal parenchyma. Rig ht-sided pyelonephritis is a consideration and needs correlation with clinical and UA findings. Renal mass is lesser consideration. No obstructing calculus identified. Full assessment is limited is the absence of IV contrast.
--- NOTE | 2022-10-13 12:55 | P.PN ---
Subjective Date of Service: 10/13/22 Chief Complaint: Abnormal labs Patient with persistent vomiting. Vomits large volumes of bile-stained fluid. He became hypotensive last night and was given multiple normal saline bolus. He was transferred to the ICU for vasopressor but has no needed any vasopressor till now. Blood pressure is soft but MAP has been greater than 65 He denies any diarrhea. No recorded fever. Serum creatinine trended up significantly from yesterday. He has hiccups. Physical Examination - Vital Signs Temperature: 97.8 F Blood Pressure: 96/71 Pulse: 103 Respirations: 14 Pulse Ox (%): 100 - Physical Exam General: Alert, In no apparent distress, Cachectic HEENT: Mucous membr. moist/pink Respiratory: Clear to auscultation bilaterally, Normal air movement Cardiovascular: No edema, Other (Tachycardia) Gastrointestinal: Soft and benign, Non-distended, No tenderness Musculoskeletal: No erythema Integumentary: No rashes Neurological: Normal strength at 5/5 x4 extr Assessment And Plan - Current Problems (Diagnosis) (1) Elevated troponin Current Visit: Yes Status: Acute (2) Acute renal failure superimposed on stage 3 chronic kidney disease Current Visit: No Status: Acute (3) Chronic systolic heart failure Current Visit: No Status: Acute (4) History of esophageal cancer Current Visit: No Status: Acute (5) Nausea and vomiting Current Visit: No Status: Acute (6) Severe protein-calorie malnutrition Current Visit: Yes Status: Acute (7) Small bowel obstruction Current Visit: No Status: Acute - Plan Nephrology is following Serum creatinine up again. Status post hemodialysis 10/11/2022. Patient with persistent large volume vomiting. CT abdomen and pelvis results reviewed. It reports: Stomach is dilated with air, food and fluid. Obstructive process at the pylorus or duodenal bulb is not seen. The duodenum is dilated along its entire course except where the duodenum passes between the aorta and superior mesenteric vasculature. The dilation continues into the proximal most jejunum where there is an anastomosis and patulous, dilated small bowel. The proximal small bowel tapers back to a normal diameter without a focal obstructing mass identifiable. The patulous small-bowel at the anastomosis has been seen on multiple prior studies. The dilated duodenum and dilated stomach are new findings. 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 Serum creatinine is up to 6. Patient with a history of esophageal cancer and gastric ulcer making NG tube insertion risky. Given history of esophageal cancer on chemotherapy, renal failure requiring dialysis, small bowel obstruction, prognosis is quite poor and recommended hospice. Patient is receptive to hospice. He want his MPOA to be involved in the goals of care discussion. Continue IV Protonix and Carafate for history of gastric ulcer. Keep n.p.o. Continue antibiotic Antiemetics as needed.
[2022-10-13] MEDS ORDERED: DIGOXIN 0.25 MG/ML AMP IV SCH (14:00)
[2022-10-13] MEDS ORDERED: MORPHINE 2 MG/ML SYR IV PRN (14:15)
[2022-10-13] MEDS: MORPHINE 2 MG/ML SYR IV PRN (14:30)
[2022-10-13 16:07] VITALS: O2SAT 97
--- NOTE | 2022-10-13 17:26 | CON ---
Date of Consultation: 10/13/2022 Reason For Consultation: Episode of atrial fibrillation with rapid ventricular response that convert ed to sinus rhythm. History Of Present Illness: A 72-year-old male with history of history of advanced esophageal cancer and apparently he is having problems with swallowing and vomiting and has pain as well with swallowi ng. He had a brief episode of atrial fibrillation with rapid ventricular response. He converted to sinus rhythm with beta-piotr alone. Seen by bedside. Now, he has been in sinus rhythm. Denies stein ving any chest pain, shortness of breath. Past Medical History: End-stage renal disease, on hemodialysis, esophageal cancer, congestive heart failure. Medications: Refer to reconciliation sheet for detailed list. Allergies: NO KNOWN DRUG ALLERGIES. Family History: No premature coronary artery disease or cancer. Social History: Does not smoke. Drinks periodically. Does not use any drugs. Review of Systems: All systems reviewed and they were negative except what mentioned in HPI. Physical Examination: Vital Signs: Reviewed. Head and Neck: Pupils are equal, reactive to light. Intact eye movements. No JVD. No cervical lym phadenopathy. Neck is supple. Thyroid is not enlarged. Lungs: Decreased breathing sounds bilaterally. No accessory muscle use or muscle retraction. Heart: Regular rate and rhythm. No extra sounds. Abdomen: Soft, nontender. Bowel sounds positive. No organomegaly. No masses or hernia. No rigidi ty or rebound. Extremities: No clubbing or cyanosis. Intact pulses. Skin: No rash. Neurologic: Alert, awake. No acute focal deficits appreciated. Investigations: BUN 61, creatinine 6.37. NT-proBNP is 144 and troponin is trending down. Assessment And Recommendations: 1.Atrial fibrillation with rapid ventricular response, converted to sinus rhythm. Continue metoprol ol 25 mg, can be given by mouth if the patient is able to swallow and twice a day. 2.Esophageal cancer. The patient's prognosis is poor and the patient and family are planning for [facility] hospital[facility] care and palliative measures. At this point, no aggressive cardiac workup will be done due to advanced stage cancer and the poor prognosis. 3.Elevated troponin, likely old demand. No further cardiac workup is recommended due to the advance d stage cancer with poor prognosis. SR/MODL Voice ID: [id number] Report ID: [id number]
--- NOTE | 2022-10-13 19:03 | P.PN ---
Date of Service: 10/14/22 Subjective: ROS: A complete review of systems was performed and is negative except as mentioned above Physical Exam General: Alert, oriented, Cachectic HEENT: Mucous membr. moist/pink Respiratory: Clear to auscultation bilaterally, Normal air movement Cardiovascular: tachycardia, no edema Gastrointestinal: Soft and benign, Non-distended, No tenderness Musculoskeletal: No erythema Integumentary: No rashes Neurological: Normal strength at 5/5 x4 extr Problem List CLIVE on CKD3, now requiring HD elevated troponin secondary to demand ischemia afib, paroxysmal Chronic systolic CHF h/o esophageal cancer nausea and vomiting Severe protein-calorie malnutrition Small bowel obstruction CLIVE on CKD3 Cr trended up nephrology consulted HD cath placed by Dr. Winn s/p HD on 10/11 Persistent large volume vomiting CT abd/pelvis (10/13): stomach/duodenum dilated into proximal jejunem, tapering to normal diameter without focal obstructing mass radiologist reported dilated duodenum and dilated stomach are new findings. 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 Serum creatinine is up to 6. Patient with a history of esoph ageal cancer and gastric ulcer making NG tube insertion risky. Given history of esophageal cancer on chemotherapy, renal failure requiring dialysis, small bowel obstruction, prognosis is quite poor and Dr. Morales recommended hospice. Patient is receptive to hospice and wants his MPOA to be involved in the goals of care discussion. Continue IV Protonix and Carafate for history of gastric ulcer. Continue antibiotic - Zosyn Antiemetics as needed. Code: DNR Dispo: poor prognosis, hospice discussions Time Spent Managing Pts Care (In Minutes): 35
[2022-10-13] MEDS: MELATONIN 3 MG TABLET PO SCH (20:13)
[2022-10-14] MEDS: HYDROCODONE/APAP 7.5/325 MG TAB PO PRN (00:28)
[2022-10-14] MEDS: MORPHINE 2 MG/ML SYR IV PRN ×2 (02:50→09:08)
[2022-10-14] MEDS: D5 0.9 NS 1,000 ML IV SCH (04:54)
[2022-10-14 05:59] LABS: Hematocrit 38.7 % (39.6-49.0); MCV 103.6 fL (80-100); MPV 8.8 fL (7.6-11.3); RBC Red Blood Cell Count 3.73 M/uL (4.33-5.43)
[2022-10-14 06:44] LABS: Albumin 2.9 g/dL (3.4-5.0); Bilirubin Total 0.5 mg/dL (0.2-1.0); Phosphorus 6.6 mg/dL (2.5-4.9); Potassium 3.2 mmol/L (3.5-5.1); Protein, Total 6.9 g/dL (6.4-8.2)
[2022-10-14] MEDS: SUCRALFATE 1GM/10ML UCUP PO SCH ×2 (07:30→11:21)
[2022-10-14] MEDS ORDERED: KCL 20 MEQ/100 mL IVPB 20 MEQ/100 ML BAG IV SCH (08:00)
[2022-10-14 08:33] VITALS: TEMP 97.7
--- NOTE | 2022-10-14 08:35 | EKG ---
Test Date: 2022-10-12 Test Time: 15:57:58 Java Core Developer: YUNIOR Bolden MEASUREMENT RESULTS: Intervals: Rate: 107 MD: 164 QRSD: 118 QT: 346 QTc: 461 [place]: P: 76 MD: 164 QRS: 37 T: -2 INTERPRETIVE STATEMENTS: Sinus tachycardia with premature atrial complexes with aberrant conduction Possible Left atrial enlargement Lateral infarct, age undetermined Inferior infarct, possibly acute T wave abnormality, consider anterior ischemia Abnormal ECG Compared to ECG 10/09/2022 15:04:55 Atrial premature complex(es) now present Aberrant conduction of supraventricular beat(s) now present Sinus rhythm no longer present Myocardial infarct finding still present T-wave abnormality still present Possible ischemia still present Electronically Signed On 10-14-22 08:32:37 SUPERVISOR MIXING by Andrew Ba
[2022-10-14] MEDS: ENSURE CLEAR 200 ML CAN PO SCH (08:43)
[2022-10-14] MEDS: PIPER TAZO 3.375 GM in NA CHLORIDE 0.9% 100 ML IV SCH (09:02)
[2022-10-14] MEDS: SERTRALINE HCL 50 MG TAB PO SCH (09:02)
[2022-10-14] MEDS: PANTOPRAZOLE 40 MG INJ IVP SCH (09:02)
[2022-10-14 12:22] VITALS: BP 109/73
[2022-10-14] MEDS ORDERED: NA CHLORIDE 0.9% 1,000 ML IV ONE (13:39)
[2022-10-14] MEDS ORDERED: D50W 25 GM/50 ML SYRINGE IV ONE (13:39)
--- NOTE | 2022-10-14 22:02 | P.DS ---
Admission Date: 10/09/22 Discharge Date: 10/14/22 Disposition: HOSPICE-HOME Reason for Admission: Abnormal labs Brief History of Present Illness: 72-year-old gentleman with a history of esophageal cancer, on chemotherapy, last chemo was about 2 weeks ago, recently diagnosed gastric ulcer and erosions by endoscopy done by Dr. Greenwood presented to Dr. Greenwood's with a complaint of nausea and vomiting, abdominal discomfort, loss of appetite. He denies any dysphagia and stated he swallows just fine. Blood work was ordered which showed acute renal failure. Patient has a history of chronic kidney disease stage III. He was referred to the emergency department for further management. Patient reports watery diarrhea of onset last night, he endorsed poor oral intake, denied any fever. Blood work in the ED shows creatinine level up to 5.69 compared to a baseline of 3.3. BNP is elevated. Troponin is also elevated. Patient has a history of chronic systolic heart failure, most recent echocardiogram shows EF of 30 to 35%. He is admitted for further management. Hospital Course: Problem List CLIVE on CKD3, now requiring HD elevated troponin secondary to demand ischemia afib, paroxysmal Chronic systolic CHF h/o esophageal cancer nausea and vomiting Severe protein-calorie malnutrition Small bowel obstruction CLIVE on CKD3, renal function trended down and patient was started on hemodialys is. Patient developed nausea/vomiting and abdominal discomfort. CT noted obstructive pattern Patient did not want to continue with dialysis nor treatment for bowel obstruction. After discussions Dr. Morales had with family and patient; they decided to pursue hospice. Hospice was set up and patient was discharged on 10/14/22. Vital Signs/Physical Exam: Temp Pulse Resp BP Pulse Ox 97.7 F 109 H 16 109/73 98 10/14/22 12:00 10/14/22 12:00 10/14/22 12:00 10/14/22 12:00 10/14/22 12:00 Physical Exam General: Alert, oriented, Cachectic HEENT: Mucous membr. moist/pink Respiratory: Clear to auscultation bilaterally, Normal air movement Cardiovascular: tachycardia, no edema Gastrointestinal: Soft and benign, Non-distended, No tenderness Musculoskeletal: No erythema Integumentary: No rashes Neurological: Normal strength at 5/5 x4 extr Laboratory Data at Discharge: WBC 9.70 K/uL (4.3-10.9) 10/14/22 05:46 Hgb 12.9 g/dL (13.6-17.9) L D 10/14/22 05:46 Hct 38.7 % (39.6-49.0) L 10/14/22 05:46 Plt Count 135 K/uL (152-406) L 10/14/22 05:46 PT 10.2 SECONDS (9.5-12.5) 10/10/22 13:19 INR 0.93 10/10/22 13:19 APTT 41.7 SECONDS (24.3-36.9) H 10/10/22 13:19 Sodium 138 mmol/L (136-145) 10/14/22 05:46 Potassium 3.2 mmol/L (3.5-5.1) L 10/14/22 05:46 BUN 74 mg/dL (7-18) H 10/14/22 05:46 Creatinine 7.12 mg/dL (0.70-1.30) H* 10/14/22 05:46 Glucose 153 mg/dL (74-106) H 10/14/22 05:46 Phosphorus 6.6 mg/dL (2.5-4.9) H 10/14/22 05:46 Magnesium 2.4 mg/dL (1.6-2.4) 10/13/22 04:24 Total Bilirubin 0.5 mg/dL (0.2-1.0) 10/14/22 05:46 AST 30 U/L (15-37) 10/14/22 05:46 ALT 13 U/L (16-61) L 10/14/22 05:46 Alkaline Phosphatase 70 U/L (45-117) 10/14/22 05:46 Home Medications: Melatonin [Melatonin*] 3 mg PO BEDTIME 07/15/22 Ondansetron [Zofran] 4 mg PO Q6H PRN 07/15/22 Pantoprazole [Protonix Tab] 40 mg PO BID 07/15/22 Sertraline HCl 50 mg PO DAILY 07/15/22 dexAMETHasone [Decadron] 8 mg PO SEECOM 07/15/22 Hydrocodone Bit/Acetaminophen [[place] 7.5-325 Tablet] 1 each PO Q6HP PRN 10/09/22 Followup: Nolan Cantu MD [Primary Care Provider] - Time spent managing pt's care (in minutes): 45
--- NOTE | 2022-10-15 16:09 | EKG ---
Test Date: 2022-10-12 Test Time: 23:25:24 Carpenter Mate: CPV MEASUREMENT RESULTS: Intervals: Rate: 116 GA: 162 QRSD: 122 QT: 366 QTc: 508 [place]: P: 82 GA: 162 QRS: 64 T: 249 INTERPRETIVE STATEMENTS: Sinus tachycardia with premature atrial complexes Possible Left atrial enlargement Lateral infarct, age undetermined Inferior infarct, age undetermined ST & T wave abnormality, consider anterior ischemia Abnormal ECG Compared to ECG 10/12/2022 21:41:55 Atrial premature complex(es) now present ST (T wave) deviation now present Possible ischemia now present Myocardial infarct finding still present Electronically Signed On 10-15-22 16:05:46 MEDICAL INSURANCE BILLER by London Flaherty
--- NOTE | 2022-10-15 16:09 | EKG ---
Test Date: 2022-10-12 Test Time: 21:41:55 Critical Care Clinical Nurse Specialist: RT-O MEASUREMENT RESULTS: Intervals: Rate: 126 CA: 150 QRSD: 160 QT: 316 QTc: 457 [place]: P: -88 CA: 150 QRS: 69 T: 265 INTERPRETIVE STATEMENTS: Unusual P axis, possible ectopic atrial tachycardia Nonspecific intraventricular block Possible Lateral infarct, age undetermined Inferior infarct, age undetermined Abnormal ECG Compared to ECG 10/12/2022 15:57:58 Sinus tachycardia no longer present Atrial premature complex(es) no longer present Aberrant conduction of supraventricular beat(s) no longer present T-wave abnormality no longer present Possible ischemia no longer present Myocardial infarct finding still present Electronically Signed On 10-15-22 16:06:33 SHOESHINER by London Flaherty
--- NOTE | 2022-10-15 16:12 | EKG ---
Test Date: 2022-10-09 Test Time: 15:04:16 Federal Aid Coordinator: DOMENICA MEASUREMENT RESULTS: Intervals: Rate: 85 VA: 180 QRSD: 114 QT: 390 QTc: 464 [place]: P: 83 VA: 180 QRS: 62 T: 81 INTERPRETIVE STATEMENTS: Normal sinus rhythm Inferior infarct, age undetermined T wave abnormality, consider anterolateral ischemia Abnormal ECG Compared to ECG 07/15/2022 15:02:36 Ventricular premature complex(es) no longer present Myocardial infarct finding still present T-wave abnormality still present Possible ischemia still present Electronically Signed On 10-15-22 16:08:16 CONSERVATION OF RESOURCES COMMISSIONER by London Flaherty
== END 2022-10-14 13:40 | disposition hospice, home (50) | DRG 673 ==
LOC: ER 12:13 → ERHOLD 17:20 → 2ND 19:54 → 3RD-ICU 10-13 01:06 → 2ND 10-13 23:15
PROVIDERS: ADMIT Internal Medicine; ATTEND Hospitalist
PROC: 02HV33Z Insertion of Infusion Device into Superior Vena Cava, Percutaneous Approach (ICD-10-PCS; 2022-10-11)
PROC: 5A1D70Z Performance of Urinary Filtration, Intermittent, Less than 6 Hours Per Day (ICD-10-PCS; 2022-10-11)
PROC: 0JH63XZ Insertion of Tunneled Vascular Access Device into Chest Subcutaneous Tissue and Fascia, Percutaneous Approach (ICD-10-PCS; principal; 2022-10-11 13:00)
DX: N17.9 Acute kidney failure, unspecified (principal); E43 Unspecified severe protein-calorie malnutrition; R57.1 Hypovolemic shock; C15.9 Malignant neoplasm of esophagus, unspecified; I50.22 Chronic systolic (congestive) heart failure; R64 Cachexia; Z68.1 Body mass index [BMI] 19.9 or less, adult; I13.2 Hypertensive heart and chronic kidney disease with heart failure and with stage 5 chronic kidney disease, or end stage renal disease; I43 Cardiomyopathy in diseases classified elsewhere; E87.20 Acidosis, unspecified; N39.0 Urinary tract infection, site not specified; K56.609 Unspecified intestinal obstruction, unspecified as to partial versus complete obstruction; I24.8 Other forms of acute ischemic heart disease; N18.6 End stage renal disease; N28.1 Cyst of kidney, acquired; I48.91 Unspecified atrial fibrillation; N20.0 Calculus of kidney; E83.39 Other disorders of phosphorus metabolism; R94.4 Abnormal results of kidney function studies; R06.6 Hiccough; Z99.2 Dependence on renal dialysis; Z51.5 Encounter for palliative care; Z86.73 Personal history of transient ischemic attack (TIA), and cerebral infarction without residual deficits; Z79.01 Long term (current) use of anticoagulants; Z53.29 Procedure and treatment not carried out because of patient's decision for other reasons; Z96.641 Presence of right artificial hip joint; Z87.891 Personal history of nicotine dependence; Z79.899 Other long term (current) drug therapy; Z20.822 Contact with and (suspected) exposure to COVID-19
CPT/HCPCS: 0240U; 36415; 71045; 71046; 74018; 74176; 76000; 80048; 80053; 81001; 82024; 82533; 82550; 82553; 82947; 83735; 83880; 84100; 84439; 84443; 84484; 85025; 85027; 85610; 85730; 86704; 86705; 86706; 86803; 87086; 87088; 87340; 90935; 93005; 94760; 97116; 97161; 99284; A4216; C1752; C9113; J0690; J1170; J1644; J2270; J2370; J2405; J2543; J2550; J3010; J3480; J7030; J7040; J7042; J7050; J7120; P9047